=== PATIENT | male | born 1950 | race Caucasian/White ===

== ENCOUNTER 2019-02-15 16:20 | Inpatient (IN) | payer MEDICARE, MEDICAID, SELFPAY ==
[2019-02-15 16:20] VITALS: BP 90/55; PULSE 123; RESP 28; TEMP 38.6; O2SAT 96; BMI 19.1
--- NOTE | 2019-02-15 16:20 | ED_ITS ---
Entered by Peggy Lozano, acting as scribe for HPI - SOB/Dyspnea General: Chief Complaint: Shortness of Breath/Dyspnea Stated Complaint: breathing difficulties Time Seen by Provider: 02/15/19 16:24 Source: patient and EMS Mode of arrival: EMS Limitations: no limitations History of Present Illness: HPI Narrative: 68-year-old male presents emergency room with increasing shortness of breath and productive cough over the last week. He denies any significant hemoptysis. He denies significant chest pain. He has been nauseous with decreased appetite. Patient is a former heavy smoker. MD elicited complaint: shortness of breath Onset (ago): day(s) Associated symptoms: Reports fever(s), nausea and orthopnea; Deny abdominal pain, chest pain or vomiting Review of Systems Const: Reports: fever, chills, body aches, fatigue and malaise; Denies: change in appetite ENMT: Denies: throat pain, ear pain, nasal discharge or nasal congestion Card: Reports: shortness of breath on exertion and shortness of breath when lying down; Denies: chest pain or edema Resp: Reports: shortness of breath and productive cough GI: Reports: nausea; Denies: abdominal pain, vomiting, vomiting blood, coffee grounds in vomit, diarrhea, constipation, bloating, blood in stool or black tarry stool : Denies: flank pain, painful urination, urinary frequency or urinary urgency Skin/Breast: Denies: rash or itching PFSH ED PFSH: Statuses (acute, chronic, etc) shown below reflect problem list status as previously entered and may not be historically accurate Medical History (Updated 02/16/19 @ 06:42 by Lito Whitman DO) COPD (chronic obstructive pulmonary disease) (Acute) Coronary artery disease (Acute Unknown) History of arthritis (Acute) History of COPD (Acute) History of depression (Acute) History of hyperlipidemia (Acute) History of hypertension (Acute) History of pulmonary fibrosis (Acute) Hypertension (Acute) Surgical History (Updated 02/15/19 @ 19:55 by Miguelina Bennett) History of cervical spinal surgery (Acute) History of prostatectomy (Acute) History of right knee surgery (Acute) Hx of inguinal hernia surgery (Acute) Social History Smoking and tobacco status: current every day smoker cigarettes Packs smoked per day: 2 Number of cigarettes per day: >20 Alcohol intake: never Substance/Drug Use: never Caregiver/support person: No Lives independently: Yes Household members: none Housing: House Physical Exam Const: COMMON NORMALS: oriented x3 and alert GENERAL APPEARANCE: cooperative, in distress, anxious, disheveled and frail appearing NUTRITIONAL APPEARANCE: underweight ORIENTATION/CONSCIOUSNESS: Yes awake, Yes oriented to person, Yes oriented to place and Yes oriented to time HENMT: COMMON NORMALS: normocephalic, head/scalp atraumatic, hearing grossly normal bilaterally, external ears normal, EAC's normal, TM's normal bilaterally, nasal mucous membranes and turbinates normal, moist oral mucous membranes and oropharynx normal HEAD & SCALP: normocephalic and atraumatic NOSE: nasal mucous membranes and turbinates normal EXTERNAL EAR: Yes external ears normal EXTERNAL AUDITORY CANAL: EAC's normal TYMPANIC MEMBRANE: TM's normal bilaterally Eye: COMMON NORMALS: PERRL, EOMs intact bilaterally, conjunctivae normal and no scleral icterus CONJUNCTIVA: Yes conjunctivae normal PUPIL: Yes PERRL Neck/C-Spine: COMMON NORMALS: full ROM, no lymphadenopathy, supple and no JVD Lymph: LYMPHATIC: no lymphadenopathy noted and no lymphedema noted Resp: EFFORT & INSPECTION: Yes uses accessory muscles and Yes audible wheezes AUSCULTATION: rales on the right in the upper lung boogie, rhonchi throughout, wheezes throughout and diminished lung sounds Cardio: COMMON NORMALS: no JVD, regular rhythm and no murmurs RATE: tachycardic RHYTHM: regular rhythm Extremity: COMMON NORMALS: normal capillary refill, no calf tenderness and no pedal edema GENERAL: Yes clubbing (Fingertips) and Yes cyanosis Neuro: COMMON NORMALS: oriented x3 SENSORIUM/ORIENTATION: Yes alert, Yes oriented to person, Yes oriented to place and Yes oriented to time Skin: COMMON NORMALS: no rashes or lesions noted GENERAL SKIN EXAM: no rashes or lesions noted Course ED course: Patient febrile and acutely short of breath on arrival. Did improve with oxygen supplementation and nebulizers. Chest x-ray shows extensive right upper lobe and right middle lobe pneumonia as well as a left upper lobe pneumonia. White count 38 5 patient will need admission for IV antibiotics likely will also need CT of the chest at some point. Vital Signs: Vital signs: Vital Signs Temperature 98.4 F 02/16/19 05:00 Pulse Rate 68 02/16/19 05:00 Respiratory Rate 24 H 02/16/19 05:00 Blood Pressure 118/64 02/16/19 05:00 Pulse Oximetry 97 02/16/19 05:15 MDM - SOB/Dyspnea Lab Data: Labs: Lab Results 02/15/19 02/15/19 02/15/19 Range/Units 16:40 16:40 16:40 WBC 31.6 H* (4.0-10.0) 10^3/ uL RBC 4.09 L (4.1-5.3) 10^6/u L Hgb 12.7 (11.7-16.6) g/dL Hct 37.5 L (42.0-52.0) % MCV 91.7 (80-94) fL MCH 31.1 (28.0-34.0) pg MCHC 33.9 (30.0-36.0) g/dL RDW 13.6 (12.1-15.1) % Plt Count 394 (130-400) 10^3/c mm MPV 10.4 (7.4-10.4) fL Neut % (Auto) 72.5 % Lymph % (Auto) 16.2 % Teller % (Auto) 6.9 % Eos % (Auto) 0.1 % Baso % (Auto) 0.3 % Neut # (Auto) 23.0 H (1.8-7.7) 10^3/u L Lymph # (Auto) 5.1 H (0.8-4.8) 10^3/u L Teller # (Auto) 2.2 H (0.2-0.9) 10^3/u L Eos # (Auto) 0.0 (0.0-0.8) 10^3/u L Baso # (Auto) 0.1 (0.0-0.1) 10^3/u L Nucleated RBC % (a uto) 0 % Nucleated RBCs # 0.0 /100WBC D-Dimer 5.56 H (0-0.59) ug/mIFE U Specimen Type Sample Site ABG pH (7.35-7.45) ABG pCO2 (35-45) mmHg ABG pO2 (80.0-100.0) mmH g ABG HCO3 (22-26) mmol/L ABG Base Excess (-2.0-2.0) mmol/ L Yan Test Hematocrit (42-52) % Hgb O2 Saturation (95-100) % Carboxyhemoglobin (0.4-20.1) %THgb Methemoglobin (0.4-1.5) % Total Hemoglobin (14-18) g/dL O2 Delivery Device O2 Liters/Min % FiO2 % Specimen Drawn By Wastewater Manager ID Sodium 131 L (136-145) mmol/L Potassium 4.2 (3.5-5.1) mmol/L Chloride 91 L (98-107) mmol/L Carbon Dioxide 25 (22-29) mmol/L Anion Gap 19.2 H (5-19) BUN 21 (8-23) mg/dL Creatinine 0.6 L (0.7-1.2) mg/dL GFR Calculation 134.4 H (90-130) mL/min Glucose 92 (74-106) mg/dL Lactic Acid (0.5-2.2) mmol/L Calcium 9.0 (8.8-10.2) mg/Dl Total Bilirubin 1.1 (0.15-1.2) mg/dL AST 50 H (0-40) U/L ALT 14 (0-41) U/L Alkaline Phosphata se 192 H (40-130) IU/L Total Protein 6.9 (6.6-8.7) g/dL Albumin 2.7 L (3.5-5.2) g/dL Globulin 4.2 (1.3-4.6) g/dL Procalcitonin (0-0.8) ng/mL Influenza Type A A g (Negative) POC Influenza B Ag (Negative) 02/15/19 02/15/19 02/15/19 Range/Units 16:40 16:40 17:05 WBC (4.0-10.0) 10^3/ uL RBC (4.1-5.3) 10^6/u L Hgb (11.7-16.6) g/dL Hct (42.0-52.0) % MCV (80-94) fL MCH (28.0-34.0) pg MCHC (30.0-36.0) g/dL RDW (12.1-15.1) % Plt Count (130-400) 10^3/c mm MPV (7.4-10.4) fL Neut % (Auto) % Lymph % (Auto) % Teller % (Auto) % Eos % (Auto) % Baso % (Auto) % Neut # (Auto) (1.8-7.7) 10^3/u L Lymph # (Auto) (0.8-4.8) 10^3/u L Teller # (Auto) (0.2-0.9) 10^3/u L Eos # (Auto) (0.0-0.8) 10^3/u L Baso # (Auto) (0.0-0.1) 10^3/u L Nucleated RBC % (a uto) % Nucleated RBCs # /100WBC D-Dimer (0-0.59) ug/mIFE U Specimen Type Sample Site ABG pH (7.35-7.45) ABG pCO2 (35-45) mmHg ABG pO2 (80.0-100.0) mmH g ABG HCO3 (22-26) mmol/L ABG Base Excess (-2.0-2.0) mmol/ L Yan Test Hematocrit (42-52) % Hgb O2 Saturation (95-100) % Carboxyhemoglobin (0.4-20.1) %THgb Methemoglobin (0.4-1.5) % Total Hemoglobin (14-18) g/dL O2 Delivery Device O2 Liters/Min % FiO2 % Specimen Drawn By Wastewater Manager ID Sodium (136-145) mmol/L Potassium (3.5-5.1) mmol/L Chloride (98-107) mmol/L Carbon Dioxide (22-29) mmol/L Anion Gap (5-19) BUN (8-23) mg/dL Creatinine (0.7-1.2) mg/dL GFR Calculation (90-130) mL/min Glucose (74-106) mg/dL Lactic Acid 1.9 (0.5-2.2) mmol/L Calcium (8.8-10.2) mg/Dl Total Bilirubin (0.15-1.2) mg/dL AST (0-40) U/L ALT (0-41) U/L Alkaline Phosphata se (40-130) IU/L Total Protein (6.6-8.7) g/dL Albumin (3.5-5.2) g/dL Globulin (1.3-4.6) g/dL Procalcitonin 0.56 (0-0.8) ng/mL Influenza Type A A g Negative (Negative) POC Influenza B Ag Negative (Negative) 02/15/19 Range/Units 18:06 WBC (4.0-10.0) 10^3/ uL RBC (4.1-5.3) 10^6/u L Hgb (11.7-16.6) g/dL Hct (42.0-52.0) % MCV (80-94) fL MCH (28.0-34.0) pg MCHC (30.0-36.0) g/dL RDW (12.1-15.1) % Plt Count (130-400) 10^3/c mm MPV (7.4-10.4) fL Neut % (Auto) % Lymph % (Auto) % Teller % (Auto) % Eos % (Auto) % Baso % (Auto) % Neut # (Auto) (1.8-7.7) 10^3/u L Lymph # (Auto) (0.8-4.8) 10^3/u L Teller # (Auto) (0.2-0.9) 10^3/u L Eos # (Auto) (0.0-0.8) 10^3/u L Baso # (Auto) (0.0-0.1) 10^3/u L Nucleated RBC % (a uto) % Nucleated RBCs # /100WBC D-Dimer (0-0.59) ug/mIFE U Specimen Type Arterial Sample Site Brachial, left ABG pH 7.46 H (7.35-7.45) ABG pCO2 36.9 (35-45) mmHg ABG pO2 75.4 L (80.0-100.0) mmH g ABG HCO3 26.4 H (22-26) mmol/L ABG Base Excess 2.6 H (-2.0-2.0) mmol/ L Yan Test Pos Hematocrit 36.7 L (42-52) % Hgb O2 Saturation 93.6 L (95-100) % Carboxyhemoglobin 1.5 (0.4-20.1) %THgb Methemoglobin 0.9 (0.4-1.5) % Total Hemoglobin 12.0 L (14-18) g/dL O2 Delivery Device Nc O2 Liters/Min 4.0 % FiO2 36.0 % Specimen Drawn By Ck Wastewater Manager ID cak Sodium (136-145) mmol/L Potassium (3.5-5.1) mmol/L Chloride (98-107) mmol/L Carbon Dioxide (22-29) mmol/L Anion Gap (5-19) BUN (8-23) mg/dL Creatinine (0.7-1.2) mg/dL GFR Calculation (90-130) mL/min Glucose (74-106) mg/dL Lactic Acid (0.5-2.2) mmol/L Calcium (8.8-10.2) mg/Dl Total Bilirubin (0.15-1.2) mg/dL AST (0-40) U/L ALT (0-41) U/L Alkaline Phosphata se (40-130) IU/L Total Protein (6.6-8.7) g/dL Albumin (3.5-5.2) g/dL Globulin (1.3-4.6) g/dL Procalcitonin (0-0.8) ng/mL Influenza Type A A g (Negative) POC Influenza B Ag (Negative) Imaging Data^: CXR: My impression: Bilateral upper lobe pneumonia some involvement of the right middle lobe. Scattered granulomas these thickening pleura no cardiomegaly radiology overread pending Discharge Plan Discharge Patient Disposition: Admitted As Inpatient Admit Provider: Ricco Louis Clinical Impression: Pneumonia Qualifiers: Pneumonia type: due to unspecified organism Laterality: bilateral Lung location: upper lobe of lung Qualified Code(s): J18.9 - Pneumonia, unspecified organism COPD (chronic obstructive pulmonary disease) Qualifiers: COPD type: COPD with acute exacerbation Qualified Code(s): J44.1 - Chronic obstructive pulmonary disease with (acute) exacerbation Condition: Stable Referrals: Ricco Louis MD [Hospitalist] - Interventions: ED Discharge Assessment Last Done: 02/16/19 01:30 Discharge Date/Time: 02/16/19 01:15 Coding Level of Care Code ED [employer] for Chg Fwd Exam Problem Focused The documentation recorded by the Blake fuller Bridget Annette, accurately reflects the service I personally performed and the decisions made by me, Lito Whitman, DO
[2019-02-15 16:54] LABS: Basophils # 0.1 10^3/uL (0.0-0.1); Basophils % 0.3 %; Eosinophils % 0.1 %; Hematocrit 37.5 % (42.0-52.0); Hemoglobin 12.7 g/dL (11.7-16.6); Lymphocytes # 5.1 10^3/uL (0.8-4.8); Lymphocytes % 16.2 %; Mean Corpuscular HGB Conc 33.9 g/dL (30.0-36.0); Mean Corpuscular Hemoglobin 31.1 pg (28.0-34.0); Mean Corpuscular Volume 91.7 fL (80-94); Mean Platelet Volume 10.4 fL (7.4-10.4); Monocytes # 2.2 10^3/uL (0.2-0.9); Monocytes % 6.9 %; Neutrophils % 72.5 %; Nucleated Red Blood Cells % 0 %; Platelet Count 394 10^3/cmm (130-400); Red Blood Count 4.09 10^6/uL (4.1-5.3); Red Cell Distribution Width 13.6 % (12.1-15.1)
[2019-02-15 17:05] LABS: White Blood Count 31.6 10^3/uL (4.0-10.0)
[2019-02-15 17:06] LABS: Alanine Aminotransferase 14 U/L (0-41); Albumin Level 2.7 g/dL (3.5-5.2); Alkaline Phosphatase 192 IU/L (40-130); Anion Gap 19.2 (5-19); Aspartate Amino Transferase 50 U/L (0-40); Blood Urea Nitrogen 21 mg/dL (8-23); Carbon Dioxide 25 mmol/L (22-29); Chloride 91 mmol/L (98-107); Globulin 4.2 g/dL (1.3-4.6); Glomerular Filtration Rate 134.4 mL/min (90-130); Glucose 92 mg/dL (74-106); Potassium 4.2 mmol/L (3.5-5.1); Sodium 131 mmol/L (136-145); Total Bilirubin 1.1 mg/dL (0.15-1.2); Total Protein 6.9 g/dL (6.6-8.7)
[2019-02-15] MEDS: sodium chloride 0.9% 1,000 ML 999 ML IV (17:08)
--- NOTE | 2019-02-15 17:13 | XR_ITS ---
WS: [id number] Portable AP upright chest, 02/15/2019 Clinical Data: dyspnea Comparison: Portable chest, 09/08/2018. Findings: Compared to prior chest x-ray there is been an increase in interstitial thickening in both the right and left upper lobes. There is an irregular density in the right upper lobe which could rep resent an acute pneumonia. There are bilateral apical cavitary lesions. There is a 4 cm groundglass o pacity in the left upper lobe which may represent acute pneumonia. The lower lobes show no pneumonia but there are numerous granulomas. The heart size is normal. The pulmonary vascularity is not remark able. XR/XR chest 1V portable [id number] Impression: 1. Increase in interstitial thickening in both upper lobes with bilateral apica l pleural cavitary lesions and this could represent tuberculosis. 2. Increased density in right upper lobe with irregular borders and this may r epresent acute pneumonia. 3. Groundglass opacity which may be in the lingula of the left upper lobe which could represent acute pneumonia.
[2019-02-15 17:15] VITALS: O2SAT 96
[2019-02-15 17:50] LABS: Influenza A by IFA Negative (Negative); Influenza B by IFA Negative (Negative)
[2019-02-15 18:17] LABS: ABG PCO2 36.9 mmHg (35-45); ABG PH Result 7.46 (7.35-7.45); Arterial Blood Gas Hematocrit 36.7 % (42-52); Base Excess ABG 2.6 mmol/L (-2.0-2.0); Blood Gas Allen Test Pos; Blood Gas Sample Site Brachial, left; Blood Gas Sample Type Arterial; Carboxyhemoglobin 1.5 %THgb (0.4-20.1); HCO3 ABG 26.4 mmol/L (22-26); HGB O2 Sat 93.6 % (95-100); Methemoglobin 0.9 % (0.4-1.5); PO2 ABG 75.4 mmHg (80.0-100.0)
[2019-02-15 18:18] VITALS: BP 103/66; PULSE 111; RESP 23; O2SAT 94
--- NOTE | 2019-02-15 18:28 | CTR_ITS ---
PROCEDURE INFORMATION: Exam: CT Chest Without Contrast Exam date and time: 02/15/2019 6:34 PM Age: 68 years old Clinical indication: Cough and shortness of breath; Additional info: Copd/pna TECHNIQUE: Imaging protocol: Computed tomography of the chest without contrast. Sagittal and coronal reformatted images were created and reviewed. Total DLP: 686.08 mGy-cm Radiation optimization: All CT scans at this facility use at least one of these dose optimization techniques: automated exposure control; mA and/or kV adjustment per patient size (includes targeted exams where dose is matched to clinical indication); or iterative reconstruction. COMPARISON: CR XR chest 1V portable [id number] 02/15/2019 5:25 PM FINDINGS: Lungs: Debris layering in the trachea. This may represent bronchial secretions or aspirated contents. Extensive pulmonary parenchymal scarring in the right and left upper lobes with superior retraction of the jeff. Bronchiectatic changes in the right and left upper lobes, findings are extensive on the right. Numerous calcified granulomas scattered throughout both lungs. Moderate to severe centrilobular and paraseptal emphysematous changes in the lungs, predominantly in the upper lobes. Bulla formation in the lung apices. There is dense opacification in the right lower lobe and more diffuse patchy opacification in both right and left lower lobes. Irregular masslike density in the left upper lobe measuring 2.4 x 1.6 cm (series 3, image 21). Irregular lesions with thickened barrera and air-fluid levels in both the superior segment of the right lower lobe and in the left upper lobe, findings are concerning for cavitary lesions. These measures 6.4 x 4.4 cm on the right and 4.6 x 5.9 cm on the left (series 3, images 10 and 23). Pleural space: There are left pleural calcifications. Findings suggest asbestos related pleural disease. Heart: The heart is normal in size. Extensive atherosclerotic calcification in the coronary arteries. Mediastinum: The esophagus is unremarkable as visualized. No mediastinal hematoma. No pneumomediastinum. Aorta: No evidence for aortic aneurysm. Other arteries: Atherosclerotic changes in the visualized arteries. Other veins: The pulmonary veins are unremarkable. Lymph nodes: Right hilar calcified lymph nodes. No lymphadenopathy. Bones/joints: Mild scoliosis in the visualized spine. Multilevel degenerative changes of varying severity in the visualized spine. Patient has had a previous cervical spine fusion. Soft tissues: The extrathoracic soft tissues are unremarkable. Other findings: No acute abnormality in the visualized upper abdomen. CT/CT chest wo con [id number] IMPRESSION: 1. There is dense opacification in the right lower lobe and more diffuse patchy opacification in both right and left lower lobes. Findings may be due to bacterial pneumonia, however there are findings suspicious for cavitary lesions in the superior right lower lobe and in the left upper lobe as well, possible tuberculosis cannot be ruled out. Recommend clinical correlation. 2. Irregular masslike density in the left upper lobe measuring 2.4 x 1.6 cm (series 3, image 21). This could represent an area of nodular pleural parenchymal scarring, a pulmonary mass cannot be ruled out however. Recommend clinical correlation. 3. Debris layering in the trachea. This may represent bronchial secretions or aspirated contents. 4. Extensive pulmonary parenchymal scarring in the right and left upper lobes with superior retraction of the jeff. Bronchiectatic changes in the right and left upper lobes, findings are extensive on the right. 5. Moderate to severe centrilobular and paraseptal emphysematous changes in the lungs, predominantly in the upper lobes. Bulla formation in the lung apices. 6. Findings suggesting asbestos related pleural disease. 7. Incidental/nonacute findings are listed in the report. Radiation Dose CTDIVOL = (mGy): DLP = 686.08 (mGy-cm)
--- NOTE | 2019-02-15 18:30 | PM.HP ---
Providers/Chief Complaint Chief Complaint: breathing difficulties History of Present Illness GIOVANNA MCKEON is a 68 year old male possible history of hypertension, dyslipidemia, anxiety/depression, CAD, [place] spotted fever, possible atrial fibrillation, pulmonary fibrosis, COPD on 4 L nasal cannula oxygen supplementation and recently started on Trelegy presented to the ER with complaining of cough along with expectoration and shortness of breath getting worse for last 3 weeks getting worse for last 4 days and this morning he was not able to walk or talk without getting out of breath so he presented to the ER. He states he does not check his saturations at home but has been feeling worse recently so had gone up on his oxygen supplementation. He complains of subjective feel a fever but has not checked his fevers. He complains of dizziness, nausea but no vomiting or loss of function but does complain of fall when his legs gave away 2 days ago. He denies of having any head injury. Shortness of breath gets worse on walking but is not associated with orthopnea or PND. Shortness of breath is associated with cough with yellowish not foul-smelling not blood-tinged expectoration for last 5 days. He denies of having any recent travels, sick contacts, runny nose, postnasal drip. He denies of having any abdominal pain, change in bowel movements, vomiting, bleeding from anywhere. His symptoms are associated with chest pain on taking deep inspiration along with wheeze which is been getting worse recently. He denies of having any cyanosis. He states around 5 months ago he was put on bilateral braces by Dr. Mann as he was told that his ankles are very weak and fragile to prevent any fractures. Review of Systems Const: Reports: fever, chills, body aches and malaise; Denies: change in appetite, night sweats, diaphoresis, change in sleep pattern, daytime sleepiness or snoring Eyes: Denies: change in vision, blurry vision, photophobia, eye discomfort or eye discharge ENMT: Denies: throat pain, enlarged tonsils, hoarseness, mouth pain, oral sores/lesions, dry mouth, tinnitus, nasal congestion or post nasal drip Card: Reports: chest pain and shortness of breath on exertion; Denies: palpitations, irregular heart rhythm, edema, swelling of feet/ankles, lightheadedness, syncope, pre-syncope, shortness of breath when lying down, leg pain with exertion or bluish discoloration of hands/feet Resp: Reports: shortness of breath, productive cough, wheezing, pain on inspiration, change in phlegm color and chest congestion; Denies: non-productive cough, stridor or coughing up blood GI: Denies: abdominal pain, nausea, vomiting, vomiting blood, coffee grounds in vomit, difficulty swallowing, heartburn/indigestion, diarrhea, constipation, bloating, cramping, change in bowel habits, painful bowel movements, blood in stool or black tarry stool : Denies: flank pain, difficulty urinating, painful urination, urinary frequency, urinary urgency, urinary hesitancy, urinary dribbling, difficulty starting urination, change in urine stream, nighttime urination or blood in urine Musc: Denies: neck pain, back pain, extremity pain, joint pain, joint swelling, redness, joint stiffness or limited range of motion Neuro: Reports: frequent falls and dizziness; Denies: headache, numbness in extremities, weakness in extremities, changes in sensation, lack of coordination, difficulty walking, vertigo, confusion, slurred speech, difficulty communicating thoughts or seizure-like activity Psych: Denies: anxiety, depression, mood swings, panic attacks, hopelessness or irritability Endo: Denies: excessive urination, excessive thirst, tired all the time, cold intolerance, excessive sweating, flushing or heat intolerance Lenard/Lymph: Denies: easy bruising or easy bleeding All/Imm: Denies: tongue swelling, facial swelling or acute wheezing Medications/Allergies Allergies Allergy/AdvReac Type Severity Reaction Status Date / Time No Known Allergies Allergy Verified 02/15/19 16:32 PFSH Acute PFSH: Statuses (acute, chronic, etc) shown below reflect problem list status as previously entered and may not be historically accurate Medical History (Updated 02/15/19 @ 18:40 by Ricco Louis MD) COPD (chronic obstructive pulmonary disease) (Acute) Coronary artery disease (Acute Unknown) History of arthritis (Acute) History of COPD (Acute) History of depression (Acute) History of hyperlipidemia (Acute) History of hypertension (Acute) History of pulmonary fibrosis (Acute) Hypertension (Acute) Surgical History (Updated 02/15/19 @ 16:35 by Peggy Lozano) History of cervical spinal surgery (Acute) History of prostatectomy (Acute) History of right knee surgery (Acute) Hx of inguinal hernia surgery (Acute) Social History (Updated 02/15/19 @ 18:38 by Ricco Louis MD) Smoking and tobacco status: current every day smoker cigarettes Packs smoked per day: 2 Number of cigarettes per day: >20 Alcohol intake: never Substance/Drug Use: never Caregiver/support person: No Lives independently: Yes Household members: none Housing: House Vitals/I&O/Wt Last Vital Signs Temp 101.5 F H 02/15/19 16:20 Pulse 111 H 02/15/19 18:18 Resp 23 H 02/15/19 18:18 BP 103/66 02/15/19 18:18 Pulse Ox 94 02/15/19 18:18 Weight last 48 hrs Weight 77.111 kg Physical Exam Narrative: EXAM NARRATIVE: General: No acute distress, AO x3, dehydrated, white coated tongue, halitosis. HEENT: PERRLA, pupils bilaterally equal and reactive Chest: Bronchial breath sounds in right upper and middle lobes along with inspiratory and expiratory wheeze and coarse Crepitations. Rales present all over lung boogie more than right upper and middle lobe and left lower lobe. CVS: S1-S2 regular, no murmurs, no tachycardia, no gallops, no rubs Abdomen: Soft, nontender, no organomegaly, bowel sounds present Neuro: No focal deficits, no facial deformity, AO x3, power 3/5 in all limbs Extremities: No cyanosis no edema, bilateral pulses 2+ Data Micro: Micro: Microbiology 02/15/19 16:40 Blood Culture - Pr eliminary Blood [facility] 02/15/19 16:40 Blood Culture - Pr eliminary Blood [facility] A&P Assessment and plan (1) Sepsis with acute hypoxic respiratory failure: Status: Acute Code(s): A41.9 - Sepsis, unspecified organism; R65.20 - Severe sepsis without septic shock; J96.01 - Acute respiratory failure with hypoxia (2) Pneumonia: Status: Acute Code(s): J18.9 - Pneumonia, unspecified organism (3) COPD (chronic obstructive pulmonary disease): Status: Acute Code(s): J44.9 - Chronic obstructive pulmonary disease, unspecified (4) Pulmonary fibrosis: Status: Acute Code(s): J84.10 - Pulmonary fibrosis, unspecified (5) Hypertension: Status: Acute Code(s): I10 - Essential (primary) hypertension Additional A&P Information Additional A&P Information: Sepsis: Criteria met with tachycardia, low blood pressures hypoxia. IV fluid resuscitation with 30 mils per KG body weight. Keep mean arterial pressure over 65 mmHg. If blood pressures not maintained will start on Levophed for septic shock. Switch antibiotics to vancomycin and Zosyn at renally dosed. Flu swab, MRSA swab, sputum culture for Gram stain, blood cultures, urine analysis, urine cultures, urine drug screen, procalcitonin, lactate with reflex, urine for Legionella, bacterial antigen. Patient would most likely be having right upper lobe malignancy as he has had consolidation in the same area in the past. Chances of PE less. Will do CT chest without contrast. Check d-dimer. ABG appreciated. Acute hypoxic respiratory failure: Most likely related to pneumonia over COPD exacerbation along with history of pulmonary fibrosis.. Antibiotics as above. Oxygen supplementation keeping saturation over 90%. DuoNeb's [id number], budesonide twice daily, albuterol as needed. Solu-Medrol 40 mg every 6 hours as patient is having extensive wheeze on examination. Hypertension: We will hold off on antihypertensives for now in view of septic shock. Keep mean artery pressure was 55 Hg. History of CAD: Patient is not on any aspirin or statin. Check stat EKG. Patient denies of having any chest pain. N.p.o. because of acute hypoxic respiratory failure. CODE STATUS: Discussed with the patient regarding his wishes. He states he would like to be full code. Lovenox for DVT prophylaxis Attestations Medical Necessity Statement*: Would need admission for more than 48 hours for septic shock and hypoxic respiratory failure Coding Level of Care Code Acute [facility] Vet for [facility] Diagnoses Sepsis with acute hypoxic respiratory failure A41.9; R65.20; J96.01 Pneumonia J18.9 COPD (chronic obstructive pulmonary disease) J44.9 Pulmonary fibrosis J84.10 Hypertension I10
[2019-02-15] MEDS: acetaminophen 500 mg Tablet 1000 MG PO (18:38)
[2019-02-15 18:50] LABS: Lactic Sepsis W/Reflex 1.9 mmol/L (0.5-2.2)
[2019-02-15 18:55] LABS: D Dimer 5.56 ug/mIFEU (0-0.59)
[2019-02-15 19:03] LABS: Procalcitonin 0.56 ng/mL (0-0.8)
[2019-02-15] MEDS: dextrose 5%-sod chloride 0.9% 1,000 ML 100 ML IV (19:05)
--- NOTE | 2019-02-15 19:38 | PC.NURSE ---
Patient requested ice chips, ice chips were given and patient was gowned.
[2019-02-15 19:43] LABS: Blood Gas Drawn By CK; Oxygen Device NC
[2019-02-15 22:11] VITALS: BP 132/63; PULSE 76; RESP 26
[2019-02-15 22:56] VITALS: TEMP 36.4
--- NOTE | 2019-02-15 22:57 | PC.NURSE ---
Patient requested two sandwiches and a soda, okayed by doctor. Sandwiches and soda were given. NOtice that patient was very sweaty, took oral temp and changed patient's pillow case and cleaned pillow. Myra also requested for a urinal and a urinal was given.
[2019-02-15] MEDS: piperacillin-tazobactam 3.375 GM in sodium chloride 0.9% (plus) 50 ML 100 GM PHA2DOSE (23:03)
[2019-02-15 23:47] LABS: Amphetamines Screen Urine Negative (Negative); Barbiturates Screen Urine Negative (Negative); Benzodiazepines Screen Urine Negative (Negative); Cocaine Screen Urine Negative (Negative); Opiate Screen Urine Negative (Negative); PCP Screen Urine Negative (Negative); THC Screen Urine Negative (Negative)
[2019-02-16] VITALS (26 sets, daily range): BP systolic 83–123; BP diastolic 51–88; PULSE 61–131; RESP 18–32; TEMP 36.4–36.9; O2SAT 91–98
[2019-02-16 00:32] LABS: Add Urine Microscopic? NO
[2019-02-16 00:42] LABS: Bilirubin Urine Neg (NEGATIVE); Blood Urine Neg (Negative); Glucose Urine UA Norm (Normal); Ketones Urine 1+ (Negative); Leukocyte Esterase Urine Negative (Negative); Nitrate Urine Negative (Negative); Protein Urine Neg (Negative); Sulfosalicylic Acid Urine Negative; Urine Appearance Clear (CLEAR); Urine Color Yellow (Yellow); Urobilinogen Urine 8 mg/dL (Negative); pH Urine 6 (5-7)
--- NOTE | 2019-02-16 02:10 | PC.PHAR ---
Creatinine clearance is 130.1. Vancomycin is dosed at 1500mg IVPB every 12 hours to produce a predicted trough level of 10.63 (population based pharmacokinetic analysis). A trough level has been ordered from the lab to be obtained before the third dose to confirm and adjust if needed. The Zosyn is dosed at 3.375gm IVPB every eight hours, each dose to be infused over 4 hours per extended dosing protocol.
[2019-02-16] MEDS: ipratropium-albuterol 3 mL Neb INHALATION ×5 (02:21→20:26)
[2019-02-16] MEDS: dextrose 5%-ns + KCl 20 20 MEQ/1,000 ML BAG 125 MEQ IV (03:34)
[2019-02-16 04:59] LABS: Basophils # 0.1 10^3/uL (0.0-0.1); Basophils % 0.3 %; Hematocrit 36.4 % (42.0-52.0); Hemoglobin 12.2 g/dL (11.7-16.6); Lymphocytes # 6.2 10^3/uL (0.8-4.8); Lymphocytes % 16.1 %; Mean Corpuscular HGB Conc 33.5 g/dL (30.0-36.0); Mean Corpuscular Hemoglobin 31.3 pg (28.0-34.0); Mean Corpuscular Volume 93.3 fL (80-94); Mean Platelet Volume 10.4 fL (7.4-10.4); Monocytes % 2.7 %; Neutrophils # 29.8 10^3/uL (1.8-7.7); Neutrophils % 77.4 %; Nucleated Red Blood Cells % 0 %; Platelet Count 414 10^3/cmm (130-400); Red Cell Distribution Width 13.9 % (12.1-15.1)
[2019-02-16 05:26] LABS: Alanine Aminotransferase 15 U/L (0-41); Albumin Level 2.6 g/dL (3.5-5.2); Alkaline Phosphatase 167 IU/L (40-130); Anion Gap 16.3 (5-19); Aspartate Amino Transferase 35 U/L (0-40); Blood Urea Nitrogen 19 mg/dL (8-23); Calcium 8.6 mg/Dl (8.8-10.2); Carbon Dioxide 24 mmol/L (22-29); Chloride 98 mmol/L (98-107); Globulin 3.2 g/dL (1.3-4.6); Glomerular Filtration Rate 165.9 mL/min (90-130); Glucose 219 mg/dL (74-106); Potassium 4.3 mmol/L (3.5-5.1); Sodium 134 mmol/L (136-145); Total Protein 5.8 g/dL (6.6-8.7)
[2019-02-16] MEDS: piperacillin-tazobactam 3.375 GM in sodium chloride 0.9% (plus) 50 ML IV ×3 (05:49→23:04)
[2019-02-16 06:20] LABS: Slide Review Slide Review Perform; White Blood Count 38.5 10^3/uL (4.0-10.0)
[2019-02-16] MEDS: budesonide 0.5 mg/2 mL Neb INHALATION ×2 (08:50→20:25)
[2019-02-16 10:47] LABS: LAB Peripheral Smear Sent for Review
[2019-02-16] MEDS: dextrose 5%-sod chloride 0.9% 1,000 ML 100 ML IV ×2 (11:55→23:05)
[2019-02-16] MEDS: metoprolol tartrate 1 mg/1 mL SDV 5 mL 2.5 MG IV (14:57)
[2019-02-16] MEDS: phenylephrine inj 25 MG in sodium chloride 0.9% 250 ML 12 MG IV (17:04)
[2019-02-16] MEDS: digoxin 250 mcg/ml INJ 2 mL IVP ×2 (21:23→23:56)
--- NOTE | 2019-02-16 22:51 | PM.PN ---
Subjective Subjective: Interval history: Seen and examined earlier this morning. Overnight labs, H&P reviewed. Prior records reviewed. Discharged in 09/2018 with [facility]BC >30K, states he followed with primary where counts were normal. Old CXR and CT chest imaging reviewed. Last Ct several years ago did not show extensive destrcution as seen on CT now. Sputum cx in 09/2018 with Pseudomonas aeruginosa, yanez -S. Additional history: Reports being incarcerated in [place] for 14 months until April 2018 after being led astray by someone he met on the internet. Does not recall being PPD tested. Not currently sexually active. Multiple women partners only in the past. No h/o opportunistic infections. Medications: Reviewed: Yes Vitals/I&O/Wt Last Vital Signs Temp 98.5 F 02/16/19 20:06 Pulse 123 H 02/16/19 20:36 Resp 22 H 02/16/19 20:26 BP 115/72 02/16/19 20:06 Pulse Ox 93 02/16/19 20:26 02/16/19 02/16/19 02/16/19 06:59 14:59 22:59 Intake Total 1123.333 / 4011.912 6166.000 / 2200.000 1218.05 / 3418.050 Output Total 860 / 860 Balance 1123.333 / 6981.654 5978.000 / 2200.000 358.05 / 2558.050 Weight last 48 hrs Weight 81.329 kg Weight 77.111 kg Physical Exam Narrative: EXAM NARRATIVE: Gen: awake,alert, coughing several times during interview, dyspneic on speaking in complete sentences CVS: S1S2N RS: B/L coarse breath sounds + Aabd: Soft, NT/ND, BS+ Data Micro: Micro: Microbiology 02/16/19 15:08 Legionella Urinary Antigen - Final Urine,Voided 02/15/19 16:40 Blood Culture - Pr eliminary Blood NEGATIVE TO DIAMOND E 02/15/19 16:40 Blood Culture - Pr eliminary Blood NEGATIVE TO DIAMOND E A&P Assessment and plan (1) Pneumonia: Status: Acute Qualifiers: Laterality: bilateral Lung location: upper lobe of lung Pneumonia type: due to unspecified organism Qualified Code(s): J18.9 - Pneumonia, unspecified organism Code(s): J18.9 - Pneumonia, unspecified organism (2) COPD (chronic obstructive pulmonary disease): Status: Acute Qualifiers: COPD type: COPD with acute exacerbation Qualified Code(s): J44.1 - Chronic obstructive pulmonary disease with (acute) exacerbation Code(s): J44.9 - Chronic obstructive pulmonary disease, unspecified (3) Pulmonary fibrosis: Status: Acute Code(s): J84.10 - Pulmonary fibrosis, unspecified (4) Hypertension: Status: Acute Code(s): I10 - Essential (primary) hypertension Additional A&P Information Additional A&P Information: Sepsis: Criteria met with tachycardia, low blood pressures hypoxia. Started on levophed this morning, which was switched to phenylephrine this evening with development of A fib with RVR. Continue antibiotics vancomycin and Zosyn empirically Added on AFB cx, MTB PCR from induced sputum x 3 if able to obtain. Planned for bronchoscopy tomorrow morning Chief differentials include extensive necrotizing cavitary Pseudomonas pneumonia vs pulmonary TB Airborne precautions until TB ruled out HIV and hepatitis screen Acute hypoxic respiratory failure: Most likely related to extensive destructive pneumonia. Antibiotics as above. Oxygen supplementation keeping saturation over 90%. DuoNeb's [id number], budesonide twice daily, albuterol as needed. Solu-Medrol 40 mg every 6 hours as patient is having extensive wheeze on examination. Hypertension: We will hold off on antihypertensives for now in view of septic shock. Keep mean artery pressure was 55 Hg. History of CAD: Patient is not on any aspirin or statin. Check stat EKG. Patient denies of having any chest pain. N.p.o. because of acute hypoxic respiratory failure. CODE STATUS: Discussed with the patient regarding his wishes. He states he would like to be full code. Lovenox for DVT prophylaxis Attestations Medical Necessity Statement*: work up of extensive necrotizing cavitray pneumonia Coding Level of Care Code Acute [place] [facility]iller for [facility] Diagnoses Pneumonia J18.9 Laterality: bilateral Lung location: upper lobe of lung Pneumonia type: due to unspecified organism COPD (chronic obstructive pulmonary disease) J44.1 COPD type: COPD with acute exacerbation Pulmonary fibrosis J84.10 Hypertension I10
[2019-02-17] VITALS (28 sets, daily range): BP systolic 72–146; BP diastolic 26–87; PULSE 89–153; RESP 14–36; TEMP 36.6–36.9; O2SAT 86–98
[2019-02-17] MEDS: enoxaparin 40 mg/0.4 mL Syringe SUBCUT (01:58)
[2019-02-17] MEDS: ipratropium-albuterol 3 mL Neb INHALATION ×4 (02:01→20:46)
[2019-02-17] MEDS: piperacillin-tazobactam 3.375 GM in sodium chloride 0.9% (plus) 50 ML IV (05:50)
[2019-02-17 05:54] LABS: Alanine Aminotransferase 22 U/L (0-41); Albumin Level 2.2 g/dL (3.5-5.2); Alkaline Phosphatase 164 IU/L (40-130); Anion Gap 14.3 (5-19); Aspartate Amino Transferase 50 U/L (0-40); Blood Urea Nitrogen 13 mg/dL (8-23); Calcium 8.4 mg/Dl (8.8-10.2); Carbon Dioxide 25 mmol/L (22-29); Chloride 100 mmol/L (98-107); Globulin 3.5 g/dL (1.3-4.6); Glomerular Filtration Rate 165.9 mL/min (90-130); Glucose 152 mg/dL (74-106); Potassium 3.3 mmol/L (3.5-5.1); Sodium 136 mmol/L (136-145); Total Bilirubin 0.4 mg/dL (0.15-1.2); Total Protein 5.7 g/dL (6.6-8.7)
--- NOTE | 2019-02-17 06:23 | PC.NURSE ---
SHIFT SUMMARY PT HAS BEEN ALERT AND ORIENTATED. PT HAS HAD ADEQUATE URINE OUTPUT. PT HAS NOT COMPLAINED OF PAIN, PT COUGH IS STILL VERY STRONG AND BARKING NO SPUTUM. PT LUNGS REMAIN COARSE AT TIMES, DIMINISHED AND WHEEZES AT TIMES. PT IVS REMAIN PATENT. PT ABLE TO TURN SELF IN BED.
[2019-02-17 06:25] LABS: HIV 1 & 2 Antibody Non-Reactive (Non-Reactiv); HIV 1 & 2 Antigen Non-Reactive (Non-Reactiv)
--- NOTE | 2019-02-17 06:55 | PC.NURSE ---
Report received from JORDEN Peter. Pt suspected of TB. Ct shows some pulmonary fibrosis. He has 2 IVs, Left wrist and forearm. He has Zosyn, D5NS and Neosynephrine infusing. The Neosynephrine is running at 5mcg/min. He went into A-fib yesterday am around 0900. He lives alone, he has braces for his legs bilat.
--- NOTE | 2019-02-17 07:15 | PC.NURSE ---
Assessment: Pt alert and oriented. Able to turn self in bed. Coughing consenting , have not seen anything produced yet. Phenylephrine noted to be at at 20mcg/min.
[2019-02-17 07:28] LABS: Hematocrit 34.4 % (42.0-52.0); Hemoglobin 11.3 g/dL (11.7-16.6); Mean Corpuscular Volume 92.7 fL (80-94); Red Blood Count 3.71 10^6/uL (4.1-5.3)
[2019-02-17 07:29] LABS: Mean Corpuscular HGB Conc 32.8 g/dL (30.0-36.0); Mean Corpuscular Hemoglobin 30.5 pg (28.0-34.0); Mean Platelet Volume 10.2 fL (7.4-10.4); Platelet Count 529 10^3/cmm (130-400)
[2019-02-17 07:43] LABS: Absolute Segmented Neutrophil 44.4 10/cmm (1.6-7.1); Band Neutrophils Absolute 2.7 10^3/cmm (0.0-1.2); Lymphocytes 11 %; Monocytes Absolute 1.6 10^3/cmm (0.1-0.6); Segmented Neutrophils 81 %; Total Cells Counted 100 (0-100); White Blood Count 54.9 10^3/uL (4.0-10.0)
[2019-02-17 07:44] LABS: Platelet Estimate Increased (Normal)
[2019-02-17] MEDS: budesonide 0.5 mg/2 mL Neb INHALATION ×2 (08:26→20:46)
[2019-02-17] MEDS: potassium chloride premix 40 MEQ/100 ML PREMIX 25 MEQ IV (08:57)
[2019-02-17] MEDS: digoxin 250 mcg/ml INJ 2 mL IVP ×2 (08:57→13:59)
--- NOTE | 2019-02-17 09:38 | ANES.PREANES ---
Pre-Anesthetic Assessment Pre-Anesthetic Assessment: Height/Weight: Height 2.01 m Weight 80.104 kg Temp Pulse Resp BP Pulse Ox 98.3 F 125 H 20 H 113/72 94 02/17/19 06:00 02/17/19 08:35 02/17/19 08:35 02/17/19 06:00 02/17/19 08:35 Preop Diagnosis: necrotizing pneumonia Proposed Procedure: Operation Date: 02/17/19 08:30 Proposed Procedures p Bronchoscopy with BAL(Not Applicable) - Bippasha Chamberlain MD Familial anesthetic complications: None Was Beta Charissa taken within 24 hours: N/A Last intake: NPO > 8 hrs Social: Social History: Tobacco Exam: Pre-Anes Outpt Exam: alert and oriented x 3 Additional Exam Findings (including area of procedure): coarse breath sounds, A fib w/ rvr - starting on amiodarone bolus and drip Airway: Cervical ROM: WNL MP: 3 Additional comments: Poor dentition; full quintana Pulmonary: Pulmonary: COPD and SOB Comments: Severe bullous emphysema, necrotizing pneumonia - elevated white count CV/HEM: CV/HEM: Afib, HTN and [place] Comments: currently on phenylephrine drip : : None reported Hepatic: Hepatic: None reported GI: GI: GERD Metabolic: Metabolic: None reported Neuropsych: Neuropsych: None reported Anesthetic Plan: ASA status: IV Anesthesia: MAC Risk of > 500 ml blood loss (7ml/kg in children): No Other Pertinent Information: Septic Meds/Allergies Current Medications: Current Medications Generic Name Dose Route Start Last Admin Trade Name Freq PRN Reason Stop Dose Admin Albuterol/Ipratrop ium 3 ml 02/16/19 02:15 02/17/19 08:26 Duoneb INHALATION 3 ml Q6H.RESPIRATORY S CH Administration Budesonide 0.5 mg 02/16/19 09:00 02/17/19 08:26 Pulmicort INHALATION 0.5 mg BID.RESPIRATORY S CH Administration Enoxaparin Sodium 40 mg 02/16/19 01:33 02/17/19 01:58 Lovenox SUBCUT 40 mg Q24H NEYMAR Administration Vancomycin HCl 1,5 00 mg/ 250 mls @ 250 mls /hr 02/15/19 21:00 02/17/19 00:30 Sodium Chloride IV Infused Q12H NEYMAR Infusion Protocol Dextrose/Sodium Ch loride 1,000 mls @ 100 m ls/hr 02/16/19 11:45 02/16/19 23:05 Dextrose 5%-Sod Chloride 0.9% IV 100 mls/hr .Q10H NEYMAR Administration Phenylephrine HCl 25 mg/ 252.5 mls @ 0 mls /hr 02/16/19 16:30 02/16/19 17:04 Sodium Chloride IV 19.8 mcg/min .Q0M NEYMAR 12 mls/hr Administration Protocol Per Protocol Potassium Chloride 40 meq in 100 mls @ 25 mls/hr 02/17/19 08:30 02/17/19 08:57 K-Mikhail IV 02/17/19 12:29 25 mls/hr ONCE ONE Administration Methylprednisolone Sodium Succinate 40 mg 02/16/19 20:00 02/17/19 09:00 Solu-Medrol IVP 40 mg Q12H NEYMAR Administration PFSH Anesthesia PFSH: Medical History (Updated 02/16/19 @ 13:05 by Evonne Perez) COPD (chronic obstructive pulmonary disease) (Acute) COPD (chronic obstructive pulmonary disease) (Acute) Coronary artery disease (Acute Unknown) Coronary artery disease (Acute Unknown) History of arthritis (Acute) History of arthritis (Acute) History of COPD (Acute) History of COPD (Acute) History of depression (Acute) History of depression (Acute) History of hyperlipidemia (Acute) History of hyperlipidemia (Acute) History of hypertension (Acute) History of hypertension (Acute) History of pulmonary fibrosis (Acute) History of pulmonary fibrosis (Acute) Hypertension (Acute) Hypertension (Acute) Surgical History (Updated 02/16/19 @ 13:05 by Evonne Perez) History of cervical spinal surgery (Acute) History of cervical spinal surgery (Acute) History of prostatectomy (Acute) History of prostatectomy (Acute) History of right knee surgery (Acute) History of right knee surgery (Acute) Hx of inguinal hernia surgery (Acute) Hx of inguinal hernia surgery (Acute) Social History Smoking and tobacco status: current every day smoker cigarettes Packs smoked per day: 2 Number of cigarettes per day: >20 Alcohol intake: never Substance/Drug Use: never Caregiver/support person: No Lives independently: Yes Household members: none Housing: House Data Anesthesia Labs: Other Labs: Laboratory Results - last 48 hr 02/15/19 02/15/19 02/15/19 16:40 16:40 16:40 WBC 31.6 H* RBC 4.09 L Hgb 12.7 Hct 37.5 L MCV 91.7 MCH 31.1 MCHC 33.9 RDW 13.6 Plt Count 394 MPV 10.4 Neut % (Auto) 72.5 Lymph % (Auto) 16.2 Starke % (Auto) 6.9 Eos % (Auto) 0.1 Baso % (Auto) 0.3 Neut # (Auto) 23.0 H Lymph # (Auto) 5.1 H Starke # (Auto) 2.2 H Eos # (Auto) 0.0 Baso # (Auto) 0.1 Nucleated RBC % (a uto) 0 Total Counted Segmented Neutroph ils Band Neutrophils Lymphocytes (Manua l) Monocytes (Manual) Absolute Monocytes Nucleated RBCs # 0.0 Platelet Estimate D-Dimer 5.56 H Specimen Type Sample Site ABG pH ABG pCO2 ABG pO2 ABG HCO3 ABG Base Excess Yan Test Hematocrit Hgb O2 Saturation Carboxyhemoglobin Methemoglobin Total Hemoglobin O2 Delivery Device O2 Liters/Min FiO2 Specimen Drawn By Director Of Event Management ID Sodium 131 L Potassium 4.2 Chloride 91 L Carbon Dioxide 25 Anion Gap 19.2 H BUN 21 Creatinine 0.6 L GFR Calculation 134.4 H Glucose 92 Lactic Acid Calcium 9.0 Total Bilirubin 1.1 AST 50 H ALT 14 Alkaline Phosphata se 192 H Total Protein 6.9 Albumin 2.7 L Globulin 4.2 Procalcitonin Urine Color Urine Appearance Urine pH Ur Specific Gravit y Urine Protein Urine Glucose (UA) Urine Ketones Urine Occult Blood Urine Nitrate Urine Bilirubin Prot Sulfosalicyli c Acd Urine Urobilinogen Ur Leukocyte Katheryn ase Urine Opiates Scre en Ur Barbiturates Sc reen Ur Phencyclidine S crn Ur Amphetamines Sc reen U Benzodiazepines Scrn Urine Cocaine Scre en U Marijuana (THC) Screen HIV 1&2 Ab & HIV 1 Ag HIV 1&2 Antibody Influenza Type A A g POC Influenza B Ag 02/15/19 02/15/19 02/15/19 16:40 16:40 17:05 WBC RBC Hgb Hct MCV MCH MCHC RDW Plt Count MPV Neut % (Auto) Lymph % (Auto) Starke % (Auto) Eos % (Auto) Baso % (Auto) Neut # (Auto) Lymph # (Auto) Starke # (Auto) Eos # (Auto) Baso # (Auto) Nucleated RBC % (a uto) Total Counted Segmented Neutroph ils Band Neutrophils Lymphocytes (Manua l) Monocytes (Manual) Absolute Monocytes Nucleated RBCs # Platelet Estimate D-Dimer Specimen Type Sample Site ABG pH ABG pCO2 ABG pO2 ABG HCO3 ABG Base Excess Yan Test Hematocrit Hgb O2 Saturation Carboxyhemoglobin Methemoglobin Total Hemoglobin O2 Delivery Device O2 Liters/Min FiO2 Specimen Drawn By Director Of Event Management ID Sodium Potassium Chloride Carbon Dioxide Anion Gap BUN Creatinine GFR Calculation Glucose Lactic Acid 1.9 Calcium Total Bilirubin AST ALT Alkaline Phosphata se Total Protein Albumin Globulin Procalcitonin 0.56 Urine Color Urine Appearance Urine pH Ur Specific Gravit y Urine Protein Urine Glucose (UA) Urine Ketones Urine Occult Blood Urine Nitrate Urine Bilirubin Prot Sulfosalicyli c Acd Urine Urobilinogen Ur Leukocyte Katheryn ase Urine Opiates Scre en Ur Barbiturates Sc reen Ur Phencyclidine S crn Ur Amphetamines Sc reen U Benzodiazepines Scrn Urine Cocaine Scre en U Marijuana (THC) Screen HIV 1&2 Ab & HIV 1 Ag HIV 1&2 Antibody Influenza Type A A g Negative POC Influenza B Ag Negative 02/15/19 02/15/19 02/15/19 18:06 23:22 23:22 WBC RBC Hgb Hct MCV MCH MCHC RDW Plt Count MPV Neut % (Auto) Lymph % (Auto) Starke % (Auto) Eos % (Auto) Baso % (Auto) Neut # (Auto) Lymph # (Auto) Starke # (Auto) Eos # (Auto) Baso # (Auto) Nucleated RBC % (a uto) Total Counted Segmented Neutroph ils Band Neutrophils Lymphocytes (Manua l) Monocytes (Manual) Absolute Monocytes Nucleated RBCs # Platelet Estimate D-Dimer Specimen Type Arterial Sample Site Brachial, left ABG pH 7.46 H ABG pCO2 36.9 ABG pO2 75.4 L ABG HCO3 26.4 H ABG Base Excess 2.6 H Yan Test Pos Hematocrit 36.7 L Hgb O2 Saturation 93.6 L Carboxyhemoglobin 1.5 Methemoglobin 0.9 Total Hemoglobin 12.0 L O2 Delivery Device Nc O2 Liters/Min 4.0 FiO2 36.0 Specimen Drawn By Ck Director Of Event Management ID cak Sodium Potassium Chloride Carbon Dioxide Anion Gap BUN Creatinine GFR Calculation Glucose Lactic Acid Calcium Total Bilirubin AST ALT Alkaline Phosphata se Total Protein Albumin Globulin Procalcitonin Urine Color Yellow Urine Appearance Clear Urine pH 6 Ur Specific Gravit y 1.010 Urine Protein Neg Urine Glucose (UA) Norm Urine Ketones 1+ H Urine Occult Blood Neg Urine Nitrate Negative Urine Bilirubin Neg Prot Sulfosalicyli c Acd Negative Urine Urobilinogen 8 H Ur Leukocyte Katheryn ase Negative Urine Opiates Scre en Negative Ur Barbiturates Sc reen Negative Ur Phencyclidine S crn Negative Ur Amphetamines Sc reen Negative U Benzodiazepines Scrn Negative Urine Cocaine Scre en Negative U Marijuana (THC) Screen Negative HIV 1&2 Ab & HIV 1 Ag HIV 1&2 Antibody Influenza Type A A g POC Influenza B Ag 02/16/19 02/16/19 02/16/19 04:15 04:15 09:50 WBC 38.5 H* RBC 3.90 L Hgb 12.2 Hct 36.4 L MCV 93.3 MCH 31.3 MCHC 33.5 RDW 13.9 Plt Count 414 H MPV 10.4 Neut % (Auto) 77.4 Lymph % (Auto) 16.1 Starke % (Auto) 2.7 Eos % (Auto) 0.0 Baso % (Auto) 0.3 Neut # (Auto) 29.8 H Lymph # (Auto) 6.2 H Starke # (Auto) 1.0 H Eos # (Auto) 0.0 Baso # (Auto) 0.1 Nucleated RBC % (a uto) 0 Total Counted Segmented Neutroph ils Band Neutrophils Lymphocytes (Manua l) Monocytes (Manual) Absolute Monocytes Nucleated RBCs # 0.0 Platelet Estimate D-Dimer Specimen Type Sample Site ABG pH ABG pCO2 ABG pO2 ABG HCO3 ABG Base Excess Yan Test Hematocrit Hgb O2 Saturation Carboxyhemoglobin Methemoglobin Total Hemoglobin O2 Delivery Device O2 Liters/Min FiO2 Specimen Drawn By Director Of Event Management ID Sodium 134 L Potassium 4.3 Chloride 98 Carbon Dioxide 24 Anion Gap 16.3 BUN 19 Creatinine 0.5 L GFR Calculation 165.9 H Glucose 219 H Lactic Acid Calcium 8.6 L Total Bilirubin 1.0 AST 35 ALT 15 Alkaline Phosphata se 167 H Total Protein 5.8 L Albumin 2.6 L Globulin 3.2 Procalcitonin Urine Color Urine Appearance Urine pH Ur Specific Gravit y Urine Protein Urine Glucose (UA) Urine Ketones Urine Occult Blood Urine Nitrate Urine Bilirubin Prot Sulfosalicyli c Acd Urine Urobilinogen Ur Leukocyte Katheryn ase Urine Opiates Scre en Ur Barbiturates Sc reen Ur Phencyclidine S crn Ur Amphetamines Sc reen U Benzodiazepines Scrn Urine Cocaine Scre en U Marijuana (THC) Screen HIV 1&2 Ab & HIV 1 Ag Non-reactive HIV 1&2 Antibody Non-reactive Influenza Type A A g POC Influenza B Ag 02/17/19 02/17/19 04:14 04:14 WBC 54.9 H* RBC 3.71 L Hgb 11.3 L Hct 34.4 L MCV 92.7 MCH 30.5 MCHC 32.8 RDW 14.0 Plt Count 529 H MPV 10.2 Neut % (Auto) Lymph % (Auto) Starke % (Auto) Eos % (Auto) Baso % (Auto) Neut # (Auto) Lymph # (Auto) Starke # (Auto) Eos # (Auto) Baso # (Auto) Nucleated RBC % (a uto) Total Counted 100 Segmented Neutroph ils 81 Band Neutrophils 5.0 Lymphocytes (Manua l) 11 Monocytes (Manual) 3.0 Absolute Monocytes 1.6 H Nucleated RBCs # Platelet Estimate Increased D-Dimer Specimen Type Sample Site ABG pH ABG pCO2 ABG pO2 ABG HCO3 ABG Base Excess Yan Test Hematocrit Hgb O2 Saturation Carboxyhemoglobin Methemoglobin Total Hemoglobin O2 Delivery Device O2 Liters/Min FiO2 Specimen Drawn By Director Of Event Management ID Sodium 136 Potassium 3.3 L Chloride 100 Carbon Dioxide 25 Anion Gap 14.3 BUN 13 Creatinine 0.5 L GFR Calculation 165.9 H Glucose 152 H Lactic Acid Calcium 8.4 L Total Bilirubin 0.4 AST 50 H ALT 22 Alkaline Phosphata se 164 H Total Protein 5.7 L Albumin 2.2 L Globulin 3.5 Procalcitonin Urine Color Urine Appearance Urine pH Ur Specific Gravit y Urine Protein Urine Glucose (UA) Urine Ketones Urine Occult Blood Urine Nitrate Urine Bilirubin Prot Sulfosalicyli c Acd Urine Urobilinogen Ur Leukocyte Katheryn ase Urine Opiates Scre en Ur Barbiturates Sc reen Ur Phencyclidine S crn Ur Amphetamines Sc reen U Benzodiazepines Scrn Urine Cocaine Scre en U Marijuana (THC) Screen HIV 1&2 Ab & HIV 1 Ag HIV 1&2 Antibody Influenza Type A A g POC Influenza B Ag Micro: Micro: Microbiology 02/16/19 15:08 Legionella Urinary Antigen - Final Urine,Voided 02/15/19 16:40 Blood Culture - Pr eliminary Blood NEGATIVE TO DIAMOND E 02/15/19 16:40 Blood Culture - Pr eliminary Blood NEGATIVE TO DIAMOND E Cardiac Studies: No Data to Display
[2019-02-17 10:25] LABS: Hepatitis C Virus Antibody Non-Reactive (Nonreactive)
[2019-02-17] MEDS: lidocaine 1% INJ 20 mL XX ×2 (10:25→12:06)
[2019-02-17] MEDS: dextrose 5%-sod chloride 0.9% 1,000 ML 30 ML IV (10:29)
[2019-02-17] MEDS: lidocaine 1% INJ 20 mL (10:57)
--- NOTE | 2019-02-17 11:09 | PM.CONSULT ---
Providers/Reason For Consult Consulting Physican/Specialty*: Pulmonology Reason for Consult*: Bilateral cavitary pneumonia Attending Physician: Ricco Louis MD History of Present Illness History of Present Illness Chris Brooks is a 68 year old male with an extensive history of smoking. Currently the patient is smoking about 3 cigarettes/day. I had seen the patient in the office before for COPD and oxygen dependent respiratory failure. The patient also has history of hypertension, hyperlipidemia, coronary artery disease. The patient presented to the hospital on February 15 with worsening shortness of breath over the past 3 weeks that had progressed significantly over the past few days. Unable to walk or talk without getting short of breath. He also complained of cough with production with foul-smelling sputum. Following the hospital visit the patient underwent radiologic studies which revealed bilateral cavitary lesions in the lungs. The patient has left upper lobe cavitary lesion as well as right upper lobe cavitary lesion. There is also infiltrate in the right lower lung. Review of his previous CT scans revealed that the patient had bilateral upper lobe predominant bullous emphysematous disease however his lower lobes appear to be relatively better. I had seen and examined the patient today. The patient is short of breath. He was in atrial fibrillation with RVR and was given 2 doses of digoxin and a bolus dose of amiodarone and started on amiodarone drip. The patient also required phenylephrine to maintain his blood pressure in an acceptable level. The patient is currently on imipenem and vancomycin for the cavitary pneumonia. Review of Systems Narrative: The patient has fever, chills, body ache and malaise. Severe shortness of breath on exertion and some shortness of breath at rest. Patient denied any chest pain however has palpitation. No nausea vomiting or diarrhea. No abdominal pain. The patient appears to be awake alert and oriented. He is worried about his landlord as he owes him money. Meds/Allergies Home Medications and Allergies Allergies Allergy/AdvReac Type Severity Reaction Status Date / Time No Known Allergies Allergy Unverified 02/15/19 16:32 Current Medications Current Medications Generic Name Dose Route Start Last Admin Trade Name Freq PRN Reason Stop Dose Admin Albuterol/Ipratropium 3 ml 02/16/19 02:15 02/17/19 08:26 Duoneb INHALATION 3 ml Q6H.RESPIRATORY NEYMAR Administration Budesonide 0.5 mg 02/16/19 09:00 02/17/19 08:26 Pulmicort INHALATION 0.5 mg BID.RESPIRATORY NEYMAR Administration Enoxaparin Sodium 40 mg 02/16/19 01:33 02/17/19 01:58 Lovenox SUBCUT 40 mg Q24H NEYMAR Administration Vancomycin HCl 1,500 mg/ 250 mls @ 250 mls/hr 02/15/19 21:00 02/17/19 10:26 Sodium Chloride IV 166 mls/hr Q12H NEYMAR Administration Protocol Dextrose/Sodium Chloride 1,000 mls @ 100 mls/hr 02/16/19 11:45 02/17/19 10:29 Dextrose 5%-Sod Chloride 0.9% IV 30 mls/hr .Q10H NEYMAR Administration Phenylephrine HCl 25 mg/ 252.5 mls @ 0 mls/hr 02/16/19 16:30 02/17/19 10:05 Sodium Chloride IV 0 mcg/min .Q0M NEYMAR 0 mls/hr Titration Protocol Per Protocol Potassium Chloride 40 meq in 100 mls @ 25 mls/hr 02/17/19 08:30 02/17/19 08:57 K-Mikhail IV 02/17/19 12:29 25 mls/hr ONCE ONE Administration Imipenem/Cilastatin Sodium 500 100 mls @ 200 mls/hr 02/17/19 08:45 02/17/19 11:00 mg/ Sodium Chloride IV Infused Q6H NEYMAR Infusion Protocol Acetaminophen 1,000 mg in 100 mls @ 400 mls/hr 02/17/19 09:00 02/17/19 10:04 Ofirmev IV 02/18/19 01:14 Infused Q8H NEYMAR Infusion Methylprednisolone Sodium Succinate 40 mg 02/16/19 20:00 02/17/19 09:00 Solu-Medrol IVP 40 mg Q12H NEYMAR Administration PFSH Acute PFSH: Statuses (acute, chronic, etc) shown below reflect problem list status as previously entered and may not be historically accurate Medical History COPD (chronic obstructive pulmonary disease) (Acute) COPD (chronic obstructive pulmonary disease) (Acute) Coronary artery disease (Acute Unknown) Coronary artery disease (Acute Unknown) History of arthritis (Acute) History of arthritis (Acute) History of COPD (Acute) History of COPD (Acute) History of depression (Acute) History of depression (Acute) History of hyperlipidemia (Acute) History of hyperlipidemia (Acute) History of hypertension (Acute) History of hypertension (Acute) History of pulmonary fibrosis (Acute) History of pulmonary fibrosis (Acute) Hypertension (Acute) Hypertension (Acute) Surgical History History of cervical spinal surgery (Acute) History of cervical spinal surgery (Acute) History of prostatectomy (Acute) History of prostatectomy (Acute) History of right knee surgery (Acute) History of right knee surgery (Acute) Hx of inguinal hernia surgery (Acute) Hx of inguinal hernia surgery (Acute) Social History Smoking and tobacco status: current every day smoker cigarettes Packs smoked per day: 2 Number of cigarettes per day: >20 Alcohol intake: never Substance/Drug Use: never Caregiver/support person: No Lives independently: Yes Household members: none Housing: House Vitals/I&O/Wt Last Vital Signs Temp 98.3 F 02/17/19 06:00 Pulse 125 H 02/17/19 08:35 Resp 20 H 02/17/19 08:35 BP 113/72 02/17/19 06:00 Pulse Ox 94 02/17/19 08:35 02/16/19 02/17/19 02/17/19 22:59 06:59 14:59 Intake Total 2218.05 / 4418.050 300 / 4718.050 1543.034 / 1543.034 Output Total 1060 / 1060 Balance 1158.05 / 3358.050 300 / 3658.050 1543.034 / 1543.034 Weight last 48 hrs Weight 176 lb 9.6 oz Weight 179 lb 4.8 oz Weight 170 lb Physical Exam Narrative: EXAM NARRATIVE: General: Patient is awake alert and oriented, in moderate distress from shortness of breath HEENT: Pupil bilateral symmetric, light and accommodation reflex present Neck: No JVD, no cervical or supraclavicular lymphadenopathy. Respiratory: Inspection: Barrel-shaped chest, no visible deformity, scarring or mass lesion Palpation: No tenderness, trachea shifted mildly to the right, reduced chest wall expansion symmetrically bilaterally Percussion: Dullness to percussion bilateral upper lobes Auscultation: Diminished air entry bilaterally, coarse crackles in the bilateral upper and midlung zones, diffuse wheezing and rhonchi Cardiovascular: Variable first heart sound, no murmur, no peripheral edema Abdomen: Soft, nontender, nondistended, positive bowel sound. No palpable organomegaly. Musculoskeletal: No obvious joint deformity Skin: No rash Neuro: Mental status is normal, no gross cranial nerve deficit, normal motor and coordination. Data Micro: Micro: Microbiology 02/16/19 15:08 Legionella Urinary Antigen - Final Urine,Voided 02/15/19 16:40 Blood Culture - Pr eliminary Blood NEGATIVE TO DIAMOND E 02/15/19 16:40 Blood Culture - Pr eliminary Blood NEGATIVE TO DIAMOND E Other Data: Other data: I have reviewed the patient's CT scan of the chest which revealed multiple fluid-filled cavities. There is a cavity in the left upper lobe there is a cavity in the right upper lobe and there is infiltrate in the right lower lobe. A&P Assessment and plan (1) Acute and chronic respiratory failure: The patient has chronic respiratory failure secondary to COPD. Acute on chronic respiratory failure secondary to necrotizing pneumonia complicated by lung abscess. Status: Acute Code(s): J96.20 - Acute and chronic respiratory failure, unspecified whether with hypoxia or hypercapnia (2) Necrotizing pneumonia: The etiology for his necrotizing pneumonia and lung abscess is diffuse. Given his predisposition of acquiring infection because of his emphysema and bullous disease I believe this infection is by a bacterial pathogen. This could easily be staph infection however gram-negative infection is not unusual. Moreover, aspiration pneumonia especially from Streptococcus angina gnosis group can invade fascial plane and present the same way. There is a concern for tubercular infection however it appears that the patient had gotten sick few weeks ago and I do not strongly believe that the patient has TB. The patient is going to go for a bronchoscopy with bronchoalveolar lavage for acquiring proper specimen. Status: Acute Code(s): J85.0 - Gangrene and necrosis of lung (3) Bullous emphysema: The fluid cavity in the left upper lobe is in a pre-existing bulla. However there is dense consolidation of the posterior segment of the right upper lobe and there is an adjacent area of cavity formation as well. Status: Acute Code(s): J43.9 - Emphysema, unspecified (4) COPD (chronic obstructive pulmonary disease): The patient has advanced COPD and is currently on DuoNeb and Pulmicort nebs. Status: Acute Code(s): J44.9 - Chronic obstructive pulmonary disease, unspecified (5) Septic shock: Patient has a diagnosis of septic shock secondary to pressor requirement. He is currently broadly covered with vancomycin and imipenem. We will optimize the medication once we have the bacteria. I will cut down the steroid dose to an equivalent of prednisone dose to 40 mg daily. Status: Acute Code(s): A41.9 - Sepsis, unspecified organism; R65.21 - Severe sepsis with septic shock Consult Attestations Critical Care Time: Critical care time: 30 - 74 mins Coding Level of Care Code Acute Specifications Writer for [facility] Diagnoses Acute and chronic respiratory failure J96.20 Necrotizing pneumonia J85.0 Bullous emphysema J43.9 COPD (chronic obstructive pulmonary disease) J44.9 Septic shock A41.9; R65.21
--- NOTE | 2019-02-17 13:20 | PC.NURSE ---
Pt set his password to : [id number]. Pt stated Yury Petty may have information about him.. Her # [phone]
[2019-02-17] MEDS: sodium chloride 0.9% 500 ML 999 ML IV (14:00)
[2019-02-17] MEDS: sodium chloride 0.9% 500 ML IV (14:53)
--- NOTE | 2019-02-17 15:51 | PM.PACU ---
PACU note Post-Anesthesia Exam: awake, vital signs stable and other (a fib w/ rvr) Disposition: other (bACK TO icu)
--- NOTE | 2019-02-17 16:03 | PC.CHAP ---
Pastoral Care Encounter/Spiritual Assessment Type of Contact [] Declined meteorological equipment repairer visit [] Patient/Family/Request visit [] Outpatient visit [] Follow-up visit [] Physician referral [] Code/Alert [] Routine visit [] Staff referral [] Actively dying [] Patient sleeping [] Family support [] [] Out of room [] Palliative care [] [] Receiving care in room [] Pre-surgical visit [] Trauma [] Long length of stay [x] ICU visit [x] Other: precautions Relational/Emotional Strength [] Patient feels connected with others/family/visitors/staff [] Distress [] Loneliness/isolation [] Abandonment Spirituality of Patient [] Person of Lakshmi [] Attends Shinto of their Lakshmi [] Believes in Prayer [] Reads Bible or Restorationist materials [] There are Spiritual issues to be addressed Compass Operator Interventions [] Prayer [] Active listening [] Non-anxious presence [] Spiritual/emotional support [] Crisis/trauma care [] Spiritual counseling [] Bereavement support [] Provided bereavement packet [] Provided Bible/devotional materials [] Provided toy/stuffed animal, coloring book to patient or family member [] Completed spiritual assessment [] Provided Communion [] Anointing/[place] [] Salvation [] Other: Impact on Illness or Injury [] Angry [] Fearful [] Anxious [] Often cries [] Exhaustion [] Unable to work [] Unable to attend episcopal [] Unable to walk/stand [] Unable to read [] Unable to drive [] Unable to eat/drink [] Unable to sleep [] Unable to be with family [] Other: Summary contact precautions Time spent with patient
--- NOTE | 2019-02-17 16:27 | PM.PN ---
Subjective Subjective: Interval history: Overnight patient has been in A. fib with RVR for which patient was given 500 mcg of digoxin in 2 divided doses. Patient continues to remain on phenylephrine for septic shock. This morning on evaluation patient continues to complain of chest pain on deep inspiration. Continues to have cough with mild expectoration. Denies of any hemoptysis, nausea, vomiting, headache, abdominal pain, diarrhea. Patient is due for bronchoscopy in next 1 hour. Medications: Reviewed: Yes Vitals/I&O/Wt Last Vital Signs Temp 97.8 F 02/17/19 12:40 Pulse 120 H 02/17/19 15:36 Resp 22 H 02/17/19 15:36 BP 146/26 02/17/19 13:07 Pulse Ox 95 02/17/19 15:36 02/17/19 02/17/19 02/17/19 06:59 14:59 22:59 Intake Total 300 / 4718.050 3139.251 / 3139.251 109.1 / 3248.351 Balance 300 / 3658.050 3139.251 / 3139.251 109.1 / 3248.351 Weight last 48 hrs Weight 80.104 kg Weight 81.329 kg Physical Exam Narrative: EXAM NARRATIVE: General: No acute distress, AO x3 HEENT: PERRLA, pupils bilaterally equal and reactive Chest:, Bronchial breath sounds more evident in right upper and middle lobe and left upper lobe. Scattered wheeze present all over the lung boogie, decreased air entry in left and right upper lobe CVS: S1-S2 tachycardia, irregular,, no murmurs, no tachycardia, no gallops, no rubs Abdomen: Soft, nontender, no organomegaly, bowel sounds present Neuro: No focal deficits, no facial deformity, AO x3, power 5/5 in all limbs Data Micro: Micro: Microbiology 02/16/19 16:00 MRSA Culture - Fin al Nose 02/16/19 15:08 Legionella Urinary Antigen - Final Urine,Voided 02/15/19 16:40 Blood Culture - Pr eliminary Blood NEGATIVE TO DIAMOND E 02/15/19 16:40 Blood Culture - Pr eliminary Blood NEGATIVE TO DIAMOND E A&P Assessment and plan (1) Sepsis with acute hypoxic respiratory failure: Status: Acute Code(s): A41.9 - Sepsis, unspecified organism; R65.20 - Severe sepsis without septic shock; J96.01 - Acute respiratory failure with hypoxia (2) Necrotizing pneumonia: Status: Acute Code(s): J85.0 - Gangrene and necrosis of lung (3) Atrial fibrillation: Status: Acute Code(s): I48.91 - Unspecified atrial fibrillation (4) Bullous emphysema: Status: Acute Code(s): J43.9 - Emphysema, unspecified (5) Coronary artery disease: Status: Acute Code(s): I25.10 - Atherosclerotic heart disease of [place] coronary artery without angina pectoris Additional A&P Information Additional A&P Information: Septic shock with acute hypoxic respiratory failure: Criteria met with tachycardia, low blood pressures, hypoxia. Most likely patient has necrotizing pneumonia versus less likely pulmonary tuberculosis. CT scan result and images appreciated for multiple fluid debris levels consistent with abscess. Continue with phenylephrine keeping mean arterial pressures over 65 mmh G. Give 1 L IV bolus. Continue with vancomycin. Patient's white count is trending up most likely from steroids but given the requirement of phenylephrine we will switch from Zosyn to imipenem. Both antibiotics renally dosed. Plan for bronchoscopy today. Follow-up culture results, antigen results from the bronchoscopy specimen. Follow-up blood cultures and sputum cultures already sent. Tuberculosis unlikely but will continue on airborne precautions till AFB negative. Will add bacterial antigen. Follow-up added hepatitis screen. HIV negative. Pulmonology and ID recommendations appreciated. For hypoxic respiratory failure: Continue with DuoNeb's svswch-evq-mygab, budesonide twice daily and albuterol as needed. Patient has been on steroids systemically. Will discontinue steroids today given the possibility of necrotizing pneumonia and possibility of TB. Atrial fibrillation: Patient has a history of atrial fibrillation. Overnight patient was given half dig load. Will complete dig load this morning with 250 mcg digoxin every 6 hourly 2 doses. Patient is due for bronchoscopy very soon and is having tachycardia so we will give patient a bolus of amiodarone 150 as well. After dig load if patient continues to have tachycardia will start patient on amiodarone drip as per the protocol for 24 hours. Would like to avoid amiodarone given the history of extensive pulmonary fibrosis. History of CAD: Denies any chest pain right now. We will start patient on aspirin post procedure tomorrow. N.p.o. for now. Cardiac diet post bronchoscopy. Full code Eliquis for DVT prophylaxis. Attestations Medical Necessity Statement*: Needs continued hospitalization for septic shock and narcotizing PNA Critical Care Time: Critical care time: 75 - 104 mins Coding Level of Care Code Acute Silk Screen Printer Helper for [facility] Fwd Diagnoses Sepsis with acute hypoxic respiratory failure A41.9; R65.20; J96.01 Necrotizing pneumonia J85.0 Atrial fibrillation I48.91 Bullous emphysema J43.9 Coronary artery disease I25.10
--- NOTE | 2019-02-17 16:41 | PM.OP ---
Operative Report Post-Operative Note Date of procedure: 02/17/19 Preop Diagnosis: Necrotizing pneumonia with bilateral lung cavities Post-op diagnosis: same Complications: None Findings: Name of the procedure: Bronchoscopy with bronchoalveolar lavage. Indication: Necrotizing pneumonia with bilateral lung cavities Anesthesia: Monitored anesthesia care. Description of the procedure: The patient was taken to the OR. A timeout was performed. The anesthesia team provided the monitor anesthesia care. The bronchoscope was introduced through the mouth. The vocal cords appeared normal. The vocal cord and epiglottis was anesthetized with 1% lidocaine, 3 mL. The bronchoscope was then introduced into the upper trachea. There was generalized erythema and edema of the anterior trachea. The garcía appeared sharp. There was erythema and generalized edema involving bilateral airways. The garcía and right and left mainstem bronchi were anesthetized with 1% lidocaine. 3 mL of lidocaine was used. In a systematic way, the bronchoscope was introduced into bilateral lungs. The left upper lobe, lingula, lower lobe airways are patent. Other than the erythema and generalized edema no endobronchial lesion, active bleeding was noted. The erythema and edema was also noted in right upper lobe, middle lobe and lower lobes. There is no endobronchial lesion or active bleeding. Mucus was noted throughout the airways. Bronchoalveolar lavage was obtained from the posterior segment of the right upper lobe. Thick mucoid fluid was aspirated. Samples: The bronchoalveolar lavage was sent for Gram stain and culture, AFB stain and culture, fungal stain and culture, galactomannan level. Complications: None. The patient was transferred to ICU in safe and stable condition from the OR.
[2019-02-17 18:05] LABS: Anion Gap 12.8 (5-19); Blood Urea Nitrogen 12 mg/dL (8-23); Calcium 7.9 mg/Dl (8.8-10.2); Carbon Dioxide 26 mmol/L (22-29); Chloride 100 mmol/L (98-107); Glomerular Filtration Rate 214.6 mL/min (90-130); Glucose 191 mg/dL (74-106); Potassium 3.8 mmol/L (3.5-5.1); Sodium 135 mmol/L (136-145)
[2019-02-18] VITALS (27 sets, daily range): BP systolic 92–132; BP diastolic 59–80; PULSE 79–113; RESP 18–35; TEMP 36.6–37.1; O2SAT 89–100
[2019-02-18] MEDS: enoxaparin 40 mg/0.4 mL Syringe SUBCUT (00:42)
[2019-02-18] MEDS: ipratropium-albuterol 3 mL Neb INHALATION ×6 (03:04→23:19)
[2019-02-18 04:25] LABS: Hematocrit 35.2 % (42.0-52.0); Mean Corpuscular HGB Conc 31.3 g/dL (30.0-36.0); Mean Corpuscular Hemoglobin 31.9 pg (28.0-34.0); Mean Platelet Volume 9.5 fL (7.4-10.4); Platelet Count 478 10^3/cmm (130-400); Red Blood Count 3.45 10^6/uL (4.1-5.3); Red Cell Distribution Width 14.5 % (12.1-15.1)
[2019-02-18 04:34] LABS: White Blood Count 38.6 10^3/uL (4.0-10.0)
[2019-02-18 04:45] LABS: Alanine Aminotransferase 44 U/L (0-41); Albumin Level 1.9 g/dL (3.5-5.2); Alkaline Phosphatase 159 IU/L (40-130); Anion Gap 10.9 (5-19); Aspartate Amino Transferase 90 U/L (0-40); Blood Urea Nitrogen 15 mg/dL (8-23); Carbon Dioxide 27 mmol/L (22-29); Chloride 101 mmol/L (98-107); Globulin 3.6 g/dL (1.3-4.6); Glomerular Filtration Rate 165.9 mL/min (90-130); Glucose 115 mg/dL (74-106); Potassium 3.9 mmol/L (3.5-5.1); Sodium 135 mmol/L (136-145); Total Bilirubin 0.3 mg/dL (0.15-1.2); Total Protein 5.5 g/dL (6.6-8.7)
--- NOTE | 2019-02-18 06:48 | PC.NURSE ---
SHIFT SUMMARY PT HAS BEEN ALERT AND ORIENTATED. PT LUNGS ARE WHEEZY AND COARSE AT TIMES. PT IS SELF TURN, HAS HAD ADEQUATE URINE OUTPUT. PT AMIO IS RUNNING AT 0.5 MCG/MIN SINCE 0000. PT HEART RATE AND BP HAVE BEEN WNL. PT STILL IN AFIB, HAVING SOME PVCS. NO RESPIRATORY EVENTS OCCURRED.
[2019-02-18] MEDS: budesonide 0.5 mg/2 mL Neb INHALATION ×2 (08:31→19:56)
--- NOTE | 2019-02-18 08:50 | PM.PN ---
Subjective Subjective: Interval history: No acute events overnight. Underwent bronchoscopy yesterday. Tolerated well. HR better controlled today. C/o chest pain on deep inspiration. States cough and expectoration is same. Medications: Reviewed: Yes Vitals/I&O/Wt Last Vital Signs Temp 98.1 F 02/18/19 06:00 Pulse 108 H 02/18/19 08:42 Resp 22 H 02/18/19 08:33 BP 108/76 02/18/19 07:26 Pulse Ox 93 02/18/19 08:33 02/17/19 02/18/19 02/18/19 22:59 06:59 14:59 Intake Total 1992.1 / 5142.826 636.48 / 5779.306 Output Total 275 / 275 800 / 1075 Balance 1717.1 / 4867.826 -163.52 / 4704.306 Weight last 48 hrs Weight 82.735 kg Weight 80.104 kg Weight 81.329 kg Physical Exam Narrative: EXAM NARRATIVE: General: No acute distress, AO x3, Chachexia HEENT: PERRLA, pupils bilaterally equal and reactive Chest:bronchial breath sounds b/l L> R, Upper lobe more than middle lobe, scattered ronchi and wheeze. CVS: S1-S2 regular, no murmurs, no tachycardia, no gallops, no rubs Abdomen: Soft, nontender, no organomegaly, bowel sounds present Neuro: No focal deficits, no facial deformity, AO x3, power 5/5 in all limbs. Data Micro: Micro: Microbiology 02/16/19 16:00 MRSA Culture - Fin al Nose A&P Assessment and plan (1) Sepsis with acute hypoxic respiratory failure: Status: Acute Code(s): A41.9 - Sepsis, unspecified organism; R65.20 - Severe sepsis without septic shock; J96.01 - Acute respiratory failure with hypoxia (2) Necrotizing pneumonia: Status: Acute Code(s): J85.0 - Gangrene and necrosis of lung (3) Atrial fibrillation: Status: Acute Code(s): I48.91 - Unspecified atrial fibrillation (4) Bullous emphysema: Status: Acute Code(s): J43.9 - Emphysema, unspecified (5) Coronary artery disease: Status: Acute Code(s): I25.10 - Atherosclerotic heart disease of [place] coronary artery without angina pectoris Additional A&P Information Additional A&P Information: Septic shock with acute hypoxic respiratory failure: Criteria met with tachycardia, low blood pressures, hypoxia. Most likely patient has necrotizing pneumonia versus less likely pulmonary tuberculosis. CT scan result and images appreciated for multiple fluid debris levels consistent with abscess. MAP >6h mmhg. C/w IVF @ NS @ 50 cc/hr for 12 hrs C/w Vanc and imipenem both renally dosed. WBC improving. Follow-up BAL culture results, antigen results from the bronchoscopy specimen. Follow-up blood cultures and sputum cultures already sent. Tuberculosis unlikely but will continue on airborne precautions till AFB negative. Bacterial antigen negative. Follow-up added hepatitis screen. HIV negative. Pulmonology and ID recommendations appreciated. Pt might end up needing lobectomy or decortication depending on hospital course goes. Will keep Dr. Sheppard in loop. For hypoxic respiratory failure: Continue with DuoNeb's hckxal-zsz-qgbzh Q4h, budesonide twice daily and albuterol as needed. Will add spiriva as well. As at home pt was on both. Patient has been on steroids systemically. Will discontinue steroids today given the possibility of necrotizing pneumonia and possibility of TB. Start pt on morphine 1 mg IV Q4h PRN. Will help with pain, anxiety and breathing as well. Atrial fibrillation: Patient has a history of atrial fibrillation. Rate better controlled after dig load and amio drip. Seems to converting intermittently to NSR. Will finish 24 hr amio protocol. Will start on PO Dig 250 daily for now. If converts to NSR then will hold off on dig nad if BP better can start on lepressor IV 2.5 mg IV Q6h as needed keeping BP over 110 mmhg. History of CAD: Denies any chest pain right now. Start on ASA 81 mg PO QD. N.p.o. for now. Cardiac diet post bronchoscopy. Full code Lovenox for DVT prophylaxis. Attestations Medical Necessity Statement*: Needs continued hospitalization for septic shock and necrotizing PNA Critical Care Time: Critical care time: 30 - 74 mins Coding Level of Care Code Acute Online Content Coordinator for [facility] Fw Diagnoses Sepsis with acute hypoxic respiratory failure A41.9; R65.20; J96.01 Necrotizing pneumonia J85.0 Atrial fibrillation I48.91 Bullous emphysema J43.9 Coronary artery disease I25.10
[2019-02-18] MEDS: digoxin 250 mcg Tablet PO (09:25)
[2019-02-18] MEDS: morphine 4 mg/mL SDV 1 mL 1 MG IVP ×3 (09:27→22:04)
[2019-02-18] MEDS: meloxicam 7.5 mg tablet 15 MG PO (09:29)
--- NOTE | 2019-02-18 10:05 | ANE.PACU ---
 Inpatient post-anesthesia follow up: Airway intact: Yes Vital signs: Temperature 98.1 F Pulse Rate [Bilate ral Dorsalis 94 Pedis] Pulse Rate [Apical ] 103 Pulse Rate [Left A pical] 61 Pulse Rate 108 Respiratory Rate 22 Blood Pressure [Le ft Arm] 108/76 Blood Pressure 102/62 Pulse Oximetry 93 Oxygen Delivery Me thod Nasal Cannula Oxygen Flow Rate 5 Fraction of Inspir ed Oxygen 5 Hydration adequate: Yes Nausea and vomiting: No Pain level: 1 Mental status: Baseline
[2019-02-18 10:23] LABS: Absolute Segmented Neutrophil 30.8 10/cmm (1.6-7.1); Band Neutrophils Absolute 1.5 10^3/cmm (0.0-1.2); Lymphocytes 15 %; Monocytes Absolute 0.4 10^3/cmm (0.1-0.6); Platelet Estimate Increased (Normal); Segmented Neutrophils 80 %; Total Cells Counted 100 (0-100)
[2019-02-18] MEDS: nicotine 7 mg Patch 1 PATCH TRANSDERMA (10:48)
--- NOTE | 2019-02-18 16:57 | PC.SOCIAL ---
Pg 2 IMM Explained to pt Pg 2 IMM. Pt verbally understands & signed. Provided a copy to pt. Signed, dated, & timed, then placed in chart.
[2019-02-18] MEDS: sodium chloride 0.9% 1,000 ML 50 ML IV (18:32)
[2019-02-18] MEDS: ondansetron 2 mg/ML SDV 2 mL 4 MG IVP (22:04)
[2019-02-18] MEDS: atorvastatin 40 mg Tablet 20 MG PO (22:05)
[2019-02-18] MEDS: famotidine 20 mg/2 mL INJ IVP ×2 (22:15→23:17)
--- NOTE | 2019-02-18 23:04 | P.PN_ITS ---
Subjective Subjective: Interval history: Underwent bronchoscopy yesterday. Tolerated well. Specimen sent to lab. No new complaints today. Medications: Reviewed: Yes Vitals/I&O/Wt Last Vital Signs Temp 98.8 F 02/18/19 20:00 Pulse 89 02/18/19 22:00 Resp 18 02/18/19 22:04 BP 119/63 02/18/19 22:00 Pulse Ox 90 02/18/19 22:04 02/18/19 02/18/19 02/19/19 14:59 22:59 06:59 Intake Total 471.1 / 471.1 810.42 / 1281.52 Output Total 450 / 450 300 / 750 Balance 21.1 / 21.1 510.42 / 531.52 Weight last 48 hrs Weight 82.735 kg Weight 80.104 kg Physical Exam Narrative: EXAM NARRATIVE: GEN: Awake, alert and oriented, no acute distress CVS: S1S2 N RS: bronchial breath sounds b/l L> R, Upper lobe more than middle lobe, scattered wheeze Abd: Soft, nt/nd , bs+ LOAD TEST MECHANIC: no focal neuro deficits Data Micro: Micro: Microbiology 02/17/19 12:13 Gram Stain - Final Lung Right Upper Lobe 02/18/19 12:00 Bacterial Antigens - Final Urine,Voided A&P Additional A&P Information Additional A&P Information: Septic shock with acute hypoxic respiratory failure: -likely patient has necrotizing/cavitating pneumonia (especially concerning since previous sputum cx with Pseudomonas). - r/o TB given epidemiological risk factors (incarceration) CT scan result and images appreciated for multiple fluid debris levels consistent with abscess. Continue renally dosed Primaxin and Vancomcyin until results of BAL cx available. Follow-up BAL culture result. Confirmed from lab that specimen being run for MTB PCR/AFB smear and cx (send out to [facility]), bacterial and fungal cultures, including special request for nocardia. Though requested Actinomyces specifically, specimen not saved for anaerobic cx therefore cannot be processed any more. Attempted to send specimen additionally to [facility] for MTB testing, however was informed that they cannot slate picker specimens over the weekend. Follow-up added hepatitis screen. HIV negative. Attestations Medical Necessity Statement*: w/up of new necrotizing lung infection Coding Level of Care Code Acute Network Account Manager for [facility]
[2019-02-19] VITALS (27 sets, daily range): BP systolic 99–118; BP diastolic 49–84; PULSE 81–110; RESP 16–35; TEMP 36.7–38.1; O2SAT 89–98
[2019-02-19] MEDS: enoxaparin 40 mg/0.4 mL Syringe SUBCUT (02:08)
--- NOTE | 2019-02-19 02:25 | PC.NURSE ---
right ac iv noted to be red and swollen ns infusing. iv dcd warm moist compress applied. are elevated above heart. pt reports relief c compress. pt denies other distress. positioned for comfort. lizz bangura.
[2019-02-19] MEDS: ipratropium-albuterol 3 mL Neb INHALATION ×6 (03:25→23:33)
[2019-02-19 05:25] LABS: Hematocrit 35.7 % (42.0-52.0); Hemoglobin 11.5 g/dL (11.7-16.6); Mean Corpuscular HGB Conc 32.2 g/dL (30.0-36.0); Mean Corpuscular Volume 96.2 fL (80-94); Mean Platelet Volume 9.4 fL (7.4-10.4); Platelet Count 499 10^3/cmm (130-400); Red Blood Count 3.71 10^6/uL (4.1-5.3); Red Cell Distribution Width 14.7 % (12.1-15.1)
[2019-02-19 06:20] LABS: Absolute Segmented Neutrophil 23.1 10/cmm (1.6-7.1); Band Neutrophils Absolute 0.7 10^3/cmm (0.0-1.2); Lymphocytes 26 %; Monocytes Absolute 1.4 10^3/cmm (0.1-0.6); Segmented Neutrophils 68 %; Total Cells Counted 100 (0-100)
[2019-02-19 06:21] LABS: Platelet Estimate Normal (Normal); Toxic Granulation 1+
[2019-02-19] MEDS: budesonide 0.5 mg/2 mL Neb INHALATION ×2 (07:44→19:54)
[2019-02-19] MEDS: meloxicam 7.5 mg tablet 15 MG PO (09:51)
[2019-02-19] MEDS: digoxin 250 mcg Tablet PO (09:51)
[2019-02-19] MEDS: aspirin 81 mg EC Tablet PO (09:51)
[2019-02-19] MEDS: nicotine 7 mg Patch 1 PATCH TRANSDERMA (09:53)
--- NOTE | 2019-02-19 12:14 | PC.CHAP ---
Pastoral Care Encounter/Spiritual Assessment Type of Contact [] Declined telecommunication operator visit [] Patient/Family/Request visit [] Outpatient visit [x] Follow-up visit [] Physician referral [] Code/Alert [] Routine visit [] Staff referral [] Actively dying [] Patient sleeping [] Family support [] [] Out of room [] Palliative care [] [] Receiving care in room [] Pre-surgical visit [] Trauma [] Long length of stay [x] ICU visit [x] Other: patient under droplet precaution. Relational/Emotional Strength [] Patient feels connected with others/family/visitors/staff [] Distress [] Loneliness/isolation [] Abandonment Spirituality of Patient [] Person of Lakshmi [] Attends Christian of their Lakshmi [] Believes in Prayer [] Reads Bible or Jain materials [] There are Spiritual issues to be addressed Farmworker Animal Interventions [] Prayer [] Active listening [] Non-anxious presence [] Spiritual/emotional support [] Crisis/trauma care [] Spiritual counseling [] Bereavement support [] Provided bereavement packet [] Provided Bible/devotional materials [] Provided toy/stuffed animal, coloring book to patient or family member [] Completed spiritual assessment [] Provided Communion [] Anointing/[place] [] Salvation [] Other: Impact on Illness or Injury [] Angry [] Fearful [] Anxious [] Often cries [] Exhaustion [] Unable to work [] Unable to attend voodoo [] Unable to walk/stand [] Unable to read [] Unable to drive [] Unable to eat/drink [] Unable to sleep [] Unable to be with family [] Other: Summary Farmworker Animal will attempt follow up visit. Time spent with patient 5 min.
[2019-02-19] MEDS: morphine 4 mg/mL SDV 1 mL 1 MG IVP ×2 (14:40→19:16)
[2019-02-19 17:15] LABS: Iron 28 ug/dL (59-158); Percent Saturation 19.7 % (20-50); Total Iron Binding Capacity 142 mg/dL; Unsaturated Iron Binding 114 ug/dL (112-347)
--- NOTE | 2019-02-19 18:32 | PM.PN ---
Subjective Subjective: Interval history: Underwent bronchoscopy yesterday. Tolerated well. Specimen sent to lab. No new complaints today. Medications: Reviewed: Yes Vitals/I&O/Wt Last Vital Signs Temp 99 F 02/19/19 14:00 Pulse 91 02/19/19 15:40 Resp 31 H 02/19/19 15:40 BP 118/62 02/19/19 15:40 Pulse Ox 96 02/19/19 15:29 02/19/19 02/19/19 02/19/19 06:59 14:59 22:59 Intake Total 250 / 1631.52 1310 / 1310 100 / 1410 Output Total 1800 / 1800 650 / 2450 Balance 250 / -418.48 -490 / -490 -550 / -1040 Weight last 48 hrs Weight 80.876 kg Weight 82.735 kg Physical Exam Narrative: EXAM NARRATIVE: General: No acute distress, AO x3, Chachexia HEENT: PERRLA, pupils bilaterally equal and reactive Chest:bronchial breath sounds b/l R>L, Upper lobe more than middle lobe, Clear otherwise, no more scattered ronchi and wheeze. CVS: S1-S2 regular, no murmurs, no gallops, no rubs Abdomen: Soft, nontender, no organomegaly, bowel sounds present Neuro: No focal deficits, no facial deformity, AO x3, power 5/5 in all limbs. Data Micro: Micro: Microbiology 02/17/19 12:13 Gram Stain - Final Lung Right Upper Lobe Bronchoalveolar [place] Culture - Pre liminary 02/18/19 12:00 Bacterial Antigens - Final Urine,Voided A&P Assessment and plan (1) Sepsis with acute hypoxic respiratory failure: Status: Acute Code(s): A41.9 - Sepsis, unspecified organism; R65.20 - Severe sepsis without septic shock; J96.01 - Acute respiratory failure with hypoxia (2) Necrotizing pneumonia: Status: Acute Code(s): J85.0 - Gangrene and necrosis of lung (3) Atrial fibrillation: Status: Acute Code(s): I48.91 - Unspecified atrial fibrillation (4) Bullous emphysema: Status: Acute Code(s): J43.9 - Emphysema, unspecified (5) Coronary artery disease: Status: Acute Code(s): I25.10 - Atherosclerotic heart disease of [place] coronary artery without angina pectoris Additional A&P Information Additional A&P Information: Septic shock with acute hypoxic respiratory failure: Criteria met with tachycardia, low blood pressures, hypoxia. Most likely patient has necrotizing pneumonia versus less likely pulmonary tuberculosis. CT scan result and images appreciated for multiple fluid debris levels consistent with abscess. Prelim from BAL s/o pseudomonas. Blood pressures better. MAP >65h mmhg. Pt euvoluemic. Stop IVF as taking orlly well. Monitor I/Os. C/w Vanc and imipenem both renally dosed. WBC improving. Follow-up BAL culture results, antigen results from the bronchoscopy specimen. Follow-up blood cultures and sputum cultures already sent. Tuberculosis unlikely but will continue on airborne precautions till AFB negative. Bacterial antigen negative. Follow-up added hepatitis screen. HIV negative. Pulmonology and ID recommendations appreciated. Pt might end up needing lobectomy or decortication depending on hospital course goes. Will keep Dr. Sheppard in loop. For hypoxic respiratory failure: Continue with DuoNeb's umrgdt-rod-rfkab Q4h, budesonide twice daily and albuterol as needed. Will add spiriva as well. As at home pt was on both. Patient has been on steroids systemically. Will discontinue steroids today given the possibility of necrotizing pneumonia and possibility of TB. Doing well with morphine 1 mg IV Q4h PRN. Will continue. Atrial fibrillation: Patient has a history of atrial fibrillation. Reverted to NSR Port IV amiodrone infusion protocol. C/w Digoxin at 250 mcg. f/u with dig level in AM. Start on lepressor IV 2.5 mg IV Q6h as needed keeping BP over 110 mmhg. History of CAD: Denies any chest pain right now. Start on ASA 81 mg PO QD. Cardiac diet. Full code Lovenox for DVT prophylaxis. Attestations Medical Necessity Statement*: Needs continued hospitalization for septic shock and necrotizing PNA Critical Care Time: Critical care time: 30 - 74 mins Coding Level of Care Code Acute Boiler Operators Supervisor for [facility] F[facility] Diagnoses Sepsis with acute hypoxic respiratory failure A41.9; R65.20; J96.01 Necrotizing pneumonia J85.0 Atrial fibrillation I48.91 Bullous emphysema J43.9 Coronary artery disease I25.10
--- NOTE | 2019-02-19 19:43 | NUR.SHIFT ---
patient awake alert and oriented watching tv sitting up in bed. lungs are very decreased on right with coure ronchi in lower lobes very decreased on left. patient resp even and non labored although sob upon any wxertion. o2 at 6l nc sats are wnl very thin and fraille to appearance, abdomen flat soft and bs x 4 quads. voiding per urinal gold color urine. no edema noted in lower extremities and pedal pulsed positive nd palpable. tele shows sr to st. denies any pain at this time reassessed pain level.
[2019-02-19] MEDS: atorvastatin 40 mg Tablet 20 MG PO (21:03)
[2019-02-19] MEDS: acetaminophen 325 mg Tablet 650 MG PO (21:41)
[2019-02-20] VITALS (22 sets, daily range): BP systolic 90–125; BP diastolic 46–71; PULSE 77–105; RESP 16–32; TEMP 36.7–37.7; O2SAT 89–98
--- NOTE | 2019-02-20 00:41 | PC.NURSE ---
at 2200 respiratory placed patient onoxy mask due to patient breathing thru mouth. sats have improved and patient is now afebrile again. resting comfortably watching tv and drinking soda. still in negative pressure room under droplet and airborne precaution
[2019-02-20 01:04] LABS: Hepatitis B Core IgM Non-Reactive (Nonreactive); Hepatitis B Surface AB. 68.1 (0-8.5); Hepatitis B Surface Antigen. Non-Reactive (Nonreactive)
[2019-02-20] MEDS: enoxaparin 40 mg/0.4 mL Syringe SUBCUT (02:51)
[2019-02-20] MEDS: ipratropium-albuterol 3 mL Neb INHALATION ×4 (04:01→20:30)
[2019-02-20 05:20] LABS: Basophils # 0.1 10^3/uL (0.0-0.1); Basophils % 0.3 %; Eosinophils # 0.1 10^3/uL (0.0-0.8); Eosinophils % 0.3 %; Hemoglobin 12.1 g/dL (11.7-16.6); Lymphocytes # 9.2 10^3/uL (0.8-4.8); Lymphocytes % 28.2 %; Mean Corpuscular HGB Conc 33.6 g/dL (30.0-36.0); Mean Corpuscular Hemoglobin 32.1 pg (28.0-34.0); Mean Corpuscular Volume 95.5 fL (80-94); Mean Platelet Volume 9.1 fL (7.4-10.4); Monocytes # 1.1 10^3/uL (0.2-0.9); Monocytes % 3.5 %; Neutrophils # 20.5 10^3/uL (1.8-7.7); Neutrophils % 63.1 %; Nucleated Red Blood Cells % 0 %; Platelet Count 527 10^3/cmm (130-400); Red Blood Count 3.77 10^6/uL (4.1-5.3); Red Cell Distribution Width 14.5 % (12.1-15.1)
[2019-02-20 05:42] LABS: Alanine Aminotransferase 33 U/L (0-41); Albumin Level 1.8 g/dL (3.5-5.2); Alkaline Phosphatase 178 IU/L (40-130); Anion Gap 12.9 (5-19); Aspartate Amino Transferase 48 U/L (0-40); Blood Urea Nitrogen 11 mg/dL (8-23); Calcium 8.1 mg/Dl (8.8-10.2); Carbon Dioxide 28 mmol/L (22-29); Chloride 95 mmol/L (98-107); Digoxin 0.6 ng/mL (0.6-1.2); Globulin 4.2 g/dL (1.3-4.6); Glomerular Filtration Rate 165.9 mL/min (90-130); Glucose 90 mg/dL (74-106); Potassium 3.9 mmol/L (3.5-5.1); Sodium 132 mmol/L (136-145); Total Bilirubin 0.4 mg/dL (0.15-1.2)
[2019-02-20 06:09] LABS: Slide Review Slide Review Perform; White Blood Count 32.5 10^3/uL (4.0-10.0)
[2019-02-20] MEDS: budesonide 0.5 mg/2 mL Neb INHALATION ×2 (07:40→20:30)
--- NOTE | 2019-02-20 07:51 | NUR.SHIFT ---
Pt stated he did not feel well today. He stated he felt worse. Explained to pt. that his infection is severe and it will take awhile to get better.
--- NOTE | 2019-02-20 08:39 | XR_ITS ---
WS: [id number] CHEST XRAY TECHNIQUE: Portable chest. CLINICAL INFORMATION: necrotizing pneumonia COMPARISON: 1 8020 FINDINGS: Heart: Normal cardiac silhouette. Lungs: Chronic emphysematous changes. Bilateral cavitary upper lobe infiltrates are unchanged in appe arance. Patchy infiltrate in the left upper lobe laterally has progressed slightly. Bilateral apical pleural and parenchymal scarring. Calcified granulomas. Bones: Normal visualized bony structures. XR/XR chest 1V portable [id number] IMPRESSION: 1. Bilateral mainly upper lobe pulmonary infiltrates with cavitation unchanged in appearance. 2. Slightly increased hazy infiltrate in the left upper lobe laterally. 3. Stable bilateral pleural and parenchymal fibrosis in the lung apices.
[2019-02-20] MEDS: digoxin 250 mcg Tablet PO (09:05)
[2019-02-20] MEDS: meloxicam 7.5 mg tablet 15 MG PO (09:05)
[2019-02-20] MEDS: aspirin 81 mg EC Tablet PO (09:06)
--- NOTE | 2019-02-20 11:25 | PC.RESP ---
pt. getting a pic line placed
--- NOTE | 2019-02-20 11:54 | XR_ITS ---
WS: [id number] CHEST XRAY TECHNIQUE: Portable chest. CLINICAL INFORMATION: picc COMPARISON: None. FINDINGS: Right PICC line in the proximal SVC in good position. No pneumothorax. No change in the cavitary infi ltrates. XR/XR chest 1V portable [id number] IMPRESSION: Right PICC line proximal SVC. No pneumothorax.
[2019-02-20] MEDS: nicotine 7 mg Patch 1 PATCH TRANSDERMA (12:18)
--- NOTE | 2019-02-20 12:18 | PC.NURSE ---
PICC insertion done. Vancomucin restarted at this site by PICC nurse. Albumin, incompatible with Vancomycin, can now be hung, due to improved access.
--- NOTE | 2019-02-20 12:55 | P.PN_ITS ---
Subjective Subjective: Interval history: Mr. Brooks was seen and examined this morning. The patient seems to be doing well. He has some shortness of breath but other than that has remained stable. His bronchoalveolar lavage culture came back positive for Pseudomonas. The AFB stain was negative. His A. fib has also resolved. The chest x-ray obtained this morning revealed opacity in bilateral upper lobes however in comparison to the initial chest x- ray that the patient had on admission there is some volume loss in the right upper lobe consistent with possibly regression of the cavity size. Medications: Reviewed: Yes Vitals/I&O/Wt Last Vital Signs Temp 98.6 F 02/20/19 07:35 Pulse 100 02/20/19 10:00 Resp 32 H 02/20/19 10:00 BP 90/52 02/20/19 10:00 Pulse Ox 93 02/20/19 10:00 02/19/19 02/20/19 02/20/19 22:59 06:59 14:59 Intake Total 1855 / 3165 1060 / 4225 788.133 / 788.133 Output Total 1150 / 2950 3100 / 6050 635 / 635 Balance 705 / 215 -2040 / -1825 153.133 / 153.133 Weight last 48 hrs Weight 176 lb 3.2 oz Weight 178 lb 4.8 oz Physical Exam Narrative: EXAM NARRATIVE: General: Patient is awake alert and oriented, in no significant distress. HEENT: Pupil bilateral symmetric, light and accommodation reflex present, extraocular muscle movement intact, no deformity of the nose Neck: No JVD, no cervical or supraclavicular lymphadenopathy. Respiratory: Inspection: Barrel-shaped chest, no visible deformity, scarring or mass lesion Palpation: No tenderness, trachea shifted mildly to the right, reduced chest wall expansion symmetrically bilaterally Percussion: Hyperresonance bilaterally both anteriorly and posteriorly Auscultation: Diminished breath sound bilaterally, occasional rhonchi in the right lower lobe, minimal crackles in the right upper lung zone anteriorly Cardiovascular: Regular rate and rhythm, tachycardia, S1-S2 present, no murmur, no right ventricular heave, no peripheral edema. Abdomen: Soft, nontender, nondistended, positive bowel sound. No palpable organomegaly. Musculoskeletal: No obvious joint deformity Skin: No rash, no evidence of erythema nodosum or multiforme. Neuro: Mental status is normal, no gross cranial nerve deficit, normal motor and coordination. Data Micro: Micro: Microbiology 02/20/19 10:30 Blood Culture - Pr eliminary Blood [facility] 02/20/19 10:00 Blood Culture - Pr eliminary Blood [facility] 02/17/19 12:13 Mycobacterial Cult ure - Preliminary Body Fluids - Bro nchial 02/17/19 12:13 Gram Stain - Final Lung Right Upper Lobe Bronchoalveolar La vage Culture - Pre liminary Gram Negative R ods Gram Negative R ods#2 A&P Assessment and plan (1) Necrotizing pneumonia: The patient has necrotizing pneumonia secondary to Pseudomonas infection. There is no evidence of mycobacterial infection currently. The patient has made improvement with the antibiotic therapy. The patient will need 6 weeks of intravenous antibiotic therapy for the necrotizing pseudomonal pneumonia with abscess formation. I will give him nebulized colistin or aztreonam for 2 weeks. The best course of action for him would be resolution of his lung abscess. The patient is coughing up putrid sputum. I am hoping he will be able to clean up the necrosed lung tissue by auto drainage. I will follow him up in 2 weeks time in the office. Status: Acute Code(s): J85.0 - Gangrene and necrosis of lung (2) COPD (chronic obstructive pulmonary disease): The patient has severe emphysema and COPD. He can be discharged on his home medication when stable. Status: Acute Code(s): J44.9 - Chronic obstructive pulmonary disease, unspecified Attestations Medical Necessity Statement*: Will defer to the primary team Coding Level of Care Code Acute Publishing Editor for [facility] Diagnoses Necrotizing pneumonia J85.0 COPD (chronic obstructive pulmonary disease) J44.9 Time Spent (min) 43
--- NOTE | 2019-02-20 16:06 | PM.PN ---
Subjective Subjective: Interval history: No acute events overnight. Continues to complain of chest pain on deep inspiration. States his cough has not improved much. Denies of having any headache, nausea, vomiting. States his appetite is improved. Medications: Reviewed: Yes Vitals/I&O/Wt Last Vital Signs Temp 99.2 F 02/20/19 14:00 Pulse 98 02/20/19 15:34 Resp 16 02/20/19 15:29 BP 101/68 02/20/19 14:00 Pulse Ox 94 02/20/19 15:29 02/20/19 02/20/19 02/20/19 06:59 14:59 22:59 Intake Total 1060 / 4225 1250.000 / 1250.000 Output Total 3100 / 6050 885 / 885 Balance -2040 / -1825 365.000 / 365.000 Weight last 48 hrs Weight 79.923 kg Weight 80.876 kg Physical Exam Narrative: EXAM NARRATIVE: General: No acute distress, AO x3, Ch[place]xia HEENT: PERRLA, pupils bilaterally equal and reactive Chest:bronchial breath sounds b/l R>L, Upper lobe more than middle lobe, Clear otherwise, no more scattered ronchi and wheeze. CVS: S1-S2 regular, no murmurs, no gallops, no rubs Abdomen: Soft, nontender, no organomegaly, bowel sounds present Neuro: No focal deficits, no facial deformity, AO x3, power 5/5 in all limbs. Data Micro: Micro: Microbiology 02/20/19 10:30 Blood Culture - Pr eliminary Blood [facility] 02/20/19 10:00 Blood Culture - Pr eliminary Blood [facility] 02/17/19 12:13 Mycobacterial Cult ure - Preliminary Body Fluids - Bro nchial 02/17/19 12:13 Gram Stain - Final Lung Right Upper Lobe Bronchoalveolar [place] vage Culture - Pre liminary Gram Negative R ods Gram Negative R ods#2 A&P Assessment and plan (1) Sepsis with acute hypoxic respiratory failure: Status: Acute Code(s): A41.9 - Sepsis, unspecified organism; R65.20 - Severe sepsis without septic shock; J96.01 - Acute respiratory failure with hypoxia (2) Necrotizing pneumonia: Status: Acute Code(s): J85.0 - Gangrene and necrosis of lung (3) Atrial fibrillation: Status: Acute Code(s): I48.91 - Unspecified atrial fibrillation (4) Bullous emphysema: Status: Acute Code(s): J43.9 - Emphysema, unspecified (5) Coronary artery disease: Status: Acute Code(s): I25.10 - Atherosclerotic heart disease of [place] coronary artery without angina pectoris Additional A&P Information Additional A&P Information: Septic shock with acute hypoxic respiratory failure: Mild improvement. Most likely patient has necrotizing pneumonia versus less likely pulmonary tuberculosis. CT scan result and images appreciated for multiple fluid debris levels consistent with abscess. Prelim from BAL s/o pseudomonas. Mean arterial pressures have maintained over 65 mmHg. Pt euvoluemic. We will give patient albumin 25% 25 g every 8 hours for 1 day. Monitor I/Os. C/w Vanc and imipenem both renally dosed. WBC improving. Follow-up BAL culture results, antigen results from the bronchoscopy specimen. Follow-up blood cultures and sputum cultures already sent. Tuberculosis unlikely but will continue on airborne precautions till TB PCR negative. Bacterial antigen negative. Pulmonology and ID recommendations appreciated. Pt might end up needing lobectomy or decortication depending on hospital course goes. Will keep Dr. Sheppard in loop. PICC line placement today for long-term antibiotic therapy. For hypoxic respiratory failure: Continue with DuoNeb's [id number] Q4h, budesonide twice daily and albuterol as needed. Will add spiriva as well. As at home pt was on both. Patient has been on steroids systemically. Will discontinue steroids today given the possibility of necrotizing pneumonia and possibility of TB. Doing well with morphine 1 mg IV Q4h PRN. Will continue. Out of bed to chair today. Atrial fibrillation: Patient has a history of atrial fibrillation. Reverted to NSR Port IV amiodrone infusion protocol. C/w Digoxin at 250 mcg. Dig level sufficient. Start on lepressor IV 2.5 mg IV Q6h as needed keeping BP over 110 mmhg. History of CAD: Denies any chest pain right now. Start on ASA 81 mg PO QD. Cardiac diet. Full code Lovenox for DVT prophylaxis. Attestations Medical Necessity Statement*: Discontinued hospitalization for management of necrotizing pneumonia while tuberculosis is ruled out. 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
--- NOTE | 2019-02-20 19:04 | NUR.SHIFT ---
Pt has remained in Sinus rhythm. He has stayed on O2 at 6lpm. he has sats 89-97% today. he has had a complete bath and shampoo ( except for the quintana, which he wanted left alone). He has recieved Albumin today. He has a new PICC, right upper arm. He remains on aireborne precautions until the final results come. in. His appetite has been decent until this dinner. Dr Dewey'd him getting double portions at meals if he wants them.
[2019-02-20] MEDS: atorvastatin 40 mg Tablet 20 MG PO (20:56)
[2019-02-20] MEDS: morphine 4 mg/mL SDV 1 mL 1 MG IVP (22:34)
[2019-02-21] VITALS (27 sets, daily range): BP systolic 64–117; BP diastolic 45–69; PULSE 87–136; RESP 15–28; TEMP 36.7–38.1; O2SAT 87–99; BMI 19.8
[2019-02-21] MEDS: ipratropium-albuterol 3 mL Neb INHALATION ×7 (00:20→23:07)
[2019-02-21] MEDS: enoxaparin 40 mg/0.4 mL Syringe SUBCUT (01:01)
--- NOTE | 2019-02-21 01:28 | PC.NURSE ---
patient resting comfortably no issues this shift. patient does have slight temp at 99.8 blankets removed and patient is eating sandwich and watching tv. patient is still coughing with copius amounts of secretions. in negative pressure room on isolation for possible tb.
[2019-02-21 04:16] LABS: Basophils % 0.2 %; Eosinophils # 0.1 10^3/uL (0.0-0.8); Eosinophils % 0.3 %; Hematocrit 32.4 % (42.0-52.0); Hemoglobin 10.7 g/dL (11.7-16.6); Lymphocytes # 7.4 10^3/uL (0.8-4.8); Mean Corpuscular Hemoglobin 30.9 pg (28.0-34.0); Mean Corpuscular Volume 93.6 fL (80-94); Mean Platelet Volume 9.4 fL (7.4-10.4); Monocytes # 1.2 10^3/uL (0.2-0.9); Monocytes % 4.5 %; Neutrophils # 16.8 10^3/uL (1.8-7.7); Neutrophils % 63.9 %; Nucleated Red Blood Cells % 0 %; Platelet Count 434 10^3/cmm (130-400); Red Blood Count 3.46 10^6/uL (4.1-5.3); Red Cell Distribution Width 14.3 % (12.1-15.1); White Blood Count 26.3 10^3/uL (4.0-10.0)
[2019-02-21 06:40] LABS: Slide Review Slide Review Perform
[2019-02-21 08:05] LABS: Vancomycin Trough 9.1 ug/mL (10-15)
[2019-02-21] MEDS: budesonide 0.5 mg/2 mL Neb INHALATION ×2 (08:32→20:52)
--- NOTE | 2019-02-21 08:41 | P.PN_ITS ---
Subjective Subjective: Interval history: No acute overnight events. T-max 99.9. Respiratory rate of 24. O2 sats 96% between 5 to 8 L/min on nasal cannula. Blood pressure 96/61. No acute events on telemetry noted. MTB PCR pending. White blood cell count trending down. Pseudomonas identification definitive and susceptibility remains pending from the BAL culture. Medications: Reviewed: Yes Vitals/I&O/Wt Last Vital Signs Temp 99.9 F H 02/21/19 06:00 Pulse 99 02/21/19 08:36 Resp 24 H 02/21/19 08:30 BP 96/61 02/21/19 06:00 Pulse Ox 96 02/21/19 08:30 02/20/19 02/21/19 02/21/19 22:59 06:59 14:59 Intake Total 1330 / 2680.000 100 / 2780.000 Output Total 1975 / 2860 Balance -645 / -180.000 100 / -80.000 Weight last 48 hrs Weight 79.968 kg Weight 79.923 kg Physical Exam Narrative: EXAM NARRATIVE: GEN: Awake, alert and oriented, no acute distress CVS: S1S2 N RS: bronchial breath sounds b/l L> R, Upper lobe more than middle lobe, scatter ed wheeze Abd: Soft, nt/nd , bs+ CONTROL DIRECTOR: no focal neuro deficits Data Micro: Micro: Microbiology 02/17/19 12:13 Fungal Smear - Pre liminary Tissue 02/15/19 16:40 Blood Culture - Fi nal Blood NO GROWTH AFTER 5 DAYS 02/15/19 16:40 Blood Culture - Fi nal Blood NO GROWTH AFTER 5 DAYS 02/20/19 10:30 Blood Culture - Pr eliminary Blood [facility] 02/20/19 10:00 Blood Culture - Pr eliminary Blood [facility] 02/17/19 12:13 Mycobacterial Cult ure - Preliminary Body Fluids - Bro nchial 02/17/19 12:13 Gram Stain - Final Lung Right Upper Lobe Bronchoalveolar La vage Culture - Pre liminary Gram Negative R ods Gram Negative R ods#2 A&P Assessment and plan (1) Atrial fibrillation: Status: Acute Code(s): I48.91 - Unspecified atrial fibrillation (2) Septic shock: Status: Acute Code(s): A41.9 - Sepsis, unspecified organism; R65.21 - Severe sepsis with septic shock (3) Bullous emphysema: Status: Acute Code(s): J43.9 - Emphysema, unspecified (4) Necrotizing pneumonia: Status: Acute Code(s): J85.0 - Gangrene and necrosis of lung (5) Acute and chronic respiratory failure: Status: Acute Code(s): J96.20 - Acute and chronic respiratory failure, unspecified whether with hypoxia or hypercapnia (6) Hypertension: Status: Acute Code(s): I10 - Essential (primary) hypertension Additional A&P Information Septic shock with acute hypoxic respiratory failure: Mild improvement. Most likely patient has Pseudomonal necrotizing pneumonia with abscess. Prelim from BAL s/o pseudomonas, awaiting definitive identification and susceptibility testing. Currently appears to have stabilized after being acutely ill at admission. Awaiting MTB PCR to return to take off isolation. Ideally patient needs 3 AFB smear negative or 2 MTB PCR negative, however we are unable to get any induced sputum or expectorated sputum for testing. Given that clinical features are explainable by Pseudomonas, less likely to be MTB, therefore will base isolation decision on one pending MTB PCR. D/c Vanc as no evidence of MRSA. Continue imipenem whiel pending susceptibility results. WBC improving. Repeat CT in 2 weeks from last. Anticipate at least 6 weeks of iv treatment for aggressive pneumonia, however this period may need to be extended based on serial imaging & improvement. Follow-up BAL culture results, antigen results from the bronchoscopy specimen. Pulmonology recommendations appreciated. Pt might end up needing lobectomy if fails to improve. For hypoxic respiratory failure: Continue with DuoNeb's [id number]-[id number] Q4h, budesonide twice daily and albuterol as needed. Doing well with morphine 1 mg IV Q4h PRN for pain control. Will continue. Atrial fibrillation: Patient has a history of atrial fibrillation. Reverted to NSR C/w Digoxin at 250 mcg. Dig level sufficient. Start on lepressor IV 2.5 mg IV Q6h as needed keeping BP over 110 mmhg. History of CAD: Denies any chest pain right now. Start on ASA 81 mg PO QD. Cardiac diet. Full code Lovenox for DVT prophylaxis. Attestations Medical Necessity Statement*: management of multifocal pneumonia Coding Level of Care Code Acute Director Pediatric for [facility] Diagnoses Atrial fibrillation I48.91 Septic shock A41.9; R65.21 Bullous emphysema J43.9 Necrotizing pneumonia J85.0 Acute and chronic respiratory failure J96.20 Hypertension I10
[2019-02-21] MEDS: digoxin 250 mcg Tablet PO (09:43)
[2019-02-21] MEDS: nicotine 7 mg Patch 1 PATCH TRANSDERMA (09:47)
[2019-02-21] MEDS: aspirin 81 mg EC Tablet PO (09:47)
[2019-02-21] MEDS: meloxicam 7.5 mg tablet 15 MG PO (09:47)
[2019-02-21 12:37] LABS: Hepatitis A Antibody Total NON-REACTIVE (NON-REACTIVE)
[2019-02-21] MEDS: acetaminophen 325 mg Tablet 650 MG PO (13:24)
[2019-02-21] MEDS: atorvastatin 40 mg Tablet 20 MG PO (22:02)
[2019-02-22] VITALS (19 sets, daily range): BP systolic 89–124; BP diastolic 56–79; PULSE 75–107; RESP 16–28; TEMP 36.9–37.4; O2SAT 89–98
[2019-02-22] MEDS: enoxaparin 40 mg/0.4 mL Syringe SUBCUT (01:55)
[2019-02-22] MEDS: ipratropium-albuterol 3 mL Neb INHALATION ×5 (03:40→20:50)
[2019-02-22 04:51] LABS: Basophils # 0.1 10^3/uL (0.0-0.1); Basophils % 0.1 %; Eosinophils # 0.1 10^3/uL (0.0-0.8); Eosinophils % 0.2 %; Hematocrit 29.4 % (42.0-52.0); Hemoglobin 9.9 g/dL (11.7-16.6); Lymphocytes # 7.6 10^3/uL (0.8-4.8); Lymphocytes % 22.9 %; Mean Corpuscular HGB Conc 33.7 g/dL (30.0-36.0); Mean Corpuscular Hemoglobin 30.7 pg (28.0-34.0); Mean Platelet Volume 9.7 fL (7.4-10.4); Monocytes # 1.5 10^3/uL (0.2-0.9); Monocytes % 4.4 %; Neutrophils # 23.4 10^3/uL (1.8-7.7); Nucleated Red Blood Cells % 0 %; Platelet Count 670 10^3/cmm (130-400); Red Blood Count 3.23 10^6/uL (4.1-5.3); Red Cell Distribution Width 13.9 % (12.1-15.1)
[2019-02-22 05:09] LABS: Alanine Aminotransferase 33 U/L (0-41); Albumin Level 3.1 g/dL (3.5-5.2); Alkaline Phosphatase 170 IU/L (40-130); Anion Gap 12.9 (5-19); Blood Urea Nitrogen 12 mg/dL (8-23); Calcium 8.9 mg/Dl (8.8-10.2); Carbon Dioxide 30 mmol/L (22-29); Chloride 94 mmol/L (98-107); Globulin 3.8 g/dL (1.3-4.6); Glomerular Filtration Rate 214.6 mL/min (90-130); Glucose 98 mg/dL (74-106); Potassium 4.9 mmol/L (3.5-5.1); Sodium 132 mmol/L (136-145); Total Bilirubin 0.9 mg/dL (0.15-1.2); Total Protein 6.9 g/dL (6.6-8.7)
[2019-02-22 06:12] LABS: White Blood Count 33.4 10^3/uL (4.0-10.0)
[2019-02-22 06:13] LABS: Slide Review Slide Review Perform
[2019-02-22 06:31] LABS: Aspartate Amino Transferase 60 U/L (0-40)
[2019-02-22] MEDS: budesonide 0.5 mg/2 mL Neb INHALATION ×2 (07:25→20:50)
[2019-02-22] MEDS: meloxicam 7.5 mg tablet 15 MG PO (08:47)
[2019-02-22] MEDS: digoxin 250 mcg Tablet PO (08:47)
[2019-02-22] MEDS: aspirin 81 mg EC Tablet PO (08:47)
[2019-02-22] MEDS: nicotine 7 mg Patch 1 PATCH TRANSDERMA (10:56)
--- NOTE | 2019-02-22 14:06 | PC.CHAP ---
Pastoral Care Encounter/Spiritual Assessment Type of Contact [] Declined quilt sewer visit [] Patient/Family/Request visit [] Outpatient visit [] Follow-up visit [] Physician referral [] Code/Alert [] Routine visit [] Staff referral [] Actively dying [] Patient sleeping [] Family support [] [] Out of room [] Palliative care [] [] Receiving care in room [] Pre-surgical visit [] Trauma [] Long length of stay [] ICU visit [x] Other: Isolation Relational/Emotional Strength [] Patient feels connected with others/family/visitors/staff [] Distress [] Loneliness/isolation [] Abandonment Spirituality of Patient [] Person of Lakshmi [] Attends Rastafarian of their Lakshmi [] Believes in Prayer [] Reads Bible or Gnosticism materials [] There are Spiritual issues to be addressed [place] Interventions [] Prayer [] Active listening [] Non-anxious presence [] Spiritual/emotional support [] Crisis/trauma care [] Spiritual counseling [] Bereavement support [] Provided bereavement packet [] Provided Bible/devotional materials [] Provided toy/stuffed animal, coloring book to patient or family member [] Completed spiritual assessment [] Provided Communion [] Anointing/[place] [] Salvation [] Other: Impact on Illness or Injury [] Angry [] Fearful [] Anxious [] Often cries [] Exhaustion [] Unable to work [] Unable to attend tenriism [] Unable to walk/stand [] Unable to read [] Unable to drive [] Unable to eat/drink [] Unable to sleep [] Unable to be with family [] Other: Summary The patient was in Isolation. The [place] prayed for the patient outside the door. Time spent with patient 7 mins
--- NOTE | 2019-02-22 14:19 | PC.SOCIAL ---
IMM Updated Page 2 of IMM updated and given to patient. Initialed, dated, and timed and placed back in chart.
--- NOTE | 2019-02-22 15:02 | PC.NURSE ---
Preparing to transfer patient via bed to [facility]. Gave report to Margaret. All belongings with patient.
--- NOTE | 2019-02-22 16:18 | P.PN_ITS ---
Subjective Subjective: Interval history: No acute overnight events. T-max 100.5F. Respiratory rate of 24. O2 sats 96% between 5 to 8 L/min on nasal cannula. Intermittent drop to 89% with minimal movement even in bed. Blood pressure more stable today. No acute events on telemetry noted. MTB PCR negative. BAL culture with Pseudomonas and Proteus. Medications: Reviewed: Yes Vitals/I&O/Wt Last Vital Signs Temp 99.4 F 02/22/19 15:59 Pulse 77 02/22/19 16:13 Resp 16 02/22/19 16:04 BP 124/79 02/22/19 15:59 Pulse Ox 94 02/22/19 16:04 02/22/19 02/22/19 02/22/19 06:59 14:59 22:59 Intake Total 100 / 1800 960 / 960 Output Total 1050 / 1050 Balance 100 / -1500 -90 / -90 Weight last 48 hrs Weight 82.645 kg Weight 79.968 kg Physical Exam Narrative: EXAM NARRATIVE: GEN: Awake, alert and oriented, lying in bed, tachypneic CVS: S1S2 N RS: bronchial breath sounds b/l L> R Abd: Soft, nt/nd , bs+ JEWEL SAWYER: no focal neuro deficits Data Micro: Micro: Microbiology 02/17/19 12:13 Gram Stain - Final Lung Right Upper Lobe Bronchoalveolar La vage Culture - Pre liminary Pseudomonas aer uginosa Proteus mirabil is 02/21/19 10:12 Blood Culture - Pr eliminary Blood NEGATIVE TO DIAMOND E 02/21/19 10:12 Blood Culture - Pr eliminary Blood NEGATIVE TO DIAMOND E 02/17/19 12:13 Fungal Smear - Pre liminary Tissue 02/20/19 10:30 Blood Culture - Pr eliminary Blood NEGATIVE TO DIAMOND E 02/20/19 10:00 Blood Culture - Pr eliminary Blood NEGATIVE TO DIAMOND E A&P Assessment and plan (1) Atrial fibrillation: Status: Acute Code(s): I48.91 - Unspecified atrial fibrillation (2) Septic shock: Status: Acute Code(s): A41.9 - Sepsis, unspecified organism; R65.21 - Severe sepsis with septic shock (3) Bullous emphysema: Status: Acute Code(s): J43.9 - Emphysema, unspecified (4) Necrotizing pneumonia: Status: Acute Code(s): J85.0 - Gangrene and necrosis of lung (5) Acute and chronic respiratory failure: Status: Acute Code(s): J96.20 - Acute and chronic respiratory failure, unspecified whether with hypoxia or hypercapnia (6) Hypertension: Status: Acute Code(s): I10 - Essential (primary) hypertension Additional A&P Information Septic shock with acute hypoxic respiratory failure: . Most likely patient has Pseudomonal necrotizing pneumonia with abscess. Prelim from BAL s/o pseudomonas and Proteus. Will switch Primaxin to Cefepime for above gram negative coverage WBC count trending up, fever now 100.5F, possibilities including persisting infection (as is highly likely) due to poor penetration of abx into cavity vs incraesing necrotic burden in the lung. No evidence of MRSA on nasal swab or BAL cx, therefore doubt that taking off vancomycin contributing here. While staph is still possible, non MRSA starins will be covered by Primaxin/Cefepime. repeat CT tomorrow/sooner if acute clinical change MTB PCR negative. Taken off isolation based on these results. Ideally patient needs 3 AFB smear negative or 2 MTB PCR negative, however we are unable to get any induced sputum or expectorated sputum for testing. Given that clinical features are explainable by Pseudomonas, less likely to be MTB, therefore will base isolation decision on one MTB PCR. Anticipate at least 6 weeks of iv treatment for aggressive pneumonia, however this period may need to be extended based on serial imaging & improvement. Pulmonology recommendations appreciated. Pt might end up needing lobectomy if fails to improve. For hypoxic respiratory failure: Continue with DuoNeb's [id number]-ngq-kvbyk Q4h, budesonide twice daily and albuterol as needed. Doing well with morphine 1 mg IV Q4h PRN for pain control. Will continue. C/o pain in all extremities, previously diagnosed with neuropathy. Will start gabapentin. Atrial fibrillation: Patient has a history of atrial fibrillation. Reverted to NSR C/w Digoxin at 250 mcg. Dig level sufficient. Start on lepressor IV 2.5 mg IV Q6h as needed keeping BP over 110 mmhg. History of CAD: Denies any chest pain right now. Start on ASA 81 mg PO QD. Cardiac diet. Full code Lovenox for DVT prophylaxis. 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
[2019-02-22] MEDS: cefepime 2,000 MG in sodium chloride 0.9% (plus) 50 ML 100 MG IV (17:09)
[2019-02-22] MEDS: gabapentin 100 mg Capsule PO (17:42)
[2019-02-22 17:51] LABS: Aspergillus AG,EIA,Serum NOT DETECTED; Aspergillus Galactomannan Inde <0.50
[2019-02-22] MEDS: atorvastatin 40 mg Tablet 20 MG PO (22:45)
[2019-02-22] MEDS: morphine 4 mg/mL SDV 1 mL 1 MG IVP (22:58)
[2019-02-23] VITALS (23 sets, daily range): BP systolic 95–108; BP diastolic 55–67; PULSE 72–108; RESP 16–24; TEMP -12.3–38.3; O2SAT 92–98
[2019-02-23] MEDS: ipratropium-albuterol 3 mL Neb INHALATION ×7 (00:44→23:47)
--- NOTE | 2019-02-23 01:13 | PHA.FALL ---
A Pharmacy Consult Was Conducted For Chris Brooks Due To: Romero Fall Scale Risk Level: High Fall Risk On 02/23/19 00:47 And A Medication Fall Risk Score Greater Than 12. The Recommendations Are As Follows: Amiodarone and Digoxin can cause orthostatic hypotension, dizziness, syncope, bradycardia, impaired cerebral perfusion. Morphine and Meloxicam can cause sedation or confusion Gabapentin can cause sedation, psychomotor impairment, confusion
[2019-02-23] MEDS: enoxaparin 40 mg/0.4 mL Syringe SUBCUT (03:25)
[2019-02-23] MEDS: cefepime 2,000 MG in sodium chloride 0.9% (plus) 50 ML 100 MG IV ×3 (03:25→17:45)
[2019-02-23 06:23] LABS: Basophils % 0.1 %; Eosinophils # 0.1 10^3/uL (0.0-0.8); Eosinophils % 0.4 %; Hematocrit 29.2 % (42.0-52.0); Hemoglobin 9.8 g/dL (11.7-16.6); Lymphocytes # 7.4 10^3/uL (0.8-4.8); Lymphocytes % 26.7 %; Mean Corpuscular HGB Conc 33.6 g/dL (30.0-36.0); Mean Corpuscular Hemoglobin 31.7 pg (28.0-34.0); Mean Corpuscular Volume 94.5 fL (80-94); Mean Platelet Volume 9.8 fL (7.4-10.4); Monocytes # 1.5 10^3/uL (0.2-0.9); Monocytes % 5.5 %; Neutrophils # 18.4 10^3/uL (1.8-7.7); Neutrophils % 66.2 %; Nucleated Red Blood Cells % 0 %; Platelet Count 357 10^3/cmm (130-400); Red Blood Count 3.09 10^6/uL (4.1-5.3); Red Cell Distribution Width 14.1 % (12.1-15.1); White Blood Count 27.8 10^3/uL (4.0-10.0)
[2019-02-23 06:40] LABS: Alanine Aminotransferase 36 U/L (0-41); Albumin Level 3.4 g/dL (3.5-5.2); Alkaline Phosphatase 154 IU/L (40-130); Anion Gap 13.3 (5-19); Blood Urea Nitrogen 13 mg/dL (8-23); Carbon Dioxide 28 mmol/L (22-29); Chloride 92 mmol/L (98-107); Globulin 3.6 g/dL (1.3-4.6); Glomerular Filtration Rate 165.9 mL/min (90-130); Glucose 98 mg/dL (74-106); Potassium 4.3 mmol/L (3.5-5.1); Sodium 129 mmol/L (136-145); Total Bilirubin 1.1 mg/dL (0.15-1.2)
[2019-02-23 07:20] LABS: Aspartate Amino Transferase 69 U/L (0-40)
[2019-02-23 07:27] LABS: Slide Review Slide Review Perform
[2019-02-23] MEDS: budesonide 0.5 mg/2 mL Neb INHALATION ×2 (07:32→19:42)
--- NOTE | 2019-02-23 08:29 | CT_ITS ---
WS: [id number] CT CHEST WITHOUT INTRAVENOUS CONTRAST HISTORY: f/up pneumonia TECHNIQUE: Contiguous 5 mm axial imaging performed on the thorax. Coronal and sagittal reformats are submitted. All CT scans at [facility] use at least one of these dose optimization techniq ues: automated exposure control; mA and/or kV adjustment per patient size (includes targeted exams wh ere dose is matched to clinical indication); or iterative reconstruction. CONTRAST: None DLP: 653.42 mGy.cm COMPARISON: 02/15/2019 and 01/31/2016 Lungs and central airway: Continued bilateral, multi lobar airspace disease. Parenchymal scarring wit h bullous disease in the upper lung boogie. Spiculated nodule in the LEFT upper lobe is actually less consolidated as compared to the most recent CT. There are air-fluid levels in upper lobe bulla surro unded by soft tissue. Dense areas of consolidation in the RIGHT upper and bilateral lower lung boogie . Multi lobar bronchiectatic changes. Mild improvement in aeration in the LEFT upper lobe. Since 2017 dense area of spiculated consolidation measuring 4.4 x 3.2 cm has developed in the superior segm ent of the LEFT lower lobe. Focal cavitation within this new consolidation. Slight increased intersti tial thickening in the RIGHT lower lung field. Pleura: No significant pleural effusion. Heart and pericardium: Normal size heart. No pericardial effusion. Mediastinum and jeff: Mediastinal and hilar lymph nodes. No significant change. Vessels: Atherosclerosis aorta. Normal size pulmonary artery. Chest wall and lower neck: No soft tissue masses. Upper abdomen: Mild emphysema. No adrenal mass. Osseous structures: Remote fractures in the posterior RIGHT thorax. CT/CT chest wo con [id number] IMPRESSION: 1. Severe bullous emphysema and bronchiectasis. 2. Air-fluid levels within the upper lobes may be infected bulla. 3. New consolidation with central cavitation in the superior segment LEFT lowe r lobe since 02/15/2019. 4. Interstitial nodularity and thickening in the RIGHT lower lobe with slight increase. 5. Mild improvement in aeration LEFT upper lobe. 6. Consider atypical organisms or aspiration pneumonia due to the cavitary les ion in the LEFT lower lobe which is new since 02/15/2019. 7. No pleural effusions.
[2019-02-23] MEDS: aspirin 81 mg EC Tablet PO (09:10)
[2019-02-23] MEDS: meloxicam 7.5 mg tablet 15 MG PO (09:10)
[2019-02-23] MEDS: gabapentin 100 mg Capsule PO ×2 (09:10→17:49)
[2019-02-23] MEDS: morphine 4 mg/mL SDV 1 mL 1 MG IVP ×3 (09:10→21:49)
[2019-02-23] MEDS: digoxin 250 mcg Tablet PO (09:10)
[2019-02-23] MEDS: nicotine 7 mg Patch 1 PATCH TRANSDERMA (09:16)
--- NOTE | 2019-02-23 17:24 | PC.NURSE ---
PICC dressing changed per aseptic technique. Pt tolerated well.
--- NOTE | 2019-02-23 18:11 | PM.PN ---
Subjective Subjective: Interval history: Fever curve improving. Tmax 99.6F. leukocytosis downtredning. Transferred out of ICU to floors yesterday. Saturating 95% on 4.5lpm, no acute overnigth events. No events on telemetry monitoring. Medications: Reviewed: Yes Vitals/I&O/Wt Last Vital Signs Temp 99.6 F 02/23/19 15:00 Pulse 95 02/23/19 15:13 Resp 16 02/23/19 15:13 BP 108/67 02/23/19 15:00 Pulse Ox 95 02/23/19 15:13 02/23/19 02/23/19 02/23/19 06:59 14:59 22:59 Intake Total 150 / 2340 870 / 870 240 / 1110 Output Total 450 / 2940 1025 / 1025 650 / 1675 Balance -300 / -600 -155 / -155 -410 / -565 Weight last 48 hrs Weight 89.471 kg Weight 82.645 kg Physical Exam Narrative: EXAM NARRATIVE: GEN: Awake, alert and oriented, lying in bed, tachypneic, mouth breathing+, unchanged over yesterday. CVS: S1S2 N RS: bronchial breath sounds b/l L> R. Added rales B/L infraaxillary areas Abd: Soft, nt/nd , bs+ REGISTERED RADIATION THERAPIST: no focal neuro deficits Data : 02/24/19 05:28 02/24/19 05:28 Micro: Microbiology 02/22/19 17:36 Blood Culture - Preliminary Blood NEGATIVE TO DATE 02/22/19 17:27 Blood Culture - Preliminary Blood NEGATIVE TO DATE 02/17/19 12:13 Gram Stain - Final Lung Right Upper Lobe Bronchoalveolar Lavage Culture - Preliminary Pseudomonas aeruginosa Proteus mirabilis Enterobacter aerogenes 02/23/19 06:08 Blood Culture - Preliminary Blood SPECIMEN COLLECTED 02/23/19 06:06 Blood Culture - Preliminary Blood SPECIMEN COLLECTED 02/17/19 12:13 Viral Culture - Preliminary Bronchial Washings 02/17/19 12:13 Fungal Smear - Preliminary Tissue Attestation for Other Data: I personally reviewed and interpreted the following: Other data: [address] [address] [address] Scan Report Signed Patient: Chris Brooks [facility] #: [id number] : [id number]#:[id number] Age/Sex: 68 / MADM Date: 02/15/19 Loc: [facility]/Bed: 257-[address]: Corine aCgle MD Ordering Provider/Ordering MD: Corine Cagle MD Date of Service: 02/23/19 Procedure(s): CT chest wo con [id number] Accession Number(s): [id number] Report Number: [id number] WS: [id number] CT CHEST WITHOUT INTRAVENOUS CONTRAST HISTORY: f/up pneumonia TECHNIQUE: Contiguous 5 mm axial imaging performed on the thorax. Coronal and sagittal reformats are submitted. All CT scans at [facility] use at least one of these dose optimization techniques: automated exposure control; mA and/or kV adjustment per patient size (includes targeted exams where dose is matched to clinical indication); or iterative reconstruction. CONTRAST: None DLP: 653.42 mGy.cm COMPARISON: 02/15/2019 and 01/31/2016 Lungs and central airway: Continued bilateral, multi lobar airspace disease. Parenchymal scarring with bullous disease in the upper lung boogie. Spiculated nodule in the LEFT upper lobe is actually less consolidated as compared to the most recent CT. There are air-fluid levels in upper lobe bulla surrounded by soft tissue. Dense areas of consolidation in the RIGHT upper and bilateral lower lung boogie. Multi lobar bronchiectatic changes. Mild improvement in aeration in the LEFT upper lobe. Since 02/15/2017 dense area of spiculated consolidation measuring 4.4 x 3.2 cm has developed in the superior segment of the LEFT lower lobe. Focal cavitation within this new consolidation. Slight increased interstitial thickening in the RIGHT lower lung field. Pleura: No significant pleural effusion. Heart and pericardium: Normal size heart. No pericardial effusion. Mediastinum and jeff: Mediastinal and hilar lymph nodes. No significant change. Vessels: Atherosclerosis aorta. Normal size pulmonary artery. Chest wall and lower neck: No soft tissue masses. Upper abdomen: Mild emphysema. No adrenal mass. Osseous structures: Remote fractures in the posterior RIGHT thorax. CT/CT chest wo con [id number] IMPRESSION: 1. Severe bullous emphysema and bronchiectasis. 2. Air-fluid levels within the upper lobes may be infected bulla. 3. New consolidation with central cavitation in the superior segment LEFT lower lobe since 02/15/2019. 4. Interstitial nodularity and thickening in the RIGHT lower lobe with slight increase. 5. Mild improvement in aeration LEFT upper lobe. 6. Consider atypical organisms or aspiration pneumonia due to the cavitary lesion in the LEFT lower lobe which is new since 02/15/2019. 7. No pleural effusions. A&P Assessment and plan (1) Atrial fibrillation: Status: Acute Code(s): I48.91 - Unspecified atrial fibrillation (2) Septic shock: Status: Acute Code(s): A41.9 - Sepsis, unspecified organism; R65.21 - Severe sepsis with septic shock (3) Bullous emphysema: Status: Acute Code(s): J43.9 - Emphysema, unspecified (4) Necrotizing pneumonia: Status: Acute Code(s): J85.0 - Gangrene and necrosis of lung (5) Acute and chronic respiratory failure: Status: Acute Code(s): J96.20 - Acute and chronic respiratory failure, unspecified whether with hypoxia or hypercapnia (6) Hypertension: Status: Acute Code(s): I10 - Essential (primary) hypertension Additional A&P Information Septic shock with acute hypoxic respiratory failure: . Culture from BAL wash now with multiple yen including Psuedomonas, Proteus and Enterobacter. Of the isolated organisms, believe that Pseudomonal necrotizing pneumonia with abscess is the most aggressive process here. Change Cefepime to Zosyn for additional anaerobic coverage. Will elect for Psuedomonal dosing at 4.5g iv q6h. WBC count stable, fever curve mildly improved, possibilities including persisting infection (as is highly likely) due to poor penetration of abx into cavity vs increasing necrotic burden in the lung. No evidence of MRSA on nasal swab or BAL cx, therefore doubt that taking off vancomycin contributing here. While staph is still possible, non MRSA strains will be covered by Zosyn repeat CT per radiology read with new abscess left lung, looks overall grossly unchanged per my read MTB PCR negative, AFB smear negative. Taken off isolation based on these results. Ideally patient needs 3 AFB smear negative or 2 MTB PCR negative, however we are unable to get any induced sputum or expectorated sputum for testing. Given that clinical features are explainable by Pseudomonas, less likely to be MTB, therefore will base isolation decision on one MTB PCR. Aspergillus galactommanan antigen negative. Fungal culture thus far only with penelope albicans (likely colonizer), no mold noted. Lab requested to specifically rule out Nocardia and Actinomyces- thus far cx negative for these organisms. Zosyn will cover empirically for Actinomyces Anticipate at least 4-6 weeks of iv treatment for aggressive pneumonia, however this period may need to be extended based on serial imaging & improvement. Pulmonology recommendations appreciated. Per discussion with Dr. Chamberlain, drainage of abscess not feasible as high risk of bronchopleural fistula as a complication. Inhaled abx by way of inhaled amikacin, tobramycin, colistin etc. usually only indicated for MDR gram negatives, however his isolate is fairly susceptible, therefore unlikely to be of additional benefit. Inhaled abx also not currently available at our pharmacy. Since patient has shown some degree of clinical stability since admission by way of resolution of septic shock, holding off on lobectomy for now. Patient has extensive B/L disease at this time, with high risk of pulmonary decompensation with B/L procedures. Since he has stabilized, will continue IV antibiotics for now and keep reassessing with repeat imaging every 10-14 days. High chance that pt might end up needing lobectomy if fails to improve. For hypoxic respiratory failure: Continue with DuoNeb's [id number] Q4h, budesonide twice daily and albuterol as needed. Will add Tramadol for pain control. C/o pain in all extremities, previously diagnosed with neuropathy. Will start gabapentin. Atrial fibrillation: Patient has a history of atrial fibrillation. Reverted to NSR C/w Digoxin at 250 mcg. No new events noted on telemetry. Leukocytosis: WBC 28 from peak of 54 during admission. Peripheral smear with predominant neutrophilia. No abnormal blasts or abnormal cells seen. On trending previous WBC, last in our records dates back to 09/2018 at which time also WBC was in the 40s. Patients states he had a normal number in January but I am unable to find any record of it. History of CAD: Denies any chest pain right now. Start on ASA 81 mg PO QD. Cardiac diet. Full code Lovenox for DVT prophylaxis. Attestations Medical Necessity Statement*: Remains admitted for management of necrotizing pneumonia, will be served better with LTAC admission Coding Level of Care Code Acute Individual Small Group Instructor for [facility] Diagnoses Atrial fibrillation I48.91 Septic shock A41.9; R65.21 Bullous emphysema J43.9 Necrotizing pneumonia J85.0 Acute and chronic respiratory failure J96.20 Hypertension I10
[2019-02-23] MEDS: atorvastatin 40 mg Tablet 20 MG PO (21:50)
[2019-02-24] VITALS (16 sets, daily range): BP systolic 90–109; BP diastolic 56–70; PULSE 76–105; RESP 18–28; TEMP 36.3–37.7; O2SAT 92–97; BMI 21.4
[2019-02-24] MEDS: cefepime 2,000 MG in sodium chloride 0.9% (plus) 50 ML 100 MG IV ×2 (01:14→09:46)
[2019-02-24] MEDS: enoxaparin 40 mg/0.4 mL Syringe SUBCUT (01:14)
[2019-02-24] MEDS: ipratropium-albuterol 3 mL Neb INHALATION ×5 (03:57→20:50)
[2019-02-24 06:24] LABS: Basophils % 0.1 %; Eosinophils # 0.1 10^3/uL (0.0-0.8); Eosinophils % 0.2 %; Hematocrit 29.1 % (42.0-52.0); Hemoglobin 9.8 g/dL (11.7-16.6); Lymphocytes # 7.3 10^3/uL (0.8-4.8); Lymphocytes % 25.9 %; Mean Corpuscular HGB Conc 33.7 g/dL (30.0-36.0); Mean Corpuscular Hemoglobin 31.4 pg (28.0-34.0); Mean Corpuscular Volume 93.3 fL (80-94); Mean Platelet Volume 9.8 fL (7.4-10.4); Monocytes # 1.9 10^3/uL (0.2-0.9); Monocytes % 6.6 %; Neutrophils # 18.5 10^3/uL (1.8-7.7); Neutrophils % 66.1 %; Nucleated Red Blood Cells % 0 %; Platelet Count 360 10^3/cmm (130-400); Red Blood Count 3.12 10^6/uL (4.1-5.3); Red Cell Distribution Width 14.1 % (12.1-15.1)
[2019-02-24 06:52] LABS: Slide Review Slide Review Perform
[2019-02-24 07:03] LABS: Alanine Aminotransferase 39 U/L (0-41); Alkaline Phosphatase 172 IU/L (40-130); Aspartate Amino Transferase 83 U/L (0-40); Blood Urea Nitrogen 12 mg/dL (8-23); Calcium 9.3 mg/Dl (8.8-10.2); Carbon Dioxide 27 mmol/L (22-29); Chloride 91 mmol/L (98-107); Globulin 3.8 g/dL (1.3-4.6); Glomerular Filtration Rate 214.6 mL/min (90-130); Glucose 78 mg/dL (74-106); Sodium 131 mmol/L (136-145); Total Protein 7.8 g/dL (6.6-8.7)
[2019-02-24] MEDS: budesonide 0.5 mg/2 mL Neb INHALATION ×2 (08:42→20:50)
[2019-02-24] MEDS: aspirin 81 mg EC Tablet PO (09:44)
[2019-02-24] MEDS: nicotine 7 mg Patch 1 PATCH TRANSDERMA (09:44)
[2019-02-24] MEDS: digoxin 250 mcg Tablet PO (09:45)
[2019-02-24] MEDS: gabapentin 100 mg Capsule PO ×2 (09:45→18:02)
[2019-02-24] MEDS: meloxicam 7.5 mg tablet 15 MG PO (09:49)
--- NOTE | 2019-02-24 13:20 | PM.CONSULT ---
Providers/Reason For Consult Consulting Physican/Specialty*: Dr. Buckner, cardiothoracic surgery. Reason for Consult*: Necrotizing pneumonia with areas of cavitation Requesting Physcian: Dr. Cagle Attending Physician: Corine Cagle MD History of Present Illness History of Present Illness Chris Brooks is a 68 year old male who was admitted on February 15 after presenting to the emergency department with complaints of cough, shortness of breath, and sputum production. This has been worsening over a 3-week. And for approximately 4 days prior to presentation had become quite intense. Even minimal activity resulted in profound dyspnea. He is on chronic home oxygen supplementation of 4 L nasal cannula and has known advanced COPD. He complains of subjective fevers but denies hemoptysis. Sputum production was yellow. He was initially treated per septic protocol due to tachycardia, hypoxemia, and hypotension. He responded well to IV fluid challenge. Vancomycin and Zosyn was initiated. Since hospitalization has been carefully evaluated including bronchoscopy by Dr. Chamberlain. Subsequent cultures returned Pseudomonas and Proteus. CT scan of the chest of February 23 revealed: Severe bullous emphysematous lung disease with bronchiectasis. There are air-fluid levels in the upper lobes. There is a new consolidation of a central cavitary area in the superior segment left lower lobe which was new since the prior study of February 15. Slightly increased interstitial nodularity and thickening of the right lower lobe. Subjectively, he states he feels modestly improved, though still complains of substantial dyspnea. I have personally reviewed the various radiographic studies and have conferred with Dr. Cagle. Review of Systems Const: Reports: fever, body aches and fatigue Eyes: Denies: change in vision ENMT: Denies: throat pain Card: Reports: shortness of breath on exertion; Denies: chest pain Resp: Reports: shortness of breath, productive cough and wheezing; Denies: coughing up blood GI: Denies: abdominal pain or vomiting blood Neuro: Denies: headache, weakness in extremities or confusion Psych: Denies: anxiety or depression Meds/Allergies Home Medications and Allergies Home Medications Medication Instructions Recorded Confirmed Type albuterol sulfate 1 INHALATION QID PRN 02/17/19 History albuterol sulfate [Ventolin HFA] See Rx Instructions .ROUTE 02/17/19 02/17/19 History .COMPLEX PRN atorvastatin 20 mg PO BEDTIME 02/17/19 02/17/19 History otydyfeposy-fylhiclik-nvwvayjf 1 inh INHALATION DAILY 02/17/19 02/17/19 History [Trelegy Ellipta] ipratropium-albuterol [Combivent 1 puff INHALATION QID 02/17/19 02/17/19 History Respimat] nicotine 1 patch TRANSDERMAL Q24H 02/17/19 02/17/19 History omega-3 acid ethyl esters 2 cap PO BID 02/17/19 02/17/19 History tiotropium bromide [Spiriva with 1 cap INHALATION DAILY 02/17/19 02/17/19 History HandiHaler] Allergies Allergy/AdvReac Type Severity Reaction Status Date / Time No Known Allergies Allergy Unverified 02/15/19 16:32 Current Medications Current Medications Generic Name Dose Route Start Last Admin Trade Name Freq PRN Reason Stop Dose Admin Acetaminophen 650 mg 02/19/19 21:25 02/21/19 13:24 Tylenol PO 650 mg Q4H PRN Administration MILD PAIN OR INCREASE TEMP Albuterol/Ipratropium 3 ml 02/18/19 12:00 02/24/19 12:18 Duoneb INHALATION 3 ml Q4H.RESPIRATORY NEYMAR Administration Aspirin 81 mg 02/19/19 09:00 02/24/19 09:44 Aspirin Ec PO 81 mg DAILY NEYMAR Administration Atorvastatin Calcium 20 mg 02/18/19 21:00 02/23/19 21:50 Lipitor PO 20 mg BEDTIME NEYMAR Administration Budesonide 0.5 mg 02/16/19 09:00 02/24/19 08:42 Pulmicort INHALATION 0.5 mg BID.RESPIRATORY NEYMAR Administration Digoxin 250 mcg 02/18/19 09:00 02/24/19 09:45 Lanoxin PO 250 mcg DAILY NEYMAR Administration Enoxaparin Sodium 40 mg 02/16/19 01:33 02/24/19 01:14 Lovenox SUBCUT 40 mg Q24H NEYMAR Administration Gabapentin 100 mg 02/22/19 18:00 02/24/19 09:45 Neurontin PO 100 mg BID NEYMAR Administration Meloxicam 15 mg 02/18/19 09:00 02/24/19 09:49 Mobic PO 15 mg DAILY NEYMAR Administration Nicotine 1 patch 02/18/19 10:00 02/24/19 09:44 Nicoderm 7 Mg Patch TRANSDERMA 1 patch Q24H NEYMAR Administration Ondansetron HCl 4 mg 02/16/19 01:33 02/18/19 22:04 Zofran IVP 4 mg Q8H PRN Administration vomiting, or N/V if npo Tiotropium [place] 18 mcg 02/18/19 08:50 02/24/19 08:49 Spiriva INHALATION 18 mcg DAILY.RESPIRATORY NEYMAR Administration PFSH Acute PFSH: Statuses (acute, chronic, etc) shown below reflect problem list status as previously entered and may not be historically accurate Social History Smoking and tobacco status: current every day smoker cigarettes Packs smoked per day: 2 Alcohol intake: never Caregiver/support person: No Lives independently: Yes Household members: none Housing: House Vitals/I&O/Wt Last Vital Signs Temp 99.1 F 02/24/19 11:19 Pulse 89 02/24/19 12:26 Resp 22 H 02/24/19 12:21 BP 94/56 02/24/19 11:19 Pulse Ox 96 02/24/19 12:21 02/23/19 02/24/19 02/24/19 22:59 06:59 14:59 Intake Total 390 / 1260 150 / 1410 480 / 480 Output Total 800 / 1825 975 / 2800 625 / 625 Balance -410 / -565 -825 / -1390 -145 / -145 Weight last 48 hrs Weight 190 lb 4 oz Weight 197 lb 4 oz Physical Exam Const: COMMON NORMALS: oriented x3 and alert ORIENTATION/CONSCIOUSNESS: Yes oriented to place and Yes oriented to time Neck/C-Spine: COMMON NORMALS: no meningeal signs; negative for full ROM and negative for no lymphadenopathy CAROTIDS: Yes normal carotid upstroke and No bruit Chest: CHEST: Yes abnormal inspection of the chest barrel chest and increased A-P diameter and Yes symmetrical chest wall rise Resp: COMMON NORMALS: negative for no use of accessory muscles EFFORT & INSPECTION: Yes tachypneic AUSCULTATION: abnormal I/E ratio and wheezes PERCUSSION: dullness Lower: right and left and hyperresonance on the left (Upper lobe) Neuro: COMMON NORMALS: oriented x3, no focal motor deficits and no sensory deficits noted SENSORIUM/ORIENTATION: Yes alert, Yes oriented to place and Yes oriented to time MENINGEAL SIGNS: Yes no meningeal signs Psych: COMMON NORMALS: mental status grossly normal, cooperative, affect normal and speech normal ATTITUDE: Yes calm SPEECH: Yes normal speech Data Micro: Micro: Microbiology 02/23/19 06:08 Blood Culture - Pr eliminary Blood NEGATIVE TO DIAMOND E 02/23/19 06:06 Blood Culture - Pr eliminary Blood NEGATIVE TO DIAMOND E 02/22/19 17:36 Blood Culture - Pr eliminary Blood NEGATIVE TO DIAMOND E 02/22/19 17:27 Blood Culture - Pr eliminary Blood NEGATIVE TO DIAMOND E 02/17/19 12:13 Gram Stain - Final Lung Right Upper Lobe Bronchoalveolar [place] Culture - Pre liminary Pseudomonas aer uginosa Proteus mirabil is Enterobacter ae rogenes A&P Assessment and plan (1) Bullous emphysema: Status: Acute Code(s): J43.9 - Emphysema, unspecified (2) Necrotizing pneumonia: 68-year-old gentleman with advanced emphysematous lung disease, cavitary lesions, and what appears to be representing necrotizing pneumonia. This is a rather diffuse process without anatomic isolation, therefore, I do not think surgical resection is a viable option at this time. As well, his very limited pulmonary reserve would result in a substantial surgical risk. I concur with current opinion that medical management is a rational approach I do feel that an extensive course of parenteral antibiotic would be prudent. Status: Acute Code(s): J85.0 - Gangrene and necrosis of lung Consult Attestations Medical Necessity Statement: Severe COPD with pneumonia Time Spent in Patient Care: 16 - 35 minutes Coding Level of Care Code Acute Supervisor Dry Cell Assembly for [facility] Diagnoses Bullous emphysema J43.9 Necrotizing pneumonia J85.0
[2019-02-24] MEDS: piperacillin-tazobactam 4.5 GM in sodium chloride 0.9% (plus) 50 ML IV ×2 (13:46→22:56)
--- NOTE | 2019-02-24 14:57 | DCPLANNER ---
*IMM* Updated, production underwriter signed and placed in chart.
--- NOTE | 2019-02-24 22:35 | PM.PN ---
Subjective Subjective: Interval history: Tmax 101F. no acute complaints. Intermittently tachypneic Medications: Reviewed: Yes Vitals/I&O/Wt Last Vital Signs Temp 97.3 F L 02/24/19 19:42 Pulse 89 02/24/19 19:42 Resp 18 02/24/19 19:42 BP 109/70 02/24/19 19:42 Pulse Ox 93 02/24/19 19:42 02/24/19 02/24/19 02/24/19 06:59 14:59 22:59 Intake Total 150 / 1410 480 / 480 120 / 600 Output Total 975 / 2800 625 / 625 850 / 1475 Balance -825 / -1390 -145 / -145 -730 / -875 Weight last 48 hrs Weight 86.296 kg Weight 89.471 kg Physical Exam Narrative: EXAM NARRATIVE: GEN: Awake, alert and oriented, lying in bed, tachypneic, mouth breathing+, unchanged over yesterday. CVS: S1S2 N RS: bronchial breath sounds b/l L> R. Added rales B/L infraaxillary areas Abd: Soft, nt/nd , bs+ TRAIN BRAKEMAN: no focal neuro deficits Data : 02/24/19 05:28 02/24/19 05:28 Micro: Microbiology 02/23/19 06:08 Blood Culture - Preliminary Blood NEGATIVE TO DATE 02/23/19 06:06 Blood Culture - Preliminary Blood NEGATIVE TO DATE 02/22/19 17:36 Blood Culture - Preliminary Blood NEGATIVE TO DATE 02/22/19 17:27 Blood Culture - Preliminary Blood NEGATIVE TO DATE 02/17/19 12:13 Gram Stain - Final Lung Right Upper Lobe Bronchoalveolar Lavage Culture - Preliminary Pseudomonas aeruginosa Proteus mirabilis Enterobacter aerogenes A&P Assessment and plan (1) Atrial fibrillation: Status: Acute Code(s): I48.91 - Unspecified atrial fibrillation (2) Septic shock: Status: Acute Code(s): A41.9 - Sepsis, unspecified organism; R65.21 - Severe sepsis with septic shock (3) Bullous emphysema: Status: Acute Code(s): J43.9 - Emphysema, unspecified (4) Necrotizing pneumonia: Status: Acute Code(s): J85.0 - Gangrene and necrosis of lung (5) Acute and chronic respiratory failure: Status: Acute Code(s): J96.20 - Acute and chronic respiratory failure, unspecified whether with hypoxia or hypercapnia (6) Hypertension: Status: Acute Code(s): I10 - Essential (primary) hypertension Additional A&P Information Septic shock with acute hypoxic respiratory failure: . Culture from BAL wash now with multiple yen including Psuedomonas, Proteus and Enterobacter. Of the isolated organisms, believe that Pseudomonal necrotizing pneumonia with abscess is the most aggressive process here. Conitnue Zosyn at Psuedomonal dosing at 4.5g iv q6h. WBC count stable, fever persisting, possibilities including persisting infection (as is highly likely) due to poor penetration of abx into cavity vs increasing necrotic burden in the lung. No evidence of MRSA on nasal swab or BAL cx, therefore doubt that taking off vancomycin contributing here. While staph is still possible, non MRSA strains will be covered by Zosyn repeat CT per radiology read with new abscess left lung, looks overall grossly unchanged per my read MTB PCR negative, AFB smear negative. Taken off isolation based on these results. Ideally patient needs 3 AFB smear negative or 2 MTB PCR negative, however we are unable to get any induced sputum or expectorated sputum for testing. Given that clinical features are explainable by Pseudomonas, less likely to be MTB, therefore will base isolation decision on one MTB PCR. Serum Aspergillus galactommanan antigen negative. BAL GM could not be run due to sepcimen viscosity. Fungal culture thus far only with penelope albicans (likely colonizer), no mold noted. Lab requested to specifically rule out Nocardia, Stenotrophomonas maltophila and Actinomyces- thus far cx negative for these organisms. Anticipate at least 4-6 weeks of iv treatment for aggressive pneumonia, however this period may need to be extended based on serial imaging & improvement. Pulmonology recommendations appreciated. Per discussion with Dr. Chamberlain, drainage of abscess not feasible as high risk of bronchopleural fistula as a complication. Inhaled abx by way of inhaled amikacin, tobramycin, colistin etc. usually only indicated for MDR gram negatives, however his isolate is fairly susceptible, therefore unlikely to be of additional benefit. Inhaled abx also not currently available at our pharmacy. Since patient has shown some degree of clinical stability since admission by way of resolution of septic shock, holding off on lobectomy for now. Patient has extensive B/L disease at this time, with high risk of pulmonary decompensation with B/L procedures even if feasible. Will obtain CT surgery consult re: the same. Since he has stabilized, will continue IV antibiotics for now and keep reassessing with repeat imaging every 10-14 days. This may additionally help in locazing a diffuse ongoing process. High chance that pt might end up needing lobectomy if fails to improve. For hypoxic respiratory failure: Continue with DuoNeb's [id number]-[id number] Q4h, budesonide twice daily and albuterol as needed. Will add Tramadol for pain control. C/o pain in all extremities, previously diagnosed with neuropathy. Will start gabapentin. Atrial fibrillation: Patient has a history of atrial fibrillation. Reverted to NSR C/w Digoxin at 250 mcg. No new events noted on telemetry. Leukocytosis: WBC 28 from peak of 54 during admission. Peripheral smear with predominant neutrophilia. No abnormal blasts or abnormal cells seen. On trending previous WBC, last in our records dates back to 09/2018 at which time also WBC was in the 40s. Patients states he had a normal number in January but I am unable to find any record of it. May have underlying CLL. Will obtain peripheral blood flow cytometry. No acute intervention indicated given absence of blats. History of CAD: Denies any chest pain right now. Start on ASA 81 mg PO QD. Cardiac diet. Full code Lovenox for DVT prophylaxis. Attestations Medical Necessity Statement*: management of ongoing fevers, necrotizing pneumonia Coding Level of Care Code Acute Asp Net Programmer for [facility]luis miguel Diagnoses Atrial fibrillation I48.91 Septic shock A41.9; R65.21 Bullous emphysema J43.9 Necrotizing pneumonia J85.0 Acute and chronic respiratory failure J96.20 Hypertension I10
[2019-02-24] MEDS: atorvastatin 40 mg Tablet 20 MG PO (22:56)
[2019-02-24] MEDS: TRAMadol 50 mg Tablet PO (22:58)
[2019-02-25] VITALS (17 sets, daily range): BP systolic 85–109; BP diastolic 59–69; PULSE 78–101; RESP 16–22; TEMP 36.9–37.4; O2SAT 91–98; BMI 21.3
[2019-02-25] MEDS: ipratropium-albuterol 3 mL Neb INHALATION ×6 (00:32→19:31)
[2019-02-25] MEDS: enoxaparin 40 mg/0.4 mL Syringe SUBCUT (02:48)
[2019-02-25] MEDS: acetaminophen 325 mg Tablet 650 MG PO (02:50)
[2019-02-25] MEDS: piperacillin-tazobactam 4.5 GM in sodium chloride 0.9% (plus) 50 ML IV ×3 (05:56→22:45)
[2019-02-25] MEDS: TRAMadol 50 mg Tablet PO ×2 (05:56→18:10)
[2019-02-25 06:33] LABS: Alanine Aminotransferase 47 U/L (0-41); Albumin Level 3.6 g/dL (3.5-5.2); Alkaline Phosphatase 169 IU/L (40-130); Anion Gap 15.1 (5-19); Aspartate Amino Transferase 94 U/L (0-40); Blood Urea Nitrogen 19 mg/dL (8-23); Calcium 9.1 mg/Dl (8.8-10.2); Carbon Dioxide 28 mmol/L (22-29); Chloride 91 mmol/L (98-107); Glomerular Filtration Rate 112.5 mL/min (90-130); Glucose 144 mg/dL (74-106); Potassium 4.1 mmol/L (3.5-5.1); Sodium 130 mmol/L (136-145); Total Bilirubin 1.1 mg/dL (0.15-1.2); Total Protein 7.6 g/dL (6.6-8.7)
[2019-02-25] MEDS: budesonide 0.5 mg/2 mL Neb INHALATION ×2 (08:13→19:31)
[2019-02-25 08:18] LABS: Basophils # 0.1 10^3/uL (0.0-0.1); Basophils % 0.2 %; Eosinophils # 0.1 10^3/uL (0.0-0.8); Eosinophils % 0.3 %; Hematocrit 29.6 % (42.0-52.0); Hemoglobin 9.9 g/dL (11.7-16.6); Lymphocytes # 6.9 10^3/uL (0.8-4.8); Lymphocytes % 26.8 %; Mean Corpuscular HGB Conc 33.4 g/dL (30.0-36.0); Mean Corpuscular Hemoglobin 30.8 pg (28.0-34.0); Mean Corpuscular Volume 92.2 fL (80-94); Mean Platelet Volume 9.4 fL (7.4-10.4); Monocytes # 1.9 10^3/uL (0.2-0.9); Monocytes % 7.5 %; Neutrophils # 16.6 10^3/uL (1.8-7.7); Neutrophils % 64.3 %; Nucleated Red Blood Cells % 0 %; Platelet Count 460 10^3/cmm (130-400); Red Blood Count 3.21 10^6/uL (4.1-5.3); Red Cell Distribution Width 14.1 % (12.1-15.1); White Blood Count 25.8 10^3/uL (4.0-10.0)
[2019-02-25] MEDS: meloxicam 7.5 mg tablet 15 MG PO (09:02)
[2019-02-25] MEDS: gabapentin 100 mg Capsule PO ×2 (09:02→17:12)
[2019-02-25] MEDS: midodrine 5 mg TABLET PO ×3 (09:02→21:39)
[2019-02-25] MEDS: aspirin 81 mg EC Tablet PO (09:02)
[2019-02-25] MEDS: digoxin 250 mcg Tablet PO (09:02)
[2019-02-25] MEDS: nicotine 7 mg Patch 1 PATCH TRANSDERMA (09:03)
[2019-02-25 09:06] LABS: Slide Review Slide Review Perform
--- NOTE | 2019-02-25 17:33 | P.PN_ITS ---
Subjective Subjective: Interval history: T-max 99.4. On 5 L/min maintaining O2 sats. Continues to be visibly tachypneic. Albumin infusion [id number] was stopped yesterday. This morning patient was noted to be hypotensive 85/59 mmHg. Midodrine has been added since this morning. Leukocytosis stable at 25. Peripheral flow unable to be sent. Declined LTAC placement after [id number]-sf-[id number] evaluation yesterday. Medications: Reviewed: Yes Vitals/I&O/Wt Last Vital Signs Temp 99.1 F 02/25/19 16:00 Pulse 93 02/25/19 16:25 Resp 18 02/25/19 16:25 BP 109/69 02/25/19 16:00 Pulse Ox 96 02/25/19 16:25 02/25/19 02/25/19 02/25/19 06:59 14:59 22:59 Intake Total 450 / 1550 750 / 750 Output Total 300 / 2075 850 / 850 Balance 150 / -525 -100 / -100 Weight last 48 hrs Weight 85.786 kg Weight 86.296 kg Physical Exam Narrative: EXAM NARRATIVE: GEN: Awake, alert and oriented, lying in bed, tachypneic, mouth breathing+ . CVS: S1S2 N RS: bronchial breath sounds b/l L> R. Added rales B/L infraaxillary areas. Abd: Soft, nt/nd , bs+ AVIONICS TECHNICIAN: no focal neuro deficits Data : 02/25/19 07:54 02/25/19 05:48 Micro: Microbiology 02/17/19 12:13 Gram Stain - Final Lung Right Upper Lobe Bronchoalveolar Lavage Culture - Final Pseudomonas aeruginosa Proteus mirabilis Enterobacter aerogenes Enterobacter cloacae 02/17/19 12:13 Viral Culture - Preliminary Bronchial Washings 02/20/19 10:30 Blood Culture - Final Blood NO GROWTH AFTER 5 DAYS 02/17/19 12:13 Mycobacterial Culture - Preliminary Body Fluids - Bronchial 02/23/19 22:00 Sputum Culture - Preliminary Sputum - Expectorated Sputum Gram Negative Rods 02/20/19 10:00 Blood Culture - Final Blood NO GROWTH AFTER 5 DAYS A&P Assessment and plan (1) Atrial fibrillation: Status: Acute Code(s): I48.91 - Unspecified atrial fibrillation (2) Septic shock: Status: Acute Code(s): A41.9 - Sepsis, unspecified organism; R65.21 - Severe sepsis with septic shock (3) Bullous emphysema: Status: Acute Code(s): J43.9 - Emphysema, unspecified (4) Necrotizing pneumonia: Status: Acute Code(s): J85.0 - Gangrene and necrosis of lung (5) Acute and chronic respiratory failure: Status: Acute Code(s): J96.20 - Acute and chronic respiratory failure, unspecified whether with hypoxia or hypercapnia (6) Hypertension: Status: Acute Code(s): I10 - Essential (primary) hypertension Additional A&P Information Septic shock with acute hypoxic respiratory failure: . Culture from BAL wash now with multiple yen including Psuedomonas, Proteus and Enterobacter. Of the isolated organisms, believe that Pseudomonal necrotizing pneumonia with abscess is the most aggressive process here. Conitnue Zosyn at Psuedomonal dosing at 4.5g iv q6h. WBC count stable, fever curve improved today, possibilities including persisting infection (as is highly likely) due to poor penetration of abx into cavity vs increasing necrotic burden in the lung. No evidence of MRSA on nasal swab or BAL cx, therefore doubt that taking off vancomycin contributing here. While staph is still possible, non MRSA strains will be covered by Zosyn repeat CT per radiology read with new abscess left lung, looks overall grossly unchanged per my read MTB PCR negative, AFB smear negative. Taken off isolation based on these results. Ideally patient needs 3 AFB smear negative or 2 MTB PCR negative, zuluaga rosalia we are unable to get any induced sputum or expectorated sputum for testing. Given that clinical features are explainable by Pseudomonas, less likely to be MTB, therefore will base isolation decision on one MTB PCR. Serum Aspergillus galactommanan antigen negative. BAL GM could not be run due to sepcimen viscosity. Fungal culture thus far only with penelope albicans (likely colonizer), no mold noted. Lab requested to specifically rule out Nocardia, Stenotrophomonas maltophila and Actinomyces- thus far cx negative for these organisms. HIV negative. Anticipate at least 4-6 weeks of iv treatment for aggressive pneumonia, however this period may need to be extended based on serial imaging & improvement. Pulmonology recommendations appreciated. Per discussion with Dr. Chamberlain, drainage of abscess not feasible as high risk of bronchopleural fistula as a complication. CT surgery recommendations appreciated- rather diffuse process without anatomic isolation, therefore, surgical resection is not a viable option at this time. As well, his very limited pulmonary reserve would result in a substantial surgical risk. Inhaled abx by way of inhaled amikacin, tobramycin, colistin etc. usually only indicated for MDR gram negatives, however his isolate is fairly susceptible, therefore unlikely to be of additional benefit. Inhaled abx also not currently available at our pharmacy. Will continue IV antibiotics for now and keep reassessing with repeat imaging every 10-14 days. This may additionally help in localizing a diffuse ongoing process. High chance that pt might end up needing lobectomy if fails to improve. For hypoxic respiratory failure: Continue with DuoNeb's gcevdj-qjz-ylwxw Q4h, budesonide twice daily and albuterol as needed. Will add Tramadol for pain control. C/o pain in all extremities, previously diagnosed with neuropathy. Will start gabapentin. HYpotension: Patient is was noted to be dropping blood pressure after taking hlybyx-mpe-ktdlj albumin. He received 1 albumin infusion this morning and has also been started on midodrine 5 mg 3 times a day to maintain blood pressure. Currently blood pressure is responsive to this measure. We will check a.m. cortisol to rule out adrenal insufficiency. Atrial fibrillation: Patient has a history of atrial fibrillation. Reverted to NSR C/w Digoxin at 250 mcg. No new events noted on telemetry. Leukocytosis: WBC 28 from peak of 54 during admission. Peripheral smear with predominant neutrophilia. No abnormal blasts or abnormal cells seen. On trending previous WBC, last in our records dates back to 09/2018 at which time also WBC was in the 40s. Patients states he had a normal number in January but I am unable to find any record of it. May have underlying CLL. Will obtain peripheral blood flow cytometry, unable to be sent today. No acute intervention indicated given absence of blasts. History of CAD: Denies any chest pain right now. Start on ASA 81 mg PO QD. Cardiac diet. Full code Lovenox for DVT prophylaxis. Attestations Medical Necessity Statement*: Remains admitted for extensive bilateral ne crotizing pneumonia tach, tenuous respiratory status, hypotension, intermittent fevers, awaiting optimization of respiratory status. Coding Level of Care Code Acute Release Of Information Specialist for [facility] Diagnoses Atrial fibrillation I48.91 Septic shock A41.9; R65.21 Bullous emphysema J43.9 Necrotizing pneumonia J85.0 Acute and chronic respiratory failure J96.20 Hypertension I10
[2019-02-25] MEDS: atorvastatin 40 mg Tablet 20 MG PO (21:39)
[2019-02-26] VITALS (22 sets, daily range): BP systolic 88–110; BP diastolic 49–65; PULSE 80–103; RESP 16–20; TEMP 36.6–37.7; O2SAT 91–99; BMI 21.2
[2019-02-26] MEDS: ipratropium-albuterol 3 mL Neb INHALATION ×7 (00:33→23:44)
[2019-02-26] MEDS: enoxaparin 40 mg/0.4 mL Syringe SUBCUT (01:43)
[2019-02-26 06:26] LABS: Basophils % 0.2 %; Eosinophils # 0.2 10^3/uL (0.0-0.8); Hematocrit 26.1 % (42.0-52.0); Hemoglobin 8.9 g/dL (11.7-16.6); Lymphocytes % 31.5 %; Mean Corpuscular HGB Conc 34.1 g/dL (30.0-36.0); Mean Corpuscular Hemoglobin 31.2 pg (28.0-34.0); Mean Corpuscular Volume 91.6 fL (80-94); Mean Platelet Volume 10.2 fL (7.4-10.4); Monocytes # 1.7 10^3/uL (0.2-0.9); Monocytes % 7.4 %; Neutrophils # 13.1 10^3/uL (1.8-7.7); Nucleated Red Blood Cells % 0 %; Platelet Count 502 10^3/cmm (130-400); Red Blood Count 2.85 10^6/uL (4.1-5.3); Red Cell Distribution Width 13.9 % (12.1-15.1); White Blood Count 22.2 10^3/uL (4.0-10.0)
[2019-02-26] MEDS: piperacillin-tazobactam 4.5 GM in sodium chloride 0.9% (plus) 50 ML IV ×3 (06:39→20:32)
[2019-02-26 06:49] LABS: Slide Review Slide Review Perform
[2019-02-26 06:50] LABS: Alanine Aminotransferase 46 U/L (0-41); Albumin Level 3.7 g/dL (3.5-5.2); Alkaline Phosphatase 161 IU/L (40-130); Anion Gap 14.4 (5-19); Aspartate Amino Transferase 82 U/L (0-40); Blood Urea Nitrogen 16 mg/dL (8-23); Calcium 9.4 mg/Dl (8.8-10.2); Carbon Dioxide 29 mmol/L (22-29); Chloride 91 mmol/L (98-107); Globulin 4.4 g/dL (1.3-4.6); Glomerular Filtration Rate 165.9 mL/min (90-130); Glucose 88 mg/dL (74-106); Potassium 4.4 mmol/L (3.5-5.1); Sodium 130 mmol/L (136-145); Total Bilirubin 1.6 mg/dL (0.15-1.2); Total Protein 8.1 g/dL (6.6-8.7)
[2019-02-26 07:03] LABS: Cortisol Random 4.75 mcg/dL (2.47-19.5)
[2019-02-26] MEDS: budesonide 0.5 mg/2 mL Neb INHALATION ×2 (08:22→19:39)
--- NOTE | 2019-02-26 09:52 | PC.SOCIAL ---
Pg 2 of [facility] was updated with patient and a copy was provided. He verbalized understanding and had no questions.
[2019-02-26] MEDS: aspirin 81 mg EC Tablet PO (09:58)
[2019-02-26] MEDS: meloxicam 7.5 mg tablet 15 MG PO (09:58)
[2019-02-26] MEDS: midodrine 5 mg TABLET PO ×2 (09:58→14:14)
[2019-02-26] MEDS: gabapentin 100 mg Capsule PO ×2 (09:59→20:34)
[2019-02-26] MEDS: digoxin 250 mcg Tablet PO (10:00)
[2019-02-26] MEDS: nicotine 7 mg Patch 1 PATCH TRANSDERMA (10:05)
--- NOTE | 2019-02-26 15:59 | ECG_ITS ---
Measurements Intervals [place] Rate: 93 P: 54 NV: 149 QRS: -17 QRSD: 102 T: 80 QT: 386 QTc: 482 SINUS RHYTHM INCOMPLETE RIGHT BUNDLE BRANCH BLOCK [90+ ms QRS DURATION, TERMINAL R IN V1/V2, 40+ ms S IN I/aVL/V4/V5/V6] NONSPECIFIC T-WAVE ABNORMALITY Compared to ECG 08/30/2018 07:08:26 Incomplete right bundle-branch block now present T-wave abnormality now present Left-axis deviation no longer present Electronically Signed On 02-27-2019 17:19:37 PAINT ROLLER COVERMAKER by Justin Ngo M.D. [email or web address]
--- NOTE | 2019-02-26 16:54 | PM.PN ---
Subjective Subjective: Interval history: Complains of chest pain this evening. Systolic blood pressure ranges between 88-1 09 today. Heart rate between 88-90. No A. fib on telemetry. Fever curve improving. Afebrile since . Leukocytosis trending down to 22. c/o LUE pain for which he keeps on heat pad. Medications: Reviewed: Yes Vitals/I&O/Wt Last Vital Signs Temp 98.9 F 02/26/19 15:00 Pulse 90 02/26/19 16:40 Resp 16 02/26/19 16:30 BP 109/62 02/26/19 15:00 Pulse Ox 96 02/26/19 16:30 02/26/19 02/26/19 02/26/19 06:59 14:59 22:59 Intake Total 250 / 1630 1470 / 1470 Output Total 1000 / 1850 Balance -750 / -220 1470 / 1470 -9 Weight last 48 hrs Weight 85.729 kg Weight 85.786 kg Physical Exam Narrative: EXAM NARRATIVE: GEN: Awake, alert and oriented, lying in bed, tachypneic, mouth breathing+. CVS: S1S2 N RS: bronchial breath sounds b/l L> R. Added rales B/L all areas. Abd: Soft, nt/nd , bs+ MEDICAL SUPERINTENDENT: no focal neuro deficits Data : 02/26/19 05:50 02/26/19 05:50 Micro: Microbiology 02/23/19 22:00 Sputum Culture - Preliminary Sputum - Expectorated Sputum Pseudomonas aeruginosa 02/21/19 10:12 Blood Culture - Final Blood NO GROWTH AFTER 5 DAYS 02/21/19 10:12 Blood Culture - Final Blood NO GROWTH AFTER 5 DAYS 02/26/19 01:55 Gram Stain - Final Sputum - Expectorated Sputum 02/17/19 12:13 Gram Stain - Final Lung Right Upper Lobe Bronchoalveolar Lavage Culture - Final Pseudomonas aeruginosa Proteus mirabilis Enterobacter aerogenes Enterobacter cloacae 02/17/19 12:13 Viral Culture - Preliminary Bronchial Washings A&P Assessment and plan (1) Atrial fibrillation: Status: Acute Code(s): I48.91 - Unspecified atrial fibrillation (2) Septic shock: Status: Acute Code(s): A41.9 - Sepsis, unspecified organism; R65.21 - Severe sepsis with septic shock (3) Bullous emphysema: Status: Acute Code(s): J43.9 - Emphysema, unspecified (4) Necrotizing pneumonia: Status: Acute Code(s): J85.0 - Gangrene and necrosis of lung (5) Acute and chronic respiratory failure: Status: Acute Code(s): J96.20 - Acute and chronic respiratory failure, unspecified whether with hypoxia or hypercapnia (6) Hypertension: Status: Acute Code(s): I10 - Essential (primary) hypertension Additional A&P Information Septic shock with acute hypoxic respiratory failure: . Culture from BAL wash now with multiple yen including Psuedomonas, Proteus and Enterobacter. Of the isolated organisms, believe that Pseudomonal necrotizing pneumonia with abscess is the most aggressive process here. Conitnue Zosyn at Psuedomonal dosing at 4.5g iv q6h. WBC count stable, fever curve improved today, possibilities including persisting infection (as is highly likely) due to poor penetration of abx into cavity vs increasing necrotic burden in the lung. No evidence of MRSA on nasal swab or BAL cx, therefore doubt that taking off vancomycin contributing here. While staph is still possible, non MRSA strains will be covered by Zosyn repeat CT per radiology read with new abscess left lung, looks overall grossly unchanged per my read MTB PCR negative, AFB smear negative. Taken off isolation based on these results. Ideally patient needs 3 AFB smear negative or 2 MTB PCR negative, however we are unable to get any induced sputum or expectorated sputum for testing. Given that clinical features are explainable by Pseudomonas, less likely to be MTB, therefore will base isolation decision on one MTB PCR. Serum Aspergillus galactommanan antigen negative. BAL GM could not be run due to sepcimen viscosity. Fungal culture thus far only with penelope albicans (likely colonizer), no mold noted. Lab requested to specifically rule out Nocardia, Stenotrophomonas maltophila and Actinomyces- thus far cx negative for these organisms. HIV negative. Anticipate at least 4-6 weeks of iv treatment for aggressive pneumonia, however this period may need to be extended based on serial imaging & improvement. Pulmonology recommendations appreciated. Per discussion with Dr. Chamberlain, drainage of abscess not feasible as high risk of bronchopleural fistula as a complication. CT surgery recommendations appreciated- rather diffuse process without anatomic isolation, therefore, surgical resection is not a viable option at this time. As well, his very limited pulmonary reserve would result in a substantial surgical risk. Inhaled abx by way of inhaled amikacin, tobramycin, colistin etc. usually only indicated for MDR gram negatives, however his isolate is fairly susceptible, therefore unlikely to be of additional benefit. Inhaled abx also not currently available at our pharmacy. Will continue IV antibiotics for now and keep reassessing with repeat imaging every 10-14 days. This may additionally help in localizing a diffuse ongoing process. High chance that pt might end up needing lobectomy if fails to improve. For hypoxic respiratory failure: Continue with DuoNeb's ifblra-rhb-funmj Q4h, budesonide twice daily and albuterol as needed. Will add Tramadol for pain control. C/o pain in all extremities, previously diagnosed with neuropathy. Will start gabapentin. HYpotension: Patient is was noted to be dropping blood pressure after taking off wtujbe-ibr-ldppc albumin. This was resumed yesetrday in addtion to 5mg TID midodrine. Will stop albumin today. Increase midodrine to 10mg TID Currently blood pressure is responsive to this measure. Random cortisol normal at 4.75. Atrial fibrillation: Patient has a history of atrial fibrillation. Reverted to NSR C/w Digoxin at 250 mcg. No new events noted on telemetry. Leukocytosis: WBC 28 from peak of 54 during admission. Peripheral smear with predominant neutrophilia. No abnormal blasts or abnormal cells seen. On trending previous WBC, last in our records dates back to 09/2018 at which time also WBC was in the 40s. Patients states he had a normal number in January but I am unable to find any record of it. May have underlying CLL. Will obtain peripheral blood flow cytometry, unable to be sent today. No acute intervention indicated given absence of blasts. History of CAD: Denies any chest pain right now. Continue on ASA 81 mg PO QD. c/o chest pain today- check EKG, troponin LUE pain: check LUE duplex venous- to r/o septic thrombophlebitis or developing SVC syndrome Cardiac diet. Full code Lovenox for DVT prophylaxis. Attestations Medical Necessity Statement*: management of necrotizing pneumonia and B/L lung abscesses Coding Level of Care Code Acute Funeral Professional for [facility] Diagnoses Atrial fibrillation I48.91 Septic shock A41.9; R65.21 Bullous emphysema J43.9 Necrotizing pneumonia J85.0 Acute and chronic respiratory failure J96.20 Hypertension I10
[2019-02-26 17:05] LABS: Troponin T (5th) Once 22 ng/mL (0-15)
[2019-02-26] MEDS: acetaminophen 325 mg Tablet 650 MG PO (20:34)
[2019-02-26] MEDS: midodrine 5 mg TABLET 10 MG PO (20:34)
[2019-02-27] VITALS (20 sets, daily range): BP systolic 70–130; BP diastolic 48–69; PULSE 71–98; RESP 18–22; TEMP 37.1–37.2; O2SAT 92–99
[2019-02-27] MEDS: piperacillin-tazobactam 4.5 GM in sodium chloride 0.9% (plus) 50 ML IV ×4 (02:02→20:46)
[2019-02-27] MEDS: enoxaparin 40 mg/0.4 mL Syringe SUBCUT (02:09)
[2019-02-27] MEDS: ipratropium-albuterol 3 mL Neb INHALATION ×6 (03:32→23:00)
[2019-02-27 06:01] LABS: Basophils # 0.1 10^3/uL (0.0-0.1); Basophils % 0.2 %; Eosinophils # 0.2 10^3/uL (0.0-0.8); Hematocrit 27.4 % (42.0-52.0); Hemoglobin 9.1 g/dL (11.7-16.6); Lymphocytes # 6.8 10^3/uL (0.8-4.8); Lymphocytes % 29.2 %; Mean Corpuscular HGB Conc 33.2 g/dL (30.0-36.0); Mean Corpuscular Hemoglobin 30.6 pg (28.0-34.0); Mean Corpuscular Volume 92.3 fL (80-94); Mean Platelet Volume 9.5 fL (7.4-10.4); Monocytes # 1.9 10^3/uL (0.2-0.9); Neutrophils # 14.1 10^3/uL (1.8-7.7); Neutrophils % 60.7 %; Nucleated Red Blood Cells % 0 %; Platelet Count 502 10^3/cmm (130-400); Red Blood Count 2.97 10^6/uL (4.1-5.3); Red Cell Distribution Width 14.2 % (12.1-15.1); White Blood Count 23.2 10^3/uL (4.0-10.0)
[2019-02-27 06:31] LABS: Alanine Aminotransferase 46 U/L (0-41); Alkaline Phosphatase 217 IU/L (40-130); Anion Gap 18.4 (5-19); Aspartate Amino Transferase 70 U/L (0-40); Blood Urea Nitrogen 20 mg/dL (8-23); Calcium 9.6 mg/Dl (8.8-10.2); Carbon Dioxide 28 mmol/L (22-29); Chloride 90 mmol/L (98-107); Globulin 4.3 g/dL (1.3-4.6); Glomerular Filtration Rate 134.4 mL/min (90-130); Glucose 81 mg/dL (74-106); Potassium 4.4 mmol/L (3.5-5.1); Sodium 132 mmol/L (136-145); Total Bilirubin 1.5 mg/dL (0.15-1.2); Total Protein 8.3 g/dL (6.6-8.7)
[2019-02-27 06:48] LABS: Slide Review Slide Review Perform
[2019-02-27] MEDS: budesonide 0.5 mg/2 mL Neb INHALATION ×2 (07:45→19:13)
[2019-02-27] MEDS: midodrine 5 mg TABLET 10 MG PO ×3 (09:00→20:46)
[2019-02-27] MEDS: aspirin 81 mg EC Tablet PO (09:00)
[2019-02-27] MEDS: digoxin 250 mcg Tablet PO (09:01)
[2019-02-27] MEDS: gabapentin 100 mg Capsule PO ×3 (09:01→20:46)
[2019-02-27] MEDS: morphine 4 mg/mL SDV 1 mL 2 MG IVP (16:37)
--- NOTE | 2019-02-27 16:54 | USCV_ITS ---
Chris Brooks Age: 68 Gender: M : 1950 Exam Date: 02/27/2019 11:47 Ordering Phys: Corine Cagle MD Technologist: Kaelyn Guy Exam Location: [facility] [place]_ Indication: DVT,SVC THROMBOSIS HISTORY: Upper extremity swelling. PROCEDURES: Venous duplex imaging was performed in only the left upper extremity. The following venous structures were evaluated: internal jugular vein, subclavian vein, axillary vein, and brachial veins. In addition, the basilic vein, cephalic vein, radial vein, and ulnar vein. Serial compression, augmentation maneuvers, and spectral Doppler flow evaluation were performed. FINDINGS: Normal 2-D, color Doppler and phasicity noted in the left upper extremity venous system extending from the left internal jugular vein through the main forearm. No thrombosis or occlusion noted. CONCLUSIONS No evidence of thrombus of the left upper extremity veins. Juan Martin MD (Electronically Signed) Final Date: 27 February 2019 12:55 S
--- NOTE | 2019-02-27 18:37 | PM.PN ---
Subjective Subjective: Interval history: NO acute events overnight. Denies any CP today, headache, N/V. States his SOB is mildly improved and cough is same. Medications: Reviewed: Yes Vitals/I&O/Wt Last Vital Signs Temp 98.8 F 02/27/19 15:11 Pulse 95 02/27/19 15:24 Resp 20 H 02/27/19 16:37 BP 113/67 02/27/19 15:11 Pulse Ox 96 02/27/19 15:21 02/27/19 02/27/19 02/27/19 06:59 14:59 22:59 Intake Total 50 / 1810 530 / 530 720 / 1250 Output Total 300 / 701 700 / 700 475 / 1175 Balance -250 / 1109 -170 / -170 245 / 75 Weight last 48 hrs Weight 86.818 kg Weight 85.729 kg Physical Exam Narrative: EXAM NARRATIVE: General: No acute distress, AO x3, Chachexia HEENT: PERRLA, pupils bilaterally equal and reactive Chest:bronchial breath sounds b/l R>L, Upper lobe more than middle lobe, Clear otherwise, no more scattered ronchi and wheeze. CVS: S1-S2 regular, no murmurs, no gallops, no rubs Abdomen: Soft, nontender, no organomegaly, bowel sounds present Neuro: No focal deficits, no facial deformity, AO x3, power 5/5 in all limbs. Data : 02/27/19 04:58 02/27/19 04:58 Micro: Microbiology 02/22/19 17:27 Blood Culture - Final Blood NO GROWTH AFTER 5 DAYS 02/22/19 17:36 Blood Culture - Final Blood NO GROWTH AFTER 5 DAYS 02/23/19 22:00 Sputum Culture - Preliminary Sputum - Expectorated Sputum Pseudomonas aeruginosa 02/26/19 01:55 Gram Stain - Final Sputum - Expectorated Sputum Sputum Culture - Preliminary Gram Negative Rods A&P Additional A&P Information Septic shock with acute hypoxic respiratory failure: . Culture from BAL wash now with multiple yen including Psuedomonas, Proteus and Enterobacter. Of the isolated organisms, believe that Pseudomonal necrotizing pneumonia with abscess is the most aggressive process here. Conitnue Zosyn at Psuedomonal dosing at 4.5g iv q6h. WBC count stable, fever curve improved since starting zosyn instead of cefepime, possibilities including persisting infection (as is highly likely) due to poor penetration of abx into cavity vs increasing necrotic burden in the lung. No evidence of MRSA on nasal swab or BAL cx, therefore doubt that taking off vancomycin contributing here. While staph is still possible, non MRSA strains will be covered by Zosyn. repeat CT per radiology read with new abscess left lung, but difficult to say if its a new abscess vs coalescing of old abscess. MTB PCR negative, AFB smear negative. Taken off isolation based on these results. Serum Aspergillus galactommanan antigen negative. BAL GM could not be run due to sepcimen viscosity. Fungal culture thus far only with penelope albicans (likely colonizer), no mold noted. Lab requested to specifically rule out Nocardia, Stenotrophomonas maltophila and Actinomyces- thus far cx negative for these organisms. HIV negative. Anticipate at least 4-6 weeks of iv treatment for aggressive pneumonia, however this period may need to be extended based on serial imaging & improvement. Pulmonology recommendations appreciated. Per discussion with Dr. Chamberlain, drainage of abscess not feasible as high risk of bronchopleural fistula as a complication. CT surgery recommendations appreciated- rather diffuse process without anatomic isolation, therefore, surgical resection is not a viable option at this time. As well, his very limited pulmonary reserve would result in a substantial surgical risk. Will continue IV antibiotics for now and keep reassessing with repeat imaging every 10-14 days. This may additionally help in localizing a diffuse ongoing process. High chance that pt might end up needing lobectomy if fails to improve. For hypoxic respiratory failure: Continue with DuoNeb's pwssmv-rbw-plwxx Q4h, budesonide twice daily and albuterol as needed. O2 supplementation keeping SPo2 >90%. Morphine 1 mg Q8h PRN will help with both pain and respiration. Will add Tramadol for pain control. C/o pain in all extremities, previously diagnosed with neuropathy. Will start gabapentin. Hypotension:Better controlled with midodrine 10 mg PO Q8h. C/w same. Most likley from prolonged infection and severe protien energy malnutrition. Albumin better now. Will continue to hold any further albumin. Random cortisol normal at 4.75. Atrial fibrillation: Patient has a history of atrial fibrillation. Reverted to NSR C/w Digoxin at 250 mcg. No new events noted on telemetry. History of CAD: Denies any chest pain right now. Continue on ASA 81 mg PO QD. c/o chest pain today- check EKG, troponin LUE pain: awaiting LUE duplex venous- to r/o septic thrombophlebitis or developing SVC syndrome Cardiac diet. Full code Lovenox for DVT prophylaxis. Attestations Medical Necessity Statement*: for necrotizing lung infection Time Spent in Patient Care: Greater than 35 minutes Coding Level of Care Code Acute Garment Alteration Examiner for Reggie Russell
--- NOTE | 2019-02-27 19:18 | PC.CHAP ---
Pastoral Care Encounter/Spiritual Assessment Type of Contact [] Declined commercial fishing vessel operator visit [] Patient/Family/Request visit [] Outpatient visit [] Follow-up visit [] Physician referral [] Code/Alert [] Routine visit [] Staff referral [] Actively dying [] Patient sleeping [] Family support [] [] Out of room [] Palliative care [] [] Receiving care in room [] Pre-surgical visit [] Trauma [] Long length of stay [] ICU visit [x] Other:Isolation Relational/Emotional Strength [] Patient feels connected with others/family/visitors/staff [] Distress [] Loneliness/isolation [] Abandonment Spirituality of Patient [] Person of Lakshmi [] Attends Episcopalian of their Lakshmi [] Believes in Prayer [] Reads Bible or Shinto materials [] There are Spiritual issues to be addressed Medical Assistant Float Interventions [] Prayer [] Active listening [] Non-anxious presence [] Spiritual/emotional support [] Crisis/trauma care [] Spiritual counseling [] Bereavement support [] Provided bereavement packet [] Provided Bible/devotional materials [] Provided toy/stuffed animal, coloring book to patient or family member [] Completed spiritual assessment [] Provided Communion [] Anointing/[place] [] Salvation [] Other: Impact on Illness or Injury [] Angry [] Fearful [] Anxious [] Often cries [] Exhaustion [] Unable to work [] Unable to attend restoration [] Unable to walk/stand [] Unable to read [] Unable to drive [] Unable to eat/drink [] Unable to sleep [] Unable to be with family [] Other: Summary Patient under precautions Visit attempted by Medical Assistant Floatarmand Qiu Time spent with patient 3 minutes
[2019-02-28] VITALS (17 sets, daily range): BP systolic 97–124; BP diastolic 60–72; PULSE 82–102; RESP 14–28; TEMP 36.8–38.4; O2SAT 91–97
[2019-02-28] MEDS: ipratropium-albuterol 3 mL Neb INHALATION ×5 (03:04→20:38)
[2019-02-28] MEDS: piperacillin-tazobactam 4.5 GM in sodium chloride 0.9% (plus) 50 ML IV ×4 (03:38→21:16)
[2019-02-28] MEDS: enoxaparin 40 mg/0.4 mL Syringe SUBCUT (03:39)
[2019-02-28] MEDS: budesonide 0.5 mg/2 mL Neb INHALATION ×2 (08:33→20:38)
[2019-02-28] MEDS: aspirin 81 mg EC Tablet PO (09:33)
[2019-02-28] MEDS: gabapentin 100 mg Capsule PO ×3 (09:34→21:16)
[2019-02-28] MEDS: digoxin 250 mcg Tablet PO (09:34)
[2019-02-28] MEDS: midodrine 5 mg TABLET 10 MG PO ×3 (09:35→21:18)
--- NOTE | 2019-02-28 10:28 | USCV_ITS ---
Chris Brooks Age: 68 Gender: M : 1950 Exam Date: 02/28/2019 13:15 Ordering Phys: Ricco Louis MD Technologist: Kayden Lin Exam Location: [facility] [place] Indication: BED STASIS HISTORY: Lower extremity swelling. PROCEDURES: The venous duplex Doppler examination of both lower extremities was performed in the standard fashion. The following venous structures were evaluated: common femoral vein, profunda vein, proximal portion of the greater saphenous vein, superficial femoral vein, and the popliteal vein. In addition, the posterior tibial and peroneal trunk were evaluated. Bilaterally, the common femoral, superficial femoral, profunda femoral, popliteal, posterior tibial, greater saphenous veins, and the peroneal trunk were identified and interrogated in the standard fashion. These veins were found to be easily compressible with spontaneous blood flow. No evidence of insufficiency or thrombus noted. FINDINGS: Normal 2-D Doppler and augmentation and compressibility throughout the lower extremity venous structures. Additional imaging through the proximal calf veins also reveals no thrombus. Limited evaluation of the greater saphenous vein is patent with no thrombus.. CONCLUSIONS No evidence of right lower extremity DVT. No evidence of left lower extremity DVT. Juan Martin MD (Electronically Signed) Final Date: 28 February 2019 16:16 S
--- NOTE | 2019-02-28 10:29 | XR_ITS ---
WS: [id number] PROCEDURE: XR chest 2V* [id number] CLINICAL INFORMATION: pna COMPARISON: FINDINGS: Right PICC line has been repositioned with tip in the distal SVC. No pneumothorax. No change in the c avitary infiltrates. No pneumothorax. Postoperative changes lower cervical spine. XR/XR chest 2V* [id number] IMPRESSION: Right PICC line has been repositioned with tip in the distal SVC in good positi on. No pneumothorax.
--- NOTE | 2019-02-28 10:39 | PC.PHAR ---
VANCOMYCIN 1250 MG Q 8 H PER PHARMACY PROTOCOL Pharmacokinetic dosing service Objective: Patient: Floor: Age: 68 yo Serum creatinine: 0.6 mg/dL Height: 78.7 Inches Weight (kg): 86 Assessment: IBW (kg): 93.01 Dosing wt(kg): 86 Estimated Creatinine clearance (ml/min): 130 Clearance limited to 130 ml/min to reduce risk of overdosing. CRCL method: Cockcroft and Gault using ibw(default). Drug selected: Vancomycin Loading dose (mg): Vd (liters): 60.2 (factor used: 0.7 L/kg) Bhavin (hr-1): 0.112 Half life (hrs): 6.19 CLvanco= 6.742 L/hr Recommended dose: 1250 mg Interval: 8 hrs Infusion time (hrs): 1 Predicted peak (mcg/mL): 33.2 Predicted trough (mcg/mL): 15.16 Total body weight is being used for vancomycin dosing. Recommendations: Give Vancomycin 1250 mg q 8 hrs with an expected Cpeak of 33.2 mcg/ml and an expected Ctrough of 15.16 mcg/ml Thank you for the consult, will continue to follow.
[2019-02-28 12:19] LABS: Procalcitonin 0.18 ng/mL (0-0.8)
--- NOTE | 2019-02-28 14:20 | PC.SOCIAL ---
IMM Updated Page 2 of IMM updated and given to patient. Initialed, dated, and timed and placed back in chart.
--- NOTE | 2019-02-28 17:43 | P.PN_ITS ---
Subjective Subjective: Interval history: NO acute events overnight. Sat in chair for more than 2 hours yesterday. On evaluation this morning is also sitting in chair. T-max overnight going up to 101. Afebrile at present. Remains hemodynamically stable. Saturating more than 90% on 5 L nasal cannula denies any CP today, headache, N/V. States his SOB is mildly improved and cough is same. Medications: Reviewed: Yes Vitals/I&O/Wt Last Vital Signs Temp 98.5 F 02/28/19 15:38 Pulse 86 02/28/19 15:38 Resp 14 02/28/19 15:38 BP 111/67 02/28/19 15:38 Pulse Ox 95 02/28/19 15:38 02/28/19 02/28/19 02/28/19 06:59 14:59 22:59 Intake Total 170 / 1520 890 / 890 Output Total 550 / 1875 800 / 800 Balance -380 / -355 90 / 90 Weight last 48 hrs Weight 86.409 kg Weight 86.818 kg Physical Exam Narrative: EXAM NARRATIVE: General: No acute distress, AO x3, Chachexia HEENT: PERRLA, pupils bilaterally equal and reactive Chest:bronchial breath sounds b/l R>L, Upper lobe more than middle lobe, Clear otherwise, no more scattered ronchi and wheeze. CVS: S1-S2 regular, no murmurs, no gallops, no rubs Abdomen: Soft, nontender, no organomegaly, bowel sounds present Neuro: No focal deficits, no facial deformity, AO x3, power 5/5 in all limbs. Data : 02/27/19 04:58 02/27/19 04:58 Micro: Microbiology 02/28/19 11:35 Blood Culture - Preliminary Blood SPECIMEN COLLECTED 02/28/19 11:41 Blood Culture - Preliminary Blood SPECIMEN COLLECTED 02/26/19 01:55 Gram Stain - Final Sputum - Expectorated Sputum Sputum Culture - Preliminary Gram Negative Rods 02/23/19 22:00 Sputum Culture - Preliminary Sputum - Expectorated Sputum Pseudomonas aeruginosa 02/23/19 06:08 Blood Culture - Final Blood NO GROWTH AFTER 5 DAYS 02/23/19 06:06 Blood Culture - Final Blood NO GROWTH AFTER 5 DAYS 02/22/19 17:27 Blood Culture - Final Blood NO GROWTH AFTER 5 DAYS 02/22/19 17:36 Blood Culture - Final Blood NO GROWTH AFTER 5 DAYS A&P Additional A&P Information Septic shock with acute hypoxic respiratory failure: Septic shock resolved. Culture from BAL wash now with multiple yen including Psuedomonas, Proteus and Enterobacter. Of the isolated organisms, believe that Pseudomonal necrotizing pneumonia with abscess is the most aggressive process here. Conitnue Zosyn at Psuedomonal dosing at 4.5g iv q6h. WBC count stable, fever curve improved since starting zosyn instead of cefepime, possibilities including persisting infection (as is highly likely) due to poor penetration of abx into cavity vs increasing necrotic burden in the lung. No evidence of MRSA on nasal swab or BAL cx, therefore doubt that taking off vancomycin contributing here. While staph is still possible, non MRSA strains will be covered by Zosyn. repeat CT per radiology read with new abscess left lung, but difficult to say if its a new abscess vs coalescing of old abscess. MTB PCR negative, AFB smear negative. Taken off isolation based on these results. Serum Aspergillus galactommanan antigen negative. BAL GM could not be run due to sepcimen viscosity. Fungal culture thus far only with penelope albicans (likely colonizer), no mold noted. Lab requested to specifically rule out Nocardia, Stenotrophomonas maltophila and Actinomyces- thus far cx negative for these organisms. HIV negative. Anticipate at least 4-6 weeks of iv treatment for aggressive pneumonia, however this period may need to be extended based on serial imaging & improvement. Pulmonology recommendations appreciated. Per discussion with Dr. Chamberlain, drainage of abscess not feasible as high risk of bronchopleural fistula as a complication. CT surgery recommendations appreciated- rather diffuse process without anatomic isolation, therefore, surgical resection is not a viable option at this time. As well, his very limited pulmonary reserve would result in a substantial surgical risk. Will continue IV antibiotics for now and keep reassessing with repeat imaging every 10-14 days. This may additionally help in localizing a diffuse ongoing process. High chance that pt might end up needing lobectomy if fails to improve. Patient continues to have once daily high-grade fever. Will rule out other causes of fevers. Will get lower limb Dopplers to rule out DVT. Most likely fevers are secondary to necrotizing pneumonia. Will get chest x-ray as last CT scan was done on February 23. Respiratory status has remained the same. Stat blood cultures. No more sputum cultures as patient has had multiple for now all growing same gram-negative's. For now we will add vancomycin and see if fever subside. If patient continues to have fever while being on vancomycin will discontinue vancomycin and at that point fevers with most likely be likely secondary to a possible DVT versus necrotizing pneumonia versus drug related. For hypoxic respiratory failure: Continue with DuoNeb's ocimkw-atg-xptvn Q4h, budesonide twice daily and albuterol as needed. O2 supplementation keeping SPo2 >90%. Morphine 1 mg Q8h PRN will help with both pain and respiration. Will add Tramadol for pain control. C/o pain in all extremities, previously diagnosed with neuropathy. Will start gabapentin. Hypotension:Better controlled with midodrine 10 mg PO Q8h. C/w same. Most likley from prolonged infection and severe protein energy malnutrition. Albumin better now. Will continue to hold any further albumin. Random cortisol normal at 4.75. Atrial fibrillation: Patient has a history of atrial fibrillation. Reverted to NSR C/w Digoxin at 250 mcg. No new events noted on telemetry. History of CAD: Denies any chest pain right now. Continue on ASA 81 mg PO QD. c/o chest pain today- check EKG, troponin LUE pain: awaiting LUE duplex venous- to r/o septic thrombophlebitis or developing SVC syndrome Cardiac diet. Full code Lovenox for DVT prophylaxis. Attestations Medical Necessity Statement*: Needs continued hospitalization for management of necrotizing pneumonia Time Spent in Patient Care: Greater than 35 minutes Coding Level of Care Code Acute Mold Capper Helper for Reg[facility]
[2019-03-01] VITALS (16 sets, daily range): BP systolic 89–130; BP diastolic 53–84; PULSE 72–100; RESP 18–26; TEMP 36.9–37.7; O2SAT 92–98
[2019-03-01] MEDS: ipratropium-albuterol 3 mL Neb INHALATION ×5 (00:03→16:42)
[2019-03-01] MEDS: piperacillin-tazobactam 4.5 GM in sodium chloride 0.9% (plus) 50 ML IV ×4 (02:05→23:14)
[2019-03-01] MEDS: enoxaparin 40 mg/0.4 mL Syringe SUBCUT (02:05)
[2019-03-01 06:35] LABS: Basophils % 0.2 %; Eosinophils # 0.3 10^3/uL (0.0-0.8); Eosinophils % 1.4 %; Hematocrit 26.5 % (42.0-52.0); Hemoglobin 8.8 g/dL (11.7-16.6); Lymphocytes # 5.3 10^3/uL (0.8-4.8); Lymphocytes % 27.9 %; Mean Corpuscular HGB Conc 33.2 g/dL (30.0-36.0); Mean Corpuscular Volume 93.3 fL (80-94); Mean Platelet Volume 9.6 fL (7.4-10.4); Monocytes # 1.7 10^3/uL (0.2-0.9); Monocytes % 8.7 %; Neutrophils # 11.7 10^3/uL (1.8-7.7); Neutrophils % 61.2 %; Nucleated Red Blood Cells % 0 %; Platelet Count 430 10^3/cmm (130-400); Red Blood Count 2.84 10^6/uL (4.1-5.3); Red Cell Distribution Width 14.6 % (12.1-15.1); White Blood Count 19.1 10^3/uL (4.0-10.0)
[2019-03-01 06:53] LABS: Slide Review Slide Review Perform
[2019-03-01 07:38] LABS: Alanine Aminotransferase 33 U/L (0-41); Albumin Level 3.5 g/dL (3.5-5.2); Alkaline Phosphatase 188 IU/L (40-130); Anion Gap 13.8 (5-19); Aspartate Amino Transferase 42 U/L (0-40); Blood Urea Nitrogen 18 mg/dL (8-23); Calcium 9.6 mg/Dl (8.8-10.2); Carbon Dioxide 29 mmol/L (22-29); Chloride 91 mmol/L (98-107); Glomerular Filtration Rate 134.4 mL/min (90-130); Glucose 92 mg/dL (74-106); Potassium 4.8 mmol/L (3.5-5.1); Sodium 129 mmol/L (136-145); Total Protein 8.5 g/dL (6.6-8.7)
[2019-03-01] MEDS: gabapentin 100 mg Capsule PO ×3 (08:38→23:13)
[2019-03-01] MEDS: digoxin 250 mcg Tablet PO (08:38)
[2019-03-01] MEDS: midodrine 5 mg TABLET 10 MG PO ×3 (08:38→23:13)
[2019-03-01] MEDS: aspirin 81 mg EC Tablet PO (08:38)
[2019-03-01] MEDS: budesonide 0.5 mg/2 mL Neb INHALATION (08:55)
--- NOTE | 2019-03-01 16:48 | P.TS_ITS ---
Transfer Summary Providers Date of Admission: 02/15/19 20:29 Date of Discharge: 03/01/19 Attending Provider at Admission: Ricco Louis MD Attending Provider at Transfer: Ricco Louis MD Consults: Pulmonology: Dr. Chamberlain Cardiothoracic surgery: Dr. Buckner Infectious disease: Dr. Cagle Anticipated Date of Transfer: Anticipated date of transfer: 03/01/19 Receiving Facility & Provider: Receiving Provider: [Super[facility]] Receiving facility: [facility] Diagnoses at Discharge Discharge Diagnosis (1) Atrial fibrillation: Status: Acute (2) Bullous emphysema: Status: Acute (3) Necrotizing pneumonia: Status: Acute (4) Acute and chronic respiratory failure: Status: Acute (5) Coronary artery disease: Status: Acute (6) Sepsis with acute hypoxic respiratory failure: Status: Acute (7) Pneumonia: Status: Acute (8) COPD (chronic obstructive pulmonary disease): Status: Acute (9) Pulmonary fibrosis: Status: Acute (10) Hypertension: Status: Acute (11) Sepsis with acute hypoxic respiratory failure: Status: Acute (12) COPD (chronic obstructive pulmonary disease): Status: Acute Qualifiers: COPD type: COPD with acute exacerbation Qualified Code(s): J44.1 - Chronic obstructive pulmonary disease with (acute) exacerbation Reason for Visit Reason for Visit: Reason For Visit: HYPOXIC RESP FAILURE, PNA Hospital Course Discharge Summary: GIOVANNA MCKEON is a 68 year old male possible history of hypertension, dyslipidemia, anxiety/depression, CAD, [place] spotted fever, possible atrial fibrillation, pulmonary fibrosis, COPD on 4 L nasal cannula oxygen supplementation and recently started on Trelegy presented to the ER on Feb 15 with complain of cough along with expectoration and shortness of breath getting worse for last 3 weeks getting worse for last 4 days and this morning he was not able to walk or talk without getting out of breath so he presented to the ER. CT scan done in the ER was suggestive of cavitary lesions with superimposed infection and abscess in right upper and left lower lobes. He was admitted to the ICU in view of septic shock with hypoxic respiratory failure and was started on pressors and broad-spectrum antibiotics. He in between also required BiPAP ventilation. Pulmonology and infectious disease were consulted. Patient underwent bronchoscopy on Feb 17. Culture from BAL wash revealed multiple yen including Psuedomonas, Proteus and Enterobacter. Of the isolated organisms,it is believed that Pseudomonal necrotizing pneumonia with abscess is the most aggressive process here. Antibiotics were de-escalated as per the culture results. Patient was changed to cefepime for Pseudomonas but continued to have fever so was changed to Zosyn for possible anaerobic involvement. At first with Zosyn patient's white count and fever curve is improved but WBC count remained high but stable, CLL was ruled out with peripheral smear showing only bands. Possibilities including persisting infection (as is highly likely) due to poor penetration of abx into cavity vs increasing necrotic burden in the lung. Even though there was no evidence of MRSA on nasal swab or BAL cx, given the possibility of superinfection patient was rescanned on February 23 which showed mild resolution with some increase in cavitation on the right side. As patient has at high risk of superinfection vancomycin was added and since then white count has trended down a little bit. Other sources of fever were ruled out with a negative Doppler for DVT in bilateral lower limbs and left upper limb with last Doppler done on February 28. MTB PCR negative, AFB smear negative. Taken off isolation based on these results. Ideally patient needs 3 AFB smear negative or 2 MTB PCR negative, however we are unable to get any induced sputum or expectorated sputum for testing. Given that clinical features are explainable by Pseudomonas, less likely to be MTB, therefore will base isolation decision on one MTB PCR. Serum Aspergillus galactommanan antigen negative. BAL GM could not be run due to sepcimen viscosity. Fungal culture thus far only with penelope albicans (likely colonizer), no mold noted. Lab requested to specifically rule out Nocardia, Stenotrophomonas maltophila and Actinomyces- thus far cx negative for these organisms. HIV negative. Anticipate at least 4-6 weeks of iv treatment for aggressive pneumonia, however this period may need to be extended based on serial imaging & improvement. Per discussion with Dr. Chamberlain, drainage of abscess not feasible as high risk of bronchopleural fistula as a complication. CT surgery recommendations appreciated- rather diffuse process without anatomic isolation, therefore, surgical resection is not a viable option at this time. As well, his very limited pulmonary reserve would result in a substantial surgical risk. Inhaled abx by way of inhaled amikacin, tobramycin, colistin etc. usually only indicated for MDR gram negatives, however his isolate is fairly susceptible, therefore unlikely to be of additional benefit. Inhaled abx also not currently available at our pharmacy. Plan for now is to repeat CT imaging of the lungs in 2 weeks from February 23 until unless patient deteriorates and then depending on the CT results to continue antibiotics accordingly. Vanco trough to remain between 15 and 20 and dosage to be adjusted as per the kidney functions. The course of antibiotic as of now depends on the CT scan results on subsequent imaging. Patient's hospital course was also complicated by development of A. fib with RVR which was managed by amiodarone bolus and infusion for 24 hours as per the pro tocol. Since then patient has remained in sinus rhythm and has been continued on digoxin. His renal functions have constantly improved and now have remained stable normal. Patient has been ambulating and sitting in chair with oxygen saturation being maintained over 90% with 5 L nasal cannula. Patient has been transferred in hemodynamically stable condition saturating over 90% with 5 L oxygen supplementation with nasal cannula on IV antibiotics, nebulizations. Physical Exam Narrative: EXAM NARRATIVE: General: No acute distress, AO x3, Chachexia HEENT: PERRLA, pupils bilaterally equal and reactive Chest:bronchial breath sounds b/l R>L, Upper lobe more than middle lobe, Clear otherwise, no more scattered ronchi and wheeze. CVS: S1-S2 regular, no murmurs, no gallops, no rubs Abdomen: Soft, nontender, no organomegaly, bowel sounds present Neuro: No focal deficits, no facial deformity, AO x3, power 5/5 in all limbs. TS Data Data Completed and Pending: Completed Studies During Hospitalization Category Date Time Status CT chest wo con 7 1250 Routine Cat Scan 02/23/19 08:[address] chest wo con 7 1250 Urgent Cat Scan 02/15/19 18:28 Completed CXRP [XR chest 1V portable [id number]] S tat Exams 02/20/19 11:54 Completed XR chest 1V tushar ble [id number] Stat Exams 02/15/19 17:13 Completed XR chest 1V tushar ble [id number] Urgent Exams 02/20/19 08:39 Completed XR chest 2V* 7104 6 Routine Exams 02/28/19 10:29 Completed Cytology [PTH] Ro utine Pth 02/17/19 12:19 [place] [id number] Urgent Ultrasound 02/28/19 10:28 [place] [address] Routin e Ultrasound 02/27/19 16:54 Completed Pending at discharge Category Date Time Status Blood Culture Sta t Lab 02/28/19 11:35 Results Fungal Culture no t HR/SK/BL Routine Lab 02/17/19 12:13 Results Hepatitis A Antib karolny Total Routine Lab 02/16/19 09:50 Received Miscellaneous Magalis t Routine Lab 02/17/19 12:13 Received Miscellaneous Magalis t Routine Lab 02/25/19 08:00 Received Mycobacteria, Cul ture w/Fluor Routi ne Lab 02/17/19 12:13 Results Viral Culture Res piratory Routine Lab 02/17/19 12:13 Results Labs from last 24 hours 03/01/19 03/01/19 03/01/19 10:42 07:16 05:28 WBC RBC Hgb Hct MCV MCH MCHC RDW Plt Count MPV Neut % (Auto) Lymph % (Auto) [place] % (Auto) Eos % (Auto) Baso % (Auto) Neut # (Auto) Lymph # (Auto) [place] # (Auto) Eos # (Auto) Baso # (Auto) Nucleated RBC % (a uto) Nucleated RBCs # Sodium 129 L Cancelled Potassium 4.8 Cancelled Chloride 91 L Cancelled Carbon Dioxide 29 Cancelled Anion Gap 13.8 Cancelled BUN 18 Cancelled Creatinine 0.6 L Cancelled GFR Calculation 134.4 H Cancelled Glucose 92 Cancelled Calcium 9.6 Cancelled Total Bilirubin 1.0 Cancelled AST 42 H Cancelled ALT 33 Cancelled Alkaline Phosphata se 188 H Cancelled Total Protein 8.5 Cancelled Albumin 3.5 Cancelled Globulin 5.0 H Cancelled Vancomycin Trough 14.0 03/01/19 05:28 WBC 19.1 H RBC 2.84 L Hgb 8.8 L Hct 26.5 L MCV 93.3 MCH 31.0 MCHC 33.2 RDW 14.6 Plt Count 430 H MPV 9.6 Neut % (Auto) 61.2 Lymph % (Auto) 27.9 [place] % (Auto) 8.7 Eos % (Auto) 1.4 Baso % (Auto) 0.2 Neut # (Auto) 11.7 H Lymph # (Auto) 5.3 H [place] # (Auto) 1.7 H Eos # (Auto) 0.3 Baso # (Auto) 0.0 Nucleated RBC % (a uto) 0 Nucleated RBCs # 0.0 Sodium Potassium Chloride Carbon Dioxide Anion Gap BUN Creatinine GFR Calculation Glucose Calcium Total Bilirubin AST ALT Alkaline Phosphata se Total Protein Albumin Globulin Vancomycin Trough Vitals: Last Vital Signs Temp 98.7 F 03/01/19 15:00 Pulse 98 03/01/19 16:44 Resp 20 H 03/01/19 16:44 BP 122/74 03/01/19 15:00 Pulse Ox 93 03/01/19 16:44 TS Medications Medications Home Medications budesonide-formoterol HFA 160 mcg-4.5 mcg/actuation aerosol inhaler 2 puff INHALATION BID 30 Days #10.2 gm 02/09/19 [Rx Confirmed 02/17/19] meloxicam 15 mg tablet 15 mg PO DAILY 30 Days #30 tab 02/13/19 [Rx Confirmed 02/17/19] albuterol sulfate 1 INHALATION QID PRN 02/17/19 [History] albuterol sulfate [Ventolin HFA] See Rx Instructions .ROUTE .COMPLEX PRN 02/17/19 [History Confirmed 02/17/19] atorvastatin 20 mg PO BEDTIME 02/17/19 [History Confirmed 02/17/19] ysqtywurpxn-ywymzlwwj-ykprpmcd [Trelegy Ellipta] 1 inh INHALATION DAILY 02/17/19 [History Confirmed 02/17/19] ipratropium-albuterol [Combivent Respimat] 1 puff INHALATION QID 02/17/19 [History Confirmed 02/17/19] nebulization 5 ml NEBULIZER ONCE #5 ml 02/17/19 [Rx] nicotine 1 patch TRANSDERMAL Q24H 02/17/19 [History Confirmed 02/17/19] omega-3 acid ethyl esters 2 cap PO BID 02/17/19 [History Confirmed 02/17/19] tiotropium bromide [Spiriva with HandiHaler] 1 cap INHALATION DAILY 02/17/19 [History Confirmed 02/17/19] Active Medications Acetaminophen (Tylenol) 650 mg PO Q4H PRN PRN Reason: MILD PAIN OR INCREASE TEMP Last Admin: 02/26/19 20:34 Dose: 650 mg Documented by: Albuterol/Ipratropium (Duoneb) 3 ml INHALATION Q4H.RESPIRATORY NEYMAR Last Admin: 03/01/19 16:42 Dose: 3 ml Documented by: Aspirin (Aspirin Ec) 81 mg PO DAILY NEYMAR Last Admin: 03/01/19 08:38 Dose: 81 mg Documented by: Budesonide (Pulmicort) 0.5 mg INHALATION BID.[facility]IRATORY [facility] Last Admin: 03/01/19 08:55 Dose: 0.5 mg Documented by: Digoxin (Lanoxin) 250 mcg PO DAILY [facility] Last Admin: 03/01/19 08:38 Dose: 250 mcg Documented by: Enoxaparin Sodium (Lovenox) 40 mg SUBCUT Q24H [facility] Last Admin: 03/01/19 02:05 Dose: 40 mg Documented by: Gabapentin (Neurontin) 100 mg PO TID [facility] Last Admin: 03/01/19 08:38 Dose: 100 mg Documented by: Piperacillin Sod/Tazobactam (Sod 4.5 gm/ Sodium Chloride) 50 mls @ 100 mls/hr IV Q6H [facility]; Protocol Last Admin: 03/01/19 08:40 Dose: 100 mls/hr Documented by: Vancomycin HCl 1,250 mg/ (Sodium Chloride) 250 mls @ 200 mls/hr IV Q8H [facility]; Protocol Last Admin: 03/01/19 13:00 Dose: 200 mls/hr Documented by: Metoprolol Tartrate (Metoprolol Tartrate) 2.5 mg IV Q6H PRN PRN Reason: HEART RATE-HIGH Midodrine (Proamatine) 10 mg PO TID [facility] Last Admin: 03/01/19 08:38 Dose: 10 mg Documented by: Morphine Sulfate (Morphine) 2 mg IVP Q8H PRN PRN Reason: SEVERE PAIN Last Admin: 02/27/19 16:37 Dose: 2 mg Documented by: Non-Formulary Medication (Ensure) 1 bottle PO 5XD [facility] Ondansetron HCl (Zofran) 4 mg IVP Q8H PRN PRN Reason: vomiting, or N/V if npo Last Admin: 02/18/19 22:04 Dose: 4 mg Documented by: Tiotropium [place] (Spiriva) 18 mcg INHALATION DAILY.RESPIRATORY [facility] Last Admin: 03/01/19 08:55 Dose: 18 mcg Documented by: Tramadol HCl (Ultram) 50 mg PO Q6H PRN PRN Reason: MODERATE PAIN Last Admin: 02/25/19 18:10 Dose: 50 mg Documented by: Discharge Plan Discharge Patient Disposition: Home, Self-Care Condition: Stable Prescriptions: No Action Symbicort 160-4.5 mcg/actuation HFA aerosol inhaler 2 puff INHALATION BID 30 Days Qty: 10.2 RF: 0 meloxicam 15 mg tablet 15 mg PO DAILY 30 Days Qty: 30 RF: 0 nebulization 5 ml nebulizer ONCE Qty: 5 RF: 0 atorvastatin 20 mg tablet 20 mg PO BEDTIME RF: 0 Combivent Respimat 20-100 mcg/actuation mist 1 puff INHALATION QID RF: 0 albuterol sulfate [Ventolin HFA] 90 mcg/actuation HFA aerosol inhaler See Rx Instructions .ROUTE .COMPLEX PRN (Reason: Shortness Of Breath) RF: 0 nicotine 7 mg/24 hr patch 24 hour 1 patch transdermal Q24H RF: 0 albuterol sulfate 2.5 mg /3 mL (0.083 %) solution for nebulization 1 inhalation QID PRN (Reason: Shortness Of Breath Or Wheezing) RF: 0 omega-3 acid ethyl esters 1 gram capsule 2 cap PO BID RF: 0 Spiriva with HandiHaler 18 mcg capsule, w/inhalation device 1 cap INHALATION DAILY RF: 0 Trelegy Ellipta 100-62.5-25 mcg blister with device 1 inh INHALATION DAILY RF: 0 Discharge Orders: Transfer Out of Facility (Order); Ordered 03/01/19 Ordered By: Ricco Louis Referrals: [facility], [facility] [Other] Levon Chamberlain MD [Physician] - 2 weeks Discharge Diet: GI Soft Discharge Activity: Increase activity as tolerated Transfer Attestations Time Spent in Transfer Care*: greater than 30 min Specific Discharge Activities: Specific discharge activities: discussing with case management rn/social workers/dc planners, documenting/other paperwork and evaluating patient/reviewing data Status at Transfer: Cognitive status at transfer: cognitively intact , Behavioral status at transfer: cooperative , Functional status at transfer: other assisted ambulation Overall status at transfer: patient has a new baseline Quality Metrics Clinical Quality Measures: During this hospital stay, did patient experience: None Coding Level of Care Code Acute Roast Master for [facility] Fwd Diagnoses Atrial fibrillation I48.91 Bullous emphysema J43.9 Necrotizing pneumonia J85.0 Acute and chronic respiratory failure J96.20 Coronary artery disease I25.10 Sepsis with acute hypoxic respiratory failure A41.9; R65.20; J96.01 Pneumonia J18.9 COPD (chronic obstructive pulmonary disease) J44.9 Pulmonary fibrosis J84.10 Hypertension I10 Sepsis with acute hypoxic respiratory failure A41.9; R65.20; J96.01 COPD (chronic obstructive pulmonary disease) J44.1 COPD type: COPD with acute exacerbation
[2019-03-02] MEDS: enoxaparin 40 mg/0.4 mL Syringe SUBCUT (03:23)
[2019-03-02] MEDS: piperacillin-tazobactam 4.5 GM in sodium chloride 0.9% (plus) 50 ML IV (05:10)
[2019-03-02 05:17] VITALS: BP 113/63; PULSE 88; RESP 16; TEMP 36.9; O2SAT 96
[2019-03-02 07:41] VITALS: BP 113/63; PULSE 88; RESP 16; O2SAT 96
== END 2019-03-02 07:42 | DRG 871 ==
LOC: ER 20:28 → ICU 20:30 → MEDSURG 02-22 15:33
PROVIDERS: Internal Medicine Critical Care Medicine; Student in an Organized Health Care Education/Training Program; Admitting Provider Student in an Organized Health Care Education/Training Program; Emergency Provider Family Medicine; Family Provider Family Medicine; Visit Provider Student in an Organized Health Care Education/Training Program
PROC: 0BJ08ZZ Inspection of Tracheobronchial Tree, Via Natural or Artificial Opening Endoscopic (ICD-10-PCS; CPT 31622; principal; 2019-02-17 08:30)
DX: A41.9 Sepsis, unspecified organism (principal); R65.21 Severe sepsis with septic shock; J85.0 Gangrene and necrosis of lung; J15.1 Pneumonia due to Pseudomonas; J96.21 Acute and chronic respiratory failure with hypoxia; I10 Essential (primary) hypertension; J43.9 Emphysema, unspecified; J84.10 Pulmonary fibrosis, unspecified; I25.10 Atherosclerotic heart disease of native coronary artery without angina pectoris; I48.91 Unspecified atrial fibrillation; E78.5 Hyperlipidemia, unspecified; F41.8 Other specified anxiety disorders; Z99.81 Dependence on supplemental oxygen; Z79.82 Long term (current) use of aspirin; F17.210 Nicotine dependence, cigarettes, uncomplicated
CPT/HCPCS: 12345; 36415; 36592; 36600; 71045; 71046; 71250; 80048; 80053; 80162; 80202; 80307; 80500; 81003; 82533; 82805; 83540; 83550; 83605; 84145; 84484; 85007; 85025; 85027; 85378; 86403; 86704; 86705; 86706; 86708; 86803; 87015; 87040; 87070; 87077; 87102; 87116; 87186; 87205; 87206; 87305; 87340; 87449; 87641; 87801; 87804; 88112; 88305; 93005; 93970; 93971; 94640; 94664; 96372; 96374; 96375; 97110; 97162; 97167; 97530; 97535; 99283; A4222; C1751; J0131; J0282; J0692; J0743; J1160; J1650; J2001; J2250; J2270; J2370; J2405; J2543; J2704; J2920; J2930; J3010; J3370; J3480; J3490; J7030; J7040; J7050; J7060; J7626; P9047

== ENCOUNTER → 2019-05-18 16:25 | Outpatient (BNVA) | payer OTHER, SELFPAY | PROVIDERS: Family Provider Family Medicine; Visit Provider Family Medicine | DX: G62.9 Polyneuropathy, unspecified (principal); R39.82 Chronic bladder pain; B37.2 Candidiasis of skin and nail; R30.0 Dysuria | CPT/HCPCS: 80053; 81000 ==

== ENCOUNTER → 2019-09-13 15:10 | Outpatient (BNVA) | payer MEDICARE, MEDICAID, SELFPAY | PROVIDERS: Family Provider Family Medicine; Visit Provider Family Medicine | DX: J44.9 Chronic obstructive pulmonary disease, unspecified (principal); G89.29 Other chronic pain; K21.9 Gastro-esophageal reflux disease without esophagitis; E78.5 Hyperlipidemia, unspecified | CPT/HCPCS: 80053; 80061; 85025 ==

== ENCOUNTER 2019-09-21 09:07 | Outpatient (CLI) | payer MEDICARE, MEDICAID, SELFPAY ==
--- NOTE | 2019-09-21 10:00 | CT_ITS ---
WS: [id number] CT scan of the chest without IV contrast, additional two-dimensional coronal and sagittal reconstruct ion was performed. 09/21/2019 Clinical Data: Necrotizing pneumonia Comparison: CT chest, 02/23/2019. DLP: 136.01 mGy-cm All CT scans at [facility] use at least one of these dose optimization techniques: automat ed exposure control; mA and/or kV adjustment per patient size (includes targeted exams where dose is matched to clinical indication); or iterative reconstruction. Findings: The right lower lobe alveolar infiltrate has totally cleared. The left lower lobe pleural thickening and possible mass has also cleared. The right upper lobe shows a decrease in the right pleural thicke sahrona but there is moderate residual especially in the apex. The left upper lobe shows further clearin g with residual fibrosis in the anterior and lateral aspect. No effusions are seen. The heart size re july same. There are calcifications in the coronary arteries. No pericardial effusion is noted. The thoracic aorta and pulmonary arterial systems show no abnormalities. No lung nodules or masses are se en. There are no effusions. The bones of the thorax show no significant abnormalities. The upper abdo men demonstrates no abnormalities. CT/CT chest wo con [id number] Impression: 1. Significant clearing of basilar and apical consolidations and pleural thicke sharona. 2. There is residual pleural thickening, fibrosis and cavitary formation in bot h the right and to a lesser degree the left upper lobe. 3. Negative for acute cardiopulmonary disease.
== END 2019-09-21 09:08 | disposition home or self-care (01) ==
LOC: RADWPI 09:12
PROVIDERS: Family Provider Family Medicine; PCP Family Medicine; Visit Provider Internal Medicine Critical Care Medicine
DX: J85.0 Gangrene and necrosis of lung (principal)
CPT/HCPCS: 71250

== ENCOUNTER → 2019-11-02 13:43 | Outpatient (BNVA) | payer MEDICARE, MEDICAID, SELFPAY | PROVIDERS: Family Provider Family Medicine; PCP Family Medicine; Visit Provider Licensed Practical Nurse | DX: G62.9 Polyneuropathy, unspecified (principal); F17.210 Nicotine dependence, cigarettes, uncomplicated | CPT/HCPCS: 99203 ==

== ENCOUNTER → 2019-12-27 10:02 | Outpatient (BNVA) | payer MEDICARE, MEDICAID, SELFPAY | PROVIDERS: Family Provider Family Medicine; PCP Family Medicine; Visit Provider Family Medicine | DX: I10 Essential (primary) hypertension (principal); J41.1 Mucopurulent chronic bronchitis; I25.118 Atherosclerotic heart disease of native coronary artery with other forms of angina pectoris; J96.21 Acute and chronic respiratory failure with hypoxia; J96.22 Acute and chronic respiratory failure with hypercapnia; G62.9 Polyneuropathy, unspecified; I15.8 Other secondary hypertension | CPT/HCPCS: 80053; 85025 ==

== ENCOUNTER 2020-06-12 15:32 | Inpatient (IN) | payer MEDICARE, MEDICAID, SELFPAY ==
[2020-06-12] VITALS (10 sets, daily range): BP systolic 96–116; BP diastolic 69–80; PULSE 68–112; RESP 18–24; TEMP 36.6; O2SAT 96–100; BMI 15.7
--- NOTE | 2020-06-12 16:10 | ECG_ITS ---
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 Measurements Intervals [place] Rate: 101 P: 93 MT: 145 QRS: -79 QRSD: 100 T: 84 QT: 340 QTc: 441 Interpretive Statements SINUS TACHYCARDIA INDETERMINATE AXIS PATTERN CONSISTENT WITH PULMONARY DISEASE INCOMPLETE RIGHT BUNDLE BRANCH BLOCK [90+ ms QRS DURATION, TERMINAL R IN V1/V2, 40+ ms S IN I/aVL/V4/V5/V6] LEFT ANTERIOR FASCICULAR BLOCK [QRS AXIS <= -45, QR IN I, RS IN II] SEPTAL MYOCARDIAL INFARCTION [40+ ms Q WAVE IN V1/V2], OF INDETERMINATE AGE Compared to ECG 02/26/2019 16:30:33 Indeterminate axis now present Left anterior fascicular block now present Myocardial infarct finding now present Sinus rhythm no longer present T-wave abnormality no longer present Electronically Signed On 06-13-2020 9:32:39 CDT by Bran Ferguson M.D. [id number]
--- NOTE | 2020-06-12 16:10 | XRR_ITS ---
PROCEDURE INFORMATION: Exam: XR Chest Exam date and time: 06/12/2020 4:13 PM Age: 69 years old Clinical indication: Cough and dyspnea and shortness of breath TECHNIQUE: Imaging protocol: XR of the chest. Views: 1 view. COMPARISON: 1. CT chest wo con [id number] 09/21/2019 9:16 AM 2. CR XR chest 2V* [id number] 02/28/2019 10:51:26 AM FINDINGS: Lungs: Calcified granulomas in both lungs. Fibrosis in the right upper lobe. Increased irregular densities in the left lung apex. Stable scarring in the left mid lung. Emphysema. Pleural spaces: Unremarkable. No pleural effusion. No pneumothorax. Heart/Mediastinum: Unremarkable. No cardiomegaly. Bones/joints: Unremarkable. XR/XR chest 1V portable [id number] IMPRESSION: 1. Increased nodular densities in the left lung apex may represent progressive fibrosis. Superimposed pneumonia or a neoplastic process is not excluded. Follow-up with a CT scan chest is recommended.
--- NOTE | 2020-06-12 16:37 | CTR_ITS ---
PROCEDURE INFORMATION: Exam: CTA Chest With Contrast Exam date and time: 06/12/2020 5:51 PM Age: 69 years old Clinical indication: Abdominal tenderness and constipation; Shortness of breath; Prior surgery; Surgery type: Hernia, prostate; Additional info: Dyspnea/tachycardia TECHNIQUE: Imaging protocol: Computed tomographic angiography of the chest with contrast. 3D rendering (Not supervised by radiologist): MIP and/or 3D reconstructed images were created by the technologist. Radiation optimization: All CT scans at this facility use at least one of these dose optimization techniques: automated exposure control; mA and/or kV adjustment per patient size (includes targeted exams where dose is matched to clinical indication); or iterative reconstruction. Contrast material: OMNI 350; Contrast volume: 95 ml; Contrast route: INTRAVENOUS (IV); COMPARISON: 1. CTA Chest-Pulmonary Emb [id number] 01/31/2016 12:[address] chest wo con [id number] 09/21/2019 9:16:36 AM RADIATION DOSE METRICS: Total DLP (mGy-cm): 1276.9 FINDINGS: Pulmonary arteries: Normal. No pulmonary emboli. Aorta: Unremarkable. No aortic aneurysm. No aortic dissection. Lungs: Consolidation has increased in the right upper lobe and superior segment of the right lower lobe. Patchy nodular consolidations throughout the left lower lobe. Consolidation has also developed in the left lung apex with a 5.8 cm cavitation in the anterior left lung apex with a thickened irregular wall. Severe emphysema with stable fibrosis in the superior segment of the left lower lobe. New 7 mm spiculated nodule in the left lower lobe, series 2, image 394. Numerous calcified granulomas in both lungs. Pleural spaces: Stable anterior left pleural calcifications. Heart: Unremarkable. No cardiomegaly. No pericardial effusion. Lymph nodes: Unremarkable. No enlarged lymph nodes. Bones/joints: Thoracic scoliosis. No acute compression fracture. Soft tissues: Unremarkable. IMPRESSION: 1. No evidence for pulmonary embolus. 2. Consolidation in the upper lobes and superior segment of the right lower lobe , and scattered opacities in the left lower lobe most likely represent multilobar pneumonia. 3. 5.8 cm cavitary lesion in the left lung apex is most likely a pulmonary abscess. A neoplastic process is considered less likely but not excluded. Close CT follow-up recommended. 4. New 7 mm spiculated left lower lobe nodule. For patients at low risk (minimal or absent history of smoking and of other known risk factors), recommend CT Chest at 6-12 months, then consider CT Chest at 18-24 months. For patients at high risk (history of smoking or of other known risk factors), recommend CT Chest at 6-12 months, then CT Chest at 18-24 months. (Reference: Oma) References: Oma Aguilar et al. Guidelines for Management of Incidental Pulmonary Nodules Detected on CT Images: From the Fleischner Society 2017. Radiology. 2017;284(1):228-243. PROCEDURE INFORMATION: Exam: CT Abdomen And Pelvis With Contrast Exam date and time: 06/12/2020 5:51 PM Age: 69 years old Clinical indication: Abdominal tenderness and constipation; Shortness of breath; Prior surgery; Surgery type: Hernia, prostate; Additional info: Dyspnea/tachycardia TECHNIQUE: Imaging protocol: Computed tomography of the abdomen and pelvis with contrast. Radiation optimization: All CT scans at this facility use at least one of these dose optimization techniques: automated exposure control; mA and/or kV adjustment per patient size (includes targeted exams where dose is matched to clinical indication); or iterative reconstruction. Contrast material: OMNI 350; Contrast volume: 95 ml; Contrast route: INTRAVENOUS (IV); COMPARISON: CTA Chest-Pulmonary Emb [id number] 01/31/2016 12:31 PM RADIATION DOSE METRICS: Total DLP (mGy-cm): 1276.9 FINDINGS: Mediastinal space: Small hiatal hernia. Liver: Normal. No mass. Gallbladder and bile ducts: Normal. No calcified stones. No ductal dilation. Pancreas: Normal. No ductal dilation. Spleen: Normal. No splenomegaly. Adrenal glands: Normal. No mass. Kidneys and ureters: Normal. No hydronephrosis. Stomach and bowel: Large amount of stool in the rectum. Moderate stool in the proximal and transverse colon. The small bowel is unremarkable. Appendix: No evidence of appendicitis. Intraperitoneal space: Unremarkable. No free air. No significant fluid collection. Vasculature: Atherosclerotic calcifications. No aneurysm. Lymph nodes: Unremarkable. No enlarged lymph nodes. Urinary bladder: Unremarkable as visualized. Reproductive: Unremarkable as visualized. Bones/joints: Lumbar scoliosis and degenerative changes. No compression fracture. Soft tissues: Unremarkable. CT/CT angio chest w abd pel w con IMPRESSION: 1. No acute abnormality identified in the abdomen or pelvis. 2. Large amount of stool in the rectum most likely indicates impaction. 3. Moderate stool in the proximal and transverse colon could indicate constipation. Radiation Dose CTDIVOL = (mGy): DLP = 1276.9~1276.9 (mGy-cm)
[2020-06-12 16:48] LABS: Basophils % 0.3 %; Eosinophils # 0.1 10^3/uL (0.0-0.8); Eosinophils % 0.8 %; Hematocrit 42.4 % (42.0-52.0); Hemoglobin 14.3 g/dL (11.7-16.6); Lymphocytes # 4.6 10^3/uL (0.8-4.8); Lymphocytes % 38.2 %; Mean Corpuscular HGB Conc 33.7 g/dL (30.0-36.0); Mean Corpuscular Hemoglobin 32.4 pg (28.0-34.0); Mean Corpuscular Volume 96.1 fL (80-94); Monocytes # 1.7 10^3/uL (0.2-0.9); Neutrophils # 5.54 10^3/uL (1.8-7.7); Neutrophils % 46.3 %; Nucleated Red Blood Cells % 0 %; Platelet Count 349 10^3/cmm (130-400); Red Blood Count 4.41 10^6/uL (4.1-5.3); Red Cell Distribution Width 12.9 % (12.1-15.1)
[2020-06-12] MEDS: ipratropium-albuterol 3 mL Neb INHALATION (16:52)
[2020-06-12 17:03] LABS: D Dimer 1.75 ug/mIFEU (0-0.59)
[2020-06-12 17:07] LABS: ABG PCO2 42.4 mmHg (35-45); ABG PH Result 7.44 (7.35-7.45); Alveolar-Arterial Oxygen Gradi 14.9 mmHg (5-10); Arterial Blood Gas Hematocrit 44.6 % (42-52); Blood Gas Allen Test Pos; Blood Gas Operator Identificat CAK; Blood Gas Sample Site Brachial, left; Blood Gas Sample Type Arterial; Carboxyhemoglobin 2.2 %THgb (0.4-20.1); HCO3 ABG 28.7 mmol/L (22-26); HGB O2 Sat 95.2 % (95-100); Ionized Calcium Level - ABG 1.2 mmol/L (1.1-1.4); Methemoglobin 0.7 % (0.4-1.5); Oxygen Device NC; PO2 ABG 89.8 mmHg (80.0-100.0); Potassium Level - ABG 4.4 mmol/L (3.5-5.0); Total Hemoglobin 14.6 g/dL (14-18)
[2020-06-12 17:08] LABS: Lactate (Lactic Acid level) 0.9 mmol/L (0.5-2.2)
[2020-06-12] MEDS: sodium chloride 0.9% 1,000 ML 999 ML IV (17:08)
[2020-06-12] MEDS: levofloxacin-dextrose 5 % 750 MG/150 ML PREMIX 100 MG IV (17:10)
[2020-06-12 17:31] LABS: Troponin(5th) Baseline 19 ng/L (0-15)
[2020-06-12 17:32] LABS: Alanine Aminotransferase 44 U/L (0-41); Albumin Level 3.5 g/dL (3.5-5.2); Alkaline Phosphatase 206 IU/L (40-130); Anion Gap 16.5 (5-19); Aspartate Amino Transferase 48 U/L (0-40); Blood Urea Nitrogen 15 mg/dL (8-23); Calcium 8.6 mg/dL (8.5-10.5); Carbon Dioxide 26 mmol/L (22-29); Chloride 96 mmol/L (98-107); Creatine Phosphokinase 24 U/L (39-308); Globulin 3.7 g/dL (1.3-4.6); Glomerular Filtration Rate 165.4 mL/min (90-130); Glucose 92 mg/dL (65-115); NT Pro B Type Natriuretic Pept 282 pg/mL (0-125); Osmolality Calculated 278 mOsm/kg (285-295); Potassium 4.5 mmol/L (3.5-5.1); Sodium 134 mmol/L (136-145); Total Bilirubin 0.3 mg/dL (0.15-1.2); Total Protein 7.2 g/dL (6.6-8.7)
--- NOTE | 2020-06-12 18:10 | ECG_ITS ---
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 Measurements Intervals [place] Rate: 86 P: 80 IA: 162 QRS: -55 QRSD: 105 T: 83 QT: 367 QTc: 441 Interpretive Statements SINUS RHYTHM LEFT AXIS DEVIATION [QRS AXIS < -30] INCOMPLETE RIGHT BUNDLE BRANCH BLOCK [90+ ms QRS DURATION, TERMINAL R IN V1/V2, 40+ ms S IN I/aVL/V4/V5/V6] SEPTAL MYOCARDIAL INFARCTION , OF INDETERMINATE AGE [40+ ms Q WAVE IN V1/V2] Compared to ECG 06/12/2020 16:23:35 Left-axis deviation now present Sinus tachycardia no longer present Indeterminate axis no longer present Left anterior fascicular block no longer present Myocardial infarct finding still present Electronically Signed On 06-13-2020 9:38:59 CDT by Bran Ferguson M.D. [id number]
[2020-06-12] MEDS: iohexol 350 mg/mL 100 mL Btl IV (18:17)
--- NOTE | 2020-06-12 20:28 | PM.HP ---
Providers/Chief Complaint Primary Care Provider: America Baez MD Chief Complaint: BILAT RIB PAIN, NO TRAUMA History of Present Illness Chris Brooks is a 69 year old male who has history of oxygen dependent COPD was using 4 L of oxygen [id number], active smoker, was on hospice that was discontinued a week ago, presenting today with chief complaint of generalized weakness, shortness of breath and abdominal pain. Patient stating that his symptoms started on Wednesday with abdominal pain, he attributed his symptoms to constipation his stools were extremely hard. Because of that he was worsening abdominal pain because he has previous history of inguinal hernia which gets worse on slightest bit of straining. He was also experiencing shortness of breath with cough, his cough is productive he is bringing up sputum which is greenish to black in color he did not notice any blood, he is endorsing chest pain with coughing as well, no nausea, vomiting or dysuria. Diagnostics in the ER revealed sepsis, concern for pulmonary abscess, pulmonary malignancy, left upper lobe abscess, Dr. Chamberlain is well aware of Mr. Brooks's condition who might plan for bronchoscopy in the morning. In the ER he received Levaquin methylprednisone 125 mg IV push and DuoNeb treatment along [address] chest abdomen pelvis IMPRESSION: 1. No evidence for pulmonary embolus. 2. Consolidation in the upper lobes and superior segment of the right lower lobe , and scattered opacities in the left lower lobe most likely represent multilobar pneumonia. 3. 5.8 cm cavitary lesion in the left lung apex is most likely a pulmonary abscess. A neoplastic process is considered less likely but not excluded. Close CT follow-up recommended. 4. New 7 mm spiculated left lower lobe nodule. For patients at low risk (minimal or absent history of smoking and of other known risk factors), recommend CT Chest at 6-12 months, then consider CT Chest at 18-24 months. For patients at high risk (history of smoking or of other known risk factors), recommend CT Chest at 6-12 months, then CT Chest at 18-24 months. (Reference: Oma) Review of Systems Const: Reports: chills, body aches and fatigue; Denies: fever(s) Eyes: Denies: change in vision ENMT: Denies: throat pain Card: Reports: chest pain and dyspnea on exertion Resp: Reports: dyspnea, productive cough and pain on inspiration GI: Reports: abdominal pain and constipation : Denies: flank pain Musc: Denies: neck pain Skin/Breast: Denies: rash Neuro: Denies: headache(s) Psych: Reports: anxiety Endo: Denies: polyuria Lenard/Lymph: Denies: easy bruising All/Imm: Denies: urticaria Medications/Allergies Home Medications Medication Instructions Recorded Confirmed Last Taken Type diaper,brief,adult,disposable #360 each 10/02/19 06/12/20 Unknown Rx nebulizers #1 each 10/02/19 06/12/20 Unknown Rx miscellaneous medical supply See Rx Instructions MISCELLANEOUS 10/17/19 06/12/20 Unknown Rx .COMPLEX #200 each miscellaneous medical supply See Rx Instructions MISCELLANEOUS 10/17/19 06/12/20 Unknown Rx .COMPLEX #200 each albuterol sulfate See Rx Instructions .ROUTE 06/03/20 06/12/20 06/12/20 Rx .COMPLEX #180 ml budesonide 0.5 mg/2 mL suspension 0.5 mg INHALATION BID #120 ml 06/03/20 06/12/20 06/12/20 Rx for nebulization formoterol fumarate 20 mcg/2 mL 2 ml INHALATION BID #120 ml 06/03/20 06/12/20 06/12/20 Rx solution for nebulization ipratropium 0.5 mg-albuterol 3 mg See Rx Instructions .ROUTE 06/03/20 06/12/20 06/12/20 Rx (2.5 mg base)/3 mL nebulization .COMPLEX #180 ml soln mirtazapine 45 mg tablet 45 mg PO DAILY 30 Days #30 tab 06/03/20 06/12/20 Unknown Rx miscellaneous medical supply See Rx Instructions MISCELLANEOUS 06/03/20 06/12/20 Unknown Rx .COMPLEX #1 ea tiotropium bromide 18 mcg capsule See Rx Instructions .ROUTE 06/03/20 06/12/20 06/12/20 Rx with inhalation device .COMPLEX #30 cap Ambien 5 mg PO BEDTIME@2200 06/12/20 06/12/20 06/11/20 History acetaminophen 1,000 mg PO Q6H 06/12/20 06/12/20 06/11/20 History albuterol sulfate 4 puff INHALATION Q4H PRN 06/12/20 06/12/2006/12/21 History aspirin [Aspir-81] 81 mg PO DAILY@1000 06/12/20 06/12/20 06/12/20 History diflorasone See Rx Instructions .ROUTE .COMPLEX 06/12/20 06/12/20 06/12/20 History digoxin 250 mcg PO DAILY@1000 06/12/20 06/12/20 06/12/20 History fluticasone propionate 1 spray INTRANASAL Q12H 06/12/20 06/12/20 06/12/20 History gabapentin 800 mg PO TID@1000,1400,2200 06/12/20 06/12/20 06/12/20 History ipratropium-albuterol [Combivent 1 puff INHALATION QID@10,12,16,22 06/12/20 06/12/20 06/12/20 History Respimat] meloxicam 15 mg PO DAILY@1000 06/12/20 06/12/20 06/12/20 History midodrine 10 mg PO TID@1000,1400,2200 06/12/20 06/12/20 06/12/20 History nystatin 1 applic TOPICAL BID@1000,1400 PRN 06/12/20 06/12/20 06/12/20 History nystatin 10 ml PO DAILY@1000 06/12/20 06/12/20 06/12/20 History oxybutynin chloride 5 mg PO BID@1000,2200 06/12/20 06/12/20 06/12/20 History pantoprazole 40 mg PO DAILY@1000 06/12/20 06/12/20 06/12/20 History tizanidine 4 mg PO TID@1000,1400,2200 06/12/20 06/12/20 06/11/20 History trazodone 50 mg PO BEDTIME@2200 06/12/20 06/12/20 06/11/20 History Allergies Allergy/AdvReac Type Severity Reaction Status Date / Time No Known Allergies Allergy Verified 06/12/20 15:55 PFSH Acute PFSH: Medical History Atrial fibrillation Chronic pain COPD (chronic obstructive pulmonary disease) Coronary artery disease (Unknown) TIMOTEO (generalized anxiety disorder) History of arthritis History of depression Hyperlipidemia Hypertension Insomnia Surgical History History of cervical spinal surgery History of cervical spinal surgery History of cervical spinal surgery History of prostatectomy History of prostatectomy History of prostatectomy History of right knee surgery History of right knee surgery History of right knee surgery Hx of inguinal hernia surgery Hx of inguinal hernia surgery Hx of inguinal hernia surgery Family History Other No pertinent family history Social History Smoking and tobacco status: current every day smoker cigarettes Years cigarettes smoked: 50 [ Other cigarette details: Hx of 2PPD ] Alcohol intake: never Household members: none Marital status: Current occupational status: retired and disabled History of recent travel: No Vitals/I&O/Wt Last Vital Signs Temp 97.8 F 06/12/20 15:41 Pulse 98 06/12/20 17:12 Resp 18 06/12/20 17:12 BP 103/80 06/12/20 19:58 Pulse Ox 100 06/12/20 19:58 Weight last 48 hrs Weight 63.503 kg Physical Exam Narrative: EXAM NARRATIVE: Cachectic malnourished male who appears more than stated age, unkept appearance S1, S2, sinus rhythm No active signs of fluid overload No signs of cor pulmonale Abdomen soft nontender Reducible inguinal hernia on right side Bilateral breath sounds with expiratory wheezing, rhonchorous breath sounds, poor airflow bilateral lung boogie Lower extremity no edema gangrene or ulcer Appropriate mood and affect No neurological deficits EOMI, PERRLA Awake alert oriented x3 GCS 15 No signs of cellulitis or joint swelling Data : 06/12/20 16:40 06/12/20 16:40 A&P Assessment and plan (1) Abscess of lung: Status: Acute (2) Pulmonary cachexia due to chronic obstructive pulmonary disease: Status: Acute (3) Low body mass index (BMI): Status: Acute (4) Direct inguinal hernia of right side: Status: Acute (5) Sepsis: Status: Acute Additional A&P Information Sepsis secondary to pulmonary abscess Left upper lobe cavitary lesion, spiculated left lower lung nodule Will need bronchoscopy, Dr. Chamberlain consulted Start him on broad-spectrum antibiotics Sepsis criteria met with tachypnea, leukocytosis Previous sputum culture grew Pseudomonas 1/20 bronchioloalveolar lavage revealed Pseudomonas, Proteus, Enterobacter, culture and sensitivity report reviewed I would use vancomycin and imipenem, imipenem would cover anaerobics for pulmonary abscess, will add clindamycin as well Contact isolation Requested MRSA PCR End-stage COPD pulmonary cachexia Uses 4 L of oxygen [id number] currently smoking 2 cigarettes a day Was recently discharged from hospice service Compensated pH, no hypoxia on 4 L nasal cannula Inguinal hernia of right side No active dental pain no signs of acidosis, bicarb is normal Not a surgical candidate because of severe COPD We will add antitussive Full code N.p.o. after midnight DVT prophylaxis SCDs avoid anticoagulation in anticipation of bronchoscopy in the morning Attestations Medical Necessity Statement*: Anticipating stay in the hospital cross more than 2 midnights for sepsis, pulmonary abscess, high risk of mortality and morbidity Time Spent in Patient Care: (>than 50% of time spent in counselling and/or direct pt care on unit). 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
[2020-06-12 20:33] LABS: Troponin 5 2HR 15.56 ng/L (0-15)
[2020-06-12 20:36] LABS: Troponin 5 2HR Delta -3.44 ABS# (0-10)
--- NOTE | 2020-06-12 20:48 | W.ED.SOB ---
HPI - SOB/Dyspnea General: Chief Complaint: Shortness of Breath/Dyspnea Stated Complaint: BILAT RIB PAIN, NO TRAUMA Time Seen by Provider: 06/12/20 16:02 History of Present Illness: HPI Narrative: The patient is a 69-year-old male with past medical history of COPD on 4 L oxygen chronically who comes to the ER complaining of increasing shortness of breath, cough. He has been on and off of hospice and most recently he is off of hospice. 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 MD elicited complaint: shortness of breath and cough Pertinent past history: COPD and pneumonia Timing: constant Severity: moderate Exacerbating factors: exertion and coughing Known history of: COPD Associated symptoms: Deny abdominal pain, chest pain, dizziness, extremity pain, orthopnea, palpitations or polyuria Treatment prior to arrival: oxygen Review of Systems General: Reports: 10 or more systems reviewed and unremarkable except in HPI and below Const: Denies: fatigue Eyes: Denies: change in vision, blurry vision or eye redness ENMT: Denies: throat pain, swelling of lips/tongue, ear or mastoid pain or nasal congestion Card: Denies: chest pain, palpitations, irregular heart rhythm, edema, dyspnea on exertion or orthopnea Resp: Reports: dyspnea, productive cough and wheezing; Denies: non-productive cough GI: Denies: abdominal pain, diarrhea or GI cramping : Denies: flank pain, urinary frequency or urinary urgency Musc: Denies: neck pain, back pain, extremity pain, joint pain, joint redness, limited range of motion or muscle weakness Skin/Breast: Denies: rash, pruritus, erythema, skin pain or skin tenderness Neuro: Denies: headache(s), numbness in extremities, weakness in extremities, sensory changes, difficulty walking, dizziness, confusion or Slurred speech present Psych: Denies: anxiety or depression Endo: Denies: polyuria All/Imm: Denies: urticaria, throat swelling or tongue swelling PFSH ED PFSH: Medical History Atrial fibrillation Chronic pain COPD (chronic obstructive pulmonary disease) Coronary artery disease (Unknown) TIMOTEO (generalized anxiety disorder) History of arthritis History of depression Hyperlipidemia Hypertension Insomnia Surgical History History of cervical spinal surgery History of cervical spinal surgery History of cervical spinal surgery History of prostatectomy History of prostatectomy History of prostatectomy History of right knee surgery History of right knee surgery History of right knee surgery Hx of inguinal hernia surgery Hx of inguinal hernia surgery Hx of inguinal hernia surgery Family History Other No pertinent family history Social History Smoking and tobacco status: current every day smoker cigarettes Years cigarettes smoked: 50 [ Other cigarette details: Hx of 2PPD ] Alcohol intake: never Household members: none Marital status: Current occupational status: retired and disabled History of recent travel: No Physical Exam Const: COMMON NORMALS: average body habitus, patient oriented x3, no limitations, alert and well nourished GENERAL APPEARANCE: cooperative, comfortable, well kempt and well developed ORIENTATION/CONSCIOUSNESS: Yes awake, Yes oriented to person, Yes oriented to place and Yes oriented to time OTHER: The patient is in mild respiratory distress HENMT: COMMON NORMALS: normocephalic, external ears normal and Normal external nose present HEAD & SCALP: normal to inspection and normocephalic NOSE: Normal external nose present EXTERNAL EAR: Yes external ears normal MOUTH: Normal oral and palatal mucosa present THROAT: posterior oropharynx normal Eye: COMMON NORMALS: Equal, round and reactive pupils present and EOMs intact bilaterally GENERAL EYE: appearance normal, both eyes and all related structures PUPIL: Yes Equal, round and reactive pupils present Neck/C-Spine: COMMON NORMALS: full ROM, no lymphadenopathy, no meningeal signs and no JVD GENERAL: Yes normal visual inspection Lymph: LYMPHATIC: no lymphadenopathy noted Chest: COMMONS NORMALS: normal inspection of the chest and normal palpation of entire chest wall Resp: COMMON NORMALS: normal respiratory effort, No retractions, No use of accessory muscles and percussion normal EFFORT & INSPECTION: Yes able to speak in complete sentences, Yes tachypneic and Yes respiratory distress (Mild) AUSCULTATION: wheezes expiratory wheezes, inspiratory wheezes and throughout and diminished lung sounds PERCUSSION: percussion normal Cardio: COMMON NORMALS: no JVD, regular rate, regular rhythm, S1 normal heart sound present, S2 normal heart sound present and Peripheral pulses 2+ throughout RATE: regular rate RHYTHM: regular rhythm HEART SOUNDS: S1 normal heart sound present and S2 normal heart sound present PERIPHERAL PULSES: Peripheral pulses 2+ throughout GI: COMMON NORMALS: Normal to inspection, nondistended, normoactive bowel sounds present, Soft to palpation, non-tender and no masses INSPECTION: Yes normal to inspection PALPATION: Yes Soft to palpation : COMMON NORMALS: Yes no CVA tenderness BLADDER/KIDNEY EXAM: Yes no CVA tenderness Back/Pelvis: COMMON NORMALS: no CVA tenderness, thoracic and lumbar spine normal to inspection, no thoracic nor lumbar tenderness and thoraco-lumbar ROM normal Extremity: COMMON NORMALS: normal to inspection, full ROM, capillary refill normal, no joint enlargement and no pedal edema GENERAL: Yes normal exam except as noted Neuro: COMMON NORMALS: patient oriented x3, CN's II-XII intact bilaterally, moves all extremities, no focal motor deficits, no sensory deficits noted and gait normal SENSORIUM/ORIENTATION: Yes alert, Yes oriented to person, Yes oriented to place and Yes oriented to time MENINGEAL SIGNS: Yes no meningeal signs Psych: COMMON NORMALS: mental status grossly normal, Normal thought process present, cooperative, normal affect and speech normal APPEARANCE: Yes well kempt ATTITUDE: Yes calm SPEECH: Yes normal speech THOUGHT PROCESS: Normal thought process present Skin: COMMON NORMALS: no rashes or lesions noted GENERAL SKIN EXAM: no rashes or lesions noted Course Vital Signs: Vital signs: Vital Signs Temperature 97.8 F 06/12/20 15:41 Pulse Rate 98 06/12/20 17:12 Respiratory Rate 18 06/12/20 17:12 Blood Pressure 103/80 06/12/20 19:58 Pulse Oximetry 100 06/12/20 19:58 MDM - SOB/Dyspnea MDM Narrative: Medical decision making narrative: The patient came in in mild respiratory distress wheezing and short of breath. He is using his 4 L that he wears chronically at home to saturate in the upper 90s. He was given a DuoNeb and had moderate improvement of his respiratory distress. He continues to say he is short of breath mildly though. CT of his chest does show bilateral pneumonia with a left upper lobe abscess. Discussed with Dr. Buckner and Dr. Chamberlain who will follow this case upstairs. Dr. Guardado accepts for admission. Lab Data: Labs: Lab Results 05/06/2806/12/20 06/12/20 Range/Units 16:40 16:40 16:40 WBC 12.0 H (4.0-10.0) 10^3/ uL RBC 4.41 (4.1-5.3) 10^6/u L Hgb 14.3 (11.7-16.6) g/dL Hct 42.4 (42.0-52.0) % MCV 96.1 H (80-94) fL MCH 32.4 (28.0-34.0) pg MCHC 33.7 (30.0-36.0) g/dL RDW 12.9 (12.1-15.1) % Plt Count 349 (130-400) 10^3/c mm MPV 9.0 (7.4-10.4) fL Neut % (Auto) 46.3 % Lymph % (Auto) 38.2 % [place] % (Auto) 14.0 % Eos % (Auto) 0.8 % Baso % (Auto) 0.3 % Neut # (Auto) 5.54 (1.8-7.7) 10^3/u L Lymph # (Auto) 4.6 (0.8-4.8) 10^3/u L [place] # (Auto) 1.7 H (0.2-0.9) 10^3/u L Eos # (Auto) 0.1 (0.0-0.8) 10^3/u L Baso # (Auto) 0.0 (0.0-0.1) 10^3/u L Nucleated RBC % (a uto) 0 % Nucleated RBCs # 0.0 /100WBC D-Dimer 1.75 H (0-0.59) ug/mIFE U Specimen Type Sample Site ABG pH (7.35-7.45) ABG pCO2 (35-45) mmHg ABG pO2 (80.0-100.0) mmH g ABG HCO3 (22-26) mmol/L ABG O2 Saturation ABG Base Excess (-2.0-2.0) mmol/ L Yan Test A-a O2 Gradient (5-10) mmHg Hematocrit (42-52) % Hgb O2 Saturation (95-100) % Carboxyhemoglobin (0.4-20.1) %THgb Methemoglobin (0.4-1.5) % Total Hemoglobin (14-18) g/dL Ionized Calcium (1.1-1.4) mmol/L O2 Delivery Device O2 Liters/Min % FiO2 % Zipper Trimmer Hand ID Sodium 134 L (136-145) mmol/L Potassium 4.5 (3.5-5.1) mmol/L Chloride 96 L (98-107) mmol/L Carbon Dioxide 26 (22-29) mmol/L Anion Gap 16.5 (5-19) BUN 15 (8-23) mg/dL Creatinine 0.5 L (0.7-1.2) mg/dL GFR Calculation 165.4 H (90-130) mL/min Glucose 92 (65-115) mg/dL Calculated Osmolal ity 278 L (285-295) mOsm/k g Lactate (0.5-2.2) mmol/L Calcium 8.6 (8.5-10.5) mg/dL Total Bilirubin 0.3 (0.15-1.2) mg/dL AST 48 H (0-40) U/L ALT 44 H (0-41) U/L Alkaline Phosphata se 206 H (40-130) IU/L Creatine Kinase 24 L (39-308) U/L Troponin T Baselin e (0-15) ng/L Troponin T 120 Min king [place] (0-15) ng/L Delta Troponin T (0-10) ABS# NT-Pro-B Natriuret Pep 282 H (0-125) pg/mL Total Protein 7.2 (6.6-8.7) g/dL Albumin 3.5 (3.5-5.2) g/dL Globulin 3.7 (1.3-4.6) g/dL 06/12/20 06/12/20 06/12/20 Range/Units 16:40 16:40 16:56 WBC (4.0-10.0) 10^3/ uL RBC (4.1-5.3) 10^6/u L Hgb (11.7-16.6) g/dL Hct (42.0-52.0) % MCV (80-94) fL MCH (28.0-34.0) pg MCHC (30.0-36.0) g/dL RDW (12.1-15.1) % Plt Count (130-400) 10^3/c mm MPV (7.4-10.4) fL Neut % (Auto) % Lymph % (Auto) % [place] % (Auto) % Eos % (Auto) % Baso % (Auto) % Neut # (Auto) (1.8-7.7) 10^3/u L Lymph # (Auto) (0.8-4.8) 10^3/u L [place] # (Auto) (0.2-0.9) 10^3/u L Eos # (Auto) (0.0-0.8) 10^3/u L Baso # (Auto) (0.0-0.1) 10^3/u L Nucleated RBC % (a uto) % Nucleated RBCs # /100WBC D-Dimer (0-0.59) ug/mIFE U Specimen Type Arterial Sample Site Brachial, left ABG pH 7.44 (7.35-7.45) ABG pCO2 42.4 (35-45) mmHg ABG pO2 89.8 (80.0-100.0) mmH g ABG HCO3 28.7 H (22-26) mmol/L ABG O2 Saturation 98.0 ABG Base Excess 4.0 H (-2.0-2.0) mmol/ L Yan Test Pos A-a O2 Gradient 14.9 H (5-10) mmHg Hematocrit 44.6 (42-52) % Hgb O2 Saturation 95.2 (95-100) % Carboxyhemoglobin 2.2 (0.4-20.1) %THgb Methemoglobin 0.7 (0.4-1.5) % Total Hemoglobin 14.6 (14-18) g/dL Ionized Calcium 1.2 (1.1-1.4) mmol/L O2 Delivery Device Nc O2 Liters/Min 4.0 % FiO2 36.0 % Zipper Trimmer Hand ID Cak Sodium 135.0 (136-145) mmol/L Potassium 4.4 (3.5-5.1) mmol/L Chloride (98-107) mmol/L Carbon Dioxide (22-29) mmol/L Anion Gap (5-19) BUN (8-23) mg/dL Creatinine (0.7-1.2) mg/dL GFR Calculation (90-130) mL/min Glucose 103.0 (65-115) mg/dL Calculated Osmolal ity (285-295) mOsm/k g Lactate 0.9 (0.5-2.2) mmol/L Calcium (8.5-10.5) mg/dL Total Bilirubin (0.15-1.2) mg/dL AST (0-40) U/L ALT (0-41) U/L Alkaline Phosphata se (40-130) IU/L Creatine Kinase (39-308) U/L Troponin T Baselin e 19 H (0-15) ng/L Troponin T 120 Min king salmon (0-15) ng/L Delta Troponin T (0-10) ABS# NT-Pro-B Natriuret Pep (0-125) pg/mL Total Protein (6.6-8.7) g/dL Albumin (3.5-5.2) g/dL Globulin (1.3-4.6) g/dL /06/28 Range/Units 19:40 WBC (4.0-10.0) 10^3/ uL RBC (4.1-5.3) 10^6/u L Hgb (11.7-16.6) g/dL Hct (42.0-52.0) % MCV (80-94) fL MCH (28.0-34.0) pg MCHC (30.0-36.0) g/dL RDW (12.1-15.1) % Plt Count (130-400) 10^3/c mm MPV (7.4-10.4) fL Neut % (Auto) % Lymph % (Auto) % [place] % (Auto) % Eos % (Auto) % Baso % (Auto) % Neut # (Auto) (1.8-7.7) 10^3/u L Lymph # (Auto) (0.8-4.8) 10^3/u L [place] # (Auto) (0.2-0.9) 10^3/u L Eos # (Auto) (0.0-0.8) 10^3/u L Baso # (Auto) (0.0-0.1) 10^3/u L Nucleated RBC % (a uto) % Nucleated RBCs # /100WBC D-Dimer (0-0.59) ug/mIFE U Specimen Type Sample Site ABG pH (7.35-7.45) ABG pCO2 (35-45) mmHg ABG pO2 (80.0-100.0) mmH g ABG HCO3 (22-26) mmol/L ABG O2 Saturation ABG Base Excess (-2.0-2.0) mmol/ L Yan Test A-a O2 Gradient (5-10) mmHg Hematocrit (42-52) % Hgb O2 Saturation (95-100) % Carboxyhemoglobin (0.4-20.1) %THgb Methemoglobin (0.4-1.5) % Total Hemoglobin (14-18) g/dL Ionized Calcium (1.1-1.4) mmol/L O2 Delivery Device O2 Liters/Min % FiO2 % Zipper Trimmer Hand ID Sodium (136-145) mmol/L Potassium (3.5-5.1) mmol/L Chloride (98-107) mmol/L Carbon Dioxide (22-29) mmol/L Anion Gap (5-19) BUN (8-23) mg/dL Creatinine (0.7-1.2) mg/dL GFR Calculation (90-130) mL/min Glucose (65-115) mg/dL Calculated Osmolal ity (285-295) mOsm/k g Lactate (0.5-2.2) mmol/L Calcium (8.5-10.5) mg/dL Total Bilirubin (0.15-1.2) mg/dL AST (0-40) U/L ALT (0-41) U/L Alkaline Phosphata se (40-130) IU/L Creatine Kinase (39-308) U/L Troponin T Baselin e (0-15) ng/L Troponin T 120 Min king salmon 15.56 H (0-15) ng/L Delta Troponin T -3.44 L (0-10) ABS# NT-Pro-B Natriuret Pep (0-125) pg/mL Total Protein (6.6-8.7) g/dL Albumin (3.5-5.2) g/dL Globulin (1.3-4.6) g/dL Discharge Plan Discharge Patient Disposition: Admitted As Inpatient Admit Provider: Radha Guardado Clinical Impression: Community acquired pneumonia, Abscess of lung Condition: Stable Coding Level of Care Code ED Sample Weaver for Chg Drew
--- NOTE | 2020-06-12 21:11 | PC.NURSE ---
Hospitalist in room
[2020-06-12 23:10] LABS: Troponin 5 6HR 11.43 ng/L (0-15)
[2020-06-12 23:32] LABS: Troponin 5 6HR Delta -7.57 ng/L (0-12)
--- NOTE | 2020-06-12 23:39 | PC.NURSE ---
Dr. Guardado notified of patient c/o 11/17 patient all over body. Patient arrived to the floor from the ED after report was received via phone. Patient is alert and oriented. Patient is on 4 L NC. Patient has been oriented to his room and has call light within reach.
[2020-06-13] VITALS (18 sets, daily range): BP systolic 82–119; BP diastolic 52–70; PULSE 61–98; RESP 16–24; TEMP 36.1–36.7; O2SAT 96–99
[2020-06-13] MEDS: HYDROmorphone 1 mg/mL INJ 1 mL 0.4 MG IVP (00:57)
[2020-06-13] MEDS: sodium chloride 0.9% 1,000 ML 75 ML IV ×2 (00:57→15:18)
[2020-06-13 01:03] LABS: Add Urine Microscopic? NO; Charge for UA Resulting for Rev
[2020-06-13 01:27] LABS: Bilirubin Urine Neg (Negative); Blood Urine Neg (Negative); Glucose Urine UA Norm (Normal); Ketones Urine Negative (Negative); Leukocyte Esterase Urine Negative (Negative); Nitrate Urine Negative (Negative); Protein Urine Neg (Negative); Urine Appearance Clear (CLEAR); Urine Color Yellow (Yellow); Urobilinogen Urine Norm (Negative); pH Urine 7 (5-7)
[2020-06-13] MEDS: clindamycin 300 MG/50 ML PREMIX 100 MG IV ×2 (01:29→10:29)
[2020-06-13] MEDS: vancomycin 1,000 MG in sodium chloride 0.9% 250 ML 250 MG IV ×3 (01:29→17:58)
[2020-06-13 05:27] LABS: Basophils % 0.1 %; Hematocrit 39.9 % (42.0-52.0); Hemoglobin 13.1 g/dL (11.7-16.6); Lymphocytes # 3.3 10^3/uL (0.8-4.8); Lymphocytes % 47.5 %; Mean Corpuscular HGB Conc 32.8 g/dL (30.0-36.0); Mean Corpuscular Hemoglobin 32.6 pg (28.0-34.0); Mean Corpuscular Volume 99.3 fL (80-94); Mean Platelet Volume 9.5 fL (7.4-10.4); Monocytes # 0.4 10^3/uL (0.2-0.9); Monocytes % 5.5 %; Neutrophils # 3.23 10^3/uL (1.8-7.7); Neutrophils % 46.6 %; Nucleated Red Blood Cells % 0 %; Platelet Count 318 10^3/cmm (130-400); Red Blood Count 4.02 10^6/uL (4.1-5.3); Red Cell Distribution Width 12.8 % (12.1-15.1); White Blood Count 6.9 10^3/uL (4.0-10.0)
[2020-06-13 05:49] LABS: Blood Urea Nitrogen 16 mg/dL (8-23); Calcium 8.2 mg/dL (8.5-10.5); Carbon Dioxide 27 mmol/L (22-29); Chloride 96 mmol/L (98-107); Glucose 177 mg/dL (65-115); Osmolality Calculated 282 mOsm/kg (285-295); Sodium 133 mmol/L (136-145)
[2020-06-13 05:51] LABS: Lactate (Lactic Acid level) 2.2 mmol/L (0.5-2.2)
[2020-06-13 05:54] LABS: Anion Gap 14.6 (5-19); Potassium 4.6 mmol/L (3.5-5.1)
--- NOTE | 2020-06-13 06:23 | P.CONIM_ITS ---
Providers/Reason For Consult Consulting Physican/Specialty*: Dr. Buckner/cardiothoracic surgery Reason for Consult*: Pulmonary abscess versus neoplastic process left upper lobe Requesting Physcian: Dr. Laureano/emergency medicine Attending Physician: Radha Guardado MD Primary Care Provider: America Baez MD History of Present Illness History of Present Illness Chris Brooks is a 69 year old male whom I was contacted by phone yesterday evening by Dr. Novak from our emergency medicine service concerning Mr. Brooks's presentation to the emergency department with complaints of generalized weakness, dyspnea, and abdominal pain. Extensive and thorough work-up the emergency department included CT scan of chest abdomen and pelvis. This study revealed severe emphysematous lung changes and bullous disease of the apex and what was concerning radiographically for 5.8 cm cavitary lesion in the left lung apex which was felt to most probably represent a pulmonary abscess though neoplastic process cannot be ruled out. Mr. Brooks has extensive debilitation related to his pulmonary dysfunction and is on 4 L of oxygen chronically. He still smokes a couple cigarettes per day. He was recently discharged from hospice care. He has substantial cachexia. He has had prior difficulties with pulmonary dysfunction and previous bronchoalveolar lavage from February 2019 which revealed numerous organisms including Pseudomonas, Proteus, Enterobacter. That resulted in a near 3-week hospital stay at [facility] and then subsequent transfer for tertiary care in [place]. He did not require mechanical ventilation and states he has never required that for pulmonary failure. Current antibiotic regimen is being based off clinical suspicion for pulmonary abscess as well in his prior culture results. I have personally reviewed the most recent CT scan performed yesterday as well as a prior chest CT of September 2019. Review of Systems Const: Reports: body aches, fatigue and malaise ENMT: Reports: throat pain Card: Reports: chest pain, dyspnea on exertion and orthopnea; Denies: palpitations Resp: Reports: dyspnea, productive cough and pain on inspiration GI: Reports: abdominal pain; Denies: hematemesis, coffee ground emesis or dysphagia Neuro: Denies: numbness in extremities Psych: Reports: anxiety Meds/Allergies Home Medications and Allergies Home Medications Medication Instructions Recorded Confirmed Last Taken Type diaper,brief,adult,disposable #360 each 10/02/19 06/12/20 Unknown Rx nebulizers #1 each 10/02/19 06/12/20 Unknown Rx miscellaneous medical supply See Rx Instructions MISCELLANEOUS 10/17/19 06/12/20 Unknown Rx .COMPLEX #200 each miscellaneous medical supply See Rx Instructions MISCELLANEOUS 10/17/19 06/12/20 Unknown Rx .COMPLEX #200 each albuterol sulfate See Rx Instructions .ROUTE 06/03/20 06/12/20 06/12/20 Rx .COMPLEX #180 ml budesonide 0.5 mg/2 mL suspension 0.5 mg INHALATION BID #120 ml 06/03/20 06/12/20 06/12/20 Rx for nebulization formoterol fumarate 20 mcg/2 mL 2 ml INHALATION BID #120 ml 06/03/20 06/12/20 06/12/20 Rx solution for nebulization ipratropium 0.5 mg-albuterol 3 mg See Rx Instructions .ROUTE 06/03/20 06/12/20 06/12/20 Rx (2.5 mg base)/3 mL nebulization .COMPLEX #180 ml soln mirtazapine 45 mg tablet 45 mg PO DAILY 30 Days #30 tab 06/03/20 06/12/20 Unknown Rx miscellaneous medical supply See Rx Instructions MISCELLANEOUS 06/03/20 06/12/20 Unknown Rx .COMPLEX #1 ea tiotropium bromide 18 mcg capsule See Rx Instructions .ROUTE 06/03/20 06/12/20 06/12/20 Rx with inhalation device .COMPLEX #30 cap Ambien 5 mg PO BEDTIME@2200 06/12/20 06/12/20 06/11/20 History acetaminophen 1,000 mg PO Q6H 06/12/20 06/12/20 06/11/20 History albuterol sulfate 4 puff INHALATION Q4H PRN 06/12/20 06/12/20 06/12/20 History aspirin [Aspir-81] 81 mg PO DAILY@1000 06/12/20 06/12/20 06/12/20 History diflorasone See Rx Instructions .ROUTE .COMPLEX 06/12/20 06/12/20 06/12/20 History digoxin 250 mcg PO DAILY@1000 06/12/20 06/12/20 06/12/20 History fluticasone propionate 1 spray INTRANASAL Q12H 06/12/20 06/12/20 06/12/20 History gabapentin 800 mg PO TID@1000,1400,2200 06/12/20 06/12/20 06/12/20 History ipratropium-albuterol [Combivent 1 puff INHALATION QID@10,12,16,22 06/12/20 06/12/20 06/12/20 History Respimat] meloxicam 15 mg PO DAILY@1000 06/12/20 06/12/20 06/12/20 History midodrine 10 mg PO TID@1000,1400,2200 06/12/20 06/12/20 06/12/20 History nystatin 1 applic TOPICAL BID@1000,1400 PRN 06/12/20 06/12/20 06/12/20 History nystatin 10 ml PO DAILY@1000 06/12/20 06/12/20 06/12/20 History oxybutynin chloride 5 mg PO BID@1000,2200 06/12/20 06/12/20 06/12/20 History pantoprazole 40 mg PO DAILY@1000 06/12/20 06/12/20 06/12/20 History tizanidine 4 mg PO TID@1000,1400,2200 06/12/20 06/12/20 06/11/20 History trazodone 50 mg PO BEDTIME@2200 06/12/20 06/12/20 06/11/20 History Allergies Allergy/AdvReac Type Severity Reaction Status Date / Time No Known Allergies Allergy Verified 06/12/20 15:55 Current Medications Current Medications Generic Name Dose Route Start Last Admin Trade Name Freq PRN Reason Stop Dose Admin Clindamycin HCl/Dextrose 300 mg in 50 mls @ 100 mls/hr 06/13/20 02:00 06/13/20 01:59 Cleocin IV Infused Q8H NEYMAR Infusion Protocol Imipenem/Cilastatin Sodium 500 100 mls @ 200 mls/hr 06/13/20 00:00 06/13/20 01:29 mg/ Sodium Chloride IV Infused Q6H NEYMAR Infusion Protocol Sodium Chloride 1,000 mls @ 75 mls/hr 06/12/20 23:45 06/13/20 00:57 Sodium Chloride 0.9% IV 75 mls/hr .[id number] NEYMAR Administration Vancomycin HCl 1,000 mg/ 250 mls @ 250 mls/hr 06/13/20 01:00 06/13/20 02:30 Sodium Chloride IV Infused Q8H NEYMAR Infusion PFSH Acute PFSH: Medical History Atrial fibrillation Chronic pain COPD (chronic obstructive pulmonary disease) Coronary artery disease (Unknown) TIMOTEO (generalized anxiety disorder) History of arthritis History of depression Hyperlipidemia Hypertension Insomnia Surgical History History of cervical spinal surgery History of cervical spinal surgery History of cervical spinal surgery History of prostatectomy History of prostatectomy History of prostatectomy History of right knee surgery History of right knee surgery History of right knee surgery Hx of inguinal hernia surgery Hx of inguinal hernia surgery Hx of inguinal hernia surgery Family History Other No pertinent family history Social History Smoking and tobacco status: current every day smoker cigarettes Years cigarettes smoked: 50 [ Other cigarette details: Hx of 2PPD ] Alcohol intake: never Household members: none Marital status: Current occupational status: retired and disabled History of recent travel: No Vitals/I&O/Wt Last Vital Signs Temp 98 F 06/13/20 03:47 Pulse 75 06/13/20 04:12 Resp 24 H 06/13/20 03:47 BP 85/55 06/13/20 03:47 Pulse Ox 99 06/13/20 03:47 06/12/20 06/12/20 06/13/20 14:59 22:59 06:59 Intake Total 1150 / 1150 1400 / 2550 Output Total 1575 / 1575 Balance 1150 / 1150 -175 / 975 Weight last 48 hrs Weight 140 lb Physical Exam HENMT: COMMON NORMALS: atraumatic HEAD & SCALP: atraumatic OTHER: Temporal wasting noted Neck/C-Spine: COMMON NORMALS: no lymphadenopathy; negative for full ROM (Prior cervical fusion) GENERAL: No anterior neck swelling Chest: COMMONS NORMALS: negative for normal inspection of the chest (Barrel chest with increased AP diameter) CHEST: Yes Symmetrical chest wall rise and No crepitus Resp: COMMON NORMALS: negative for No use of accessory muscles EFFORT & INSPECTION: Yes able to speak in complete sentences (Short answers only), Yes symmetric chest movement, Yes abnormal respiratory pattern, Yes tachypneic, Yes labored, Yes Actively coughing, Yes uses accessory muscles, Yes tracheal deviation to the right (Mildly by CT scan) and Yes prolonged expiratory phase AUSCULTATION: abnormal I/E ratio and bronchovesicular breath sounds PERCUSSION: hyperresonance Cardio: COMMON NORMALS: regular rate, regular rhythm, S1 normal heart sound present and No murmurs present (Cardio) RATE: regular rate RHYTHM: regular rhythm HEART SOUNDS: S1 normal heart sound present Extremity: COMMON NORMALS: no pedal edema GENERAL: Yes clubbing and No edema Neuro: COMMON NORMALS: no focal motor deficits and no sensory deficits noted Psych: COMMON NORMALS: mental status grossly normal, Normal thought process present and normal affect THOUGHT PROCESS: Normal thought process present Data Micro: Micro: Microbiology 06/12/20 00:42 Blood Culture - Pr eliminary Blood SPECIMEN [facility] 06/12/20 00:38 Blood Culture - Pr eliminary Blood SPECIMEN [facility] A&P Assessment and plan (1) Abscess of lun-year-old tall and somewhat cachectic gentleman with advanced pulmonary dysfunction and severe emphysematous lung disease. I have reviewed his most recent CT scan as well as the previous scan of September 2019. The area in question in the left upper lobe is noted on a prior study to have substantial emphysematous changes and certainly may represent progression to pulmonary abscess, though clearly malignant process cannot be completely ruled out given his substantial tobacco exposure. His acute presentation as well as overall condition is not favorable or warrants surgical intervention at this time and I would recommend continued treatment with the differential of an infectious process. I have no immediate plan is to recommend intervention from my perspective. Status: Acute Coding Level of Care Code Acute Behavioral Scientist for Reggie Russell Diagnoses Abscess of lung J85.2
--- NOTE | 2020-06-13 06:33 | PC.NURSE ---
IV to right wrist is positional. New IV started in right forearm.
--- NOTE | 2020-06-13 06:36 | PC.NURSE ---
Dr Buckner in to see patient. Patient requesting food this morning. Received verbal order for Cardiac diet from Dr Buckner
[2020-06-13] MEDS: acetaminophen 325 mg Tablet PO (07:42)
[2020-06-13] MEDS: ipratropium-albuterol 3 mL Neb INHALATION ×2 (09:04→16:40)
[2020-06-13] MEDS: aspirin 81 mg EC Tablet PO (10:30)
[2020-06-13] MEDS: gabapentin 400 mg Capsule 800 MG PO (10:30)
[2020-06-13] MEDS: pantoprazole DR 40 mg Tablet PO (10:30)
[2020-06-13] MEDS: midodrine 5 mg TABLET 10 MG PO ×3 (10:30→20:28)
[2020-06-13 11:15] LABS: Procalcitonin 0.05 ng/mL (0-0.5)
[2020-06-13 11:26] LABS: Iron 47 ug/dL (59-158); Percent Saturation 18.4 % (20-50); Total Iron Binding Capacity 255 mcg/dl; Unsaturated Iron Binding 208 ug/dL (112-347)
--- NOTE | 2020-06-13 11:53 | PC.CHAP ---
Pastoral Care Encounter/Spiritual Assessment Type of Contact [] Declined gear repairer visit [] Patient/Family/Request visit [] Outpatient visit [] Follow-up visit [] Physician referral [] Code/Alert [xx] Routine visit [] Staff referral [] Actively dying [] Patient sleeping [] Family support [] [] Out of room [] Palliative care [] [] Receiving care in room [] Pre-surgical visit [] Trauma [] Long length of stay [] ICU visit [] Other: Relational/Emotional Strength [xx] Patient feels connected with others/family/visitors/staff [] Distress [] Loneliness/isolation [] Abandonment Spirituality of Patient [xx] Person of Lakshmi [xx] Attends Scientology of their Lakshmi [xx] Believes in Prayer [xx] Reads Bible or Baptist materials [] There are Spiritual issues to be addressed Space Planner Interventions [] Prayer [] Active listening [] Non-anxious presence [] Spiritual/emotional support [] Crisis/trauma care [] Spiritual counseling [] Bereavement support [] Provided bereavement packet [xx] Provided Bible/devotional materials [] Provided toy/stuffed animal, coloring book to patient or family member [] Provided Communion [] Anointing/[place] [] Salvation [xx] Completed spiritual assessment [] Other: Impact on Illness or Injury [] Angry [] Fearful [] Anxious [] Often cries [] Exhaustion [] Unable to work [] Unable to attend uatsdin [] Unable to walk/stand [] Unable to read [] Unable to drive [] Unable to eat/drink [] Unable to sleep [] Unable to be with family [] Patient intubated [] Other: Summary Patient requested Bible as there was none in the room. Patient is trusting God to provide for all his healing and needs. Time spent with patient 6 minutes
[2020-06-13] MEDS: polyethylene glycol 3350 Pkt 17 gm PO ×2 (11:58→17:01)
[2020-06-13] MEDS: guaiFENesin-dextromethorphan UDC 10 mL PO ×2 (12:35→20:28)
[2020-06-13] MEDS: tizanidine 4 mg Tablet PO ×2 (13:06→20:28)
[2020-06-13] MEDS: gabapentin 400 mg Capsule PO ×2 (13:06→20:28)
--- NOTE | 2020-06-13 16:19 | P.PN_ITS ---
Subjective Subjective: Interval history: Admitted overnight. H&P and labs noted. On examination patient is sitting up comfortably in bed eating double portions of his lunch. He states he came to the hospital because he was having abdominal pain. He is been having constipation for last 2 days. He states whenever he is trying to have a bowel movement he becomes out of breath. He is still on 3 to 4 L of oxygen supplementation which is his baseline. States his cough is the same but the color of his expectoration exchange recently become more dark. Denies any fever. Examination sitting comfortably saturating 96% on 3 L nasal cannula. On further review it seems patient was on hospice last year and has been denied by hospice twice. Hospice company is [employer]. On further goals of care discussion. He states he would like to be full code. Had a long discussion and counseling the patient regarding hospice service. We discussed that hospice means that usually life expectancy is less than 6 months. Discussed with him that hospice main goal is to make patient and patient's family comfortable. Discussed that during hospice care if he would get any kind of infection or difficulty in breathing the goal would be to make him comfortable and let nature takes its own course rather than bringing him to the hospital for treatment. Vitals/I&O/Wt Last Vital Signs Temp 97.6 F 06/13/20 12:00 Pulse 67 06/13/20 14:00 Resp 22 H 06/13/20 12:00 BP 110/70 06/13/20 12:00 Pulse Ox 96 06/13/20 12:00 06/13/20 06/13/20 06/13/20 06:59 14:59 22:59 Intake Total 1500 / 2650 1680 / 1680 700 / 2380 Output Total 1575 / 1575 1375 / 1375 700 / 2075 Balance -75 / 1075 305 / 305 0 / 305 Weight last 48 hrs Weight 63.503 kg Physical Exam Narrative: EXAM NARRATIVE: General: Severely cachectic, AOx3, no acute distress HEENT: PERRLA, pupils bilaterally equal and reactive Chest: Bilateral bronchial breath sounds, decreased air entry bilaterally, crackles present in the left upper zone, right lower zone CVS: S1-S2 regular, no murmurs, no tachycardia, no gallops, no rubs Abdomen: Soft, nontender, no organomegaly, bowel sounds present Neuro: No focal deficits, no facial deformity, AO x3, power 5/5 in all limbs Data : 06/13/20 04:41 06/13/20 04:41 Micro: Microbiology 06/12/20 00:00 MRSA Culture - Final Nose 06/13/20 09:10 Gram Stain - Final Sputum - Expectorated Sputum 06/12/20 00:42 Blood Culture - Preliminary Blood SPECIMEN COLLECTED 06/12/20 00:38 Blood Culture - Preliminary Blood SPECIMEN COLLECTED A&P Assessment and plan (1) Abscess of lung: Status: Acute (2) Pulmonary cachexia due to chronic obstructive pulmonary disease: Status: Acute (3) Low body mass index (BMI): Status: Acute (4) Direct inguinal hernia of right side: Status: Acute (5) Sepsis: Status: Acute (6) Constipation: Status: Acute Additional A&P Information 69-year-old gentleman past medical history of advanced stage COPD, severe emphysema, history of lung abscess with Pseudomonas, Enterobacter who was previously on hospice presents to the ER because of abdominal pain found to have constipation and was diagnosed with having possible left upper lobe lung abscess. Sepsis: Diagnosed on admission. Appreciate 's recommendation. Patient's case and CT scan discussed in detail with his outpatient line supervisor Dr. Chamberlain. Patient does not have any leukocytosis, is on chronic home oxygen supplementation at 3 L saturating 96%, has no fever or hemodynamic instability. Oxygen supplementation keep saturation around 90%. Continue vancomycin for now. Switch from imipenem and clindamycin to Zosyn. On last admission patient had more improvement after starting Zosyn. Follow-up culture results, sputum culture, blood culture. Follow-up MRSA swab results. End-stage COPD pulmonary cachexia Uses 4 L of oxygen [id number] currently smoking 2 cigarettes a day Was recently discharged from hospice service Compensated pH, no hypoxia on 4 L nasal cannula Inguinal hernia of right side: No impaction on CT scan. Poor surgical candidate because of severe end-stage COPD. Aggressive bowel regimen with MiraLAX and Dulcolax. If it does not help will do enema tomorrow. Dietitian consult for calorie count. Full code Regular diet. Heparin 5000 every 12. Discharge planning: If patient continues to do well and at baseline oxygen supplementation we will plan to discharge next 24 hours on oral antibiotics advised to follow-up with Dr. Chamberlain as an outpatient with aggressive bowel regimen. Will discuss with patient regarding hospice again prior to discharge. Attestations Medical Necessity Statement*: Requires further hospitalization for management of sepsis secondary to pneumonia, severe obstipation, end-stage COPD, acute on chronic hypoxic respiratory failure Time Spent in Patient Care: Greater than 35 minutes (>than 50% of time spent in counselling and/or direct pt care on unit) . Coding Level of Care Code Acute Excellence Consultant for Reggie Fwd Diagnoses Abscess of lung J85.2 Pulmonary cachexia due to chronic obstructive pulmonary disease J44.9; R64 Low body mass index (BMI) Direct inguinal hernia of right side K40.90 Sepsis A41.9 Constipation K59.00
[2020-06-13 17:39] LABS: Vancomycin Trough 11.7 ug/mL (10-15)
[2020-06-13] MEDS: budesonide 0.5 mg/2 mL Neb INHALATION (19:24)
[2020-06-13] MEDS: trazodone 50 mg Tablet PO (20:28)
[2020-06-13] MEDS: oxybutynin 5 mg Tablet PO (20:28)
--- NOTE | 2020-06-13 20:47 | PC.NURSE ---
Patient currently has TB test pending. Patient placed on airborne and contact precautions per order. Patient became very angry when being put on precautions. Patient states, that's so fucking stupid, I'm supposed to go home tomorrow. Patient states, I'm so mad right now I can barely stand it.
[2020-06-14] VITALS (13 sets, daily range): BP systolic 85–96; BP diastolic 44–67; PULSE 63–99; RESP 14–20; TEMP 36.4–36.8; O2SAT 93–98
[2020-06-14] MEDS: vancomycin 1,000 MG in sodium chloride 0.9% 250 ML 250 MG IV ×2 (01:06→08:33)
[2020-06-14] MEDS: sodium chloride 0.9% 1,000 ML 75 ML IV (01:18)
[2020-06-14] MEDS: ipratropium-albuterol 3 mL Neb INHALATION ×3 (02:49→14:53)
--- NOTE | 2020-06-14 02:51 | PC.NURSE ---
Patient has been resting with eyes closed. Will monitor.
[2020-06-14 05:44] LABS: Basophils % 0.3 %; Eosinophils # 0.1 10^3/uL (0.0-0.8); Hematocrit 36.1 % (42.0-52.0); Hemoglobin 11.7 g/dL (11.7-16.6); Lymphocytes # 7.3 10^3/uL (0.8-4.8); Lymphocytes % 54.2 %; Mean Corpuscular HGB Conc 32.4 g/dL (30.0-36.0); Mean Corpuscular Hemoglobin 32.5 pg (28.0-34.0); Mean Corpuscular Volume 100.3 fL (80-94); Mean Platelet Volume 9.3 fL (7.4-10.4); Monocytes # 1.2 10^3/uL (0.2-0.9); Monocytes % 8.6 %; Neutrophils # 4.82 10^3/uL (1.8-7.7); Neutrophils % 35.6 %; Nucleated Red Blood Cells % 0 %; Platelet Count 322 10^3/cmm (130-400); White Blood Count 13.5 10^3/uL (4.0-10.0)
[2020-06-14 06:04] LABS: Alanine Aminotransferase 58 U/L (0-41); Albumin Level 2.8 g/dL (3.5-5.2); Alkaline Phosphatase 152 IU/L (40-130); Anion Gap 10.2 (5-19); Aspartate Amino Transferase 56 U/L (0-40); Blood Urea Nitrogen 15 mg/dL (8-23); Carbon Dioxide 29 mmol/L (22-29); Chloride 104 mmol/L (98-107); Globulin 2.9 g/dL (1.3-4.6); Glucose 103 mg/dL (65-115); Osmolality Calculated 289 mOsm/kg (285-295); Potassium 4.2 mmol/L (3.5-5.1); Sodium 139 mmol/L (136-145); Total Bilirubin 0.2 mg/dL (0.15-1.2); Total Protein 5.7 g/dL (6.6-8.7)
[2020-06-14] MEDS: aspirin 81 mg EC Tablet PO (08:35)
[2020-06-14] MEDS: gabapentin 400 mg Capsule PO ×2 (08:36→15:03)
[2020-06-14] MEDS: pantoprazole DR 40 mg Tablet PO (08:36)
[2020-06-14] MEDS: midodrine 5 mg TABLET 10 MG PO ×2 (08:36→15:03)
[2020-06-14] MEDS: oxybutynin 5 mg Tablet PO (08:36)
[2020-06-14] MEDS: mirtazapine 30 mg Tablet 45 MG PO (08:37)
[2020-06-14] MEDS: digoxin 250 mcg Tablet PO (08:37)
[2020-06-14] MEDS: nystatin 100,000 unit/mL UDC 5 mL 1000000 UNIT PO (08:45)
[2020-06-14] MEDS: polyethylene glycol 3350 Pkt 17 gm PO (08:46)
[2020-06-14] MEDS: tizanidine 4 mg Tablet PO ×2 (08:51→15:03)
[2020-06-14] MEDS: budesonide 0.5 mg/2 mL Neb INHALATION (10:19)
--- NOTE | 2020-06-14 10:26 | PC.RESP ---
Pt on baseline 4lpm, sleepy and so turned to 3lpm sats96%. Therapy delayed by emergency with another patient.
--- NOTE | 2020-06-14 11:23 | PC.RESP ---
SMOKING CESSATION AND PULMONARY REHAB INFORMATION SENT TO PATIENT.
--- NOTE | 2020-06-14 13:28 | P.DS_ITS ---
Discharge Providers Date of Admission: 06/12/20 20:28 Date of Discharge: June 14, 2020 Attending Provider at Admission: Radha Guardado MD Attending Provider at Discharge: Ricco Louis MD Consults: CT surgery: Dr. Buckner Pulmonology: Dr. Chamberlain Primary Care Provider: America Baez MD Diagnoses at Discharge Discharge Diagnosis (1) Abscess of lung: Status: Acute (2) Pulmonary cachexia due to chronic obstructive pulmonary disease: Status: Acute (3) Low body mass index (BMI): Status: Acute (4) Direct inguinal hernia of right side: Status: Acute (5) Sepsis: Status: Acute (6) Constipation: Status: Acute Reason for Visit Reason for Visit: BILAT RIB PAIN, NO TRAUMA Hospital Course Hospital Course Chris Brooks is a 69 year old male who has history of oxygen dependent COPD was using 4 L of oxygen [id number], active smoker, was on hospice that was discontinued a week ago, presenting today with chief complaint of generalized weakness, shortness of breath and abdominal pain. Patient stating that his symptoms started on Wednesday with abdominal pain, he attributed his symptoms to constipation his stools were extremely hard. Because of that he was worsening abdominal pain because he has previous history of inguinal hernia which gets worse on slightest bit of straining. He was also experiencing shortness of breath with cough, his cough is productive he is bringing up sputum which is greenish to black in color he did not notice any blood, he is endorsing chest pain with coughing as well, no nausea, vomiting or dysuria. Diagnostic in the ER revealed consolidation in the upper lobe and right lower lobe upper segment there is persistent evaluation of consolidation from a CT scan done 1 year ago, 5.8 cm cavitated lesion in the left lung apex with concerns for pulmonary abscess. Recent blood work in the ER showed a white count 12,000, hemoglobin 14.3, platelet 349, sodium 134, potassium one 4.5, creatinine of 0.5. Given the history of pulmonary abscess in setting of severe emphysema last year patient CT scan of discussed in detail with his outpatient electrotype caster Dr. Chamberlain. As per the discussion chances of lung abscess are very very low as per CT imaging along with the fact that patient did not has not had any fever, leukocytosis and his oxygen requirements have remained stable and he remains at baseline of 4 L oxygen supplementation saturating 96%. Patient CT abdomen pelvis showed severe constipation for which he received aggressive bowel regimen. Patient though denied any enema or suppository. Plan to keep him with aggressive bowel regimen and have asked him to maintain hydration. Given severe cachexia, chronic multivitamin medical problems including severe COPD, history of lung abscess discussions about goals of care were done with patient. He states he would like to be on hospice so that he can get help around the house but for now would want to continue to remain full code. We did have a detailed discussion and counseling regarding what hospice service entails. We discussed that hospice is provided to those patients who have lifespan is thought to be around 6 months and the main goal during hospice service is to make patient and patient's family comfortable through the process of end-of-life care. We also discussed that if he was hospice it would mean that he continues on the medication what he is on right now but if he finds di fficulty in breathing or develops an infection the goals of care at that time would be to make him remained comfortable and then let nature takes its own course. After further discussion and thinking patient states for now he would want to hold off on hospice but would want to continue his ongoing in-home services. Case management has been involved during his care. Patient has been discharged hemodynamically stable condition advised to follow- up with Dr. Chamberlain in next 1 week and with his primary care provider within the next 4 to 7 days. Patient is to take Augmentin and levofloxacin for 7 days. He is also been given a referral for Dr. Chavez for possible intervention for inguinal hernia as an outpatient. Physical Exam Narrative: EXAM NARRATIVE: General: Severely cachectic, AOx3, no acute distress HEENT: PERRLA, pupils bilaterally equal and reactive Chest: Bilateral bronchial breath sounds, decreased air entry bilaterally, crackles present in the left upper zone, right lower zone CVS: S1-S2 regular, no murmurs, no tachycardia, no gallops, no rubs Abdomen: Soft, nontender, no organomegaly, bowel sounds present Neuro: No focal deficits, no facial deformity, AO x3, power 5/5 in all limbs Discharge Data Data Completed and Pending: Completed Studies During Hospitalization Category Date Time Status CT angio chest w abd pel w con Stat Cat Scan 06/12/20 16:37 Completed XR chest 1V tushar ble [id number] Urgent Exams 06/12/20 16:10 Completed Pending at discharge Category Date Time Status Blood Culture Sta t Lab 06/12/20 00:42 Results Jqiqfwpavfv-BX-Wc ld Plus Stat Lab 06/13/20 16:10 Received Sputum Culture an d Gram Stain Stat Lab 06/13/20 09:10 Results Vancomycin Trough Timed Lab 06/14/20 16:00 Ordered Labs from last 24 hours 06/14/20 06/14/20 06/13/20 04:37 04:37 16:10 WBC 13.5 H RBC 3.60 L Hgb 11.7 Hct 36.1 L MCV 100.3 H MCH 32.5 MCHC 32.4 RDW 13.0 Plt Count 322 MPV 9.3 Neut % (Auto) 35.6 Lymph % (Auto) 54.2 [place] % (Auto) 8.6 Eos % (Auto) 1.0 Baso % (Auto) 0.3 Neut # (Auto) 4.82 Lymph # (Auto) 7.3 H [place] # (Auto) 1.2 H Eos # (Auto) 0.1 Baso # (Auto) 0.0 Nucleated RBC % (a uto) 0 Nucleated RBCs # 0.0 Sodium 139 Potassium 4.2 Chloride 104 Carbon Dioxide 29 Anion Gap 10.2 BUN 15 Creatinine 0.6 L GFR Calculation 134.0 H Glucose 103 Calculated Osmolal ity 289 Calcium 8.0 L Total Bilirubin 0.2 AST 56 H ALT 58 H Alkaline Phosphata se 152 H Total Protein 5.7 L Albumin 2.8 L Globulin 2.9 Vancomycin Trough TB (QFT) Gold In T ube Pending TB Test (QFT) Nil Pending TB Test (QFT) López gen Pending TB Test Mitogen - Nil Pending TB Test TB - Nil Pending 06/13/20 16:10 WBC RBC Hgb Hct MCV MCH MCHC RDW Plt Count MPV Neut % (Auto) Lymph % (Auto) [place] % (Auto) Eos % (Auto) Baso % (Auto) Neut # (Auto) Lymph # (Auto) [place] # (Auto) Eos # (Auto) Baso # (Auto) Nucleated RBC % (a uto) Nucleated RBCs # Sodium Potassium Chloride Carbon Dioxide Anion Gap BUN Creatinine GFR Calculation Glucose Calculated Osmolal ity Calcium Total Bilirubin AST ALT Alkaline Phosphata se Total Protein Albumin Globulin Vancomycin Trough 11.7 TB (QFT) Gold In T ube TB Test (QFT) Nil TB Test (QFT) López gen TB Test Mitogen - Nil TB Test TB - Nil Addt'l Data from Hospital Stay: Laboratory Results WBC 13.5 10^3/uL (4.0 -10.0) H 06/14/20 04:37 RBC 3.60 10^6/uL (4.1 -5.3) L 06/14/20 04:37 Hgb 11.7 g/dL (11.7-1 6.6) 06/14/20 04:37 Hct 36.1 % (42.0-52.0 ) L 06/14/20 04:37 MCV 100.3 fL (80-94) H 06/14/20 04:37 MCH 32.5 pg (28.0-34. 0) 06/14/20 04:37 MCHC 32.4 g/dL (30.0-3 6.0) 06/14/20 04:37 RDW 13.0 % (12.1-15.1 ) 06/14/20 04:37 Plt Count 322 10^3/cmm (130 -400) 06/14/20 04:37 MPV 9.3 fL (7.4-10.4) 06/14/20 04:37 Neut % (Auto) 35.6 % 06/14/20 04:37 Lymph % (Auto) 54.2 % 06/14/20 04:37 [place] % (Auto) 8.6 % 06/14/20 04:37 Eos % (Auto) 1.0 % 06/14/20 04:37 Baso % (Auto) 0.3 % 06/14/20 04:37 Neut # (Auto) 4.82 10^3/uL (1.8 -7.7) 06/14/20 04:37 Lymph # (Auto) 7.3 10^3/uL (0.8- 4.8) H 06/14/20 04:37 [place] # (Auto) 1.2 10^3/uL (0.2- 0.9) H 06/14/20 04:37 Eos # (Auto) 0.1 10^3/uL (0.0- 0.8) 06/14/20 04:37 Baso # (Auto) 0.0 10^3/uL (0.0- 0.1) 06/14/20 04:37 Nucleated RBC % (a uto) 0 % 06/14/20 04:37 Nucleated RBCs # 0.0 /100WBC 06/14/20 04:37 D-Dimer 1.75 ug/mIFEU (0- 0.59) H 06/12/20 16:40 Specimen Type Arterial 06/12/20 16:56 Sample Site Brachial, left 06/12/20 16:56 ABG pH 7.44 (7.35-7.45) 06/12/20 16:56 ABG pCO2 42.4 mmHg (35-45) 06/12/20 16:56 ABG pO2 89.8 mmHg (80.0-1 00.0) 06/12/20 16:56 ABG HCO3 28.7 mmol/L (22-2 6) H 06/12/20 16:56 ABG O2 Saturation 98.0 06/12/20 16:56 ABG Base Excess 4.0 mmol/L (-2.0- 2.0) H 06/12/20 16:56 Yan Test Pos 06/12/20 16:56 A-a O2 Gradient 14.9 mmHg (5-10) H 06/12/20 16:56 Hematocrit 44.6 % (42-52) 06/12/20 16:56 Hgb O2 Saturation 95.2 % (95-100) 06/12/20 16:56 Carboxyhemoglobin 2.2 %THgb (0.4-20 .1) 06/12/20 16:56 Methemoglobin 0.7 % (0.4-1.5) 06/12/20 16:56 Total Hemoglobin 14.6 g/dL (14-18) 06/12/20 16:56 Sodium 135.0 mmol/L (131 -143) 06/12/20 16:56 Potassium 4.4 mmol/L (3.5-5 .0) 06/12/20 16:56 Glucose 103.0 mg/dL (70-1 15) 06/12/20 16:56 Ionized Calcium 1.2 mmol/L (1.1-1 .4) 06/12/20 16:56 O2 Delivery Device Nc 06/12/20 16:56 O2 Liters/Min 4.0 % 06/12/20 16:56 FiO2 36.0 % 06/12/20 16:56 Speech/Language Therapist ID Cak 06/12/20 16:56 Sodium 139 mmol/L (136-1 45) 06/14/20 04:37 Potassium 4.2 mmol/L (3.5-5 .1) 06/14/20 04:37 Chloride 104 mmol/L (98-10 7) 06/14/20 04:37 Carbon Dioxide 29 mmol/L (22-29) 06/14/20 04:37 Anion Gap 10.2 (5-19) 06/14/20 04:37 BUN 15 mg/dL (8-23) 06/14/20 04:37 Creatinine 0.6 mg/dL (0.7-1. 2) L 06/14/20 04:37 GFR Calculation 134.0 mL/min (90- 130) H 06/14/20 04:37 Glucose 103 mg/dL (65-115 ) 06/14/20 04:37 Calculated Osmolal ity 289 mOsm/kg (285- 295) 06/14/20 04:37 Lactate 2.2 mmol/L (0.5-2 .2) 06/13/20 04:41 Calcium 8.0 mg/dL (8.5-10 .5) L 06/14/20 04:37 Iron 47 ug/dL (59-158) L 06/13/20 04:41 TIBC 255 mcg/dl 06/13/20 04:41 % Saturation 18.4 % (20-50) L 06/13/20 04:41 Unsat Iron Binding 208 ug/dL (112-34 7) 06/13/20 04:41 Total Bilirubin 0.2 mg/dL (0.15-1 .2) 06/14/20 04:37 AST 56 U/L (0-40) H 06/14/20 04:37 ALT 58 U/L (0-41) H 06/14/20 04:37 Alkaline Phosphata se 152 IU/L (40-130) H 06/14/20 04:37 Creatine Kinase 24 U/L (39-308) L 06/12/20 16:40 Troponin T Baselin e 19 ng/L (0-15) H 06/12/20 16:40 Troponin T 120 Min unga 15.56 ng/L (0-15) H 06/12/20 19:40 Delta Troponin T -3.44 ABS# (0-10) L 06/12/20 19:40 Troponin T Hi Sens 6Hr 11.43 ng/L (0-15) 06/12/20 22:40 Troponin T Hi Sens 6Hr Delta -7.57 ng/L (0-12) L 06/12/20 22:40 NT-Pro-B Natriuret Pep 282 pg/mL (0-125) H 06/12/20 16:40 Total Protein 5.7 g/dL (6.6-8.7 ) L 06/14/20 04:37 Albumin 2.8 g/dL (3.5-5.2 ) L 06/14/20 04:37 Globulin 2.9 g/dL (1.3-4.6 ) 06/14/20 04:37 Procalcitonin 0.05 ng/mL (0-0.5 ) 06/13/20 04:41 Urine Color Yellow (Yellow) 06/12/20 16:10 Urine Appearance Clear (CLEAR) 06/12/20 16:10 Urine pH 7 (5-7) 06/12/20 16:10 Ur Specific Gravit y 1.000 (1.005-1.0 30) L 06/12/20 16:10 Urine Protein Neg (Negative) 06/12/20 16:10 Urine Glucose (UA) Norm (Normal) 06/12/20 16:10 Urine Ketones Negative (Negati ve) 06/12/20 16:10 Urine Blood Neg (Negative) 06/12/20 16:10 Urine Nitrate Negative (Negati ve) 06/12/20 16:10 Urine Bilirubin Neg (Negative) 06/12/20 16:10 Urine Urobilinogen Norm mg/dL (Negat zeeshan) 06/12/20 16:10 Ur Leukocyte Katheryn ase Negative (Negati ve) 06/12/20 16:10 Vancomycin Trough 11.7 ug/mL (10-15 ) 06/13/20 16:10 Impressions Chest X-Ray 06/12/20 16:10 IMPRESSION: 1. Increased nodular densities in the left lung apex may represent progressive fibrosis. Superimposed pneumonia or a neoplastic process is not excluded. Follow-up with a CT scan chest is recommended. Chest/Abdomen/Pelvis CT 06/12/20 16:37 IMPRESSION: 1. No acute abnormality identified in the abdomen or pelvis. 2. Large amount of stool in the rectum most likely indicates impaction. 3. Moderate stool in the proximal and transverse colon could indicate constipation. Radiation Dose CTDIVOL = (mGy): DLP = 1276.9~1276.9 (mGy-cm) Vitals: Last Vital Signs Temp 98.0 F 06/14/20 12:00 Pulse 79 06/14/20 12:00 Resp 14 06/14/20 12:00 BP 85/44 06/14/20 12:00 Pulse Ox 98 06/14/20 12:00 Discharge Plan Discharge Patient Disposition: Home Condition: Stable Prescriptions: New amoxicillin-pot clavulanate [Augmentin] 875-125 mg tablet 1 tab PO BID 7 Days Qty: 14 RF: 0 levofloxacin 500 mg tablet 500 mg PO DAILY 7 Days Qty: 7 RF: 0 polyethylene glycol 3350 17 gram Powder In Packet 17 g PO BID Qty: 30 RF: 0 docusate sodium [Colace] 100 mg capsule 100 mg PO DAILY Qty: 14 RF: 0 Continued miscellaneous medical supply Misc See Rx Instructions miscellaneous .COMPLEX Qty: 200 RF: 11 miscellaneous medical supply Misc See Rx Instructions miscellaneous .COMPLEX Qty: 200 RF: 11 albuterol sulfate 2.5 mg /3 mL (0.083 %) solution for nebulization See Rx Instructions .ROUTE .COMPLEX Qty: 180 RF: 0 budesonide 0.5 mg/2 mL suspension for nebulization 0.5 mg INHALATION BID Qty: 120 RF: 3 Perforomist 20 mcg/2 mL solution for nebulization 2 ml INHALATION BID Qty: 120 RF: 3 ipratropium-albuterol 0.5 mg-3 mg(2.5 mg base)/3 mL solution for nebulization See Rx Instructions .ROUTE .COMPLEX Qty: 180 RF: 0 mirtazapine 45 mg tablet 45 mg PO DAILY 30 Days Qty: 30 RF: 2 Spiriva with HandiHaler 18 mcg capsule, w/inhalation device See Rx Instructions .ROUTE .COMPLEX Qty: 30 RF: 3 miscellaneous medical supply Misc See Rx Instructions miscellaneous .COMPLEX Qty: 1 RF: 11 (DME) Compact Compressor Nebulizer Misc See Rx Instructions .ROUTE .MEDSUPPLY Qty: 1 RF: 0 (DME) diaper,brief,adult,disposable Misc See Rx Instructions .ROUTE .MEDSUPPLY Qty: 360 RF: 12 nystatin 100,000 unit/mL suspension 10 ml PO DAILY@1000 RF: 0 tizanidine 4 mg tablet 4 mg PO TID@1000,1400,2200 RF: 0 meloxicam 15 mg tablet 15 mg PO DAILY@1000 RF: 0 acetaminophen 500 mg tablet 1,000 mg PO Q6H RF: 0 pantoprazole 40 mg tablet,delayed release (DR/EC) 40 mg PO DAILY@1000 RF: 0 Ambien 5 mg tablet 5 mg PO BEDTIME@2200 RF: 0 nystatin 100,000 unit/gram powder 1 applic TOPICAL BID@1000,1400 PRN (Reason: rash) RF: 0 albuterol sulfate 90 mcg/actuation HFA aerosol inhaler 4 puff inhalation Q4H PRN (Reason: Shortness Of Breath) RF: 0 oxybutynin chloride 5 mg tablet 5 mg PO BID@1000,2200 RF: 0 fluticasone propionate 50 mcg/actuation spray,suspension 1 spray intranasal Q12H RF: 0 midodrine 10 mg tablet 10 mg PO TID@1000,1400,2200 RF: 0 Combivent Respimat 20-100 mcg/actuation mist 1 puff inhalation QID@10,12,16,22 RF: 0 trazodone 50 mg tablet 50 mg PO BEDTIME@2200 RF: 0 digoxin 250 mcg (0.25 mg) tablet 250 mcg PO DAILY@1000 RF: 0 Aspir-81 81 mg Tablet,Delayed Release (Dr/Ec) 81 mg PO DAILY@1000 RF: 0 diflorasone 0.05 % ointment See Rx Instructions .ROUTE .COMPLEX RF: 0 Changed gabapentin 800 mg tablet 400 mg PO TID@1000,1400,2200 14 Days Qty: 0 RF: 0 Discharge Orders: Discharge Order (Routine); Ordered 06/14/20 Ordered By: Ricco Louis Referrals: Grey Godfrey MD [Physician] - 2 weeks (inguinal hernia) Levon Chamberlain MD [Physician] - 4-7 days America Baez MD [Primary Care Provider] - 4-7 days Discharge Diet: Usual diet Discharge Activity: Resume usual activity Patient Instructions: Opioid Safety Activity Restrictions/Additional Instructions: Glucerna with each meal. Please follow-up with Dr. hCamberlain over the next 4 to 7 days. He reports to be on Augmentin for 7 more days to finish a course of antibiotic. Please follow-up with Dr. Chavez in the next 2 weeks for concern of inguinal hernia. Please continue take bowel regimen as prescribed. Time you have at least 2 good bowel movements. After that you can take bowel regimen as needed. Discharge Attestations Time Spent in Discharge Care*: greater than 30 min Specific Discharge Activities: educating patient, discussing with pcp/other jeremy cueva, discussing with correctional casework specialist/social workers/dc planners, documenting/other paperwork and evaluating patient/reviewing data Status at Discharge: Cognitive status at discharge: cognitively intact , Behavioral status at discharge: cooperative , Functional status at discharge: uses cane/walker Overall status at discharge: patient is back to baseline Quality Metrics Clinical Quality Measures During this hospital stay, did patient experience: None Coding Level of Care Code Acute [facility] DC note Diagnoses Abscess of lung J85.2 Pulmonary cachexia due to chronic obstructive pulmonary disease J44.9; R64 Low body mass index (BMI) Direct inguinal hernia of right side K40.90 Sepsis A41.9 Constipation K59.00
--- NOTE | 2020-06-14 16:49 | PC.NURSE ---
discharge instructions given and explained.pt verb understanding of instructions.meds to beds utilized for new prescriptions.discharged via w/c to exit.uber to drive pt home.
[2020-06-15 12:58] LABS: Quantiferon Mitogen 8.38 IU/mL; Quantiferon Nil 0.01 IU/mL; Quantiferon TB Gold NEGATIVE (NEGATIVE)
== END 2020-06-14 16:51 | disposition home or self-care (01) | DRG 871 ==
LOC: ER 16:11 → CSU 20:43
PROVIDERS: Admitting Provider Internal Medicine; Emergency Provider Family Medicine; PCP Family Medicine; Visit Provider Student in an Organized Health Care Education/Training Program
DX: A41.9 Sepsis, unspecified organism (principal); J85.1 Abscess of lung with pneumonia; R64 Cachexia; Z68.1 Body mass index [BMI] 19.9 or less, adult; J43.9 Emphysema, unspecified; Z99.81 Dependence on supplemental oxygen; F17.210 Nicotine dependence, cigarettes, uncomplicated; K59.00 Constipation, unspecified; K40.90 Unilateral inguinal hernia, without obstruction or gangrene, not specified as recurrent; I48.91 Unspecified atrial fibrillation; G89.29 Other chronic pain; I25.10 Atherosclerotic heart disease of native coronary artery without angina pectoris; F41.9 Anxiety disorder, unspecified; F32.9 Major depressive disorder, single episode, unspecified; E78.5 Hyperlipidemia, unspecified; I10 Essential (primary) hypertension; G47.00 Insomnia, unspecified; Z90.79 Acquired absence of other genital organ(s); Z79.82 Long term (current) use of aspirin; Z79.51 Long term (current) use of inhaled steroids
CPT/HCPCS: 36415; 36600; 71045; 71275; 74177; 80048; 80051; 80053; 80202; 81003; 82330; 82550; 82805; 83540; 83550; 83605; 83880; 84145; 84484; 85025; 85378; 86480; 87040; 87070; 87077; 87186; 87205; 87641; 93005; 94640; 96365; 96375; 99285; J0743; J1170; J1956; J2930; J3370; J3490; J7030; J7050; J7626; Q9967

== ENCOUNTER 2020-11-13 14:15 | Observation (INO) | payer MEDICARE, MEDICAID, SELFPAY ==
[2020-11-13] VITALS (11 sets, daily range): BP systolic 87–103; BP diastolic 53–70; PULSE 87–101; RESP 18–26; TEMP 36.6–36.9; O2SAT 97–100; BMI 14.1; BMI 14.4
--- NOTE | 2020-11-13 14:17 | ED_ITS ---
HPI - SOB/Dyspnea General: Chief Complaint: Shortness of Breath/Dyspnea Stated Complaint: SOB Time Seen by Provider: 11/13/20 14:16 History of Present Illness: HPI Narrative: Mr. Yip is a 70-year-old gentleman with complex past medical history essentially end-stage COPD with history of lung abscess who presents emergency department due to shortness of breath. He was hospitalized in June and reports improvement after this hospitalization however over the past month or so his symptoms have gradually returned. He notes gradually increasing now moderate intensity shortness of breath which is worse from baseline. He reports marked worsening of symptoms with exertion and decreased exercise tolerance. He does have a productive cough with at times green and at times blackish sputum. He reports generalized malaise but no other specific signs of systemic illness. He has tried home medications without significant relief. He denies sick contacts. No other specific exacerbating relieving factors identified. Review of Systems General: Reports: 10 or more systems reviewed and unremarkable except in HPI and below PFSH ED PFSH: Medical History Abscess of lung Atrial fibrillation Chronic pain Community acquired pneumonia COPD (chronic obstructive pulmonary disease) Coronary artery disease (Unknown) TIMOTEO (generalized anxiety disorder) History of arthritis History of depression Hyperlipidemia Hypertension Insomnia Sepsis Surgical History History of cervical spinal surgery History of cervical spinal surgery History of cervical spinal surgery History of prostatectomy History of prostatectomy History of prostatectomy History of right knee surgery History of right knee surgery History of right knee surgery Hx of inguinal hernia surgery Hx of inguinal hernia surgery Hx of inguinal hernia surgery Family History Other No pertinent family history Social History Smoking and tobacco status: current every day smoker cigarettes Years cigarettes smoked: 50 [ Other cigarette details: Hx of 2PPD ] Alcohol intake: never Household members: none Marital status: Current occupational status: retired and disabled History of recent travel: No Physical Exam Narrative: EXAM NARRATIVE: GENERAL/CONSTITUTIONAL -chronically ill-appearing. Cachectic Eyes - PERRL, no conjunctival injection ENMT - Atraumatic external nose and ears. Moist mucous membranes NECK - supple. trachea midline CARDIOVASCULAR - regular rate and rhythm. Peripheral pulses 2+ and equal RESPIRATORY -diminished and coarse to auscultation bilaterally. Prolonged expiratory phase ABDOMEN/GI - Nontender/Nondistended. No tenderness to percussion or evidence of peritonitis MSK - Extremities without obvious deformity or tenderness to palpation SKIN - Warm, Dry NEURO - alert and appropriately oriented. Moves all extremities equally. PSYCH - Appropriate mood and affect Course ED course: - Patient was seen and evaluated by me at bedside - Patient placed on cardiac monitors, IV access obtained - Initial evaluation notable for ill appearance, patient is cachectic, likely baseline increased work of breathing and supplemental oxygen in place. - Labs notable for leukocytosis, mild thrombocytosis. Metabolic panel without significant abnormality from baseline. Delta troponin negative. Urinalysis not concerning for urinary tract infection. Rapid Covid negative. - Imaging notable for tree-in-bud findings concerning for infectious process. Given history of lung abscess CT was preferred imaging modality over chest x-ray - Upon serial reexamination after treatment the patient was similar - Based on patient history, evaluation, labs, and imaging as interpreted the most likely cause of the patient's condition is pneumonia in the context of severe COPD -Hospitalist service contacted and agreed admit the patient. - Patient was admitted without further deterioration or significant events. Vital Signs: Vital signs: Vital Signs Temperature 98.0 F 11/16/20 11:33 Pulse Rate 96 11/16/20 11:33 Respiratory Rate 18 11/16/20 11:33 Blood Pressure 96/69 11/16/20 11:33 Pulse Oximetry 93 11/16/20 11:33 MDM - SOB/Dyspnea Medical Records: Attestation: I reviewed the patient's medical records. Lab Data: Attestation: I reviewed the patient's lab results. Labs: Lab Results 11/13/20 11/13/20 11/13/20 15:15 15:15 15:15 WBC 13.3 10^3/uL H 10 ^3/uL (4.0-10.0) RBC 3.92 10^6/uL L 10 ^6/uL (4.1-5.3) Hgb 12.7 g/dL g/dL (11.7-16.6) Hct 38.8 % L % (42.0-52.0) MCV 99.0 fl H fl (80-94) MCH 32.4 pg pg (28.0-34.0) MCHC 32.7 g/dL g/dL (30.0-36.0) RDW 14.1 % % (12.1-15.1) Plt Count 423 10^3/cmm H 10 ^3/cmm (130-400) MPV 9.2 fL fL (7.4-10.4) Neut % (Auto) 57.8 % % Lymph % (Auto) 29.1 % % Darke % (Auto) 12.1 % % Eos % (Auto) 0.4 % % Baso % (Auto) 0.3 % % Neut # (Auto) 7.68 10^3/uL 10^3 /uL (1.8-7.7) Lymph # (Auto) 3.9 10^3/uL 10^3/ uL (0.8-4.8) Darke # (Auto) 1.6 10^3/uL H 10^ 3/uL (0.2-0.9) Eos # (Auto) 0.1 10^3/uL 10^3/ uL (0.0-0.8) Baso # (Auto) 0.0 10^3/uL 10^3/ uL (0.0-0.1) Nucleated RBC % (a uto) 0 % % Nucleated RBCs # 0.0 /100WBC /100W BC Specimen Type Sample Site ABG pH ABG pCO2 ABG pO2 ABG HCO3 ABG Base Excess Yan Test Hematocrit Hgb O2 Saturation Carboxyhemoglobin Methemoglobin Total Hemoglobin O2 Delivery Device O2 Liters/Min Critical Care Rn ID Sodium 135 mmol/L L mmol /L (136-145) Potassium 4.2 mmol/L mmol/L (3.5-5.1) Chloride 97 mmol/L L mmol/ L (98-107) Carbon Dioxide 28 mmol/L mmol/L (22-29) Anion Gap 14.2 (5-19) BUN 12 mg/dL mg/dL (8-23) Creatinine 0.4 mg/dL L mg/dL (0.7-1.2) GFR Calculation 213.3 mL/min H mL /min (90-130) Glucose 90 mg/dL mg/dL (65-115) Calculated Osmolal ity 279 mOsm/kg L mOs m/kg (285-295) Lactic Acid 1.0 mmol/L mmol/L (0.5-2.2) Calcium 8.7 mg/dL mg/dL (8.5-10.5) Total Bilirubin 0.2 mg/dL mg/dL (0.15-1.2) AST 39 U/L U/L (0-40) ALT 34 U/L U/L (0-41) Alkaline Phosphata se 208 IU/L H IU/L (40-130) Troponin T Baselin e Troponin T 120 Min [place] Delta Troponin T Troponin T Hi Sens 6Hr Troponin T Hi Sens 6Hr Delta NT-Pro-B Natriuret Pep 348 pg/mL H pg/mL (0-125) Total Protein 7.4 g/dL g/dL (6.6-8.7) Albumin 3.1 g/dL L g/dL (3.5-5.2) Globulin 4.3 g/dL g/dL (1.3-4.6) Procalcitonin Urine Color Urine Appearance Urine pH Ur Specific Gravit y Urine Protein Urine Glucose (UA) Urine Ketones Urine Blood Urine Nitrate Urine Bilirubin Urine Urobilinogen Ur Leukocyte Katheryn ase Nasal/Oral COVID-1 9 PCR Influenza Type A A g Influenza Type B A g SARS-CoV-2 Ag (Rap id) 11/13/20 11/13/20 11/13/20 15:15 15:15 15:30 WBC RBC Hgb Hct MCV MCH MCHC RDW Plt Count MPV Neut % (Auto) Lymph % (Auto) Darke % (Auto) Eos % (Auto) Baso % (Auto) Neut # (Auto) Lymph # (Auto) Darke # (Auto) Eos # (Auto) Baso # (Auto) Nucleated RBC % (a uto) Nucleated RBCs # Specimen Type Arterial Sample Site Brachial, right ABG pH 7.45 (7.35-7.45) ABG pCO2 47.5 mmHg H mmHg (35-45) ABG pO2 124.0 mmHg H mmHg (80.0-100.0) ABG HCO3 32.7 mmol/L H mmo l/L (22-26) ABG Base Excess 7.4 mmol/L H mmol /L (-2.0-2.0) Yan Test Pos Hematocrit 40.2 % L % (42-52) Hgb O2 Saturation 97.3 % % (95-100) Carboxyhemoglobin 1.7 %THgb %THgb (0.4-20.1) Methemoglobin 0.6 % % (0.4-1.5) Total Hemoglobin 13.1 g/dL L g/dL (14-18) O2 Delivery Device Nc O2 Liters/Min 4.0 % % Critical Care Rn ID jmn Sodium Potassium Chloride Carbon Dioxide Anion Gap BUN Creatinine GFR Calculation Glucose Calculated Osmolal ity Lactic Acid Calcium Total Bilirubin AST ALT Alkaline Phosphata se Troponin T Baselin e 16 ng/L H ng/L (0-15) Troponin T 120 Min [place] Delta Troponin T Troponin T Hi Sens 6Hr Troponin T Hi Sens 6Hr Delta NT-Pro-B Natriuret Pep Total Protein Albumin Globulin Procalcitonin 0.04 ng/mL ng/mL (0-0.5) Urine Color Urine Appearance Urine pH Ur Specific Gravit y Urine Protein Urine Glucose (UA) Urine Ketones Urine Blood Urine Nitrate Urine Bilirubin Urine Urobilinogen Ur Leukocyte Katheryn ase Nasal/Oral COVID-1 9 PCR Influenza Type A A g Influenza Type B A g SARS-CoV-2 Ag (Rap id) 11/13/20 11/13/20 11/13/20 16:45 16:45 17:37 WBC RBC Hgb Hct MCV MCH MCHC RDW Plt Count MPV Neut % (Auto) Lymph % (Auto) Darke % (Auto) Eos % (Auto) Baso % (Auto) Neut # (Auto) Lymph # (Auto) Darke # (Auto) Eos # (Auto) Baso # (Auto) Nucleated RBC % (a uto) Nucleated RBCs # Specimen Type Sample Site ABG pH ABG pCO2 ABG pO2 ABG HCO3 ABG Base Excess Yna Test Hematocrit Hgb O2 Saturation Carboxyhemoglobin Methemoglobin Total Hemoglobin O2 Delivery Device O2 Liters/Min Critical Care Rn ID Sodium Potassium Chloride Carbon Dioxide Anion Gap BUN Creatinine GFR Calculation Glucose Calculated Osmolal ity Lactic Acid Calcium Total Bilirubin AST ALT Alkaline Phosphata se Troponin T Baselin e Troponin T 120 Min [place] 15.79 ng/L H ng/L (0-15) Delta Troponin T -0.21 ABS# L ABS# (0-10) Troponin T Hi Sens 6Hr Troponin T Hi Sens 6Hr Delta NT-Pro-B Natriuret Pep Total Protein Albumin Globulin Procalcitonin Urine Color Yellow (Yellow) Urine Appearance Hazy A (CLEAR) Urine pH 7 (5-7) Ur Specific Gravit y 1.010 (1.005-1.030) Urine Protein Neg (Negative) Urine Glucose (UA) Norm (Normal) Urine Ketones Negative (Negative) Urine Blood Neg (Negative) Urine Nitrate Negative (Negative) Urine Bilirubin Neg (Negative) Urine Urobilinogen Norm mg/dL mg/dL (Negative) Ur Leukocyte Katheryn ase Negative (Negative) Nasal/Oral COVID-1 9 PCR Influenza Type A A g Influenza Type B A g SARS-CoV-2 Ag (Rap id) Negative (Negative) 11/13/20 11/13/20 11/13/20 21:09 21:10 22:00 WBC RBC Hgb Hct MCV MCH MCHC RDW Plt Count MPV Neut % (Auto) Lymph % (Auto) Darke % (Auto) Eos % (Auto) Baso % (Auto) Neut # (Auto) Lymph # (Auto) Darke # (Auto) Eos # (Auto) Baso # (Auto) Nucleated RBC % (a uto) Nucleated RBCs # Specimen Type Sample Site ABG pH ABG pCO2 ABG pO2 ABG HCO3 ABG Base Excess Yan Test Hematocrit Hgb O2 Saturation Carboxyhemoglobin Methemoglobin Total Hemoglobin O2 Delivery Device O2 Liters/Min Critical Care Rn ID Sodium Potassium Chloride Carbon Dioxide Anion Gap BUN Creatinine GFR Calculation Glucose Calculated Osmolal ity Lactic Acid Calcium Total Bilirubin AST ALT Alkaline Phosphata se Troponin T Baselin e Troponin T 120 Min [place] Delta Troponin T Troponin T Hi Sens 6Hr 16.28 ng/L H ng/L (0-15) Troponin T Hi Sens 6Hr Delta 0.28 ng/L ng/L (0-12) NT-Pro-B Natriuret Pep Total Protein Albumin Globulin Procalcitonin Urine Color Urine Appearance Urine pH Ur Specific Gravit y Urine Protein Urine Glucose (UA) Urine Ketones Urine Blood Urine Nitrate Urine Bilirubin Urine Urobilinogen Ur Leukocyte Katheryn ase Nasal/Oral COVID-1 9 PCR Not detected Influenza Type A A g Negative (Negative) Influenza Type B A g Negative (Negative) SARS-CoV-2 Ag (Rap id) EKG Data^: EKG 1: Attestation: I personally reviewed and interpreted this EKG as follows: EKG Interpretation Date: 11/13/20 EKG interpretation time: 14:44 Interpretation: Twelve-lead EKG shows a regular rhythm at a rate GA interval 146, QRS duration 104, QTc 387 Left axis deviation. Interpretation: Sinus rhythm EKG 2: Attestation: I personally reviewed and interpreted this EKG as follows: EKG Interpretation Date: 11/13/20 EKG interpretation time: 19:08 Interpretation: Twelve-lead EKG shows a regular sinus rhythm 101. GA interval 157, QRS duration 101, QTc 412 Left axis deviation Interpretation: Sinus rhythm. Similar to prior. Tachycardia. Discharge Plan Discharge Admit Provider: Corine Cagle Condition: Stable Discharge Orders: Discharge Order (Routine); Ordered 11/16/20 Ordered By: Radha Guardado Discharge Diet: Cardiac Discharge Activity: Increase activity as tolerated Coding Level of Care Code ED Gut Puller for Chg Drew
--- NOTE | 2020-11-13 14:58 | CTR_ITS ---
PROCEDURE INFORMATION: Exam: CT Chest With Contrast; Diagnostic Exam date and time: 11/13/2020 2:58 PM Age: 70 years old Clinical indication: Shortness of breath; Additional info: SOB, history of lung abscess TECHNIQUE: Imaging protocol: Diagnostic computed tomography of the chest with contrast. Radiation optimization: All CT scans at this facility use at least one of these dose optimization techniques: automated exposure control; mA and/or kV adjustment per patient size (includes targeted exams where dose is matched to clinical indication); or iterative reconstruction. Contrast material: OMNI 300; Contrast volume: 75 ml; Contrast route: INTRAVENOUS (IV); COMPARISON: CT angio chest w abd pel w con 06/12/2020 6:29 PM RADIATION DOSE METRICS: Total DLP (mGy-cm): 428.07 FINDINGS: Lungs: Diffuse emphysematous changes. Left lower lobe tree-in-bud type reticulonodular densities suggestive of an infectious process. Several new left lower lobe somewhat necrotic appearing pulmonary nodules, one of which measures up to 7.5 mm series 2, image 44 and another series 2, image 32 measures up to 9.9 mm, new compared to prior exam. Pleural spaces: Unremarkable. No pneumothorax. No pleural effusion. Heart: Coronary artery atherosclerotic calcifications. Aorta: Unremarkable. No aortic aneurysm. Lymph nodes: Unremarkable. No enlarged lymph nodes. Bones/joints: Unremarkable. No acute fracture. Soft tissues: Unremarkable. Other findings: Patchy bilateral airspace opacities again seen suggestive of parenchymal scarring along with some chronic biapical cavitary areas, similar to prior exam. CT/CT chest w con* [id number] IMPRESSION: 1. Coronary artery atherosclerotic calcifications. 2. Diffuse emphysematous changes. 3. Patchy bilateral airspace opacities again seen suggestive of parenchymal scarring along with some chronic biapical cavitary areas, similar to prior exam. 4. Left lower lobe tree-in-bud type reticulonodular densities suggestive of an infectious process. 5. Several new left lower lobe somewhat necrotic appearing pulmonary nodules, one of which measures up to 7.5 mm series 2, image 44 and another series 2, image 32 measures up to 9.9 mm, new compared to prior exam. Highly suspicious nodule(s). Consider non-emergent PET/CT, or tissue sampling.(Reference: Oma) References: Oma Aguilar et al. Guidelines for Management of Incidental Pulmonary Nodules Detected on CT Images: From the Fleischner Society 2017. Radiology. 2017;284(1):228-243. Radiation Dose CTDIVOL = (mGy): DLP = 428.07 (mGy-cm)
--- NOTE | 2020-11-13 14:59 | ECG_ITS ---
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 Measurements Intervals [place] Rate: 94 P: 91 MI: 146 QRS: -72 QRSD: 104 T: 82 QT: 335 QTc: 420 Interpretive Statements SINUS RHYTHM PATTERN CONSISTENT WITH PULMONARY DISEASE INCOMPLETE RIGHT BUNDLE BRANCH BLOCK [90+ ms QRS DURATION, TERMINAL R IN V1/V2, 40+ ms S IN I/aVL/V4/V5/V6] LEFT ANTERIOR FASCICULAR BLOCK [QRS AXIS <= -45, QR IN I, RS IN II] Compared to ECG 06/12/2020 18:43:24 Left anterior fascicular block now present Left-axis deviation no longer present Myocardial infarct finding no longer present Electronically Signed On 11-13-2020 23:02:15 CDT by Darrell Leal M.D. [email or web address]
[2020-11-13 15:30] LABS: Basophils % 0.3 %; Eosinophils # 0.1 10^3/uL (0.0-0.8); Eosinophils % 0.4 %; Hematocrit 38.8 % (42.0-52.0); Hemoglobin 12.7 g/dL (11.7-16.6); Lymphocytes # 3.9 10^3/uL (0.8-4.8); Lymphocytes % 29.1 %; Mean Corpuscular HGB Conc 32.7 g/dL (30.0-36.0); Mean Corpuscular Hemoglobin 32.4 pg (28.0-34.0); Mean Platelet Volume 9.2 fL (7.4-10.4); Monocytes # 1.6 10^3/uL (0.2-0.9); Monocytes % 12.1 %; Neutrophils # 7.68 10^3/uL (1.8-7.7); Neutrophils % 57.8 %; Nucleated Red Blood Cells % 0 %; Platelet Count 423 10^3/cmm (130-400); Red Blood Count 3.92 10^6/uL (4.1-5.3); Red Cell Distribution Width 14.1 % (12.1-15.1); White Blood Count 13.3 10^3/uL (4.0-10.0)
[2020-11-13 15:42] LABS: ABG PCO2 47.5 mmHg (35-45); ABG PH Result 7.45 (7.35-7.45); Arterial Blood Gas Hematocrit 40.2 % (42-52); Base Excess ABG 7.4 mmol/L (-2.0-2.0); Blood Gas Allen Test Pos; Blood Gas Sample Site Brachial, right; Blood Gas Sample Type Arterial; Carboxyhemoglobin 1.7 %THgb (0.4-20.1); HCO3 ABG 32.7 mmol/L (22-26); HGB O2 Sat 97.3 % (95-100); Methemoglobin 0.6 % (0.4-1.5); Oxygen Device NC; Total Hemoglobin 13.1 g/dL (14-18)
[2020-11-13 15:59] LABS: Troponin(5th) Baseline 16 ng/L (0-15)
[2020-11-13 16:07] LABS: Alanine Aminotransferase 34 U/L (0-41); Albumin Level 3.1 g/dL (3.5-5.2); Alkaline Phosphatase 208 IU/L (40-130); Anion Gap 14.2 (5-19); Aspartate Amino Transferase 39 U/L (0-40); Blood Urea Nitrogen 12 mg/dL (8-23); Calcium 8.7 mg/dL (8.5-10.5); Carbon Dioxide 28 mmol/L (22-29); Chloride 97 mmol/L (98-107); Globulin 4.3 g/dL (1.3-4.6); Glomerular Filtration Rate 213.3 mL/min (90-130); Glucose 90 mg/dL (65-115); NT Pro B Type Natriuretic Pept 348 pg/mL (0-125); Osmolality Calculated 279 mOsm/kg (285-295); Potassium 4.2 mmol/L (3.5-5.1); Sodium 135 mmol/L (136-145); Total Bilirubin 0.2 mg/dL (0.15-1.2); Total Protein 7.4 g/dL (6.6-8.7)
[2020-11-13] MEDS: iohexol 300 mg/mL 100 mL Btl IV (16:34)
[2020-11-13 16:56] LABS: Procalcitonin 0.04 ng/mL (0-0.5)
[2020-11-13 17:10] LABS: Add Urine Microscopic? NO; Charge for UA Resulting for Rev
[2020-11-13 17:13] LABS: Bilirubin Urine Neg (Negative); Blood Urine Neg (Negative); Glucose Urine UA Norm (Normal); Ketones Urine Negative (Negative); Leukocyte Esterase Urine Negative (Negative); Nitrate Urine Negative (Negative); Protein Urine Neg (Negative); Urine Appearance Hazy (CLEAR); Urine Color Yellow (Yellow); Urobilinogen Urine Norm (Negative); pH Urine 7 (5-7)
[2020-11-13 17:29] LABS: SARS Covid-2 Antigen Negative (Negative)
--- NOTE | 2020-11-13 17:31 | PC.PHAR ---
Addendum entered by Yessy Herndon 11/13/20 17:40: [facility] [phone] alan rx sent pts medication list Original Note: pt states he has home health pt states whats on the home health list is what he takes-medications entered are on the pts [facility] med list-some medications entered were not on the pts med list but shows has been filled recently on ext med history-notes are made in the pharmacy comments
[2020-11-13 18:19] LABS: Troponin 5 2HR 15.79 ng/L (0-15)
[2020-11-13 18:20] LABS: Troponin 5 2HR Delta -0.21 ABS# (0-10)
[2020-11-13] MEDS: cefepime 2,000 MG in sodium chloride 0.9% (plus) 50 ML 100 MG IV (18:31)
[2020-11-13] MEDS: sodium chloride 0.9% 500 ML 999 ML IV (19:43)
[2020-11-13] MEDS: vancomycin 1,000 MG in sodium chloride 0.9% 250 ML 250 MG IV (19:44)
--- NOTE | 2020-11-13 20:59 | ECG_ITS ---
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 Measurements Intervals [place] Rate: 101 P: 89 [place]: 157 QRS: -82 QRSD: 101 T: 89 QT: 354 QTc: 460 Interpretive Statements SINUS TACHYCARDIA RIGHT ATRIAL ENLARGEMENT [0.3mV P-WAVE] POSSIBLE LEFT ATRIAL ENLARGEMENT [-0.1mV P-WAVE IN V1/V2] PATTERN CONSISTENT WITH PULMONARY DISEASE INCOMPLETE RIGHT BUNDLE BRANCH BLOCK [90+ ms QRS DURATION, TERMINAL R IN V1/V2, 40+ ms S IN I/aVL/V4/V5/V6] LEFT ANTERIOR FASCICULAR BLOCK [QRS AXIS <= -45, QR IN I, RS IN II] Compared to ECG 11/13/2020 14:37:25 Atrial abnormality now present Sinus rhythm no longer present Electronically Signed On 11-13-2020 23:08:08 CDT by Darrell Leal M.D. [email or web address]
[2020-11-13] MEDS: ipratropium-albuterol 3 mL Neb INHALATION (21:35)
[2020-11-13 21:54] LABS: Troponin 5 6HR 16.28 ng/L (0-15); Troponin 5 6HR Delta 0.28 ng/L (0-12)
--- NOTE | 2020-11-13 21:54 | P.HP_ITS ---
Providers/Chief Complaint Admitting Physician: Corine Cagle MD Primary Care Provider: America Baez MD Chief Complaint: SOB History of Present Illness Chris Brooks is a 70 year old male with a past medical history of advanced COPD, cavitary Pseudomonas pneumonia, lung abscess in 2019 with extensive distortion of lung architecture, residual scarring and fibrosis, thereafter i ntermittent episodes of repeated pneumonia including staph pneumonia in June 2020. Patient was previously on hospice, then this was removed as patient wished to remain full code continue all possible management. He presented to the ER today with 3 to 4 days of worsening shortness of breath, wheezing, cough and expectoration. CT of the chest shows known diffuse emphysematous changes, scarring and fibrosis in bilateral upper lobes, some possibly new tree-in-bud appearing infiltrates in bilateral lower lobes. Patient denies any history of fever recently. His oxygen requirements are unchanged from a baseline of 4 L/min. No hemoptysis. He is noted to have chronically low blood pressures for which he is on midodrine 10 mg p.o. 3 times daily. Currently his systolic blood pressure is ranging between 85-99 systolic, not significantly changed over his baseline. Review of Systems General: Reports: 10 or more systems reviewed and unremarkable except in HPI and below Const: Denies: fever(s), chills or body aches Eyes: Denies: change in vision, blurry vision or photophobia ENMT: Reports: hoarseness; Denies: throat pain, enlarged tonsils, odynophagia or nasal congestion Card: Denies: chest pain, palpitations, irregular heart rhythm, edema, swelling of feet/ankles, lightheadedness, pre-syncope, dyspnea on exertion or orthopnea Resp: Denies: dyspnea, productive cough, non-productive cough, wheezing, stridor, pain on inspiration, change in phlegm color, hemoptysis or chest congestion GI: Denies: abdominal pain, nausea, vomiting, hematemesis, coffee ground emesis, dysphagia, heartburn, diarrhea, constipation, GI cramping, change in stool character, hematochezia or melena : Denies: flank pain, dysuria, urinary frequency, urinary urgency, urinary hesitancy or hematuria Musc: Denies: neck pain, back pain, extremity pain, joint swelling, joint warmth or deformity Neuro: Denies: headache(s), numbness in extremities, weakness in extremities, sensory changes, difficulty walking, frequent falls, dizziness, vertigo, behavioral changes, Slurred speech present or seizure-like activity Psych: Denies: anxiety, depression, suicidal ideation or homicidal ideation Endo: Denies: polyuria, polydipsia, tired all the time, cold intolerance or hot flashes Lenard/Lymph: Denies: easy bruising or easy bleeding Medications/Allergies Home Medications Medication Instructions Recorded Confirmed Last Taken Type diaper,brief,adult,disposable #360 each 10/02/19 11/13/20 Unknown Rx miscellaneous medical supply See Rx Instructions MISCELLANEOUS 10/17/19 11/13/20 Unknown Rx .COMPLEX #200 each miscellaneous medical supply See Rx Instructions MISCELLANEOUS 10/17/19 11/13/20 Unknown Rx .COMPLEX #200 each miscellaneous medical supply See Rx Instructions MISCELLANEOUS 06/03/20 11/13/20 Unknown Rx .COMPLEX #1 ea acetaminophen 1,000 mg PO Q6H 06/12/20 11/13/20 06/11/20 History aspirin 81 mg PO DAILY 06/12/20 11/13/20 06/12/20 History diflorasone See Rx Instructions .ROUTE .COMPLEX 06/12/20 11/13/20 06/12/20 Hi story fluticasone propionate 1 spray INTRANASAL Q12H 06/12/20 11/13/20 06/12/20 History midodrine 10 mg PO TID 06/12/20 11/13/20 06/12/20 History meloxicam 15 mg tablet 15 mg PO DAILY 90 Days #90 tab 08/13/20 11/13/20 Unknown Rx oxybutynin chloride 5 mg tablet 5 mg PO BID 30 Days #60 tab 08/13/20 11/13/20 Unknown Rx pantoprazole 40 mg tablet,delayed 40 mg PO DAILY 90 Days #90 tab 08/13/20 11/13/20 Unknown Rx release albuterol sulfate 90 mcg/actuation 4 puff INHALATION Q4H PRN 90 Days 10/07/20 11/13/20 Unknown Rx aerosol inhaler #25.5 g miscellaneous medical supply See Rx Instructions MISCELLANEOUS 10/21/20 11/13/20 Unknown Rx .COMPLEX #1 ea formoterol fumarate 20 mcg/2 mL See Rx Instructions .ROUTE 10/31/20 11/13/20 Unknown Rx solution for nebulization .COMPLEX #120 milliliter gabapentin 800 mg tablet 800 mg PO TID 30 Days #90 tab 11/12/20 11/13/20 Unknown Rx tizanidine 4 mg tablet 4 mg PO TID 30 Days #90 tab 11/12/20 11/13/20 Unknown Rx albuterol sulfate 2.5 mg INHALATION Q4H PRN 11/13/20 11/13/20 Unknown History amitriptyline 10 mg PO BEDTIME 11/13/20 11/13/20 Unknown History atorvastatin [Lipitor] 20 mg PO BEDTIME 11/13/20 11/13/20 Unknown History azithromycin 250 mg PO .MON,WED,FRI 11/13/20 11/13/20 Unknown History budesonide 0.5 mg INHALATION BID 11/13/20 11/13/20 Unknown History docusate sodium [Colace] 100 mg PO DAILY 11/13/20 11/13/20 Unknown History ipratropium-albuterol 3 ml INHALATION Q4H PRN 11/13/20 11/13/20 Unknown History ipratropium-albuterol [Combivent 1 puff INHALATION QID 11/13/20 11/13/20 Unknown History Respimat] melatonin 3 mg PO BEDTIME 11/13/20 11/13/20 Unknown History mirtazapine 30 mg PO BEDTIME 11/13/20 11/13/20 Unknown History phenazopyridine 100 mg PO TID PRN 11/13/20 11/13/20 Unknown History trazodone 100 mg PO BEDTIME 11/13/20 11/13/20 Unknown History Allergies Allergy/AdvReac Type Severity Reaction Status Date / Time No Known Allergies Allergy Verified 11/13/20 17:09 PFSH Acute PFSH: Medical History Abscess of lung Atrial fibrillation Chronic pain Community acquired pneumonia COPD (chronic obstructive pulmonary disease) Coronary artery disease (Unknown) TIMOTEO (generalized anxiety disorder) History of arthritis History of depression Hyperlipidemia Hypertension Insomnia Sepsis Surgical History History of cervical spinal surgery History of cervical spinal surgery History of cervical spinal surgery History of prostatectomy History of prostatectomy History of prostatectomy History of right knee surgery History of right knee surgery History of right knee surgery Hx of inguinal hernia surgery Hx of inguinal hernia surgery Hx of inguinal hernia surgery Family History Other No pertinent family history Social History Smoking and tobacco status: current every day smoker cigarettes Years cigarettes smoked: 50 [ Other cigarette details: Hx of 2PPD ] Alcohol intake: never Household members: none Marital status: Current occupational status: retired and disabled History of recent travel: No Vitals/I&O/Wt Last Vital Signs Temp 98.5 F 11/13/20 20:37 Pulse 89 11/13/20 21:42 Resp 18 11/13/20 21:35 BP 95/53 11/13/20 20:37 Pulse Ox 99 11/13/20 21:35 11/13/20 11/13/20 11/13/20 06:59 14:59 22:59 Intake Total 50 / 50 Balance 50 / 50 Weight last 48 hrs Weight 56.699 kg Physical Exam Narrative: EXAM NARRATIVE: General: No acute distress, cachetic chronically ill appearing male HEENT: PERRLA, pupils bilaterally equal and reactive, pallors not present Chest: Coarse breath sounds to auscultation B/L anteriorly, scattered wheezing CVS: S1-S2 regular, no murmurs, no tachycardia, no gallops, no rubs Abdomen: Soft, nontender, no organomegaly, bowel sounds present Neuro: No focal deficits, no facial deformity, AO x3, power 5/5 in all limbs Data : 11/13/20 15:15 11/13/20 15:15 Other Labs: 11/13/20 15:30 ABG pH 7.45 ABG pCO2 47.5 H ABG pO2 124.0 H ABG HCO3 32.7 H ABG Base Excess 7.4 H Micro: Microbiology 11/13/20 15:15 Blood Culture - Preliminary Blood SPECIMEN COLLECTED 11/13/20 15:15 Blood Culture - Preliminary Blood SPECIMEN COLLECTED A&P Assessment and plan (1) COPD (chronic obstructive pulmonary disease): COPD, advanced emphysematous bullous disease ABG 7.45 pCO2 47.5 pO2 124.0 ABG HCO3 32.7 Clinically picture consistent with mild COPD exacerbation Inhaled duonebs q6h, budesonide 0.5mg BID schduled, hold off on systemic steroids for now CT chest overall grossly stable per my read, scattered non specific tree in bud nodularities noted B/L lower lobes, new per radiology, may be related to aspiration. Check Covid PCR and influenza Ag Lower suspicion for pneumonia given baseline 02 requirements, afebrile, leukocytosis at baeline of 13, grossly stable CT chest. Check procalcitonin. 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
[2020-11-13 22:44] LABS: Influenza A by IFA Negative (Negative)
[2020-11-13 22:45] LABS: Influenza B by IFA Negative (Negative)
[2020-11-13] MEDS: enoxaparin 40 mg/0.4 mL Syringe SUBCUT (23:21)
[2020-11-13] MEDS: trazodone 100 mg Tablet PO (23:22)
[2020-11-14] VITALS (14 sets, daily range): BP systolic 78–88; BP diastolic 48–57; PULSE 71–92; RESP 16–20; TEMP 36.3–36.8; O2SAT 94–99
[2020-11-14] MEDS: ipratropium-albuterol 3 mL Neb INHALATION ×4 (03:21→20:26)
[2020-11-14] MEDS: cefepime 2,000 MG in sodium chloride 0.9% (plus) 50 ML 100 MG IV (06:13)
[2020-11-14 07:16] LABS: Alanine Aminotransferase 29 U/L (0-41); Albumin Level 2.7 g/dL (3.5-5.2); Alkaline Phosphatase 184 IU/L (40-130); Anion Gap 10.1 (5-19); Aspartate Amino Transferase 31 U/L (0-40); Blood Urea Nitrogen 12 mg/dL (8-23); Calcium 8.6 mg/dL (8.5-10.5); Carbon Dioxide 29 mmol/L (22-29); Chloride 101 mmol/L (98-107); Globulin 3.9 g/dL (1.3-4.6); Glomerular Filtration Rate 213.3 mL/min (90-130); Glucose 79 mg/dL (65-115); Osmolality Calculated 281 mOsm/kg (285-295); Potassium 4.1 mmol/L (3.5-5.1); Sodium 136 mmol/L (136-145); Total Bilirubin 0.3 mg/dL (0.15-1.2); Total Protein 6.6 g/dL (6.6-8.7)
[2020-11-14] MEDS: docusate sodium 100 mg Capsule PO (08:07)
[2020-11-14] MEDS: midodrine 5 mg TABLET 10 MG PO ×3 (08:07→20:58)
[2020-11-14] MEDS: pantoprazole DR 40 mg Tablet PO (08:07)
[2020-11-14] MEDS: gabapentin 400 mg Capsule 800 MG PO ×3 (08:07→20:57)
[2020-11-14] MEDS: oxybutynin 5 mg Tablet PO ×2 (08:07→19:00)
[2020-11-14] MEDS: aspirin 81 mg EC Tablet PO (08:08)
[2020-11-14] MEDS: budesonide 0.5 mg/2 mL Neb INHALATION ×2 (08:16→20:26)
--- NOTE | 2020-11-14 10:47 | PC.CHAP ---
Pastoral Care Encounter/Spiritual Assessment Type of Contact [] Declined stile ripsaw operator visit [] Patient/Family/Request visit [] Outpatient visit [] Follow-up visit [] Physician referral [] Code/Alert [] Routine visit [] Staff referral [] Actively dying [] Patient sleeping [] Family support [] [] Out of room [] Palliative care [] [] Receiving care in room [] Pre-surgical visit [] Trauma [] Long length of stay [] ICU visit [x] Other: Isolation Relational/Emotional Strength [] Patient feels connected with others/family/visitors/staff [] Distress [] Loneliness/isolation [] Abandonment Spirituality of Patient [] Person of Lakshmi [] Attends Scientologist of their Lakshmi [] Believes in Prayer [] Reads Bible or Religion materials [] There are Spiritual issues to be addressed Flanging Operator Interventions [] Prayer [] Active listening [] Non-anxious presence [] Spiritual/emotional support [] Crisis/trauma care [] Spiritual counseling [] Bereavement support [] Provided bereavement packet [] Provided Bible/devotional materials [] Provided toy/stuffed animal, coloring book to patient or family member [] Provided Communion [] Anointing/[place] [] Salvation [] Completed spiritual assessment [] Other: Impact on Illness or Injury [] Angry [] Fearful [] Anxious [] Often cries [] Exhaustion [] Unable to work [] Unable to attend oriental orthodox [] Unable to walk/stand [] Unable to read [] Unable to drive [] Unable to eat/drink [] Unable to sleep [] Unable to be with family [] Patient intubated [] Other: Summary Isolation Time spent with patient 5 mins
--- NOTE | 2020-11-14 13:51 | PM.PN ---
Subjective Subjective: Interval history: I did discuss this case with Dr. Chamberlain, his CT scan findings are chronic, for now will wait just to antibiotics and have him follow-up outpatient with Dr. Chamberlain, patient is saturating well on 4 L nasal cannula no active chest pain extremely cachectic and malnourished did not complain of new issues at the time of my evaluation, H&P, CT scan and CBC reviewed, Vitals/I&O/Wt Last Vital Signs Temp 98.2 F 11/14/20 11:42 Pulse 92 11/14/20 11:42 Resp 18 11/14/20 11:42 BP 83/49 11/14/20 11:42 Pulse Ox 97 11/14/20 11:42 11/13/20 11/14/20 11/14/20 22:59 06:59 14:59 Intake Total 800 / 800 440 / 1240 290 / 290 Output Total 300 / 300 600 / 600 Balance 800 / 800 140 / 940 -310 / -310 Weight last 48 hrs Weight 58.06 kg Weight 56.699 kg Physical Exam Narrative: EXAM NARRATIVE: Cachectic malnourished male In right lateral position Mild wheezing and crepitation noted on lung auscultation S1, S2 No signs of heart failure Muscle mass loss Unkept appearance Lower extremity no edema Soft abdomen Data : 11/13/20 15:15 11/14/20 06:27 Micro: Microbiology 11/13/20 15:15 Blood Culture - Preliminary Blood SPECIMEN COLLECTED 11/13/20 15:15 Blood Culture - Preliminary Blood SPECIMEN COLLECTED A&P Assessment and plan (1) Pulmonary cachexia due to chronic obstructive pulmonary disease: Status: Acute (2) Low body mass index (BMI): Status: Acute (3) Direct inguinal hernia of right side: Status: Acute (4) Bullous emphysema: Status: Acute (5) Pulmonary fibrosis: Status: Acute (6) Chronic respiratory failure with hypoxia: Status: Acute Additional A&P Information Acute COPD exacerbation, Patient has active wheezing and crackles The main plan is to continue antibiotics for management of antipseudomonal bronchiectasis, patient does have end-stage COPD, emphysematous, cachectic malnourished appearance, BMI less than 15, will add supplements to his diet, I did discuss his case with public works director Dr. Morocho who recommended continue antibiotics and outpatient follow-up. Considering distorted anatomy of his lungs and previous severe and history no plan for any aggressive intervention at this time. Patient is saturating well on 4 L nasal cannula which is his baseline requirement, he had hypoxemia evident on ABG. Patient does carry history of necrotizing pneumonia with gram-negative organism, Pseudomonas, [facility] but out of hospice program. 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
[2020-11-14 17:26] LABS: Coronavirus Test Green County Not Detected
[2020-11-14] MEDS: atorvastatin 40 mg Tablet 20 MG PO (20:56)
[2020-11-14] MEDS: trazodone 100 mg Tablet PO (20:58)
[2020-11-14] MEDS: enoxaparin 40 mg/0.4 mL Syringe SUBCUT (21:00)
--- NOTE | 2020-11-14 21:15 | PC.NURSE ---
This nurse called Dr. Cagle at 2109 regarding IV ABT for this pt, the pt did not have any IV access and his ABX was late, this nurse asked if we could get an order to give this dose IM until an IV could be established, Tsering Lu's order was to skip this dose.
[2020-11-15] VITALS (8 sets, daily range): BP systolic 100–115; BP diastolic 52–69; PULSE 73–98; RESP 16–28; TEMP 36.4–36.8; O2SAT 93–99
[2020-11-15] MEDS: cefepime 2,000 MG in sodium chloride 0.9% (plus) 50 ML 100 MG IV ×2 (05:09→17:50)
[2020-11-15 06:39] LABS: Basophils % 0.3 %; Eosinophils # 0.1 10^3/uL (0.0-0.8); Hematocrit 36.3 % (42.0-52.0); Hemoglobin 11.4 g/dL (11.7-16.6); Lymphocytes # 4.7 10^3/uL (0.8-4.8); Lymphocytes % 36.8 %; Mean Corpuscular HGB Conc 31.4 g/dL (30.0-36.0); Mean Corpuscular Hemoglobin 32.1 pg (28.0-34.0); Mean Corpuscular Volume 102.3 fl (80-94); Mean Platelet Volume 8.8 fL (7.4-10.4); Monocytes # 1.7 10^3/uL (0.2-0.9); Monocytes % 13.2 %; Neutrophils # 6.11 10^3/uL (1.8-7.7); Neutrophils % 48.2 %; Nucleated Red Blood Cells % 0 %; Platelet Count 360 10^3/cmm (130-400); Red Blood Count 3.55 10^6/uL (4.1-5.3); Red Cell Distribution Width 13.7 % (12.1-15.1); White Blood Count 12.7 10^3/uL (4.0-10.0)
[2020-11-15 06:59] LABS: Blood Urea Nitrogen 10 mg/dL (8-23); Calcium 8.7 mg/dL (8.5-10.5); Carbon Dioxide 31 mmol/L (22-29); Chloride 97 mmol/L (98-107); Glomerular Filtration Rate 164.9 mL/min (90-130); Glucose 74 mg/dL (65-115); Osmolality Calculated 278 mOsm/kg (285-295); Sodium 135 mmol/L (136-145)
[2020-11-15] MEDS: budesonide 0.5 mg/2 mL Neb INHALATION ×2 (08:15→21:54)
[2020-11-15] MEDS: ipratropium-albuterol 3 mL Neb INHALATION ×3 (08:15→21:54)
[2020-11-15] MEDS: docusate sodium 100 mg Capsule PO (08:28)
[2020-11-15] MEDS: azithromycin 250 mg Tablet PO (08:28)
[2020-11-15] MEDS: aspirin 81 mg EC Tablet PO (08:28)
[2020-11-15] MEDS: gabapentin 400 mg Capsule 800 MG PO ×3 (08:29→20:56)
[2020-11-15] MEDS: oxybutynin 5 mg Tablet PO ×2 (08:29→17:50)
[2020-11-15] MEDS: pantoprazole DR 40 mg Tablet PO (08:29)
[2020-11-15] MEDS: midodrine 5 mg TABLET 10 MG PO ×3 (09:20→20:55)
--- NOTE | 2020-11-15 14:29 | PC.RESP ---
SMOKING CESSATION AND PULMONARY REHAB INFORMATION SENT TO PATIENT.
--- NOTE | 2020-11-15 16:18 | P.PN_ITS ---
Subjective Subjective: Interval history: Patient diet has been advanced today with supplement Patient is still complaining of fatigue and lethargy With this 50 pound weight loss he did endorse night sweats and fever today we did discuss the possibility of malignancy which has not been ruled out Requested PT evaluation, Vitals/I&O/Wt Last Vital Signs Temp 98.0 F 11/15/20 15:39 Pulse 98 11/15/20 15:39 Resp 17 11/15/20 15:39 BP 104/52 11/15/20 15:39 Pulse Ox 94 11/15/20 15:39 11/15/20 11/15/20 11/15/20 06:59 14:59 22:59 Intake Total 50 / 1460 360 / 360 Output Total 1400 / 2650 1950 / 1950 500 / 2450 Balance -1350 / -1190 -1590 / -1590 -500 / -2090 Weight last 48 hrs Weight 58.06 kg Physical Exam Narrative: EXAM NARRATIVE: Patient was laying supine without any active discomfort Has active crepitation and crackles on lung auscultation saturating well on 5 L nasal cannula Cachectic malnourished unkept appearance S1, S2 Poor hygiene Muscle mass loss No edema Awake alert no focal exam Onychomycosis No joint swelling Data : 11/15/20 06:11 11/15/20 06:11 Micro: Microbiology 11/14/20 13:45 Gram Stain - Final Sputum - Expectorated Sputum Sputum Culture - Preliminary 11/13/20 15:15 Blood Culture - Preliminary Blood NEGATIVE TO DATE 11/13/20 15:15 Blood Culture - Preliminary Blood NEGATIVE TO DATE 11/13/20 22:00 MRSA Culture - Final Nose A&P Assessment and plan (1) Chronic respiratory failure with hypoxia: Status: Acute (2) Constipation: Status: Acute Qualifiers: Constipation type: chronic idiopathic constipation Qualified Code(s): K59.04 - Chronic idiopathic constipation (3) Pulmonary cachexia due to chronic obstructive pulmonary disease: Status: Acute (4) Low body mass index (BMI): Status: Acute (5) Impaired mobility and activities of daily living: Status: Acute (6) Bullous emphysema: Status: Acute (7) Pulmonary fibrosis: Status: Acute Additional A&P Information Chronic hypoxic respiratory failure currently saturating well on 45 L Protein calorie malnourishment, NT COPD, pulmonary fibrosis, regnancy has not been ruled out patient endorsing fever, weight loss and nocturnal sweats Plan to discharge him tomorrow with outpatient follow-up with Dr. Chamberlain Cultures have been negative, no acute worsening of leukocytosis, has been afebrile, Full code DVT prophylaxis Lovenox Supplemental diet for protein calorie malnourishment with cachexia related to end-stage COPD Procalcitonin unremarkable Low albumin 5 07/29 QuantiFERON test negative Covid PCR and influenza panel negative Previously had positive staph aureus in sputum however no growth seen on 11/14 sputum culture MRSA nares negative blood cultures sterile Patient is refusing to go to assisted living or longterm Attestations Medical Necessity Statement*: Anticipating discharge tomorrow Time Spent in Patient Care: less than 15 minutes Coding Level of Care Code Acute 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
[2020-11-15] MEDS: sennosides-docusate Tablet 2 TAB PO (17:50)
[2020-11-15] MEDS: trazodone 100 mg Tablet PO (20:56)
[2020-11-15] MEDS: atorvastatin 40 mg Tablet 20 MG PO (20:56)
[2020-11-15] MEDS: enoxaparin 40 mg/0.4 mL Syringe SUBCUT (21:45)
[2020-11-16] VITALS (9 sets, daily range): BP systolic 77–129; BP diastolic 48–73; PULSE 76–109; RESP 16–24; TEMP 36.3–36.9; O2SAT 93–99
[2020-11-16] MEDS: ipratropium-albuterol 3 mL Neb INHALATION ×2 (03:50→09:23)
[2020-11-16 05:47] LABS: Basophils % 0.3 %; Eosinophils # 0.1 10^3/uL (0.0-0.8); Eosinophils % 1.2 %; Hematocrit 35.5 % (42.0-52.0); Hemoglobin 11.3 g/dL (11.7-16.6); Lymphocytes # 4.5 10^3/uL (0.8-4.8); Lymphocytes % 42.4 %; Mean Corpuscular HGB Conc 31.8 g/dL (30.0-36.0); Mean Corpuscular Hemoglobin 32.8 pg (28.0-34.0); Mean Corpuscular Volume 102.9 fl (80-94); Mean Platelet Volume 8.9 fL (7.4-10.4); Monocytes # 1.2 10^3/uL (0.2-0.9); Monocytes % 11.5 %; Neutrophils % 44.2 %; Nucleated Red Blood Cells % 0 %; Platelet Count 361 10^3/cmm (130-400); Red Blood Count 3.45 10^6/uL (4.1-5.3); Red Cell Distribution Width 13.8 % (12.1-15.1); White Blood Count 10.6 10^3/uL (4.0-10.0)
[2020-11-16 06:16] LABS: Anion Gap 8.7 (5-19); Blood Urea Nitrogen 10 mg/dL (8-23); Calcium 8.7 mg/dL (8.5-10.5); Carbon Dioxide 34 mmol/L (22-29); Chloride 95 mmol/L (98-107); Glomerular Filtration Rate 164.9 mL/min (90-130); Glucose 87 mg/dL (65-115); Osmolality Calculated 276 mOsm/kg (285-295); Potassium 3.7 mmol/L (3.5-5.1); Sodium 134 mmol/L (136-145)
[2020-11-16] MEDS: cefepime 2,000 MG in sodium chloride 0.9% (plus) 50 ML 100 MG IV (06:34)
[2020-11-16] MEDS: sennosides-docusate Tablet 2 TAB PO (09:18)
[2020-11-16] MEDS: docusate sodium 100 mg Capsule PO (09:19)
[2020-11-16] MEDS: gabapentin 400 mg Capsule 800 MG PO ×2 (09:19→15:30)
[2020-11-16] MEDS: oxybutynin 5 mg Tablet PO (09:19)
[2020-11-16] MEDS: pantoprazole DR 40 mg Tablet PO (09:19)
[2020-11-16] MEDS: aspirin 81 mg EC Tablet PO (09:19)
[2020-11-16] MEDS: budesonide 0.5 mg/2 mL Neb INHALATION (09:23)
--- NOTE | 2020-11-16 09:23 | PC.SOCIAL ---
IMM Updated Page 2 of IMM updated and reviewed with patient. Initialed, timed and dated and copy placed in patients chart.
--- NOTE | 2020-11-16 11:24 | PM.DCS ---
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: Status: Acute (4) Low body mass index (BMI): Status: Acute (5) Impaired mobility and activities of daily living: Status: Acute (6) Bullous emphysema: Status: Acute (7) Pulmonary fibrosis: Status: Acute Reason for Visit Reason for Visit: SOB Hospital Course Hospital Course 70-year-old male who carry history of end-stage COPD, bullous emphysematous, oxygen dependent uses 4 L of oxygen [id number], has history of recurrent pneumonia, lung abscess secondary to Pseudomonas in the past, TB has been ruled out, cachectic, malnourished, was on hospice and there was back in May, presented to the hospital with chief complaint of worsening shortness of breath. Patient is stating that he lives alone, is struggling with his daily activities, he is losing weight significantly, endorsing worsening of his fatigue and lethargy along shortness of breath. However his oxygen requirement has not worsened from 4 L at baseline. He came to the ER for further evaluation. He was admitted for management of possible pneumonia. He was started on antipseudomonal coverage. He remained afebrile, no worsening of leukocytosis. He does have history of chronic leukocytosis. Underlying malignancy has not been ruled out there is no histopathological diagnosis. I did review his CT scan and discussed with Dr. Chamberlain who has seen him in the past. Dr. Chamberlain recommended continuation of antibiotics and outpatient follow-up. Patient will be discharged on his inhaler regimen and Levaquin along azithromycin. His cultures remained sterile, he never spiked any temperature, urine antigens negative MRSA PCR negative. Covid PCR negative. . Physical Exam Narrative: EXAM NARRATIVE: Malnourished cachectic unkept appearance Muscle mass loss Saturating well on 4 L nasal cannula EOMI, PERRLA Nonfocal exam Abdomen soft Bilateral diminished breath sounds with crepitation crackles at the bases No joint swelling Leg without edema Discharge Data Data Completed and Pending: Completed Studies During Hospitalization Category Date Time Status CT chest w con* [id number] Urgent Cat Scan 11/13/20 14:58 Completed Pending at discharge Category Date Time Status Blood Culture Sta t Lab 11/13/20 15:15 Results Mycobacteria, Cul ture w/Fluor Routi ne Lab 11/14/20 08:39 Received Sputum Culture an d Gram Stain Stat Lab 11/14/20 13:45 Results Labs from last 24 hours 11/16/20 11/16/20 05:10 05:10 WBC 10.6 H RBC 3.45 L Hgb 11.3 L Hct 35.5 L MCV 102.9 H MCH 32.8 MCHC 31.8 RDW 13.8 Plt Count 361 MPV 8.9 Neut % (Auto) 44.2 Lymph % (Auto) 42.4 [place] % (Auto) 11.5 Eos % (Auto) 1.2 Baso % (Auto) 0.3 Neut # (Auto) 4.70 Lymph # (Auto) 4.5 [place] # (Auto) 1.2 H Eos # (Auto) 0.1 Baso # (Auto) 0.0 Nucleated RBC % (a uto) 0 Nucleated RBCs # 0.0 Sodium 134 L Potassium 3.7 Chloride 95 L Carbon Dioxide 34 H Anion Gap 8.7 BUN 10 Creatinine 0.5 L GFR Calculation 164.9 H Glucose 87 Calculated Osmolal ity 276 L Calcium 8.7 Vitals: Last Vital Signs Temp 97.4 F L 11/16/20 07:45 Pulse 89 11/16/20 09:23 Resp 20 H 11/16/20 09:23 BP 129/73 11/16/20 07:45 Pulse Ox 99 11/16/20 09:23 Discharge Plan Discharge Patient Disposition: Home Condition: Stable Prescriptions: New Combivent Respimat 20-100 mcg/actuation mist 1 puff inhalation 6XD Qty: 4 RF: 1 levofloxacin 750 mg tablet 750 mg PO DAILY 7 Days Qty: 7 RF: 0 albuterol sulfate 90 mcg/actuation HFA aerosol inhaler 1 inh inhalation Q6H Qty: 8.5 RF: 0 Continued miscellaneous medical supply Misc See Rx Instructions miscellaneous .COMPLEX Qty: 200 RF: 11 miscellaneous medical supply Misc See Rx Instructions miscellaneous .COMPLEX Qty: 200 RF: 11 miscellaneous medical supply Misc See Rx Instructions miscellaneous .COMPLEX Qty: 1 RF: 11 meloxicam 15 mg tablet 15 mg PO DAILY 90 Days Qty: 90 RF: 1 pantoprazole 40 mg tablet,delayed release (DR/EC) 40 mg PO DAILY 90 Days Qty: 90 RF: 1 oxybutynin chloride 5 mg tablet 5 mg PO BID 30 Days Qty: 60 RF: 2 (DME) diaper,brief,adult,disposable Misc See Rx Instructions .ROUTE .MEDSUPPLY Qty: 360 RF: 12 albuterol sulfate 90 mcg/actuation HFA aerosol inhaler 4 puff inhalation Q4H PRN (Reason: Shortness Of Breath) 90 Days Qty: 25.5 RF: 1 miscellaneous medical supply Misc See Rx Instructions miscellaneous .COMPLEX Qty: 1 RF: 0 gabapentin 800 mg tablet 800 mg PO TID 30 Days Qty: 90 RF: 0 tizanidine 4 mg tablet 4 mg PO TID 30 Days Qty: 90 RF: 0 Lipitor 20 mg Tablet 20 mg PO BEDTIME RF: 0 melatonin 3 mg Tablet 3 mg PO BEDTIME RF: 0 trazodone 100 mg Tablet 100 mg PO BEDTIME RF: 0 phenazopyridine 100 mg Tablet 100 mg PO TID PRN (Reason: unknown) RF: 0 mirtazapine 30 mg Tablet 30 mg PO BEDTIME RF: 0 albuterol sulfate 2.5 mg /3 mL (0.083 %) solution for nebulization 2.5 mg inhalation Q4H PRN (Reason: Shortness Of Breath) RF: 0 amitriptyline 10 mg tablet 10 mg PO BEDTIME RF: 0 Colace 100 mg capsule 100 mg PO DAILY RF: 0 Combivent Respimat 20-100 mcg/actuation mist 1 puff inhalation QID RF: 0 azithromycin 250 mg Tablet 250 mg PO .MON,WED,FRI 30 Days Qty: 30 RF: 0 formoterol fumarate 20 mcg/2 mL solution for nebulization See Rx Instructions .ROUTE .COMPLEX 30 Days Qty: 120 RF: 2 acetaminophen 500 mg tablet 1,000 mg PO Q6H RF: 0 fluticasone propionate 50 mcg/actuation spray,suspension 1 spray intranasal Q12H RF: 0 midodrine 10 mg tablet 10 mg PO TID RF: 0 aspirin 81 mg Tablet,Delayed Release (Dr/Ec) 81 mg PO DAILY RF: 0 diflorasone 0.05 % ointment See Rx Instructions .ROUTE .COMPLEX RF: 0 Changed ipratropium-albuterol 0.5 mg-3 mg(2.5 mg base)/3 mL solution for nebulization 3 ml inhalation Q4H PRN (Reason: Shortness Of Breath) 30 Days Qty: 0 RF: 0 budesonide 0.5 mg/2 mL suspension for nebulization 0.5 mg inhalation BID 30 Days Qty: 0 RF: 0 Discharge Orders: Discharge Order (Routine); Ordered 11/16/20 Ordered By: Radha Guardado Referrals: Levon Chamberlain MD [Physician] - 1-3 days (Please call Wednesday to schedule a follow up appointment.) Discharge Diet: Cardiac Discharge Activity: Increase activity as tolerated Patient Instructions: COPD, Albuterol (By breathing), Ipratropium (By breathing) (Atrovent HFA), Levofloxacin (By mouth), Budesonide (By breathing), Ipratropium/Albuterol (By breathing), COPD Stoplight, Opioid Safety Discharge Attestations Time Spent in Discharge Care*: less than 30 min Status at Discharge: Cognitive status at discharge: cognitively intact, Behavioral status at discharge: cooperative, Quality Metrics Clinical Quality Measures During this hospital stay, did patient experience: None Coding Level of Care Code Acute [facility] FW DC note Diagnoses Chronic respiratory failure with hypoxia J96.11 Constipation K59.04 Constipation type: chronic idiopathic constipation Pulmonary cachexia due to chronic obstructive pulmonary disease J44.9; R64 Low body mass index (BMI) Impaired mobility and activities of daily living Z74.09; Z78.9 Bullous emphysema J43.9 Pulmonary fibrosis J84.10
--- NOTE | 2020-11-16 13:03 | PC.OT ---
Patient was not evaluated secondary to discharge occuring before evaluation could be completed and patient's history of non-compliance with therapies.
[2020-11-16] MEDS: midodrine 5 mg TABLET 10 MG PO (15:30)
--- NOTE | 2020-11-16 16:38 | PC.NURSE ---
Discharge Note Patient discharged to home via [facility] accompanied by himself. Discharge instructions reviewed with patient and/or sales representative cash registers. Mobile pharmacy medications and/or prescriptions provided. Belongings/home medications returned.
--- NOTE | 2020-11-21 10:01 | PC.SOCIAL ---
discharge follow up call, patient is currently admitted in the ICU.
== END 2020-11-16 16:30 | disposition home or self-care (01) ==
LOC: ER 20:54 → MEDSURG 22:05
PROVIDERS: Admitting Provider Student in an Organized Health Care Education/Training Program; Emergency Provider Emergency Medicine; PCP Family Medicine; Visit Provider Internal Medicine
DX: J41.1 Mucopurulent chronic bronchitis (principal); J96.11 Chronic respiratory failure with hypoxia; K59.04 Chronic idiopathic constipation; R64 Cachexia; Z74.09 Other reduced mobility; Z78.9 Other specified health status; J43.9 Emphysema, unspecified; J84.10 Pulmonary fibrosis, unspecified; Z99.81 Dependence on supplemental oxygen; I25.10 Atherosclerotic heart disease of native coronary artery without angina pectoris; I48.91 Unspecified atrial fibrillation; F41.9 Anxiety disorder, unspecified; E78.5 Hyperlipidemia, unspecified; I10 Essential (primary) hypertension; Z98.1 Arthrodesis status
CPT/HCPCS: 36415; 36600; 71260; 80048; 80053; 81003; 82805; 83605; 83880; 84145; 84484; 85025; 87015; 87040; 87070; 87116; 87205; 87206; 87426; 87635; 87641; 87801; 87804; 93005; 94640; 96365; 96367; 96372; 97161; 99285; G0378; J0692; J1650; J3370; J7040; J7050; J7611; J7626; Q0144; Q9967

== ENCOUNTER 2020-11-20 18:27 | Inpatient (IN) | payer MEDICARE, MEDICAID, SELFPAY ==
[2020-11-20] VITALS (9 sets, daily range): BP systolic 72–120; BP diastolic 41–86; PULSE 90–117; RESP 18–31; TEMP 36.6; O2SAT 91–100; BMI 14.1
--- NOTE | 2020-11-20 18:30 | W.ED.SOB ---
HPI - SOB/Dyspnea General: Chief Complaint: Shortness of Breath/Dyspnea Stated Complaint: RESP DISTRESS, COPD EXACERBATION Time Seen by Provider: 11/20/20 18:29 History of Present Illness: HPI Narrative: Mr. Brooks is a 70-year-old gentleman with end-stage COPD, chronic hypoxic respiratory failure on 4 L at baseline, hypertension, hyperlipidemia, CAD, continued tobaccoism presents emergency department due to shortness of breath. He was recently hospitalized for similar symptoms and at that time no specific infectious etiology was identified. He was continued on Levaquin and azithromycin which she has been compliant with. He reports 2 days of mild improvement however now symptoms are significantly worse. He continues to smoke. He endorses cough, shortness of breath, generalized malaise. He does have generalized weakness. Overall the intensity of his symptoms have been worsening. The intensity of shortness of breath is moderate to severe. Worse with exertion but does not go away with rest. He has tried home breathing treatments without significant improvement. Prehospital he received Solu-Medrol 125 mg and 0.75 terbutaline. No other specific exacerbating or alleviating factors identified. Review of Systems General: Reports: 10 or more systems reviewed and unremarkable except in HPI and below PFSH ED PFSH: Medical History Abscess of lung Atrial fibrillation Chronic pain Community acquired pneumonia COPD (chronic obstructive pulmonary disease) Coronary artery disease (Unknown) TIMOTEO (generalized anxiety disorder) History of arthritis History of depression Hyperlipidemia Hypertension Insomnia Sepsis Surgical History History of cervical spinal surgery History of cervical spinal surgery History of cervical spinal surgery History of prostatectomy History of prostatectomy History of prostatectomy History of right knee surgery History of right knee surgery History of right knee surgery Hx of inguinal hernia surgery Hx of inguinal hernia surgery Hx of inguinal hernia surgery Family History Other No pertinent family history Social History Smoking and tobacco status: current every day smoker cigarettes Years cigarettes smoked: 50 [ Other cigarette details: Hx of 2PPD ] Alcohol intake: never Household members: none Marital status: Current occupational status: retired and disabled History of recent travel: No Physical Exam Narrative: EXAM NARRATIVE: EXAM NARRATIVE: GENERAL/CONSTITUTIONAL -chronically ill-appearing. Cachectic. Eyes - PERRL, no conjunctival injection ENMT - Atraumatic external nose and ears. Moist mucous membranes NECK - supple. trachea midline CARDIOVASCULAR -tachycardic rate and regular rhythm. RESPIRATORY -diminished to auscultation bilaterally. Prolonged expiratory phase. Tachypnea. Nonrebreather mask present ABDOMEN/GI - Nontender/Nondistended. MSK - Extremities without obvious deformity or tenderness to palpation SKIN - Warm, Dry, pale. NEURO - alert and appropriately oriented. Moves all extremities equally. PSYCH - Appropriate mood and affect Procedures Chest Tube Chest Tube 1: Chest Tube Location: left, anterior axillary line and fourth interspace Chest Tube Prep: Yes betadine prep and sterile drapes applied Local Anesthetic: lidocaine 1% and with epi Amount of anesthesia used (mL): 10 Incision Made With: #11 blade Post Procedure: sutured to skin and sterile dressing applied Tube Drainage: none Post Procedure CXR?: Yes Patient Tolerated Procedure: Yes Progress: 32 fr Course ED course: - Patient was seen and evaluated by me at bedside - Patient placed on cardiac monitors, IV access obtained - Initial evaluation notable for chronically ill appearance, tachypnea and tachycardia. Diminished breath sounds. - Labs notable for mild leukocytosis which is chronic for this patient, improved hemoglobin from prior. Metabolic panel similar to prior. Delta troponin negative. - Imaging notable for concerning findings in left lower lobe. However, given that patient appears to actually be improving with RT treatment and history of large blebs CT scan will be ordered. CT notable for pneumothorax, blood pressure and heart rate maintained at this time. - Verbal consent obtained under emergent conditions given concern for tension physiology on CT scan and chest tube was inserted. Patient tolerated procedure well. - Upon serial reexamination after treatment the patient was improved - Based on patient history, evaluation, labs, and imaging as interpreted the most likely cause of the patient's condition is pneumothorax likely secondary to ruptured bleb - The results of ED evaluation were discussed with the patient including plan for admission due to requirement for level of care not available if discharged to prevent significant worsening/deterioration. -Hospitalist service contacted and agreed to admit the patient - Patient was admitted without further deterioration or significant events. Vital Signs: Vital signs: Vital Signs Temperature 98.3 F 11/21/20 00:23 Pulse Rate 79 11/21/20 04:30 Respiratory Rate 24 H 10/14/21 04:30 Blood Pressure 101/57 11/21/20 04:30 Pulse Oximetry 95 11/21/20 04:30 MDM - SOB/Dyspnea Medical Records: Attestation: I reviewed the patient's medical records. Lab Data: Attestation: I reviewed the patient's lab results. Labs: Lab Results 11/20/20 11/20/20 11/20/20 18:47 19:08 19:08 WBC 11.2 10^3/uL H 10 ^3/uL (4.0-10.0) RBC 3.74 10^6/uL L 10 ^6/uL (4.1-5.3) Hgb 12.7 g/dL g/dL (11.7-16.6) Hct 37.3 % L % (42.0-52.0) MCV 99.7 fl H fl (80-94) MCH 34.0 pg pg (28.0-34.0) MCHC 34.0 g/dL g/dL (30.0-36.0) RDW 14.6 % % (12.1-15.1) Plt Count 405 10^3/cmm H 10 ^3/cmm (130-400) MPV 9.0 fL fL (7.4-10.4) Neut % (Auto) 79.8 % % Lymph % (Auto) 16.5 % % [place] % (Auto) 3.1 % % Eos % (Auto) 0.0 % % Baso % (Auto) 0.2 % % Neut # (Auto) 8.94 10^3/uL H 10 ^3/uL (1.8-7.7) Lymph # (Auto) 1.9 10^3/uL 10^3/ uL (0.8-4.8) [place] # (Auto) 0.4 10^3/uL 10^3/ uL (0.2-0.9) Eos # (Auto) 0.0 10^3/uL 10^3/ uL (0.0-0.8) Baso # (Auto) 0.0 10^3/uL 10^3/ uL (0.0-0.1) Nucleated RBC % (a uto) 0 % % Nucleated RBCs # 0.0 /100WBC /100W BC Specimen Type Arterial Sample Site Radial, right ABG pH 7.49 H (7.35-7.45) ABG pCO2 42.1 mmHg mmHg (35-45) ABG pO2 92.1 mmHg mmHg (80.0-100.0) ABG HCO3 31.6 mmol/L H mmo l/L (22-26) ABG Base Excess 7.4 mmol/L H mmol /L (-2.0-2.0) Yan Test Pos Hematocrit 40.6 % L % (42-52) Hgb O2 Saturation 95.9 % % (95-100) Carboxyhemoglobin 1.9 %THgb %THgb (0.4-20.1) Methemoglobin 0.7 % % (0.4-1.5) Total Hemoglobin 13.3 g/dL L g/dL (14-18) O2 Delivery Device Nrb O2 Liters/Min 15.0 % % Paper Hanger ID Cak Sodium 134 mmol/L L mmol /L (136-145) Potassium 5.1 mmol/L mmol/L (3.5-5.1) Chloride 97 mmol/L L mmol/ L (98-107) Carbon Dioxide 29 mmol/L mmol/L (22-29) Anion Gap 13.1 (5-19) BUN 17 mg/dL mg/dL (8-23) Creatinine 0.3 mg/dL L mg/dL (0.7-1.2) GFR Calculation 297.3 mL/min H mL /min (90-130) Glucose 109 mg/dL mg/dL (65-115) Calculated Osmolal ity 280 mOsm/kg L mOs m/kg (285-295) Calcium 8.6 mg/dL mg/dL (8.5-10.5) Total Bilirubin 0.3 mg/dL mg/dL (0.15-1.2) AST 40 U/L U/L (0-40) ALT 33 U/L U/L (0-41) Alkaline Phosphata se 199 IU/L H IU/L (40-130) Troponin T Baselin e Troponin T 120 Min [place] Troponin T NT-Pro-B Natriuret Pep 611 pg/mL H pg/mL (0-125) Total Protein 6.8 g/dL g/dL (6.6-8.7) Albumin 3.2 g/dL L g/dL (3.5-5.2) Globulin 3.6 g/dL g/dL (1.3-4.6) 11/20/20 11/20/20 19:08 21:40 WBC RBC Hgb Hct MCV MCH MCHC RDW Plt Count MPV Neut % (Auto) Lymph % (Auto) [place] % (Auto) Eos % (Auto) Baso % (Auto) Neut # (Auto) Lymph # (Auto) [place] # (Auto) Eos # (Auto) Baso # (Auto) Nucleated RBC % (a uto) Nucleated RBCs # Specimen Type Sample Site ABG pH ABG pCO2 ABG pO2 ABG HCO3 ABG Base Excess Yan Test Hematocrit Hgb O2 Saturation Carboxyhemoglobin Methemoglobin Total Hemoglobin O2 Delivery Device O2 Liters/Min Paper Hanger ID Sodium Potassium Chloride Carbon Dioxide Anion Gap BUN Creatinine GFR Calculation Glucose Calculated Osmolal ity Calcium Total Bilirubin AST ALT Alkaline Phosphata se Troponin T Baselin e 19 ng/L H ng/L (0-15) Troponin T 120 Min [place] 16.63 ng/L H ng/L (0-15) Delta Troponin T -2.37 ABS# L ABS# (0-10) NT-Pro-B Natriuret Pep Total Protein Albumin Globulin EKG Data^: EKG 1: Attestation: I personally reviewed and interpreted this EKG as follows: EKG Interpretation Date: 11/20/20 EKG interpretation time: 19:03 Interpretation: Twelve-lead EKG shows a regular rhythm at a rate of 85 TN interval 134, QRS duration 94, QTc 372 Left axis deviation Interpretation: Sinus rhythm. Abnormal EKG. EKG 2: Attestation: I personally reviewed and interpreted this EKG as follows: EKG Interpretation Date: 11/20/20 EKG interpretation time: 20:39 Interpretation: Twelve-lead EKG shows a regular sinus rhythm at a rate of 103. TN interval 137, QRS duration 100, QTc 460. Left axis deviation. Interpretation: Sinus rhythm, similar to prior Discharge Plan Discharge Admit Provider: Sumeet Barros Coding Level of Care Code ED Battalion Chief for [facility] Drew
--- NOTE | 2020-11-20 18:38 | XRR_ITS ---
PROCEDURE INFORMATION: Exam: XR Chest Exam date and time: 11/20/2020 6:38 PM Age: 70 years old Clinical indication: Shortness of breath; Additional info: SOB TECHNIQUE: Imaging protocol: XR of the chest. Views: 1 view. Total images: 2 COMPARISON: CT chest w con* [id number] 11/13/2020 4:31 PM FINDINGS: Lungs: Advanced bullous emphysema. Extensive consolidated alveolar airspace disease bilateral upper lobes, most most likely reflecting parenchymal scar atelectasis. Bronchiectasis. Scattered calcified granulomas of antecedent disease. Pleural spaces: Large left tension pneumothorax. Heart/Mediastinum: Microcardia with arteriosclerosis. Bones/joints: Scoliosis. Previous cervical fusion. XR/XR chest 1V portable [id number] IMPRESSION: Large left tension pneumothorax. Radiation Dose CTDIVOL = (mGy): DLP = (mGy-cm)
--- NOTE | 2020-11-20 18:38 | CTR_ITS ---
PROCEDURE INFORMATION: Exam: CTA Chest With Contrast Exam date and time: 11/20/2020 6:38 PM Age: 70 years old Clinical indication: Cough and shortness of breath; Patient HX: Smoker. Copd; Additional info: SOB, tachy, recent hospitalization TECHNIQUE: Imaging protocol: Computed tomographic angiography of the chest with contrast. 3D rendering (Not supervised by radiologist): MIP and/or 3D reconstructed images were created by the technologist. Total images: 1001 Radiation optimization: All CT scans at this facility use at least one of these dose optimization techniques: automated exposure control; mA and/or kV adjustment per patient size (includes targeted exams where dose is matched to clinical indication); or iterative reconstruction. Contrast material: OMNI 350; Contrast volume: 71 ml; Contrast route: INTRAVENOUS (IV); COMPARISON: CT angio chest w abd pel w con 06/12/2020 6:29 PM RADIATION DOSE METRICS: Total DLP (mGy-cm): 595.12 FINDINGS: Pulmonary arteries: No visible evidence of pulmonary embolism/pulmonary arterial thrombus. Aorta: The thoracic aorta is nonaneurysmal. No visible intimal flap or dissection. Moderate arteriosclerosis. Lungs: Severe bullous emphysema again evident scattered calcified granulomas of antecedent disease. The consolidated alveolar airspace disease with associated bronchiectasis involving primarily the upper lobes appears to remain relatively static right lung; but, with increased consolidation anterior segment left upper lobe and superior segment left lower lobe. The affect of the tension pneumothorax on the left lung consolidated alveolar airspace disease is indeterminate. It would be difficult to exclude scar carcinoma and close follow-up with repeat computed tomography of the chest in 3-6 months recommended. Pleural spaces: Examination reveals a large left tension pneumothorax estimated 60-70% volume. Heart: Microcardia. Left ventricular prominence. Coronary artery disease. No visible pericardial effusion. Lymph nodes: Prominent anterior, middle, posterior mediastinal and hilar lymph nodes that have demonstrated increase in volume since last evaluation of 06/12/2020. Calcified complexes of antecedent granulomatous disease again evident. Bones/joints: In no visible acute osseous abnormality. Scoliosis. Degenerative disease and degenerative disc disease of the visualized lumbosacral spine. Soft tissues: Cachexia. CT/CT angio chest PE protcl [id number] IMPRESSION: 1. No visible evidence of pulmonary embolism/pulmonary arterial thrombus. 2. Examination reveals a large left tension pneumothorax estimated 60-70% volume. 3. Severe bullous emphysema. 4. The consolidated alveolar airspace disease with associated bronchiectasis involving primarily the upper lobes appears to remain relatively static right lung; but, with increased consolidation anterior segment left upper lobe and superior segment left lower lobe. 5. It would be difficult to exclude scar carcinoma and close follow-up with repeat computed tomography of the chest in 3-6 months recommended. 6. Prominent mediastinal and hilar lymph nodes that increased in volume since last evaluation. 7. Calcified granulomas of antecedent disease. Radiation Dose CTDIVOL = (mGy): DLP = 595.12 (mGy-cm)
--- NOTE | 2020-11-20 18:40 | ECG_ITS ---
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 Measurements Intervals [place] Rate: 85 P: 93 PA: 134 QRS: -77 QRSD: 94 T: 86 QT: 311 QTc: 372 Interpretive Statements SINUS RHYTHM WITH MARKED SINUS ARRHYTHMIA INCOMPLETE RIGHT BUNDLE BRANCH BLOCK [90+ ms QRS DURATION, TERMINAL R IN V1/V2, 40+ ms S IN I/aVL/V4/V5/V6] LEFT ANTERIOR FASCICULAR BLOCK [QRS AXIS <= -45, QR IN I, RS IN II] Compared to ECG 11/13/2020 18:57:57 Sinus tachycardia no longer present Atrial abnormality no longer present Electronically Signed On 11-22-2020 5:47:28 CDT by Lianna Crawley M.D. [id number] f
[2020-11-20] MEDS: ipratropium-albuterol 3 mL Neb INHALATION ×3 (18:50)
[2020-11-20 18:58] LABS: ABG PCO2 42.1 mmHg (35-45); ABG PH Result 7.49 (7.35-7.45); Arterial Blood Gas Hematocrit 40.6 % (42-52); Base Excess ABG 7.4 mmol/L (-2.0-2.0); Blood Gas Allen Test Pos; Blood Gas Operator Identificat CAK; Blood Gas Sample Site Radial, right; Blood Gas Sample Type Arterial; Carboxyhemoglobin 1.9 %THgb (0.4-20.1); HCO3 ABG 31.6 mmol/L (22-26); HGB O2 Sat 95.9 % (95-100); Methemoglobin 0.7 % (0.4-1.5); Oxygen Device NRB; PO2 ABG 92.1 mmHg (80.0-100.0); Total Hemoglobin 13.3 g/dL (14-18)
[2020-11-20 19:22] LABS: Basophils % 0.2 %; Hematocrit 37.3 % (42.0-52.0); Hemoglobin 12.7 g/dL (11.7-16.6); Lymphocytes # 1.9 10^3/uL (0.8-4.8); Lymphocytes % 16.5 %; Mean Corpuscular Volume 99.7 fl (80-94); Monocytes # 0.4 10^3/uL (0.2-0.9); Monocytes % 3.1 %; Neutrophils # 8.94 10^3/uL (1.8-7.7); Neutrophils % 79.8 %; Nucleated Red Blood Cells % 0 %; Platelet Count 405 10^3/cmm (130-400); Red Blood Count 3.74 10^6/uL (4.1-5.3); Red Cell Distribution Width 14.6 % (12.1-15.1); White Blood Count 11.2 10^3/uL (4.0-10.0)
[2020-11-20] MEDS: sodium chloride 0.9% 500 ML 999 ML IV (19:50)
[2020-11-20 19:54] LABS: Troponin(5th) Baseline 19 ng/L (0-15)
[2020-11-20 20:03] LABS: Alanine Aminotransferase 33 U/L (0-41); Albumin Level 3.2 g/dL (3.5-5.2); Alkaline Phosphatase 199 IU/L (40-130); Anion Gap 13.1 (5-19); Blood Urea Nitrogen 17 mg/dL (8-23); Calcium 8.6 mg/dL (8.5-10.5); Carbon Dioxide 29 mmol/L (22-29); Chloride 97 mmol/L (98-107); Globulin 3.6 g/dL (1.3-4.6); Glomerular Filtration Rate 297.3 mL/min (90-130); Glucose 109 mg/dL (65-115); NT Pro B Type Natriuretic Pept 611 pg/mL (0-125); Osmolality Calculated 280 mOsm/kg (285-295); Potassium 5.1 mmol/L (3.5-5.1); Sodium 134 mmol/L (136-145); Total Bilirubin 0.3 mg/dL (0.15-1.2); Total Protein 6.8 g/dL (6.6-8.7)
[2020-11-20 20:11] LABS: Aspartate Amino Transferase 40 U/L (0-40)
[2020-11-20] MEDS: iohexol 350 mg/mL 100 mL Btl IV (20:17)
--- NOTE | 2020-11-20 20:40 | ECG_ITS ---
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 Measurements Intervals [place] Rate: 103 P: 97 ND: 137 QRS: -81 QRSD: 100 T: 90 QT: 351 QTc: 460 Interpretive Statements SINUS TACHYCARDIA INCOMPLETE RIGHT BUNDLE BRANCH BLOCK [90+ ms QRS DURATION, TERMINAL R IN V1/V2, 40+ ms S IN I/aVL/V4/V5/V6] LEFT ANTERIOR FASCICULAR BLOCK [QRS AXIS <= -45, QR IN I, RS IN II] Compared to ECG 11/20/2020 19:01:51 Sinus rhythm no longer present Sinus arrhythmia no longer present Electronically Signed On 11-22-2020 5:56:32 CDT by Lianna Crawley M.D. [id number]
[2020-11-20] MEDS: ondansetron 2 mg/ML SDV 2 mL 4 MG IVP (21:05)
[2020-11-20] MEDS: fentaNYL 50 mcg/mL INJ 2mL IVP (21:10)
[2020-11-20] MEDS: midazolam 1 mg/mL INJ 2 mL 2 MG IVP (21:10)
--- NOTE | 2020-11-20 21:26 | XRR_ITS ---
PROCEDURE INFORMATION: Exam: XR Chest Exam date and time: 11/20/2020 9:26 PM Age: 70 years old Clinical indication: Device placement; Chest tube; Additional info: Post chest tube TECHNIQUE: Imaging protocol: XR of the chest. Views: 1 view. Total images: 2 COMPARISON: CR (CHEST, ) 11/20/2020 7:23 PM FINDINGS: Tubes, catheters and devices: Interval placement of a left thoracotomy tube with the tip left upper lobe position. Lungs: Advanced bullous emphysema. Extensive consolidated alveolar airspace disease bilateral upper lobes, most likely reflecting parenchymal scar atelectasis. Bronchiectasis. Calcified granulomas of antecedent disease. Pleural spaces: Some interval improvement in the left tension pneumothorax of estimated now 40%. Heart/Mediastinum: Microcardia with arteriosclerosis. Bones/joints: Scoliosis. Previous cervical fusion. XR/XR chest 1V portable [id number] IMPRESSION: 1. Interval placement of a left thoracotomy tube with the tip left upper lobe position. 2. Some interval improvement in the left tension pneumothorax of estimated now 40%. 3. Ordering physician was previously notified of the tension pneumothorax. Radiation Dose CTDIVOL = (mGy): DLP = (mGy-cm)
--- NOTE | 2020-11-20 21:39 | PC.NURSE ---
Assisted Dr. Bagley with insertion of chest tube to L chest. Pt tolerated well. Placed on [place] which was placed on continuous low suction; appropriate bubbling noted. Chest tube secured with foam tape. SATS 98% on 5L O2 via NC.
[2020-11-20 22:10] LABS: Troponin 5 2HR 16.63 ng/L (0-15); Troponin 5 2HR Delta -2.37 ABS# (0-10)
--- NOTE | 2020-11-20 22:24 | PC.NURSE ---
Pt given sandwich and sprite. AOx4; Denies further needs at this time.
[2020-11-20] MEDS: sodium chloride 0.9% 1,000 ML 999 ML IV (23:43)
--- NOTE | 2020-11-20 23:44 | PM.HP ---
Providers/Chief Complaint Admitting Physician: Sumeet Barros Primary Care Provider: America Baez MD Chief Complaint: RESP DISTRESS, COPD EXACERBATION History of Present Illness 70-year-old male with past medical history significant for anxiety, depression, coronary artery disease, hypertension, hyperlipidemia, tobacco abuse, severe protein calorie malnutrition, abscess in 2019 with extensive distortion of lung architecture residual scarring and fibrosis, recurrent pneumonia, and advanced bullous emphysema on chronic 4l o2 via NC who presented to the hospital with respiratory distress. This was associated with left-sided chest pain. Patient was recently discharged from the hospital on 11/16/2020 after which he was discharged on azithromycin and Levaquin. Upon arrival to emergency room patient was noted to have a WBC of 11.2, hemoglobin of 12.7, hematocrit 37.3 and a platelet count of 405. Sodium 134, potassium 5.1, chloride 97, bicarb 29, BUN 17 and creatinine of 0.3. AST of 40 , ALT of 33 and alkaline phosphatase 199 troponin T baseline 19, 16.6 at 2hr , proBNP of 611. CT of chest was performed which did not show any evidence of acute pulmonary embolism however he was noted to have a large left tension pneumothorax estimated 60-70% volume. This was also noted on chest xray. In ER chest tube was placed. Repeat chest xay showed some interval improvement in the left tension pneumothorax of estimated now 40% patient was given fentanyl 50 mcg IV x 1, Versed 2 mg IVP and multiple IVF bolus. Patient was noted to be hypotensive as well requiring ICU admission and initiation of IV pressor support. Review of Systems General: Reports: 10 or more systems reviewed and unremarkable except in HPI and below Medications/Allergies Home Medications Medication Instructions Recorded Confirmed Last Taken Type diaper,brief,adult,disposable #360 each 10/02/19 11/13/20 Unknown Rx miscellaneous medical supply See Rx Instructions MISCELLANEOUS 10/17/19 11/13/20 Unknown Rx .COMPLEX #200 each miscellaneous medical supply See Rx Instructions MISCELLANEOUS 10/17/19 11/13/20 Unknown Rx .COMPLEX #200 each miscellaneous medical supply See Rx Instructions MISCELLANEOUS 06/03/20 11/13/20 Unknown Rx .COMPLEX #1 ea acetaminophen 1,000 mg PO Q6H 06/12/20 11/13/20 06/11/20 History aspirin 81 mg PO DAILY 06/12/20 11/13/20 06/12/20 History diflorasone See Rx Instructions .ROUTE .COMPLEX 06/12/20 11/13/20 06/12/20 History fluticasone propionate 1 spray INTRANASAL Q12H 06/12/20 11/13/20 06/12/20 History midodrine 10 mg PO TID 06/12/20 11/13/20 06/12/20 History meloxicam 15 mg tablet 15 mg PO DAILY 90 Days #90 tab 08/13/20 11/13/20 Unknown Rx oxybutynin chloride 5 mg tablet 5 mg PO BID 30 Days #60 tab 08/13/20 11/13/20 Unknown Rx pantoprazole 40 mg tablet,delayed 40 mg PO DAILY 90 Days #90 tab 08/13/20 11/13/20 Unknown Rx release albuterol sulfate 90 mcg/actuation 4 puff INHALATION Q4H PRN 90 Days 10/07/20 11/13/20 Unknown Rx aerosol inhaler #25.5 g miscellaneous medical supply See Rx Instructions MISCELLANEOUS 10/21/20 11/13/20 Unknown Rx .COMPLEX #1 ea gabapentin 800 mg tablet 800 mg PO TID 30 Days #90 tab 11/12/20 11/13/20 Unknown Rx tizanidine 4 mg tablet 4 mg PO TID 30 Days #90 tab 11/12/20 11/13/20 Unknown Rx Colace 100 mg PO DAILY 11/13/20 11/13/20 Unknown History Combivent Respimat 1 puff INHALATION QID 11/13/20 11/13/20 Unknown History Lipitor 20 mg PO BEDTIME 11/13/20 11/13/20 Unknown History albuterol sulfate 2.5 mg INHALATION Q4H PRN 11/13/20 11/13/20 Unknown History amitriptyline 10 mg PO BEDTIME 11/13/20 11/13/20 Unknown History melatonin 3 mg PO BEDTIME 11/13/20 11/13/20 Unknown History mirtazapine 30 mg PO BEDTIME 11/13/20 11/13/20 Unknown History phenazopyridine 100 mg PO TID PRN 11/13/20 11/13/20 Unknown History trazodone 100 mg PO BEDTIME 11/13/20 11/13/20 Unknown History albuterol sulfate 1 inh INHALATION Q6H #8.5 g 11/16/20 Unknown Rx azithromycin 250 mg PO .MON,WED,FRI 30 Days #30 11/16/20 11/13/20 Unknown Rx tab budesonide 0.5 mg INHALATION BID 30 Days #0 ml 11/16/20 11/13/20 Unknown Rx formoterol fumarate See Rx Instructions .ROUTE 11/16/20 11/13/20 Unknown Rx .COMPLEX 30 Days #120 milliliter ipratropium-albuterol 3 ml INHALATION Q4H PRN 30 Days #0 11/16/20 11/13/20 Unknown Rx ml ipratropium-albuterol [Combivent 1 puff INHALATION 6XD #4 g 11/16/20 Unknown Rx Respimat] levofloxacin 750 mg PO DAILY 7 Days #7 tab 11/16/20 Unknown Rx Allergies Allergy/AdvReac Type Severity Reaction Status Date / Time No Known Allergies Allergy Verified 11/13/20 17:09 PFSH Acute PFSH: Medical History Abscess of lung Atrial fibrillation Chronic pain Community acquired pneumonia COPD (chronic obstructive pulmonary disease) Coronary artery disease (Unknown) TIMOTEO (generalized anxiety disorder) History of arthritis History of depression Hyperlipidemia Hypertension Insomnia Sepsis Surgical History History of cervical spinal surgery History of cervical spinal surgery History of cervical spinal surgery History of prostatectomy History of prostatectomy History of prostatectomy History of right knee surgery History of right knee surgery History of right knee surgery Hx of inguinal hernia surgery Hx of inguinal hernia surgery Hx of inguinal hernia surgery Family History Other No pertinent family history Social History Smoking and tobacco status: current every day smoker cigarettes Years cigarettes smoked: 50 [ Other cigarette details: Hx of 2PPD ] Alcohol intake: never Household members: none Marital status: Current occupational status: retired and disabled History of recent travel: No Vitals/I&O/Wt Last Vital Signs Temp 97.9 F 11/20/20 18:42 Pulse 90 11/20/20 22:33 Resp 22 H 11/20/20 22:33 BP 72/41 11/20/20 23:57 Pulse Ox 98 11/20/20 22:33 11/20/20 11/20/20 11/21/20 14:59 22:59 06:59 Intake Total 500 / 500 Balance 500 / 500 Weight last 48 hrs Weight 56.699 kg Weight 56.699 kg Physical Exam Narrative: EXAM NARRATIVE: General; Chronically ill appearing , mild distress HEENT; Grossly unremarkable CVS; RRR Chest; - chest tube in place Abd soft, ND, ND Ext ; No edema Data : 11/20/20 19:08 11/20/20 19:08 A&P Assessment and plan (1) Spontaneous tension pneumothorax: Status: Acute (2) Hypotension: Status: Acute (3) Acute and chronic respiratory failure: Status: Acute Qualifiers: Respiratory failure complication: hypoxia and hypercapnia Qualified Code(s): J96.21 - Acute and chronic respiratory failure with hypoxia; J96.22 - Acute and chronic respiratory failure with hypercapnia (4) Hypertension: Status: Acute Qualifiers: Hypertension type: other secondary hypertension Qualified Code(s): I15.8 - Other secondary hypertension (5) Hyperlipidemia: Status: Acute Additional A&P Information Acute on chronic hypoxemic respiratory failure due to large left sided tension pneumothorax Underlying advanced bullous emphysema S/p Chest tube placement in ER To suction Repeat Chest x-ray in am Consult pulmonary Supplemental o2 as needed Baseline o2 at 4L via NC Solu-Medrol 80mg IV q8hr Can not entirely ruled out underlying Zosyn 3.375 IV q8hr Duoneb q6hr Hypotension Likely due to above Levophed to keep MAPs > 65 NS bolus x 2 Continue NS at 75cc/hr DVT ppx SCDs Attestations Medical Necessity Statement*: Will likely require over 2 midnight stay in hospital for eval and treatment. Time Spent in Patient Care: Greater than 35 minutes (>than 50% of time spent in counselling and/or direct pt care on unit). Critical Care Time: Critical Care Time (min): 55 Coding Level of Care Code Acute Gis Geographer for Reggie Fwluis miguel Diagnoses Spontaneous tension pneumothorax J93.0 Hypotension I95.9 Acute and chronic respiratory failure J96.21; J96.22 Respiratory failure complication: hypoxia and hypercapnia Hypertension I15.8 Hypertension type: other secondary hypertension Hyperlipidemia E78.5
[2020-11-21] VITALS (45 sets, daily range): BP systolic 75–125; BP diastolic 41–71; PULSE 55–113; RESP 16–28; TEMP 36.2–36.8; O2SAT 89–100; BMI 15.3
--- NOTE | 2020-11-21 | CT_ITS ---
WS: [id number] CT chest wo con [id number] REASON FOR EXAM: CREPITUS / CHEST TUBE IV CONTRAST ADMINISTERED: None. TOTAL EXAM DLP: 460.[address] scans at [facility] use at least one of these dose optimization techniques: automat ed exposure control; mA and/or kV adjustment per patient size (includes targeted exams where dose is matched to clinical indication); or iterative reconstruction. FINDINGS: Extensive upper lobe bullous disease with dense lung consolidation with air bronchograms. Upper retra ction of the hilar regions. The left chest tube has been placed into the parenchyma of the left upper lobe. Extensive air in the soft tissues of the anterior left chest and back. Extensive air in the soft tissues of the neck. Pneu momediastinum. Moderate left pneumothorax persists. CT/CT chest wo con [id number] IMPRESSION: Left chest tube is been placed within the parenchyma of the left upper lobe. Residual pneumothorax. Extensive barotrauma with soft tissue subcutaneous emphysema involving the ches t and neck. Pneumomediastinum.
--- NOTE | 2020-11-21 00:29 | PC.NURSE ---
Patient came to the floor from ICU. After getting the patient situated and getting his vitals FERNANDA Burkett notified me that the patients blood pressure was 72/41. I called to notify Dr. Barros. He said to give the patient a 1 Liter bolus of normal saline and that the patient was actually supposed to be transferred to ICU from ER not MED SURG. I notified Madison (charge nurse) The patient has been transferred to ICU.
--- NOTE | 2020-11-21 00:36 | PC.NURSE ---
5 L at home oxygen
--- NOTE | 2020-11-21 00:40 | ECG_ITS ---
[facility] Test Date: 2020-11-21 Pat Name: Chris Brooks Department: Room: ICU03 Gender: Male Manager [employer]: : [id number] Requested By: Deniz Bagley Order Number: [id number] King MD: Lianna Crawley M.D. Measurements Intervals [place] Rate: 88 P: 100 MN: 143 QRS: -77 QRSD: 102 T: 76 QT: 386 QTc: 467 Interpretive Statements SINUS RHYTHM INCOMPLETE RIGHT BUNDLE BRANCH BLOCK LEFT ANTERIOR FASCICULAR BLOCK Compared to ECG 11/20/2020 20:35:29 Sinus tachycardia no longer present Electronically Signed On 11-22-2020 5:54:20 CDT by Lianna Crawley M.D. [email or web address] [email or web address] hospitalVocalocitymercy health [facility].[employer]/store/[id number]
[2020-11-21] MEDS: sodium chloride 0.9% 1,000 ML 75 ML IV ×2 (01:13→14:42)
--- NOTE | 2020-11-21 01:34 | PC.NURSE ---
Pt had 2 Liters given. 3rd was ordered along with NS @ 75mls per hour. Verified with Dr. Barros if he wanted 3rd L. Was instructed to not give 3rd L.
[2020-11-21] MEDS: pneumococcal (23 valent) SDV 0.5 mL IM (01:41)
[2020-11-21] MEDS: piperacillin-tazobactam 3.375 GM in sodium chloride 0.9% (plus) 50 ML IV ×3 (01:46→17:40)
[2020-11-21 01:50] LABS: Troponin 5 6HR 13.89 ng/L (0-15)
[2020-11-21 01:53] LABS: Troponin 5 6HR Delta -5.11 ng/L (0-12)
[2020-11-21] MEDS: ipratropium-albuterol 3 mL Neb INHALATION ×4 (02:22→20:49)
--- NOTE | 2020-11-21 03:33 | PC.NURSE ---
Transfer Note Patient transferred to ICU from [place] via bed at 0020. Handoff received from [place] nurse. Patient oriented to environment and equipment. Covering service notified. Orders reviewed and will continue to monitor.
--- NOTE | 2020-11-21 05:09 | XRR_ITS ---
PROCEDURE INFORMATION: Exam: XR Chest Exam date and time: 11/21/2020 5:09 AM Age: 70 years old Clinical indication: Device placement; Patient HX: Reevaluation of chest tube placement for pneumothorax. ; Additional info: Chest tube placement/pneumo TECHNIQUE: Imaging protocol: XR of the chest. Views: 1 view. COMPARISON: CR (CHEST, ) 11/20/2020 9:28 PM FINDINGS: Tubes, catheters and devices: Left-sided chest tube remains in satisfactory position. Lungs: Interval worsening of dense airspace opacities in the upper lungs and hazy opacification of the partially collapsed left lung. Tiny calcified granulomas are seen throughout both lungs. Persistent moderate left-sided pneumothorax, most prominently in the left lower chest. No large pleural effusion. Pleural spaces: See Lungs finding. Heart/Mediastinum: Stable cardiomediastinal silhouette. Bones/joints: Unremarkable. Soft tissues: There is increased subcutaneous emphysema over the left chest wall and lower neck bilaterally. XR/XR chest 1V portable [id number] IMPRESSION: 1. Unchanged position of left-sided chest tube with persistent moderate size pneumothorax. 2. Interval worsening of bilateral airspace opacities, involving mainly the lung apices. 3. Interval worsening subcutaneous emphysema. Radiation Dose CTDIVOL = (mGy): DLP = (mGy-cm)
--- NOTE | 2020-11-21 05:22 | PC.NURSE ---
Shift Note Frequent safety and comfort rounds continue. Pt chest tube redressed. Orders and nursing care completed as indicated. Pt had to have Levophed started temporarily due to low pressures despite 2 L bolus. Patient monitored for response to intervention and treatment. Education provided includes the indication, dose and possible side effects of Levophed. Patient verbalized understanding. Will continue care.
--- NOTE | 2020-11-21 07:53 | PC.NURSE ---
Dr Hutchison, at bedside, called time of
--- NOTE | 2020-11-21 09:09 | PC.CHAP ---
Pastoral Care Encounter/Spiritual Assessment Type of Contact [] Declined apparatus repair mechanic visit [] Patient/Family/Request visit [] Outpatient visit [] Follow-up visit [] Physician referral [] Code/Alert [x] Routine visit [] Staff referral [] Actively dying [] Patient sleeping [] Family support [] [] Out of room [] Palliative care [] [x] Receiving care in room [] Pre-surgical visit [] Trauma [] Long length of stay [x] ICU visit [] Other: Relational/Emotional Strength [] Patient feels connected with others/family/visitors/staff [] Distress [] Loneliness/isolation [] Abandonment Spirituality of Patient [] Person of Lakshmi [] Attends Holiness of their Lakshmi [] Believes in Prayer [] Reads Bible or Voodoo materials [] There are Spiritual issues to be addressed Nurse Practitioner Adult Interventions [x] Prayer [] Active listening [] Non-anxious presence [] Spiritual/emotional support [] Crisis/trauma care [] Spiritual counseling [] Bereavement support [] Provided bereavement packet [] Provided Bible/devotional materials [] Provided toy/stuffed animal, coloring book to patient or family member [] Provided Communion [] Anointing/[place] [] Salvation [x] Completed spiritual assessment [] Other: Impact on Illness or Injury [] Angry [] Fearful [] Anxious [] Often cries [] Exhaustion [] Unable to work [] Unable to attend restoration [] Unable to walk/stand [] Unable to read [] Unable to drive [] Unable to eat/drink [] Unable to sleep [] Unable to be with family [] Patient intubated [] Other: Summary Time spent with patient
--- NOTE | 2020-11-21 09:25 | PC.NURSE ---
SubQ emphysema noted to have increased since shift report. Left side of chest out about an inch further. Crepitus felt in neck, along lower ribs on left and down left arm. Dr Hutchison, at bedside, stat CT ordered.
--- NOTE | 2020-11-21 09:55 | PC.NURSE ---
Stat CT completed. Pt tolerated well.
[2020-11-21] MEDS: morphine 4 mg/mL SDV 1 mL 2 MG IVP (10:42)
[2020-11-21] MEDS: pantoprazole DR 40 mg Tablet PO (10:42)
--- NOTE | 2020-11-21 14:00 | PC.NURSE ---
Dr Montelongo and Dr Buckner, at bedside, assessing chest tube. Plan is to re-evaluate need for additional chest tube and/or removal of present chest tube.
--- NOTE | 2020-11-21 14:44 | PM.PN ---
Vitals/I&O/Wt Last Vital Signs Temp 98.2 F 11/21/20 06:00 Pulse 88 11/21/20 10:24 Resp 20 H 11/21/20 10:42 BP 114/65 11/21/20 06:00 Pulse Ox 99 11/21/20 10:42 11/20/20 11/21/20 11/21/20 22:59 06:59 14:59 Intake Total 1564.224 / 1564.224 Output Total 963 / 963 Balance 601.224 / 601.224 Weight last 48 hrs Weight 61.462 kg Weight 56.699 kg Weight 56.699 kg Physical Exam Const: COMMON NORMALS: patient oriented x3 HENMT: COMMON NORMALS: normocephalic and atraumatic HEAD & SCALP: normocephalic and atraumatic Chest: OTHER: Extensive left-sided subcutaneous emphysema, extending into the neck as well as back Resp: OTHER: Diminished air entry into the left lung field, right-sided clear with good air entry Cardio: COMMON NORMALS: regular rate, regular rhythm, S1 normal heart sound present, S2 normal heart sound present, No gallops present (Cardio), No murmurs present (Cardio), No rub (Cardio) and Peripheral pulses 2+ throughout RATE: regular rate RHYTHM: regular rhythm HEART SOUNDS: S1 normal heart sound present and S2 normal heart sound present PERIPHERAL PULSES: Peripheral pulses 2+ throughout GI: COMMON NORMALS: Normal to inspection, nondistended, normoactive bowel sounds present, Soft to palpation, non-tender, No hepatosplenomegaly present and no masses AUSCULTATION: Yes normoactive bowel sounds PALPATION: Yes Soft to palpation and Yes No hepatosplenomegaly present RECTAL EXAM: Yes deferred Extremity: COMMON NORMALS: no clubbing, cyanosis or edema and no pedal edema Neuro: COMMON NORMALS: patient oriented x3 Data : 11/20/20 19:08 11/20/20 19:08 Micro: Microbiology 11/21/20 01:40 Blood Culture - Preliminary Blood SPECIMEN COLLECTED 11/21/20 01:35 Blood Culture - Preliminary Blood SPECIMEN COLLECTED A&P Assessment and plan (1) Acute and chronic respiratory failure: Acute on chronic hypoxic respiratory failure secondary to large left-sided tension pneumothorax. He has pre-existing extensive emphysematous bullous disease. Status post left chest tube placement in the ER: Left chest tube is been placed within the parenchyma of the left upper lobe. Left chest tube with continuous bubbling seen and no tidling is seen, adequate suction pressure is being maintained. Patient is currently requiring 5 L oxygen through nasal cannula and is saturating well. He has been empirically kept on Zosyn for any possible underlying pneumonia as a CT chest had shown consolidated alveolar airspace disease. Appreciate pulmonary as well as cardiothoracic surgery consult. Status: Acute Qualifiers: Respiratory failure complication: hypoxia and hypercapnia Qualified Code(s): J96.21 - Acute and chronic respiratory failure with hypoxia; J96.22 - Acute and chronic respiratory failure with hypercapnia (2) Spontaneous tension pneumothorax: Status: Acute (3) Subcutaneous emphysema: Status: Acute (4) Pneumomediastinum: Status: Acute (5) Hypotension: Patient was initially hypotensive likely secondary to tension pneumothorax. He was briefly on Levophed. Currently he is off Levophed. And maintaining a good map. Status: Acute (6) Hypertension: Status: Acute Qualifiers: Hypertension type: other secondary hypertension Qualified Code(s): I15.8 - Other secondary hypertension (7) Hyperlipidemia: Status: Acute Additional A&P Information Acute on chronic hypoxemic respiratory failure due to large left sided tension pneumothorax Underlying advanced bullous emphysema S/p Chest tube placement in ER To suction Repeat Chest x-ray in am Consult pulmonary Supplemental o2 as needed Baseline o2 at 4L via [place] Solu-Medrol 80mg IV q8hr Can not entirely ruled out underlying Zosyn 3.375 IV q8hr Duoneb q6hr Hypotension Likely due to above Levophed to keep MAPs > 65 NS bolus x 2 Continue NS at 75cc/hr DVT ppx SCDs Attestations Medical Necessity Statement*: Patient is to the hospital for management of tension pneumothorax. Coding Level of Care Code Acute Talent Acquisition Coordinator for [facility] Diagnoses Acute and chronic respiratory failure J96.21; J96.22 Respiratory failure complication: hypoxia and hypercapnia Spontaneous tension pneumothorax J93.0 Subcutaneous emphysema T79.7XXA Pneumomediastinum J98.2 Hypotension I95.9 Hypertension I15.8 Hypertension type: other secondary hypertension Hyperlipidemia E78.5
--- NOTE | 2020-11-21 14:46 | PC.NURSE ---
Height: double checked with pt. He reported his height is 6 ft. 7 in
--- NOTE | 2020-11-21 16:35 | PC.NURSE ---
Pt resting in bed with eyes closed. His arm with the B/P cuff over his head. ( B/P 87/41) No s/s of distress noted. Will continue to monitor.
[2020-11-21] MEDS: oxyCODONE-APAP 5-325 mg Tablet PO (17:39)
--- NOTE | 2020-11-21 19:07 | PC.NURSE ---
Shift Note: Pt remained on 5lpm/NC , his home O2 level. Auscultated lung sound are very coarse and crackles. Pt able to move about without shortness of breath. O2 sats stayed greater than 94%. Chest tube remains on suction, air leak continues. Chest tube dressing changed this afternoon.Only 74 ml chest tube output of serosangiouness fluid this shift. Pt used urinal all but one time this shift. ore than adequate urine output, see flowsheet. He was incontinent of bowel. He eats and drinks everyting he can off his meal trays. Frequent safety and comfort rounds continue. Orders and/or nursing care completed as indicated. Patient monitored for response to intervention and treatment(s). Education provided includes chest tube care, solu-medrol and morphine. Patient verbalizes undertanding of plan of care, medications and procedures. Will continue to monitor.
[2020-11-22] VITALS (26 sets, daily range): BP systolic 100–161; BP diastolic 63–100; PULSE 50–94; RESP 14–26; TEMP 36.6–37.2; O2SAT 90–100
[2020-11-22] MEDS: piperacillin-tazobactam 3.375 GM in sodium chloride 0.9% (plus) 50 ML IV ×3 (01:16→17:24)
[2020-11-22] MEDS: morphine 4 mg/mL SDV 1 mL 2 MG IVP ×2 (01:17→07:19)
--- NOTE | 2020-11-22 03:35 | XR_ITS ---
WS: [id number] XR chest 1V portable [id number] REASON FOR EXAM: chest tube placement/pneumo FINDINGS: Compared to the previous examination of 11/21/2020, left chest tube remains in place. Pleural air around the base of the left lung appears reduced in volume. Subcutaneous emphysema in the chest wall and neck unchanged. Pneumomediastinum unchanged. Complex infiltrates and lucencies in the lung apices unchanged. Extensive calcified granulomatous change with upward retraction of the hilar regions. XR/XR chest 1V portable [id number] IMPRESSION: Stable abnormal chest with some reduction of the left pneumothorax. Have reviewed CT scan of 11/21/2020 are again. Left chest tube does not appear to be within the major fissure but rather within the parenchyma of the left upp er lobe. The tip of the tube abuts the major fissure from anteriorly.
[2020-11-22 04:56] LABS: Basophils % 0.1 %; Hematocrit 36.1 % (42.0-52.0); Hemoglobin 11.7 g/dL (11.7-16.6); Lymphocytes # 5.1 10^3/uL (0.8-4.8); Lymphocytes % 28.1 %; Mean Corpuscular HGB Conc 32.4 g/dL (30.0-36.0); Mean Corpuscular Hemoglobin 32.3 pg (28.0-34.0); Mean Corpuscular Volume 99.7 fl (80-94); Mean Platelet Volume 8.8 fL (7.4-10.4); Monocytes # 1.3 10^3/uL (0.2-0.9); Neutrophils # 11.77 10^3/uL (1.8-7.7); Neutrophils % 64.3 %; Nucleated Red Blood Cells % 0 %; Platelet Count 390 10^3/cmm (130-400); Red Blood Count 3.62 10^6/uL (4.1-5.3); Red Cell Distribution Width 14.3 % (12.1-15.1); White Blood Count 18.3 10^3/uL (4.0-10.0)
[2020-11-22 05:16] LABS: Alanine Aminotransferase 27 U/L (0-41); Albumin Level 2.8 g/dL (3.5-5.2); Alkaline Phosphatase 137 IU/L (40-130); Anion Gap 9.8 (5-19); Aspartate Amino Transferase 32 U/L (0-40); Blood Urea Nitrogen 10 mg/dL (8-23); Calcium 8.5 mg/dL (8.5-10.5); Carbon Dioxide 30 mmol/L (22-29); Chloride 99 mmol/L (98-107); Globulin 3.6 g/dL (1.3-4.6); Glomerular Filtration Rate 297.3 mL/min (90-130); Glucose 101 mg/dL (65-115); Magnesium 1.8 mg/dL (1.7-2.3); Osmolality Calculated 279 mOsm/kg (285-295); Partial Thromboplastin Time 25.6 SECONDS (23.9-36.7); Phosphorus 2.1 mg/dL (2.5-4.5); Potassium 3.8 mmol/L (3.5-5.1); Sodium 135 mmol/L (136-145); Total Bilirubin 0.2 mg/dL (0.15-1.2); Total Protein 6.4 g/dL (6.6-8.7)
[2020-11-22 05:17] LABS: Creatinine Clr Calc Pharmacy 75.7605
--- NOTE | 2020-11-22 06:31 | PC.NURSE ---
Shift Note Frequent safety and comfort rounds continue. Frequent checks of chest tube. Orders and nursing care completed as indicated. Patient monitored for response to intervention and treatment. Education provided includes chest tube safety. Patient and verbalized understanding. Will continue care.
[2020-11-22 06:33] LABS: Procalcitonin 0.05 ng/mL (0-0.5)
[2020-11-22] MEDS: oxyCODONE-APAP 5-325 mg Tablet PO (09:08)
[2020-11-22] MEDS: predniSONE 20 mg Tablet PO (09:09)
[2020-11-22] MEDS: pantoprazole DR 40 mg Tablet PO (09:10)
[2020-11-22] MEDS: ipratropium-albuterol 3 mL Neb INHALATION ×3 (09:18→20:00)
--- NOTE | 2020-11-22 10:46 | PC.NURSE ---
0730 recd a/o. chest tube to left chest. dr. alfred in. to water seal.
--- NOTE | 2020-11-22 10:49 | PC.NURSE ---
0900. dr. hayden in-will return to make changes in chest tube.
--- NOTE | 2020-11-22 10:49 | PC.NURSE ---
0700 crepitus to left anterior chest.
--- NOTE | 2020-11-22 11:26 | PC.CHAP ---
Pastoral Care Encounter/Spiritual Assessment Type of Contact [] Declined instructor knitting visit [] Patient/Family/Request visit [] Outpatient visit [] Follow-up visit [] Physician referral [] Code/Alert [x] Routine visit [] Staff referral [] Actively dying [] Patient sleeping [] Family support [] [] Out of room [] Palliative care [] [x] Receiving care in room [] Pre-surgical visit [] Trauma [] Long length of stay [x] ICU visit [] Other: Relational/Emotional Strength [] Patient feels connected with others/family/visitors/staff [] Distress [] Loneliness/isolation [] Abandonment Spirituality of Patient [] Person of Lakshmi [] Attends Judaism of their Lakshmi [] Believes in Prayer [] Reads Bible or Jainism materials [] There are Spiritual issues to be addressed Outreach Educator Interventions [x] Prayer [] Active listening [] Non-anxious presence [] Spiritual/emotional support [] Crisis/trauma care [] Spiritual counseling [] Bereavement support [] Provided bereavement packet [] Provided Bible/devotional materials [] Provided toy/stuffed animal, coloring book to patient or family member [] Provided Communion [] Anointing/[place] [] Salvation [x] Completed spiritual assessment [] Other: Impact on Illness or Injury [] Angry [] Fearful [] Anxious [] Often cries [] Exhaustion [] Unable to work [] Unable to attend mosque [] Unable to walk/stand [] Unable to read [] Unable to drive [] Unable to eat/drink [] Unable to sleep [] Unable to be with family [] Patient intubated [] Other: Summary Time spent with patient
--- NOTE | 2020-11-22 11:59 | PC.NURSE ---
care transferred to [facility].
--- NOTE | 2020-11-22 12:50 | P.MISC_ITS ---
Miscellaneous Note Purpose of Documentation: infection control note, contacted by health dept Note: Informed by infection control nurse Noemy Kumar that we were contacted by health dept to report patient had 4+ AFB smear positive reported on sputum cx from 11/14. Culture may take up to 6 weeks. Patient at high risk for pulmonary TB. To further evaluate for pulmonary TB, recommended AFB culture and MTB PCR. Send 3 specimen of expectorated sputum taken 8 hours apart for AFB smear/culture and MTB PCR (send out to [facility]). Airborne isolation precautions to be maintained until MTB PCR negative x 2 from expectorated sputum or MTB PCR negative x 1 from trach aspirate or bronchoscopy (if performed in this patient) OR culture reveals acid fast bacilli other than mycobacterium tuberculosis.
--- NOTE | 2020-11-22 14:09 | XR_ITS ---
WS: [id number] XR chest 1V portable [id number] REASON FOR EXAM: chest tube FINDINGS: Compared to the examination of 5:46 AM 11/22/2020, left chest tube remains in same position. Extensive subcutaneous emphysema in the chest wall and base of the neck. This appears to be increasin g in the left lateral chest wall and extending across the chest into the right pectoralis. Pneumomediastinum persists without significant interval change. Air in the pleural space around the base of the left lung is again noted. This appears to be decrease d in volume compared to the earlier examination. Complex abnormalities in the right lung apices unchanged. XR/XR chest 1V portable [id number] IMPRESSION: Left pneumothorax and barotrauma as above.
--- NOTE | 2020-11-22 15:24 | PM.PN ---
Subjective Subjective: Interval history: Patient was seen and examined this morning, was complaining of left-sided chest pain, Subcutaneous emphysema has not improved.Currently saturating well on 5 Ls oxygen. Blood pressure is stable. Chest tube is waterseal. Continue bubbling and tidling noted. Medications: Reviewed: Yes Vitals/I&O/Wt Last Vital Signs Temp 98.9 F 11/22/20 08:00 Pulse 86 11/22/20 14:54 Resp 18 11/22/20 14:54 BP 100/69 11/22/20 10:30 Pulse Ox 96 11/22/20 14:54 11/22/20 11/22/20 11/22/20 06:59 14:59 22:59 Intake Total 900 / 4472.5 400 / 400 Output Total 1985 / 4759 500 / 500 Balance -1085 / -286.5 -100 / -100 Weight last 48 hrs Weight 61.462 kg Weight 56.699 kg Weight 56.699 kg Physical Exam Const: COMMON NORMALS: patient oriented x3 HENMT: COMMON NORMALS: normocephalic and atraumatic HEAD & SCALP: normocephalic and atraumatic Chest: OTHER: Extensive left-sided subcutaneous emphysema, extending into the neck as well as back Resp: OTHER: Diminished air entry into the left lung field, right-sided clear with good air entry Cardio: COMMON NORMALS: regular rate, regular rhythm, S1 normal heart sound present, S2 normal heart sound present, No gallops present (Cardio), No murmurs present (Cardio), No rub (Cardio) and Peripheral pulses 2+ throughout RATE: regular rate RHYTHM: regular rhythm HEART SOUNDS: S1 normal heart sound present and S2 normal heart sound present PERIPHERAL PULSES: Peripheral pulses 2+ throughout GI: COMMON NORMALS: Normal to inspection, nondistended, normoactive bowel sounds present, Soft to palpation, non-tender, No hepatosplenomegaly present and no masses AUSCULTATION: Yes normoactive bowel sounds PALPATION: Yes Soft to palpation and Yes No hepatosplenomegaly present RECTAL EXAM: Yes deferred Extremity: COMMON NORMALS: no clubbing, cyanosis or edema and no pedal edema Neuro: COMMON NORMALS: patient oriented x3 Data : 11/22/20 04:15 11/22/20 04:15 Micro: Microbiology 11/21/20 01:40 Blood Culture - Preliminary Blood NEGATIVE TO DATE 11/21/20 01:35 Blood Culture - Preliminary Blood NEGATIVE TO DATE A&P Assessment and plan (1) Acute and chronic respiratory failure: Acute on chronic hypoxic respiratory failure secondary to large left-sided tension pneumothorax. He has pre-existing extensive emphysematous bullous disease. Status post left chest tube placement in the ER: Left chest tube is been placed within the parenchyma of the left upper lobe. Left chest tube with continuous bubbling seen and no tidling is seen, adequate suction pressure is being maintained. Patient is currently requiring 5 L oxygen through nasal cannula and is saturating well. He has been empirically kept on Zosyn for any possible underlying pneumonia as a CT chest had shown consolidated alveolar airspace disease. Appreciate pulmonary as well as cardiothoracic surgery consult. Status: Acute Qualifiers: Respiratory failure complication: hypoxia and hypercapnia Qualified Code(s): J96.21 - Acute and chronic respiratory failure with hypoxia; J96.22 - Acute and chronic respiratory failure with hypercapnia (2) Spontaneous tension pneumothorax: Status: Acute (3) Subcutaneous emphysema: Status: Acute (4) Pneumomediastinum: Status: Acute (5) Hypotension: Patient was initially hypotensive likely secondary to tension pneumothorax. He was briefly on Levophed. Currently he is off Levophed. And maintaining a good map. Status: Acute (6) Hypertension: Status: Acute Qualifiers: Hypertension type: other secondary hypertension Qualified Code(s): I15.8 - Other secondary hypertension (7) Hyperlipidemia: Status: Acute Additional A&P Information # 4+ AFB smear positive reported on sputum cx from 11/14. Based on the prior chart review and clinical history, he has been placed on airborne isolation, repeat AFB smear/culture and MTB PCR has been ordered. 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
--- NOTE | 2020-11-22 16:09 | PM.CONSULT ---
Providers/Reason For Consult Consulting Physician/Specialty*: Faheem Montelongo MD/ Pulmonary Critical Care Reason for Consult*: Loculated left pneumothorax s/p chest tube placement Requesting Physician: Jeffrey Hutchison MD Attending Physician: Jeffrey Hutchison MD Primary Care Provider: America Baez MD History of Present Illness History of Present Illness Upon review of the chart Chris Brooks is a 70 year old male with past medical history significant for anxiety, depression, coronary artery disease, hypertension, hyperlipidemia, tobacco abuse, severe protein calorie malnutrition, abscess in 2019 with extensive distortion of lung architecture residual scarring and fibrosis, lung abscess secondary to Pseudomonas in the past, TB has been ruled out, and advanced bullous emphysema on chronic 4l o2 via NC who presented to the hospital with respiratory distress. This was associated with left-sided chest pain. Admission imaging x-ray and CT chest showed large left pneumothorax estimated to be 60 to 70% and in ER chest tube was placed. Repeat chest x-ray showed some interval improvement estimated in pneumothorax reported to be 40%. Pulmonary critical care consult requested for management of chest tube in patient with left pneumothorax with underlying severe bullous emphysema. Patient seen at bedside-he is on 5 L nasal cannula saturating 98 - 100% -Does not appear in any respiratory distress -Complaining of left side chest pain near chest tube insertion site -Also noted significant subcutaneous emphysema seen on left chest wall and neck -Patient has grade 3 leak on expiration under waterseal -Recently discharged from the hospital on 11/16/2020 on azithromycin and Levaquin. -Due to persistent air leak-repeat CT chest obtained-which showed left chest tube within the parenchyma of left upper lobe -contacted by health dept to report patient had 4+ AFB smear positive reported on sputum cx from 11/14. Culture may take up to 6 weeks. Patient at high risk for pulmonary TB. To further evaluate for pulmonary TB, recommended AFB culture and MTB PCR. Send 3 specimen of expectorated sputum taken 8 hours apart for AFB smear/culture and MTB PCR (send out to [facility]). -Patient placed on airborne isolation precautions accordingly until MTB PCR negative x2 -Other labs and imaging reviewed Review of Systems General: Reports: 10 or more systems reviewed and unremarkable except in HPI and below Meds/Allergies Home Medications and Allergies Home Medications Medication Instructions Recorded Confirmed Last Taken Type diaper,brief,adult,disposable #360 each 10/02/19 11/21/20 Unknown Rx acetaminophen 1,000 mg PO Q6H 06/12/20 11/21/20 06/11/20 History aspirin 81 mg PO DAILY 06/12/20 11/21/20 06/12/20 History diflorasone See Rx Instructions .ROUTE .COMPLEX 06/12/20 11/21/20 06/12/20 History fluticasone propionate 1 spray INTRANASAL Q12H 06/12/20 11/21/20 06/12/20 History meloxicam 15 mg tablet 15 mg PO DAILY 90 Days #90 tab 08/13/20 11/21/20 Unknown Rx oxybutynin chloride 5 mg tablet 5 mg PO BID 30 Days #60 tab 08/13/20 11/21/20 Unknown Rx pantoprazole 40 mg tablet,delayed 40 mg PO DAILY 90 Days #90 tab 08/13/20 11/21/20 Unknown Rx release gabapentin 800 mg tablet 800 mg PO TID 30 Days #90 tab 11/12/20 11/21/20 Unknown Rx tizanidine 4 mg tablet 4 mg PO TID 30 Days #90 tab 11/12/20 11/21/20 Unknown Rx Combivent Respimat 1 puff INHALATION QID 11/13/20 11/21/20 Unknown History albuterol sulfate 2.5 mg INHALATION Q4H PRN 11/13/20 11/21/20 Unknown History amitriptyline 10 mg PO BEDTIME 11/13/20 11/21/20 Unknown History atorvastatin [Lipitor] 20 mg PO BEDTIME 11/13/20 11/21/20 Unknown History docusate sodium [Colace] 100 mg PO DAILY 11/13/20 11/21/20 Unknown History melatonin 3 mg PO BEDTIME 11/13/20 11/21/20 Unknown History phenazopyridine 100 mg PO TID PRN 11/13/20 11/21/20 Unknown History trazodone 100 mg PO BEDTIME 11/13/20 11/21/20 Unknown History azithromycin 250 mg PO .MON,WED,FRI 30 Days #30 11/16/20 11/21/20 Unknown Rx tab formoterol fumarate See Rx Instructions .ROUTE 11/16/20 11/21/20 Unknown Rx .COMPLEX 30 Days #120 milliliter ipratropium-albuterol 3 ml INHALATION Q4H PRN 30 Days #0 11/16/20 11/21/20 Unknown Rx ml ipratropium-albuterol [Combivent 1 puff INHALATION 6XD #4 g 11/16/20 11/21/20 Unknown Rx Respimat] levofloxacin 750 mg PO DAILY 7 Days #7 tab 11/16/20 11/21/20 Unknown Rx albuterol sulfate 1 inh INHALATION Q6H PRN 11/21/20 11/21/20 Unknown History budesonide 0.5 mg INHALATION BID 11/21/20 11/21/20 Unknown History Allergies Allergy/AdvReac Type Severity Reaction Status Date / Time No Known Allergies Allergy Verified 11/13/20 17:09 Current Medications Current Medications Generic Name Dose Route Start Last Admin Trade Name Freq PRN Reason Stop Dose Admin Albuterol/Ipratropium 3 ml 11/21/20 03:00 11/22/20 14:52 Ipratropium-Albuterol 3 Ml Neb INHALATION 3 ml Q6H.RESPIRATORY NEYMAR Administration Norepinephrine Bitartrate 4 mg 254 mls @ 0 mls/hr 11/21/20 00:45 11/21/20 03:05 / Dextrose IV 0 mcg/min .Q0M NEYMAR 0 mls/hr Titration Protocol Per Protocol Piperacillin Sod/Tazobactam 50 mls @ 12.5 mls/hr 11/21/20 01:15 11/22/20 09:10 Sod 3.375 gm/ Sodium Chloride IV 12.5 mls/hr Q8H NEYMAR Administration Protocol As Directed Oxycodone/Acetaminophen 1 - 2 tab 11/21/20 02:10 11/22/20 09:08 Oxycodone-Apap 5-325 Mg Tablet PO 2 tab Q6H PRN Administration MODERATE TO SEVERE PAIN Pantoprazole Sodium 40 mg 11/21/20 09:00 11/22/20 09:[address] 40 Mg Tablet PO 40 mg DAILY NEYMAR Administration Prednisone 20 mg 11/22/20 09:00 11/22/20 09:09 Prednisone 20 Mg Tablet PO 20 mg DAILY NEYMAR Administration PFSH Acute PFSH: Medical History (Updated 11/22/20 @ 22:23 by Faheem Montelongo MD) Abscess of lung Atrial fibrillation Bullous emphysema (Unknown) Chronic pain Chronic respiratory failure with hypoxia Community acquired pneumonia Constipation COPD (chronic obstructive pulmonary disease) COPD (chronic obstructive pulmonary disease) Coronary artery disease (Unknown) Direct inguinal hernia of right side TIMOTEO (generalized anxiety disorder) History of arthritis History of depression Hyperlipidemia Hypertension Impaired mobility and activities of daily living Insomnia Low body mass index (BMI) Pulmonary cachexia due to chronic obstructive pulmonary disease Pulmonary fibrosis Sepsis Surgical History History of cervical spinal surgery History of cervical spinal surgery History of cervical spinal surgery History of prostatectomy History of prostatectomy History of prostatectomy History of right knee surgery History of right knee surgery History of right knee surgery Hx of inguinal hernia surgery Hx of inguinal hernia surgery Hx of inguinal hernia surgery Family History Other No pertinent family history Social History Smoking and tobacco status: current every day smoker cigarettes Years cigarettes smoked: 50 [ Other cigarette details: Hx of 2PPD ] Alcohol intake: never Household members: none Marital status: Current occupational status: retired and disabled History of recent travel: No Vitals/I&O/Wt Last Vital Signs Temp 98.9 F 11/22/20 08:00 Pulse 86 11/22/20 14:54 Resp 18 11/22/20 14:54 BP 100/69 11/22/20 10:30 Pulse Ox 96 11/22/20 14:54 11/22/20 11/22/20 11/22/20 06:59 14:59 22:59 Intake Total 900 / 4472.5 400 / 400 Output Total 1985 / 4759 500 / 500 Balance -1085 / -286.5 -100 / -100 Weight last 48 hrs Weight 135 lb 8 oz Weight 125 lb Weight 125 lb Physical Exam Narrative: EXAM NARRATIVE: General: Thin cachectic male, alert, NAD HEENT: conj clear, EOMI, PERRL, mmm, Neck: supple, no meningismus Heme: no cervical LAP Pulmonary: Subcutaneous emphysema seen on left anterior chest wall extending up to the neck, crepitus ++, bilateral breath sounds present; left chest tube dressing-no soaking noted Cardiovascular: rrr, nl s1s2, no mrg Abdomen: soft, nt, nd, no r/g, bs+ Extremities: pulses +, no edema, no c/c : no CVA tenderness Skin: intact, no rash MSK: no back or neck pain Neurologic: grossly intact Data Labs: Other Labs: Laboratory Results WBC 18.3 10^3/uL (4.0 -10.0) H 11/22/20 04:15 RBC 3.62 10^6/uL (4.1 -5.3) L 11/22/20 04:15 Hgb 11.7 g/dL (11.7-1 6.6) 11/22/20 04:15 Hct 36.1 % (42.0-52.0 ) L 11/22/20 04:15 MCV 99.7 fl (80-94) H 11/22/20 04:15 MCH 32.3 pg (28.0-34. 0) 11/22/20 04:15 MCHC 32.4 g/dL (30.0-3 6.0) 11/22/20 04:15 RDW 14.3 % (12.1-15.1 ) 11/22/20 04:15 Plt Count 390 10^3/cmm (130 -400) 11/22/20 04:15 MPV 8.8 fL (7.4-10.4) 11/22/20 04:15 Neut % (Auto) 64.3 % 11/22/20 04:15 Lymph % (Auto) 28.1 % 11/22/20 04:15 [place] % (Auto) 7.0 % 11/22/20 04:15 Eos % (Auto) 0.0 % 11/22/20 04:15 Baso % (Auto) 0.1 % 11/22/20 04:15 Neut # (Auto) 11.77 10^3/uL (1. 8-7.7) H 11/22/20 04:15 Lymph # (Auto) 5.1 10^3/uL (0.8- 4.8) H 11/22/20 04:15 [place] # (Auto) 1.3 10^3/uL (0.2- 0.9) H 11/22/20 04:15 Eos # (Auto) 0.0 10^3/uL (0.0- 0.8) 11/22/20 04:15 Baso # (Auto) 0.0 10^3/uL (0.0- 0.1) 11/22/20 04:15 Nucleated RBC % (a uto) 0 % 11/22/20 04:15 Nucleated RBCs # 0.0 /100WBC 11/22/20 04:15 APTT 25.6 SECONDS (23. 9-36.7) 11/22/20 04:15 Specimen Type Arterial 11/20/20 18:47 Sample Site Radial, right 11/20/20 18:47 ABG pH 7.49 (7.35-7.45) H 11/20/20 18:47 ABG pCO2 42.1 mmHg (35-45) 11/20/20 18:47 ABG pO2 92.1 mmHg (80.0-1 00.0) 11/20/20 18:47 ABG HCO3 31.6 mmol/L (22-2 6) H 11/20/20 18:47 ABG Base Excess 7.4 mmol/L (-2.0- 2.0) H 11/20/20 18:47 Yan Test Pos 11/20/20 18:47 Hematocrit 40.6 % (42-52) L 11/20/20 18:47 Hgb O2 Saturation 95.9 % (95-100) 11/20/20 18:47 Carboxyhemoglobin 1.9 %THgb (0.4-20 .1) 11/20/20 18:47 Methemoglobin 0.7 % (0.4-1.5) 11/20/20 18:47 Total Hemoglobin 13.3 g/dL (14-18) L 11/20/20 18:47 O2 Delivery Device Nrb 11/20/20 18:47 O2 Liters/Min 15.0 % 11/20/20 18:47 Generator Man ID Cak 11/20/20 18:47 Sodium 135 mmol/L (136-1 45) L 11/22/20 04:15 Potassium 3.8 mmol/L (3.5-5 .1) 11/22/20 04:15 Chloride 99 mmol/L (98-107 ) 11/22/20 04:15 Carbon Dioxide 30 mmol/L (22-29) H 11/22/20 04:15 Anion Gap 9.8 (5-19) 11/22/20 04:15 BUN 10 mg/dL (8-23) 11/22/20 04:15 Creatinine 0.3 mg/dL (0.7-1. 2) L 11/22/20 04:15 GFR Calculation 297.3 mL/min (90- 130) H 11/22/20 04:15 Glucose 101 mg/dL (65-115 ) 11/22/20 04:15 Calculated Osmolal ity 279 mOsm/kg (285- 295) L 11/22/20 04:15 Calcium 8.5 mg/dL (8.5-10 .5) 11/22/20 04:15 Phosphorus 2.1 mg/dL (2.5-4. 5) L 11/22/20 04:15 Magnesium 1.8 mg/dL (1.7-2. 3) 11/22/20 04:15 Total Bilirubin 0.2 mg/dL (0.15-1 .2) 11/22/20 04:15 AST 32 U/L (0-40) 11/22/20 04:15 ALT 27 U/L (0-41) 11/22/20 04:15 Alkaline Phosphata se 137 IU/L (40-130) H 11/22/20 04:15 Troponin T Baselin e 19 ng/L (0-15) H 11/20/20 19:08 Troponin T 120 Min abdi 16.63 ng/L (0-15) H 11/20/20 21:40 Delta Troponin T -2.37 ABS# (0-10) L 11/20/20 21:40 Troponin T Hi Sens 6Hr 13.89 ng/L (0-15) 11/21/20 01:12 Troponin T Hi Sens 6Hr Delta -5.11 ng/L (0-12) L 11/21/20 01:12 NT-Pro-B Natriuret Pep 611 pg/mL (0-125) H 11/20/20 19:08 Total Protein 6.4 g/dL (6.6-8.7 ) L 11/22/20 04:15 Albumin 2.8 g/dL (3.5-5.2 ) L 11/22/20 04:15 Globulin 3.6 g/dL (1.3-4.6 ) 11/22/20 04:15 Procalcitonin 0.05 ng/mL (0-0.5 ) 11/22/20 04:15 Impressions Chest CTA 11/20/20 18:38 IMPRESSION: 1. No visible evidence of pulmonary embolism/pulmonary arterial thrombus. 2. Examination reveals a large left tension pneumothorax estimated 60-70% volume. 3. Severe bullous emphysema. 4. The consolidated alveolar airspace disease with associated bronchiectasis involving primarily the upper lobes appears to remain relatively static right lung; but, with increased consolidation anterior segment left upper lobe and superior segment left lower lobe. 5. It would be difficult to exclude scar carcinoma and close follow-up with repeat computed tomography of the chest in 3-6 months recommended. 6. Prominent mediastinal and hilar lymph nodes that increased in volume since last evaluation. 7. Calcified granulomas of antecedent disease. Radiation Dose CTDIVOL = (mGy): DLP = 595.12 (mGy-cm) ADDENDUM: 11/20/202131 THIS REPORT CONTAINS FINDINGS THAT MAY BE CRITICAL TO PATIENT CARE. The findings were verbally communicated via telephone conference with Dr. Berg at 9:18 PM CDT on 11/20/2020. The findings were acknowledged and understood. Radiation Dose CTDIVOL = (mGy): DLP = 595.12 (mGy-cm) Chest CT 11/21/20 00:00 IMPRESSION: Left chest tube is been placed within the parenchyma of the left upper lobe. Residual pneumothorax. Extensive barotrauma with soft tissue subcutaneous emphysema involving the chest and neck. Pneumomediastinum. Chest X-Ray 11/22/20 14:09 IMPRESSION: Left pneumothorax and barotrauma as above. Micro: Micro: Microbiology 11/21/20 01:40 Blood Culture - Pr eliminary Blood NEGATIVE TO DIAMOND E 11/21/20 01:35 Blood Culture - Pr eliminary Blood NEGATIVE TO DIAMOND E A&P Assessment and plan (1) Spontaneous tension pneumothorax: Status: Acute (2) Subcutaneous emphysema: Status: Acute Qualifiers: Encounter type: initial encounter Qualified Code(s): T79.7XXA - Traumatic subcutaneous emphysema, initial encounter (3) Pneumomediastinum: Status: Acute (4) COPD (chronic obstructive pulmonary disease): Status: Acute Qualifiers: COPD type: COPD with acute exacerbation Qualified Code(s): J44.1 - Chronic obstructive pulmonary disease with (acute) exacerbation (5) Pulmonary cachexia due to chronic obstructive pulmonary disease: Status: Acute (6) Pulmonary fibrosis: Status: Acute (7) Bullous emphysema: Status: Acute (8) Tuberculosis high risk: Status: Acute (9) Complication of chest tube: Status: Acute Qualifiers: Encounter type: initial encounter Qualified Code(s): T85.9XXA - Unspecified complication of internal prosthetic device, implant and graft, initial encounter #Large left pleural effusion in patient with underlying severe bullous emphysema and apical fibrosis #S/p insertion of 32 Fr chest tube during admission-noted to be in the right upper lung parenchyma #Pneumomediastinum and extensive subcutaneous emphysema #Also patient history of has recurrent pneumonia -CT chest post left chest tube insertion-showed within the parenchyma of KIMBERLY with residual pneumothorax -Currently grade 3 air leak on expiration and appears to be persistent -Most recent chest x-ray left chest tube remains in same position, extensive subcutaneous emphysema in chest wall and base of neck, pneumomediastinum persists without significant interval change, air in the pleural space around the base of left lung is again noted-appears to be decreased in volume compared to earlier exam -In case if patient developed bronchopleural fistula-given his advanced COPD he is most likely a poor surgical candidate-the decision I would rather defer to the discretion of CT surgeon. -In that situation the best possible chance would be insertion of Thora vent or pigtail under ultrasound guidance, but ultrasound did not show safe pocket to insert pigtail -He may need another smaller chest tube/pigtail/Thora vent before removing intraparenchymal chest tube to avoid emergency or life-threatening pneumothorax or bleeding from lung laceration -I personally feel that any such intervention to pull off intraparenchymal chest tube should be done at least with the assistance of cardiothoracic surgeon as backup and as we do not have any CT surgeon on-call for this weekend-I would rather wait until Wednesday , given patient's current clinical stability-and not in respiratory distress and saturating 98-100% on 5 L nasal cannula (his baseline) and there is no ideal pocket to insert a new chest tube when checked with ultrasound, to reassess and decide on further course of managing this chest tube -Percocet 1-2 tabs p.o. every 6 as needed -DuoNeb every 6 hour scheduled -In case if chest tube comes off-patient needs emergency chest tube insertion All these recommendations were discussed in detail with hospitalist and the blood bank business manager taking care of the patient as I will not be available this weekend as well. # 4+ AFB smear positive reported on sputum cx from 11/14 - Culture may take up to 6 weeks. Patient at high risk for pulmonary TB. - recommended AFB culture and MTB PCR. Send 3 specimen of expectorated sputum Q 8 hr for AFB smear/culture and MTB PCR - Airborne isolation precautions to be maintained until MTB PCR negative x 2 from expectorated sputum or MTB PCR negative x 1 from trach aspirate or bronchoscopy (if performed in this patient) OR culture reveals acid fast bacilli other than mycobacterium tuberculosis. #Sputum positive for staph aureus- -Currently on Zosyn Recommendations conveyed to hospitalist, RN, RT taking care of the patient Rest of the comorbidities managed as per hospitalist taking care of the patient Consult Attestations Medical Necessity Statement: Deferred to hospitalist Time Spent in Patient Care: Greater than 35 minutes (>than 50% of time spent in counselling and/or direct pt care on unit). Critical Care Time: The high probability of a clinically significant, sudden or life threatening deterioration of the patient's [pulmonary, infectious] system(s) required my full and direct attention, intervention and personal management. The critical care time is as shown. This time is in addition to time spent performing any reported procedures but includes the following: [x] Data and vital sign review and interpretation [x] Patient assessment, examination and intervention [x] Documentation [x] Medication orders and management Critical Care Time (min): 75 Coding Level of Care Code New Pt Acute Skiff Operator for Chg Fwd Patient Type New History Comprehensive Exam Comprehensive Medical Decision Making High Complexity Diagnoses Spontaneous tension pneumothorax J93.0 Subcutaneous emphysema T79.7XXA Encounter type: initial encounter Pneumomediastinum J98.2 COPD (chronic obstructive pulmonary disease) J44.1 COPD type: COPD with acute exacerbation Pulmonary cachexia due to chronic obstructive pulmonary disease J44.9; R64 Pulmonary fibrosis J84.10 Bullous emphysema J43.9 Tuberculosis high risk Z91.89 Complication of chest tube T85.9XXA Encounter type: initial encounter Time Spent (min) 75 Comment Including bedside ultrasound examination
[2020-11-23] VITALS (30 sets, daily range): BP systolic 78–139; BP diastolic 58–93; PULSE 70–109; RESP 13–26; TEMP 36.7–36.8; O2SAT 73–98
[2020-11-23] MEDS: piperacillin-tazobactam 3.375 GM in sodium chloride 0.9% (plus) 50 ML IV ×3 (02:03→17:26)
[2020-11-23] MEDS: ipratropium-albuterol 3 mL Neb INHALATION ×2 (02:53→21:15)
--- NOTE | 2020-11-23 05:00 | XRR_ITS ---
PROCEDURE INFORMATION: Exam: XR Chest Exam date and time: 11/23/2020 5:00 AM Age: 70 years old Clinical indication: Other: Pneumothorax; Patient HX: F/u left pneumothroax; Additional info: Lt ptx TECHNIQUE: Imaging protocol: XR of the chest. Views: 1 view. Total images: 1 COMPARISON: CR XR chest 1V portable [id number] 11/22/2020 2:12 PM FINDINGS: Tubes, catheters and devices: Left chest tube is again noted and is unchanged in position. Lungs: Multiple calcified lung nodules are present consistent with multiple lung granulomas. Irregular areas of lung consolidation seen in the upper lobes felt to represent predominantly scarring and are unchanged from the prior exam. Pleural spaces: Left pneumothorax appears similar to the prior exam. Heart/Mediastinum: Small pneumomediastinum noted similar to prior exam. Bones/joints: Unremarkable. Soft tissues: Subcutaneous emphysema in the chest wall and lower neck is again noted and appears unchanged. XR/XR chest 1V portable [id number] IMPRESSION: 1. Left pneumothorax appears similar to the prior exam. 2. Small pneumomediastinum noted similar to prior exam. 3. Multiple calcified lung nodules are present consistent with multiple lung granulomas. 4. Irregular areas of lung consolidation seen in the upper lobes felt to represent predominantly scarring and are unchanged from the prior exam. Radiation Dose CTDIVOL = (mGy): DLP = (mGy-cm)
[2020-11-23 05:25] LABS: Anion Gap 11.6 (5-19); Blood Urea Nitrogen 11 mg/dL (8-23); Calcium 8.8 mg/dL (8.5-10.5); Carbon Dioxide 31 mmol/L (22-29); Chloride 98 mmol/L (98-107); Glomerular Filtration Rate 213.3 mL/min (90-130); Glucose 83 mg/dL (65-115); Osmolality Calculated 283 mOsm/kg (285-295); Potassium 3.6 mmol/L (3.5-5.1); Sodium 137 mmol/L (136-145)
--- NOTE | 2020-11-23 05:30 | PC.NURSE ---
Shift Note Frequent safety and comfort rounds continue. Pt slept well throughout the night. Orders and nursing care completed as indicated. Sputum collected for TB test. Skin test was not performed due to not having the solution. Patient monitored for response to intervention and treatment. Education provided includes pain management. Patient verbalized understanding. Will continue care.
[2020-11-23 05:33] LABS: Creatinine Clr Calc Pharmacy 75.7605
[2020-11-23 05:47] LABS: Basophils % 0.1 %; Eosinophils % 0.1 %; Hematocrit 40.7 % (42.0-52.0); Hemoglobin 13.2 g/dL (11.7-16.6); Lymphocytes # 8.8 10^3/uL (0.8-4.8); Lymphocytes % 42.9 %; Mean Corpuscular HGB Conc 32.4 g/dL (30.0-36.0); Mean Corpuscular Hemoglobin 32.5 pg (28.0-34.0); Mean Corpuscular Volume 100.2 fl (80-94); Mean Platelet Volume 9.1 fL (7.4-10.4); Monocytes # 1.2 10^3/uL (0.2-0.9); Monocytes % 5.6 %; Neutrophils # 10.44 10^3/uL (1.8-7.7); Neutrophils % 50.8 %; Nucleated Red Blood Cells % 0 %; Platelet Count 407 10^3/cmm (130-400); Red Blood Count 4.06 10^6/uL (4.1-5.3); Red Cell Distribution Width 14.3 % (12.1-15.1); White Blood Count 20.6 10^3/uL (4.0-10.0)
[2020-11-23] MEDS: pantoprazole DR 40 mg Tablet PO (08:07)
[2020-11-23] MEDS: predniSONE 20 mg Tablet PO (08:07)
--- NOTE | 2020-11-23 15:06 | PM.PN ---
Subjective Subjective: Interval history: Patient was seen and examined this morning, continues to have significant bilateral subcutaneous emphysema. Blood pressure is stable. Chest tube is waterseal. Continued bubbling and tidling noted. Medications: Reviewed: Yes Vitals/I&O/Wt Last Vital Signs Temp 98.0 F 11/23/20 04:00 Pulse 98 11/23/20 13:00 Resp 19 H 11/23/20 13:00 BP 93/65 11/23/20 13:00 Pulse Ox 96 11/23/20 13:00 11/23/20 11/23/20 11/23/20 06:59 14:59 22:59 Intake Total 50 / 2230 2330 / 2330 Output Total 600 / 4525 300 / 300 Balance -550 / -2295 2029 Physical Exam Const: COMMON NORMALS: patient oriented x3 HENMT: COMMON NORMALS: normocephalic and atraumatic HEAD & SCALP: normocephalic and atraumatic Chest: OTHER: Extensive left-sided subcutaneous emphysema, extending into the neck as well as back Resp: OTHER: Diminished air entry into the left lung field, right-sided clear with good air entry Cardio: COMMON NORMALS: regular rate, regular rhythm, S1 normal heart sound present, S2 normal heart sound present, No gallops present (Cardio), No murmurs present (Cardio), No rub (Cardio) and Peripheral pulses 2+ throughout RATE: regular rate RHYTHM: regular rhythm HEART SOUNDS: S1 normal heart sound present and S2 normal heart sound present PERIPHERAL PULSES: Peripheral pulses 2+ throughout GI: COMMON NORMALS: Normal to inspection, nondistended, normoactive bowel sounds present, Soft to palpation, non-tender, No hepatosplenomegaly present and no masses AUSCULTATION: Yes normoactive bowel sounds PALPATION: Yes Soft to palpation and Yes No hepatosplenomegaly present RECTAL EXAM: Yes deferred Extremity: COMMON NORMALS: no clubbing, cyanosis or edema and no pedal edema Neuro: COMMON NORMALS: patient oriented x3 Data : 11/23/20 03:40 11/23/20 03:40 Micro: Microbiology 11/23/20 04:50 Gram Stain - Final Sputum - Expectorated Sputum A&P Assessment and plan (1) Acute and chronic respiratory failure: Acute on chronic hypoxic respiratory failure secondary to large left-sided tension pneumothorax. He has pre-existing extensive emphysematous bullous disease. Status post left chest tube placement in the ER: Left chest tube is been placed within the parenchyma of the left upper lobe. Left chest tube with continuous bubbling seen and no tidling is seen, adequate suction pressure is being maintained. Patient is currently requiring 5 L oxygen through nasal cannula and is saturating well. He has been empirically kept on Zosyn for any possible underlying pneumonia as a CT chest had shown consolidated alveolar airspace disease. Appreciate pulmonary as well as cardiothoracic surgery consult. Status: Acute Qualifiers: Respiratory failure complication: hypoxia and hypercapnia Qualified Code(s): J96.21 - Acute and chronic respiratory failure with hypoxia; J96.22 - Acute and chronic respiratory failure with hypercapnia (2) Spontaneous tension pneumothorax: Status: Acute (3) Subcutaneous emphysema: Status: Acute Qualifiers: Encounter type: initial encounter Qualified Code(s): T79.7XXA - Traumatic subcutaneous emphysema, initial encounter (4) Pneumomediastinum: Status: Acute (5) Hypotension: Patient was initially hypotensive likely secondary to tension pneumothorax. He was briefly on Levophed. Currently he is off Levophed. And maintaining a good map. Status: Acute (6) Hypertension: Status: Acute Qualifiers: Hypertension type: other secondary hypertension Qualified Code(s): I15.8 - Other secondary hypertension (7) Hyperlipidemia: Status: Acute Additional A&P Information # 4+ AFB smear positive reported on sputum cx from 11/14. Based on the prior chart review and clinical history, he has been placed on airborne isolation, repeat AFB smear/culture and MTB PCR has been ordered. Attestations Medical Necessity Statement*: Patient needs to be in hospital for management of pneumothorax and subcutaneous emphysema. Coding Level of Care Code Acute Business Applications Analyst for [facility] Fwd Exam Detailed Diagnoses Acute and chronic respiratory failure J96.21; J96.22 Respiratory failure complication: hypoxia and hypercapnia Spontaneous tension pneumothorax J93.0 Subcutaneous emphysema T79.7XXA Encounter type: initial encounter Pneumomediastinum J98.2 Hypotension I95.9 Hypertension I15.8 Hypertension type: other secondary hypertension Hyperlipidemia E78.5
[2020-11-23] MEDS: oxyCODONE-APAP 5-325 mg Tablet PO (18:24)
--- NOTE | 2020-11-23 18:45 | PC.NURSE ---
Shift Note Frequent safety and comfort rounds continue. Orders and nursing care completed as indicated. Pt up to chair for 3 hours today. Linen change and self bathed, pt tolerated well. Pt on baseline 5L NC, see V/S. No drainage from chest tubes noted this shift. Pt ate 100% of all meals and had a total of 950ml out in urine. Patient monitored for response to intervention and treatments. Will continue to monitor.
[2020-11-23] MEDS: morphine 4 mg/mL SDV 1 mL 2 MG IVP ×2 (19:26→23:05)
[2020-11-24] VITALS (26 sets, daily range): BP systolic 78–112; BP diastolic 39–76; PULSE 57–106; RESP 9–26; TEMP 36.2–36.9; O2SAT 84–100
[2020-11-24] MEDS: oxyCODONE-APAP 5-325 mg Tablet PO ×2 (01:02→17:54)
[2020-11-24] MEDS: piperacillin-tazobactam 3.375 GM in sodium chloride 0.9% (plus) 50 ML IV ×3 (01:03→16:54)
[2020-11-24] MEDS: ipratropium-albuterol 3 mL Neb INHALATION ×3 (04:09→20:00)
[2020-11-24] MEDS: morphine 4 mg/mL SDV 1 mL 2 MG IVP ×6 (04:33→23:01)
--- NOTE | 2020-11-24 06:00 | XRR_ITS ---
PROCEDURE INFORMATION: Exam: XR Chest Exam date and time: 11/24/2020 6:00 AM Age: 70 years old Clinical indication: Dyspnea; Additional info: Ptx TECHNIQUE: Imaging protocol: XR of the chest. Views: 1 view. COMPARISON: CR (CHEST, ) 11/23/2020 5:15 AM FINDINGS: Tubes, catheters and devices: Left chest tube unchanged. Lungs: Multiple calcified lung nodules are noted. Persistent biapical lung opacities/fibrosis noted in the upper lobes, no change. Retraction of the hilar regions is noted, no change. Pleural spaces: Left pneumothorax, no change. Heart/Mediastinum: Stable pneumomediastinum. No cardiomegaly. Bones/joints: No acute fracture. Soft tissues: Redemonstration of diffuse subcutaneous emphysema, no change. XR/XR chest 1V portable [id number] IMPRESSION: 1. Stable pneumomediastinum. 2. Left pneumothorax, no change. Left chest tube unchanged. 3. Stable pulmonary findings. Radiation Dose CTDIVOL = (mGy): DLP = (mGy-cm)
--- NOTE | 2020-11-24 06:04 | PC.NURSE ---
Shift Note Frequent safety and comfort rounds continue. Orders and/or nursing care completed as indicated. Patient monitored for response to intervention and treatment(s). Education provided includes chest tube management, pain management. Patient and/or patient registration representative understood. Will continue to monitor.
[2020-11-24] MEDS: pantoprazole DR 40 mg Tablet PO (08:15)
[2020-11-24] MEDS: predniSONE 20 mg Tablet PO (08:15)
--- NOTE | 2020-11-24 10:23 | PC.NURSE ---
Significant Subcutaneous emphysema noted to the left and right upper chest, starting at the nipple line. Datar aware
--- NOTE | 2020-11-24 11:16 | P.PN_ITS ---
Subjective Subjective: Interval history: Patient was seen and examined this morning, continues to have significant bilateral subcutaneous emphysema. Chest tube is waterseal. Continued bubbling and tidling. Am Chest x-ray has not shown any significant improvement. He denies any worsening chest pain, or worsening shortness of breath. Medications: Reviewed: Yes Vitals/I&O/Wt Last Vital Signs Temp 98.4 F 11/24/20 00:00 Pulse 67 11/24/20 09:00 Resp 16 11/24/20 09:00 BP 92/60 11/24/20 09:00 Pulse Ox 95 11/24/20 09:00 11/23/20 11/24/20 11/24/20 22:59 06:59 14:59 Intake Total 1010 / 3340 50 / 3390 1200 / 1200 Output Total 1310 / 1610 560 / 2170 450 / 450 Balance -300 / 1730 -510 / 1220 750 / 750 Physical Exam Const: COMMON NORMALS: patient oriented x3 HENMT: COMMON NORMALS: normocephalic and atraumatic HEAD & SCALP: normocephalic and atraumatic Chest: OTHER: Extensive left-sided subcutaneous emphysema, extending into the neck as well as back Resp: OTHER: Diminished air entry into the left lung field, right-sided clear with good air entry Cardio: COMMON NORMALS: regular rate, regular rhythm, S1 normal heart sound present, S2 normal heart sound present, No gallops present (Cardio), No murmurs present (Cardio), No rub (Cardio) and Peripheral pulses 2+ throughout RATE: regular rate RHYTHM: regular rhythm HEART SOUNDS: S1 normal heart sound present and S2 normal heart sound present PERIPHERAL PULSES: Peripheral pulses 2+ throughout GI: COMMON NORMALS: Normal to inspection, nondistended, normoactive bowel sounds present, Soft to palpation, non-tender, No hepatosplenomegaly present and no masses AUSCULTATION: Yes normoactive bowel sounds PALPATION: Yes Soft to palpation and Yes No hepatosplenomegaly present RECTAL EXAM: Yes deferred Extremity: COMMON NORMALS: no clubbing, cyanosis or edema and no pedal edema Neuro: COMMON NORMALS: patient oriented x3 Data : 11/23/20 03:40 11/23/20 03:40 Micro: Microbiology 11/23/20 04:50 Gram Stain - Final Sputum - Expectorated Sputum Sputum Culture - Preliminary Gram Negative Rods A&P Assessment and plan (1) Acute and chronic respiratory failure: Acute on chronic hypoxic respiratory failure secondary to large left-sided tension pneumothorax. He has pre-existing extensive emphysematous bullous disease. Status post left chest tube placement in the ER: Left chest tube is been placed within the parenchyma of the left upper lobe. Left chest tube with continuous bubbling seen and no tidling is seen, adequate suction pressure is being maintained. Patient is currently requiring 5 L oxygen through nasal cannula and is saturating well. He has been empirically kept on Zosyn for any possible underlying pneumonia as a CT chest had shown consolidated alveolar airspace disease. Appreciate pulmonary as well as cardiothoracic surgery consult. Status: Acute Qualifiers: Respiratory failure complication: hypoxia and hypercapnia Qualified Code(s): J96.21 - Acute and chronic respiratory failure with hypoxia; J96.22 - Acute and chronic respiratory failure with hypercapnia (2) Spontaneous tension pneumothorax: Status: Acute (3) Subcutaneous emphysema: Status: Acute Qualifiers: Encounter type: initial encounter Qualified Code(s): T79.7XXA - Traumatic subcutaneous emphysema, initial encounter (4) Pneumomediastinum: Status: Acute (5) Hypotension: Patient was initially hypotensive likely secondary to tension pneumothorax. He was briefly on Levophed. Currently he is off Levophed. And maintaining a good map. Status: Acute (6) Hypertension: Status: Acute Qualifiers: Hypertension type: other secondary hypertension Qualified Code(s): I15.8 - Other secondary hypertension (7) Hyperlipidemia: Status: Acute Additional A&P Information # 4+ AFB smear positive reported on sputum cx from 11/14. Based on the prior chart review and clinical history, he has been placed on airborne isolation, repeat AFB smear/culture and MTB PCR has been ordered. Attestations Medical Necessity Statement*: Patient is to be in hospital for management of pneumothorax and subcutaneous emphysema. Coding Level of Care Code Acute School Library Media Program Director for [facility] Fwd Exam Detailed Diagnoses Acute and chronic respiratory failure J96.21; J96.22 Respiratory failure complication: hypoxia and hypercapnia Spontaneous tension pneumothorax J93.0 Subcutaneous emphysema T79.7XXA Encounter type: initial encounter Pneumomediastinum J98.2 Hypotension I95.9 Hypertension I15.8 Hypertension type: other secondary hypertension Hyperlipidemia E78.5
--- NOTE | 2020-11-24 17:17 | PC.NURSE ---
Nurse has observed that the subcutaneous emphysema has spread. The affected chest area hasn't expanded, but is now more swollen than before. Subcutaneous emphysema is now observed in the forearms, which was not observed this morning.
[2020-11-24 17:44] LABS: Basophils % 0.1 %; Eosinophils # 0.1 10^3/uL (0.0-0.8); Eosinophils % 0.3 %; Hematocrit 39.9 % (42.0-52.0); Lymphocytes # 6.1 10^3/uL (0.8-4.8); Lymphocytes % 30.9 %; Mean Corpuscular HGB Conc 32.6 g/dL (30.0-36.0); Mean Corpuscular Hemoglobin 32.7 pg (28.0-34.0); Mean Corpuscular Volume 100.5 fl (80-94); Mean Platelet Volume 8.8 fL (7.4-10.4); Monocytes # 0.3 10^3/uL (0.2-0.9); Monocytes % 1.5 %; Neutrophils # 13.06 10^3/uL (1.8-7.7); Neutrophils % 66.4 %; Nucleated Red Blood Cells % 0 %; Platelet Count 407 10^3/cmm (130-400); Red Blood Count 3.97 10^6/uL (4.1-5.3); Red Cell Distribution Width 14.4 % (12.1-15.1); White Blood Count 19.7 10^3/uL (4.0-10.0)
[2020-11-24 18:09] LABS: Blood Urea Nitrogen 17 mg/dL (8-23); Calcium 8.3 mg/dL (8.5-10.5); Carbon Dioxide 28 mmol/L (22-29); Chloride 97 mmol/L (98-107); Creatinine Clr Calc Pharmacy 75.7605; Glomerular Filtration Rate 213.3 mL/min (90-130); Glucose 147 mg/dL (65-115); Osmolality Calculated 282 mOsm/kg (285-295); Sodium 134 mmol/L (136-145)
[2020-11-24 18:29] LABS: Anion Gap 13.6 (5-19); Potassium 4.6 mmol/L (3.5-5.1)
--- NOTE | 2020-11-24 18:39 | XRR_ITS ---
PROCEDURE INFORMATION: Exam: XR Chest Exam date and time: 11/24/2020 6:39 PM Age: 70 years old Clinical indication: Condition or disease; Other: Sub q emphysema; Additional info: Sub q emphysema, chest and neck TECHNIQUE: Imaging protocol: XR of the chest. Views: 1 view. COMPARISON: CR (CHEST, ) 11/24/2020 5:50 AM FINDINGS: Lungs: No focal consolidation. No pulmonary edema. Interval development of mild left lingular atelectasis. Numerous calcified granulomas scattered throughout both lungs, findings are stable. Pleural spaces: Extensive pleural-parenchymal scarring with retraction of the right and left jeff is stable. Bulla formation at the right and left lung apices is stable. The left pneumothorax in the mid/lower left hemithorax is increased in size now measuring up to 2.4 cm in maximum thickness, previously 1.6 cm. Heart/Mediastinum: Small amount of pneumomediastinum in the upper mediastinum is stable. Bones/joints: Stable postsurgical changes in the visualized lower cervical spine. Soft tissues: Extensive subcutaneous and soft tissue emphysema in the visualized lower neck and in the chest wall. Findings are stable. XR/XR chest 1V portable [id number] IMPRESSION: 1. The left pneumothorax in the mid/lower left hemithorax is increased in size now measuring up to 2.4 cm in maximum thickness, previously 1.6 cm. 2. Extensive subcutaneous and soft tissue emphysema in the visualized lower neck and in the chest wall. Findings are stable. 3. Extensive pleural-parenchymal scarring with retraction of the right and left jeff is stable. Bulla formation at the right and left lung apices is stable. 4. Small amount of pneumomediastinum in the upper mediastinum is stable. 5. Interval development of mild left lingular atelectasis. 6. Incidental/nonacute findings are listed in the report. Radiation Dose CTDIVOL = (mGy): DLP = (mGy-cm)
--- NOTE | 2020-11-24 18:53 | PC.NURSE ---
Patient is requesting to receive a breathing treatment. He says he receives them much more frequently at home and he feels like his throat is swollen. Nurse called [facility] and they cannot give another breathing treatment until 1900 at the earliest. Nurse alerted Dr rowland to patient reporting his airway feels like it is swollen and that the subcutaneous emphysema is now affecting the neck. No voice changes at this time. Patient recently ate dinner and had no difficulties swallowing. Patient does not appear to be in respiratory distress. Dr Rowland ordered an xray.
--- NOTE | 2020-11-24 18:58 | PC.NURSE ---
Shift Summary: uneventful shift. Patient reste din bed throughout most of day. Subcutaneous emphysema has spread to the arms and into the neck. Near the end of the shift, patient started reporting a feeling that his throat is swollen. Nurse alerted Dr rowland to feeling and emphysema spread and an Xray was ordered. Nurse alerted night guard nurse to feeling of throat swollen and nurse verified Xray did receive the stat order.
--- NOTE | 2020-11-24 19:35 | CTR_ITS ---
PROCEDURE INFORMATION: Exam: CT Neck Without Contrast Exam date and time: 11/24/2020 7:35 PM Age: 70 years old Clinical indication: Other: Sub q air; Prior surgery; Surgery date: 3-7 days post-operative; Surgery type: Chest tube; Patient HX: Worsening subcutaneous air; Additional info: Subcutaneous emphysema TECHNIQUE: Imaging protocol: Computed tomography images of the neck without contrast. Sagittal and coronal reformatted images were created and reviewed. Radiation optimization: All CT scans at this facility use at least one of these dose optimization techniques: automated exposure control; mA and/or kV adjustment per patient size (includes targeted exams where dose is matched to clinical indication); or iterative reconstruction. COMPARISON: CT chest wo con [id number] 11/21/2020 9:46 AM RADIATION DOSE METRICS: Total DLP (mGy-cm): 526.02 FINDINGS: Brain: Pleural-parenchymal scarring at the right and left upper lobes with associated cylindrical bronchiectatic changes and superior retraction of the right and left jeff is stable. Incidental note of basilar invagination. The posterior arch of C1 projects into the foramen magnum (series 602, image 51). Orbital cavity: Small amount of left intraorbital emphysema in the superior left orbit. Globes and lenses, extraocular muscles, and optic nerves are intact bilaterally. No proptosis. Nasopharynx: The nasopharynx is unremarkable. Oropharynx: The oropharynx is unrermarkable. No significant tonsillar enlargement. No tonsillar or peritonsillar abscess. Hypopharynx: The hypopharynx is unrermarkable. Larynx: The larynx is unremarkable. The epiglottis is unremarkable. Retropharyngeal space: See under soft tissues . Submandibular/Parotid glands: The right and left parotid glands are unremarkable. The right and left submandibular glands are unremarkable. Thyroid: The thyroid gland is unremarkable. Lymph nodes: No lymphadenopathy. Trachea: Trachea is midline and patent. Lungs: Bulla formation in the right and left lung apices is stable. Thickened wall at the left lung apical bulla is stable, possible superimposed infection cannot be ruled out. The tip of a left-sided chest tube is seen abutting the left major fissure in the left upper lobe, stable in position. Small left medial pneumothorax measuring 8.2 mm (series 3, image 112). Findings are stable. Bones/joints: Multilevel degenerative changes of varying severity in the visualized spine. Post-surgical changes consistent with previous spine fusion from C4 through C6. Vasculature: Atherosclerotic changes in the visualized arteries. Soft tissues: Extensive, bilateral subcutaneous emphysema beginning in the visualized right and left frontotemporal scalp extending inferiorly to involve the facial and cervical subcutaneous tissues and soft tissues and the visualized subcutaneous and soft tissues of the upper chest. There is also extensive soft tissue emphysema in the retropharyngeal space extending from the skull base to the upper mediastinum with large amount of pneumomediastinum in the visualized mediastinum. CT/CT neck wo con [id number] IMPRESSION: 1. Small left medial pneumothorax measuring 8.2 mm. Findings are stable. 2. Extensive, bilateral subcutaneous emphysema beginning in the visualized right and left frontotemporal scalp extending inferiorly to involve the facial and cervical subcutaneous tissues and soft tissues and the visualized subcutaneous and soft tissues of the upper chest. There is also extensive soft tissue emphysema in the retropharyngeal space extending from the skull base to the upper mediastinum with large amount of pneumomediastinum in the visualized mediastinum. 3. Bulla formation in the right and left lung apices is stable. Thickened wall at the left lung apical bulla is stable, possible superimposed infection cannot be ruled out. Recommend clinical correlation. 4. Small amount of left intraorbital emphysema in the superior left orbit. 5. The tip of a left-sided chest tube is seen abutting the left major fissure in the left upper lobe, stable in position. 6. Incidental note of basilar invagination. The posterior arch of C1 projects into the foramen magnum. 7. Incidental/nonacute findings are listed in the report. Radiation Dose CTDIVOL = (mGy): DLP = 526.02 (mGy-cm)
[2020-11-24] MEDS: guaiFENesin-dextromethorphan UDC 10 mL 5 ML PO (21:42)
--- NOTE | 2020-11-24 21:51 | PC.NURSE ---
Notified Dr. Barros re: CT, chest x ray results. No new orders.
--- NOTE | 2020-11-24 23:11 | XRR_ITS ---
PROCEDURE INFORMATION: Exam: XR Chest Exam date and time: 11/24/2020 11:11 PM Age: 70 years old Clinical indication: Condition or disease; Other: Subcutaneous emphysema TECHNIQUE: Imaging protocol: XR of the chest. Views: 1 view. COMPARISON: CR (CHEST, ) 11/24/2020 7:08 PM FINDINGS: Tubes, catheters and devices: There is a left thoracostomy tube stable in position compared with earlier today. There are patchy opacities present in the lung apices bilaterally appearing stable compared with earlier today. Lungs: There increasing densities seen within the left hemithorax possibly representing atelectasis although developing left-sided pneumonia cannot be excluded. There are stable bilateral calcified granulomas. Pleural spaces: The left pneumothorax is obscured by the overlying subcutaneous emphysema. Heart/Mediastinum: See Vasculature finding. Vasculature: There is a small pneumomediastinum seen outlining the descending thoracic aorta. Bones/joints: Unremarkable. Soft tissues: There is extensive subcutaneous emphysema overlying the neck base, shoulders and chest. XR/XR chest 1V portable [id number] IMPRESSION: 1. Extensive subcutaneous emphysema again seen. 2. Stable left thoracostomy tube. The left pneumothorax is obscured likely secondary to the overlying subcutaneous emphysema. 3. Small pneumomediastinum seen. 4. Patchy and strandy opacities in the upper hemithorax appears stable compared with earlier today. 5. Increasing densities seen within the left hemithorax may represent atelectasis although left sided pneumonia cannot be excluded. Radiation Dose CTDIVOL = (mGy): DLP = (mGy-cm)
[2020-11-25] VITALS (22 sets, daily range): BP systolic 77–162; BP diastolic 47–81; PULSE 68–107; RESP 12–23; TEMP 36.3–36.8; O2SAT 85–99
[2020-11-25] MEDS: piperacillin-tazobactam 3.375 GM in sodium chloride 0.9% (plus) 50 ML IV ×3 (02:37→17:21)
[2020-11-25] MEDS: ipratropium-albuterol 3 mL Neb INHALATION ×4 (03:05→19:59)
[2020-11-25] MEDS: morphine 4 mg/mL SDV 1 mL 2 MG IVP (04:10)
--- NOTE | 2020-11-25 05:00 | XRR_ITS ---
PROCEDURE INFORMATION: Exam: XR Chest Exam date and time: 11/25/2020 5:00 AM Age: 70 years old Clinical indication: Shortness of breath; Additional info: Ptx TECHNIQUE: Imaging protocol: XR of the chest. Views: 1 view. COMPARISON: CR (CHEST, ) 11/24/2020 11:17 PM FINDINGS: Tubes, catheters and devices: There is stable placement a left thoracostomy tube. Lungs: Unremarkable. No consolidation. Pleural spaces: A left pneumothorax is again seen medially and superiorly. Heart/Mediastinum: A small pneumomediastinum is again seen. Bones/joints: Unremarkable. Soft tissues: There is extensive subcutaneous emphysema again seen. Other findings: There are stable patchy and strandy opacity seen in the upper hemithoraces. XR/XR chest 1V portable [id number] IMPRESSION: 1. Left medial an apical pneumothorax is again seen. 2. Small pneumomediastinum 3. Otherwise stable appearance of the chest compared with yesterday's examination. Radiation Dose CTDIVOL = (mGy): DLP = (mGy-cm)
[2020-11-25 06:42] LABS: Hematocrit 37.9 % (42.0-52.0); Hemoglobin 12.2 g/dL (11.7-16.6); Mean Corpuscular HGB Conc 32.2 g/dL (30.0-36.0); Mean Corpuscular Hemoglobin 32.5 pg (28.0-34.0); Mean Corpuscular Volume 101.1 fl (80-94); Mean Platelet Volume 8.7 fL (7.4-10.4); Platelet Count 415 10^3/cmm (130-400); Red Blood Count 3.75 10^6/uL (4.1-5.3); Red Cell Distribution Width 14.4 % (12.1-15.1)
--- NOTE | 2020-11-25 06:52 | PC.NURSE ---
Shift Note Frequent safety and comfort rounds continue. Orders and/or nursing care completed as indicated. Patient monitored for response to intervention and treatment(s). Education provided includes treatment regarding subcutaneous emphysema. Patient and/or textile designs sales representative understood. Will continue to monitor.
[2020-11-25 06:59] LABS: Blood Urea Nitrogen 15 mg/dL (8-23); Calcium 8.5 mg/dL (8.5-10.5); Carbon Dioxide 31 mmol/L (22-29); Chloride 95 mmol/L (98-107); Glomerular Filtration Rate 213.3 mL/min (90-130); Glucose 85 mg/dL (65-115); Osmolality Calculated 276 mOsm/kg (285-295); Sodium 133 mmol/L (136-145)
[2020-11-25 07:01] LABS: Creatinine Clr Calc Pharmacy 75.7605
[2020-11-25 07:02] LABS: Anion Gap 11.5 (5-19); Potassium 4.5 mmol/L (3.5-5.1)
--- NOTE | 2020-11-25 07:09 | PC.NURSE ---
Addendum entered by Colton Ortiz RN 11/25/20 08:34: SQ emphysema noted to scalp and arms as well. Original Note: Report received, assessment completed. SubQ emphysema noted to mid chest and extending upwards through neck. CT to LWS. Continuous bubbling noted to CT chamber. MD aware. Pt AAOx4, makes all needs known. Pt states that he is very nervous. Educated pt that doctors are going to have a meeting together to discuss treatment plan with him. Verbalizes understanding. No other issues noted. Will monitor.
[2020-11-25 07:11] LABS: Slide Review Slide Review Perform
[2020-11-25 07:16] LABS: Absolute Segmented Neutrophil 10.8 10/cmm (1.6-7.1); Lymphocytes 33 %; Lymphocytes Absolute 7.6 10^3/cmm (1.2-3.4); Monocytes Absolute 1.4 10^3/cmm (0.1-0.6); Segmented Neutrophils 54 %; Total Cells Counted 100 (0-100)
[2020-11-25 07:19] LABS: Absolute Neutrophil 10.8 10^3/cmm (1.4-6.5); Eosinophils 0 %; Macrocytosis 1+; Platelet Estimate Normal (Normal)
[2020-11-25] MEDS: pantoprazole DR 40 mg Tablet PO (08:15)
--- NOTE | 2020-11-25 09:52 | PC.CHAP ---
Pastoral Care Encounter/Spiritual Assessment Type of Contact [] Declined contract clerk automobile visit [] Patient/Family/Request visit [] Outpatient visit [] Follow-up visit [] Physician referral [] Code/Alert [x] Routine visit [] Staff referral [] Actively dying [] Patient sleeping [] Family support [] [] Out of room [] Palliative care [] [] Receiving care in room [] Pre-surgical visit [] Trauma [] Long length of stay [x] ICU visit [] Other: Relational/Emotional Strength [] Patient feels connected with others/family/visitors/staff [] Distress [] Loneliness/isolation [] Abandonment Spirituality of Patient [] Person of Lakshmi [] Attends Muslim of their Lakshmi [] Believes in Prayer [] Reads Bible or Synagogue materials [] There are Spiritual issues to be addressed Homemaker Companion Interventions [] Prayer [] Active listening [] Non-anxious presence [] Spiritual/emotional support [] Crisis/trauma care [] Spiritual counseling [] Bereavement support [] Provided bereavement packet [] Provided Bible/devotional materials [] Provided toy/stuffed animal, coloring book to patient or family member [] Provided Communion [] Anointing/[place] [] Salvation [x] Completed spiritual assessment [] Other: Impact on Illness or Injury [] Angry [] Fearful [] Anxious [] Often cries [] Exhaustion [] Unable to work [] Unable to attend catholic [] Unable to walk/stand [] Unable to read [] Unable to drive [] Unable to eat/drink [] Unable to sleep [] Unable to be with family [] Patient intubated [] Other: Summary Time spent with patient
[2020-11-25] MEDS: fluticasone nasal spray 16gm Btl 1 SPRAY INTRANASAL (11:44)
--- NOTE | 2020-11-25 12:50 | XRR_ITS ---
PROCEDURE INFORMATION: Exam: XR Chest Exam date and time: 11/25/2020 12:50 PM Age: 70 years old Clinical indication: Device placement; Other: Removal of chest tube; Additional info: Recurrence pneumothorax after removal of chest tube, as upright as possible TECHNIQUE: Imaging protocol: XR of the chest. Views: 1 view. COMPARISON: CR (CHEST, ) 11/25/2020 5:21 AM FINDINGS: Tubes, catheters and devices: Interval removal of the left large bore thoracostomy tube. Lungs: Bilateral upper lobe fibrosis with elevation of both jeff redemonstrated. Prior pulmonary granulomatous disease. Pleural spaces: Interval increase in size of the left pneumothorax with the predominant component being in the inferior left hemithorax. There is approximately 6 cm between the visceral and parietal pleura. The pneumothorax does not appear to be under tension. Heart/Mediastinum: The cardiac silhouette is not enlarged. Vasculature: The thoracic aorta is atherosclerotic. Bones/joints: No acute osseous abnormality Soft tissues: Bilateral extensive subcutaneous emphysema. XR/XR chest 1V portable [id number] IMPRESSION: Increase in size of left pneumothorax after removal of the left thoracostomy tube. Radiation Dose CTDIVOL = (mGy): DLP = (mGy-cm)
--- NOTE | 2020-11-25 13:20 | PC.NURSE ---
1245 Chest tube pulled per MD. Dressing applied. minimal air leak noted, MD at bedside. 1300 CXR completed as ordered. Dressing reinforced. Supplies at bedside for thoravent or another chest tube. Repeat CXR scheduled for 1515. Pt has call light in hand and educated to call for assistance if becomes SOB or has pain. Will monitor.
[2020-11-25] MEDS: gabapentin 300 mg Capsule PO ×2 (14:47→20:05)
--- NOTE | 2020-11-25 14:57 | PC.NURSE ---
Pt resting in bed. No c/o SOB. Appears at ease. Dressing reinforced. Will monitor.
--- NOTE | 2020-11-25 15:33 | XRR_ITS ---
PROCEDURE INFORMATION: Exam: XR Chest Exam date and time: 11/25/2020 3:33 PM Age: 70 years old Clinical indication: Device placement; Chest tube; Additional info: Chest tube removal TECHNIQUE: Imaging protocol: XR of the chest. Views: 1 view. COMPARISON: CR XR chest 1V portable [id number] 11/25/2020 12:50 PM FINDINGS: Lungs: Bilateral upper lobe fibrosis with elevation of both jeff redemonstrated. Prior pulmonary granulomatous disease. Pleural spaces: Stable moderate size left pneumothorax with predominant component being in the inferior left hemithorax. Extensive subcutaneous emphysema. Heart/Mediastinum: See Lungs finding. Bones/joints: Unremarkable. XR/XR chest 1V portable [id number] IMPRESSION: Moderate size left pneumothorax with no significant change from prior study of 11/25/2020 at 12:50 p.m.. Radiation Dose CTDIVOL = (mGy): DLP = (mGy-cm)
--- NOTE | 2020-11-25 16:05 | P.PN_ITS ---
Subjective Subjective: Interval history: Hospital course, labs appreciated. Overnight patient had increase in subcutaneous emphysema and chest tube was placed on intermittent suction. On examination today patient lying comfortably in bed. Asking for food. States he is hungry. We discussed in detail regarding possible treatment modalities of pneumothorax treated with chest tube insertion which was later noted to be in the right upper lung parenchyma along with pneumomediastinum and extensive subcutaneous emphysema. We discussed possible need on going to the OR if he develops another tension pneumothorax after chest tube removal or if he develops hemothorax. All the questions were answered. Medications: Reviewed: Yes Vitals/I&O/Wt Last Vital Signs Temp 97.4 F L 11/25/20 12:00 Pulse 70 11/25/20 14:30 Resp 16 11/25/20 14:25 BP 107/72 11/25/20 12:00 Pulse Ox 93 11/25/20 14:25 11/25/20 11/25/20 11/25/20 06:59 14:59 22:59 Intake Total 100 / 100 Output Total 800 / 3075 600 / 600 Balance -800 / -815 -500 / -500 Physical Exam Narrative: EXAM NARRATIVE: General: No acute distress, AO x3, subcutaneous emphysema present from upper abdomen to face, saturating 99% on 5 L. HEENT: PERRLA, pupils bilaterally equal and reactive Chest: Subcutaneous emphysema present, bronchial breath sounds all over the lung boogie, decreased air entry all over the lung boogie, coarse crackles present left middle zone CVS: S1-S2 regular, no murmurs, no tachycardia, no gallops, no rubs Abdomen: Soft, nontender, no organomegaly, bowel sounds present Neuro: No focal deficits, no facial deformity, AO x3, power 5/5 in all limbs Data : 11/25/20 06:20 11/25/20 06:20 A&P Assessment and plan (1) Acute and chronic respiratory failure: Acute on chronic hypoxic respiratory failure secondary to large left-sided tension pneumothorax. He has pre-existing extensive emphysematous bullous disease. Status post left chest tube placement in the ER: Later noted and lung parenchyma With development of pneumomediastinum and subcutaneous extensive emphysema. Oxygen supplementation keeping saturation in high 90s. Currently requiring 5 L. Sputum culture growing gram-negative rods. Continue with Zosyn. History of Pseudomonas in sputum before sensitive to Zosyn. We will plan to do 7-day cour se. Appreciate pulmonary as well as cardiothoracic surgery consult. Status: Acute Qualifiers: Respiratory failure complication: hypoxia and hypercapnia Qualified Code(s): J96.21 - Acute and chronic respiratory failure with hypoxia; J96.22 - Acute and chronic respiratory failure with hypercapnia (2) Spontaneous tension pneumothorax: Post chest tube placement in the ER. Status: Acute (3) Subcutaneous emphysema: Status: Acute Qualifiers: Encounter type: initial encounter Qualified Code(s): T79.7XXA - Traumatic subcutaneous emphysema, initial encounter (4) Pneumomediastinum: Status: Acute (5) Hypotension: Patient was initially hypotensive likely secondary to tension pneumothorax. He was briefly on Levophed. Currently he is off Levophed. And maintaining a good map. Status: Acute (6) Hypertension: Status: Acute Qualifiers: Hypertension type: other secondary hypertension Qualified Code(s): I15.8 - Other secondary hypertension (7) Hyperlipidemia: Status: Acute Additional A&P Information Case discussed with pulmonology and Dr. Buckner. Plan to remove chest tube today with serial chest x-rays to monitor for reaccumulation of pneumothorax and placement of chest tube/pigtail as per the re-accumulation. N.p.o. for now. Chest x-ray q. hourly for next 2 hours. If stable can start on feeds. + AFB smear positive reported on sputum cx from 11/14. As per state guidelines continue with airborne precautions. Sputum sample for AFB culture and MTB PCR. Once sent out on November 23. To samples still awaited. Soft mechanical diet. Protonix for daily prophylaxis. SCDs for DVT prophylaxis Attestations Medical Necessity Statement*: Requires further hospitalization for management of tension pneumothorax, pneumomediastinum history of severe emphysematous COPD Critical Care Time: The high probability of a clinically significant, sudden or life threatening deterioration of the patient's [pulmonary, ID] system(s) required my full and direct attention, intervention and personal management. The critical care time is as shown. This time is in addition to time spent performing any reported procedures but includes the following: [x] Data and vital sign review and interpretation [x] Patient assessment, examination and intervention [x] Documentation [x] Medication orders and management Critical Care Time (min): 90 Coding Level of Care Code Acute Wool Scourer for [facility] Fwd Diagnoses Acute and chronic respiratory failure J96.21; J96.22 Respiratory failure complication: hypoxia and hypercapnia Spontaneous tension pneumothorax J93.0 Subcutaneous emphysema T79.7XXA Encounter type: initial encounter Pneumomediastinum J98.2 Hypotension I95.9 Hypertension I15.8 Hypertension type: other secondary hypertension Hyperlipidemia E78.5
--- NOTE | 2020-11-25 16:59 | PM.PN ---
Subjective Subjective: Interval history: -Seen patient at bedside today multiple times -Over the weekend patient subcutaneous emphysema worsened up to the level of neck-improved after connecting chest tube to suction in the morning -Today morning chest x-ray showed a left medial apical pneumothorax and small pneumomediastinum -After extensive discussion with CT surgeon Dr. Buckner, and the patient-given his extensive bullous emphysema with adhesions- as patient presented with loculated pneumothorax-and as patient is clinically stable with 4 L oxygen for last 4 days, saturating 100% and not in respiratory distress and hemodynamically stable-decision was made to pull intraparenchymal chest tube and observe for recurrence of pneumothorax /hemothorax and place a new chest tube if needed. -Patient is high risk surgical candidate for VATS/thoracotomy for surgical repair of the lung -Currently chest tube was pulled at 12:30 PM-and subsequent chest x-rays showed stable moderate size left pneumothorax predominantly inferior left hemithorax; patient vitals are stable. -Other labs and imaging reviewed Medications: Reviewed: Yes Vitals/I&O/Wt Last Vital Signs Temp 97.4 F L 11/25/20 12:00 Pulse 75 11/25/20 16:00 Resp 14 11/25/20 16:00 BP 104/62 11/25/20 16:00 Pulse Ox 99 11/25/20 16:00 11/25/20 11/25/20 11/25/20 06:59 14:59 22:59 Intake Total 100 / 100 Output Total 800 / 3075 600 / 600 450 / 1050 Balance -800 / -815 -500 / -500 -450 / -950 Physical Exam Narrative: EXAM NARRATIVE: General: Thin cachectic male, alert, NAD HEENT: conj clear, EOMI, PERRL, mmm, Neck: supple, no meningismus Heme: no cervical LAP Pulmonary: Subcutaneous emphysema seen on bilateral anterior chest wall extending up to the neck, crepitus ++, more visible on left side ; no bilateral breath sounds present; left chest tube removed and dressed with Xeroform Cardiovascular: rrr, nl s1s2, no mrg Abdomen: soft, nt, nd, no r/g, bs+ Extremities: pulses +, no edema, no c/c : no CVA tenderness Skin: intact, no rash MSK: no back or neck pain Neurologic: grossly intact Data : 11/25/20 06:20 11/25/20 06:20 Other Labs: Laboratory Results WBC 20.0 10^3/uL (4.0-10.0) H 11/25/20 06:20 RBC 3.75 10^6/uL (4.1-5.3) L 11/25/20 06:20 Hgb 12.2 g/dL (11.7-16.6) 11/25/20 06:20 Hct 37.9 % (42.0-52.0) L 11/25/20 06:20 MCV 101.1 fl (80-94) H 11/25/20 06:20 MCH 32.5 pg (28.0-34.0) 11/25/20 06:20 MCHC 32.2 g/dL (30.0-36.0) 11/25/20 06:20 RDW 14.4 % (12.1-15.1) 11/25/20 06:20 Plt Count 415 10^3/cmm (130-400) H 11/25/20 06:20 MPV 8.7 fL (7.4-10.4) 11/25/20 06:20 Neut % (Auto) 66.4 % 11/24/20 17:00 Lymph % (Auto) Not Reportable 11/25/20 06:20 [place] % (Auto) Not Reportable 11/25/20 06:20 Eos % (Auto) 0.3 % 11/24/20 17:00 Baso % (Auto) 0.1 % 11/24/20 17:00 Neut # (Auto) 13.06 10^3/uL (1.8-7.7) H 11/24/20 17:00 Lymph # (Auto) Not Reportable 11/25/20 06:20 [place] # (Auto) Not Reportable 11/25/20 06:20 Eos # (Auto) 0.1 10^3/uL (0.0-0.8) 11/24/20 17:00 Baso # (Auto) 0.0 10^3/uL (0.0-0.1) 11/24/20 17:00 Nucleated RBC % (auto) 0 % 11/24/20 17:00 Total Counted 100 (0-100) 11/25/20 06:20 Atypical Lymphs % 5.0 % (0-5) 11/25/20 06:20 Absolute Neutrophils 10.8 10^3/cmm (1.4-6.5) H 11/25/20 06:20 Segmented Neutrophils 54 % 11/25/20 06:20 Abs Segm Neuts (Man) 10.8 10/cmm (1.6-7.1) H 11/25/20 06:20 Band Neutrophils 0.0 % 11/25/20 06:20 Abs Band Neuts (Man) 0.0 10^3/cmm (0.0-1.2) 11/25/20 06:20 Absolute Lymphocytes 7.6 10^3/cmm (1.2-3.4) H 11/25/20 06:20 Lymphocytes (Manual) 33 % 11/25/20 06:20 Monocytes (Manual) 7.0 % 11/25/20 06:20 Absolute Monocytes 1.4 10^3/cmm (0.1-0.6) H 11/25/20 06:20 Eosinophils (Manual) 0 % 11/25/20 06:20 Absolute Eosinophils 0.0 10^3/cmm (0.0-0.7) 11/25/20 06:20 Basophils (Manual) 0.0 % 11/25/20 06:20 Absolute Basophils 0.0 10^3/cmm (0.0-0.2) 11/25/20 06:20 Metamyelocytes 1.0 % 11/25/20 06:20 Nucleated RBCs # 0.0 /100WBC 11/24/20 17:00 Platelet Estimate Normal (Normal) 11/25/20 06:20 Macrocytosis 1+ H 11/25/20 06:20 APTT 25.6 SECONDS (23.9-36.7) 11/22/20 04:15 Specimen Type Arterial 11/20/20 18:47 Sample Site Radial, right 11/20/20 18:47 ABG pH 7.49 (7.35-7.45) H 11/20/20 18:47 ABG pCO2 42.1 mmHg (35-45) 11/20/20 18:47 ABG pO2 92.1 mmHg (80.0-100.0) 11/20/20 18:47 ABG HCO3 31.6 mmol/L (22-26) H 11/20/20 18:47 ABG Base Excess 7.4 mmol/L (-2.0-2.0) H 11/20/20 18:47 Yan Test Pos 11/20/20 18:47 Hematocrit 40.6 % (42-52) L 11/20/20 18:47 Hgb O2 Saturation 95.9 % (95-100) 11/20/20 18:47 Carboxyhemoglobin 1.9 %THgb (0.4-20.1) 11/20/20 18:47 Methemoglobin 0.7 % (0.4-1.5) 11/20/20 18:47 Total Hemoglobin 13.3 g/dL (14-18) L 11/20/20 18:47 O2 Delivery Device Nrb 11/20/20 18:47 O2 Liters/Min 15.0 % 11/20/20 18:47 Electrogalvanizing Machine Operator ID Cak 11/20/20 18:47 Sodium 133 mmol/L (136-145) L 11/25/20 06:20 Potassium 4.5 mmol/L (3.5-5.1) 11/25/20 06:20 Chloride 95 mmol/L (98-107) L 11/25/20 06:20 Carbon Dioxide 31 mmol/L (22-29) H 11/25/20 06:20 Anion Gap 11.5 (5-19) 11/25/20 06:20 BUN 15 mg/dL (8-23) 11/25/20 06:20 Creatinine 0.4 mg/dL (0.7-1.2) L 11/25/20 06:20 GFR Calculation 213.3 mL/min (90-130) H 11/25/20 06:20 Glucose 85 mg/dL (65-115) 11/25/20 06:20 Calculated Osmolality 276 mOsm/kg (285-295) L 11/25/20 06:20 Calcium 8.5 mg/dL (8.5-10.5) 11/25/20 06:20 Phosphorus 2.1 mg/dL (2.5-4.5) L 11/22/20 04:15 Magnesium 1.8 mg/dL (1.7-2.3) 11/22/20 04:15 Total Bilirubin 0.2 mg/dL (0.15-1.2) 11/22/20 04:15 AST 32 U/L (0-40) 11/22/20 04:15 ALT 27 U/L (0-41) 11/22/20 04:15 Alkaline Phosphatase 137 IU/L (40-130) H 11/22/20 04:15 Troponin T Baseline 19 ng/L (0-15) H 11/20/20 19:08 Troponin T 120 Minute 16.63 ng/L (0-15) H 11/20/20 21:40 Delta Troponin T -2.37 ABS# (0-10) L 11/20/20 21:40 Troponin T Hi Sens 6Hr 13.89 ng/L (0-15) 11/21/20 01:12 Troponin T Hi Sens 6Hr Delta -5.11 ng/L (0-12) L 11/21/20 01:12 NT-Pro-B Natriuret Pep 611 pg/mL (0-125) H 11/20/20 19:08 Total Protein 6.4 g/dL (6.6-8.7) L 11/22/20 04:15 Albumin 2.8 g/dL (3.5-5.2) L 11/22/20 04:15 Globulin 3.6 g/dL (1.3-4.6) 11/22/20 04:15 Procalcitonin 0.05 ng/mL (0-0.5) 11/22/20 04:15 Impressions Chest CTA 11/20/20 18:38 IMPRESSION: 1. No visible evidence of pulmonary embolism/pulmonary arterial thrombus. 2. Examination reveals a large left tension pneumothorax estimated 60-70% volume. 3. Severe bullous emphysema. 4. The consolidated alveolar airspace disease with associated bronchiectasis involving primarily the upper lobes appears to remain relatively static right lung; but, with increased consolidation anterior segment left upper lobe and superior segment left lower lobe. 5. It would be difficult to exclude scar carcinoma and close follow-up with repeat computed tomography of the chest in 3-6 months recommended. 6. Prominent mediastinal and hilar lymph nodes that increased in volume since last evaluation. 7. Calcified granulomas of antecedent disease. Radiation Dose CTDIVOL = (mGy): DLP = 595.12 (mGy-cm) ADDENDUM: 11/20/20 [id number] THIS REPORT CONTAINS FINDINGS THAT MAY BE CRITICAL TO PATIENT CARE. The findings were verbally communicated via telephone conference with Dr. Berg at 9:18 PM CDT on 11/20/2020. The findings were acknowledged and understood. Radiation Dose CTDIVOL = (mGy): DLP = 595.12 (mGy-cm) Chest CT 11/21/20 00:00 IMPRESSION: Left chest tube is been placed within the parenchyma of the left upper lobe. Residual pneumothorax. Extensive barotrauma with soft tissue subcutaneous emphysema involving the chest and neck. Pneumomediastinum. Neck CT 11/24/20 19:35 IMPRESSION: 1. Small left medial pneumothorax measuring 8.2 mm. Findings are stable. 2. Extensive, bilateral subcutaneous emphysema beginning in the visualized right and left frontotemporal scalp extending inferiorly to involve the facial and cervical subcutaneous tissues and soft tissues and the visualized subcutaneous and soft tissues of the upper chest. There is also extensive soft tissue emphysema in the retropharyngeal space extending from the skull base to the upper mediastinum with large amount of pneumomediastinum in the visualized mediastinum. 3. Bulla formation in the right and left lung apices is stable. Thickened wall at the left lung apical bulla is stable, possible superimposed infection cannot be ruled out. Recommend clinical correlation. 4. Small amount of left intraorbital emphysema in the superior left orbit. 5. The tip of a left-sided chest tube is seen abutting the left major fissure in the left upper lobe, stable in position. 6. Incidental note of basilar invagination. The posterior arch of C1 projects into the foramen magnum. 7. Incidental/nonacute findings are listed in the report. Radiation Dose CTDIVOL = (mGy): DLP = 526.02 (mGy-cm) ADDENDUM: 11/24/20 3561 Please note the addendum to the original report: Numerous calcified granulomas in the visualized upper lungs. Urgent results were discussed with Elver Mary, the nurse caring for this patient on 11/24/2020 at 9:40 PM CDT. Radiation Dose CTDIVOL = (mGy): DLP = 526.02 (mGy-cm) Chest X-Ray 11/25/20 15:33 IMPRESSION: Moderate size left pneumothorax with no significant change from prior study of 11/25/2020 at 12:50 p.m.. Radiation Dose CTDIVOL = (mGy): DLP = (mGy-cm) A&P Assessment and plan (1) Spontaneous tension pneumothorax: Status: Acute (2) Subcutaneous emphysema: Status: Acute Qualifiers: Encounter type: initial encounter Qualified Code(s): T79.7XXA - Traumatic subcutaneous emphysema, initial encounter (3) Pneumomediastinum: Status: Acute (4) COPD (chronic obstructive pulmonary disease): Status: Acute Qualifiers: COPD type: COPD with acute exacerbation Qualified Code(s): J44.1 - Chronic obstructive pulmonary disease with (acute) exacerbation (5) Pulmonary cachexia due to chronic obstructive pulmonary disease: Status: Acute (6) Pulmonary fibrosis: Status: Acute (7) Bullous emphysema: Status: Acute (8) Tuberculosis high risk: Status: Acute (9) Complication of chest tube: Status: Acute Qualifiers: Encounter type: initial encounter Qualified Code(s): T85.9XXA - Unspecified complication of internal prosthetic device, implant and graft, initial encounter (10) Gram-negative infection: Status: Acute #Large left pleural effusion in patient with underlying severe bullous emphysema and apical fibrosis #S/p insertion of 32 Fr chest tube during admission-noted to be in the right upper lung parenchyma #Pneumomediastinum and extensive subcutaneous emphysema #Also patient history of has recurrent pneumonia -CT chest post left chest tube insertion-showed within the parenchyma of KIMBERLY with residual pneumothorax -Currently grade 3 air leak on expiration and appears to be persistent -Most recent chest x-ray left chest tube remains in same position, extensive subcutaneous emphysema in chest wall and base of neck, pneumomediastinum persists without significant interval change, -In case Even if patient developed bronchopleural fistula-given his advanced COPD he is most likely a poor surgical candidate-the decision I would rather defer to the discretion of CT surgeon. -In that situation the best possible chance would be insertion of Thora vent or pigtail under ultrasound guidance, but ultrasound did not show safe pocket to insert pigtail -After her low discussion with CT surgeon Dr. Buckner, and the patient-given his extensive bullous emphysema with adhesions- as patient presented with loculated pneumothorax-and as patient is clinically stable with 4 L oxygen for last 4 days, saturating 100% and not in respiratory distress and hemodynamically stable-decision was made to pull intraparenchymal chest tube and observe for recurrence of pneumothorax /hemothorax and place a new chest tube if needed. As per CT surgery, patient is high risk surgical candidate for VATS/thoracotomy for surgical repair of the lung -Currently chest tube was pulled at 12:30 PM-and subsequent chest x-rays even after 4 hours showed stable moderate size left pneumothorax predominantly inferior left hemithorax; patient vitals are stable not in distress. -Percocet 1-2 tabs p.o. every 6 as needed -DuoNeb every 6 hour scheduled -As long as the pneumothorax is loculated and not causing tension-no need for any further intervention but in case if developed significant pneumothorax causing tension and hemodynamic instability, high FiO2 requirement--patient needs emergency chest tube insertion preferably pigtail All these recommendations were discussed in detail with patient and hospitalist taking care of the patient # 4+ AFB smear positive reported on sputum cx from 11/14 - Culture may take up to 6 weeks. Patient at high risk for pulmonary TB. - recommended AFB culture and MTB PCR. Send 3 specimen of expectorated sputum Q 8 hr for AFB smear/culture and MTB PCR - Airborne isolation precautions to be maintained until MTB PCR negative x 2 from expectorated sputum or MTB PCR negative x 1 from trach aspirate or bronchoscopy (if performed in this patient) OR culture reveals acid fast bacilli other than mycobacterium tuberculosis. #Sputum positive for gram-negative rods -Previous history of Pseudomonas infection sensitive to Zosyn -Currently on Zosyn Recommendations conveyed to hospitalist, RN, RT taking care of the patient Rest of the comorbidities managed as per hospitalist taking care of the patient Attestations Medical Necessity Statement*: Requires further hospitalization for management of pneumothorax s/p intraparenchymal chest tube insertion, pneumomediastinum history of severe emphysematous COPD Critical Care Time: The high probability of a clinically significant, sudden or life threatening deterioration of the patient's [pulmonary, ID] system(s) required my full and direct attention, intervention and personal management. The critical care time is as shown. This time is in addition to time spent performing any reported procedures but includes the following: [x] Data and vital sign review and interpretation [x] Patient assessment, examination and intervention [x] Documentation [x] Medication orders and management Critical Care Time (min): 120 Coding Level of Care Code Established Pt Acute Panel Raiser Operator for Chg Fwd Patient Type Established History Comprehensive Exam Comprehensive Medical Decision Making High Complexity Diagnoses Spontaneous tension pneumothorax J93.0 Subcutaneous emphysema T79.7XXA Encounter type: initial encounter Pneumomediastinum J98.2 COPD (chronic obstructive pulmonary disease) J44.1 COPD type: COPD with acute exacerbation Pulmonary cachexia due to chronic obstructive pulmonary disease J44.9; R64 Pulmonary fibrosis J84.10 Bullous emphysema J43.9 Tuberculosis high risk Z91.89 Complication of chest tube T85.9XXA Encounter type: initial encounter Gram-negative infection A49.9 Time Spent (min) 120
--- NOTE | 2020-11-25 18:21 | PC.NURSE ---
Shift Note Frequent safety and comfort rounds continue. Orders and/or nursing care completed as indicated. Patient monitored for response to intervention and treatment(s). Education provided includes treatment plan and medication regimen and CT removal. Pt verbalizes understanding. Education also includes to alert staff of any air leak or increased SOB immediately. Pressure dressing reapplied. No need for Ct placement at this time. All supplies in room if need arises. Will continue to monitor.
[2020-11-25] MEDS: budesonide 0.5 mg/2 mL Neb INHALATION (19:58)
[2020-11-25] MEDS: trazodone 100 mg Tablet PO (20:05)
[2020-11-26] VITALS (16 sets, daily range): BP systolic 76–99; BP diastolic 50–73; PULSE 77–105; RESP 16–24; TEMP 36.4–37.6; O2SAT 78–96
[2020-11-26] MEDS: piperacillin-tazobactam 3.375 GM in sodium chloride 0.9% (plus) 50 ML IV ×2 (00:57→08:16)
[2020-11-26] MEDS: ipratropium-albuterol 3 mL Neb INHALATION ×4 (03:05→19:59)
[2020-11-26 04:44] LABS: Basophils % 0.1 %; Eosinophils # 0.1 10^3/uL (0.0-0.8); Eosinophils % 0.6 %; Hematocrit 36.7 % (42.0-52.0); Hemoglobin 11.8 g/dL (11.7-16.6); Lymphocytes # 6.7 10^3/uL (0.8-4.8); Lymphocytes % 38.9 %; Mean Corpuscular HGB Conc 32.2 g/dL (30.0-36.0); Mean Corpuscular Hemoglobin 32.7 pg (28.0-34.0); Mean Corpuscular Volume 101.7 fl (80-94); Mean Platelet Volume 8.8 fL (7.4-10.4); Monocytes # 0.6 10^3/uL (0.2-0.9); Monocytes % 3.7 %; Neutrophils # 9.62 10^3/uL (1.8-7.7); Neutrophils % 55.8 %; Nucleated Red Blood Cells % 0 %; Platelet Count 395 10^3/cmm (130-400); Red Blood Count 3.61 10^6/uL (4.1-5.3); Red Cell Distribution Width 14.7 % (12.1-15.1); White Blood Count 17.2 10^3/uL (4.0-10.0)
[2020-11-26 05:52] LABS: Alanine Aminotransferase 46 U/L (0-41); Albumin Level 2.7 g/dL (3.5-5.2); Alkaline Phosphatase 141 IU/L (40-130); Anion Gap 11.2 (5-19); Aspartate Amino Transferase 35 U/L (0-40); Blood Urea Nitrogen 12 mg/dL (8-23); Calcium 8.2 mg/dL (8.5-10.5); Carbon Dioxide 33 mmol/L (22-29); Chloride 94 mmol/L (98-107); Globulin 3.1 g/dL (1.3-4.6); Glomerular Filtration Rate 164.9 mL/min (90-130); Glucose 81 mg/dL (65-115); Osmolality Calculated 277 mOsm/kg (285-295); Potassium 4.2 mmol/L (3.5-5.1); Sodium 134 mmol/L (136-145); Total Bilirubin 0.4 mg/dL (0.15-1.2); Total Protein 5.8 g/dL (6.6-8.7)
[2020-11-26 05:56] LABS: Creatinine Clr Calc Pharmacy 75.7605
[2020-11-26] MEDS: budesonide 0.5 mg/2 mL Neb INHALATION ×2 (08:16→19:54)
[2020-11-26] MEDS: pantoprazole DR 40 mg Tablet PO (08:16)
[2020-11-26] MEDS: gabapentin 300 mg Capsule PO ×3 (08:16→20:14)
[2020-11-26] MEDS: morphine 4 mg/mL SDV 1 mL 1 MG IVP ×2 (08:31→20:13)
--- NOTE | 2020-11-26 09:27 | XRR_ITS ---
PROCEDURE INFORMATION: Exam: XR Chest Exam date and time: 11/26/2020 9:27 AM Age: 70 years old Clinical indication: Condition or disease; Lung condition and disease; Pneumothorax TECHNIQUE: Imaging protocol: XR of the chest. Views: 1 view. COMPARISON: CR XR chest 1V portable [id number] 11/25/2020 3:39 PM FINDINGS: Lungs: There is a stable left pneumothorax with left lung atelectasis. Chronic fibrosis is present in the lung apices. Numerous benign calcified granulomas are present. There is no pneumothorax on the right side. No significant effusions are seen. Pleural spaces: See Lungs finding. Heart/Mediastinum: Unremarkable. No cardiomegaly. Bones/joints: Unremarkable. Soft tissues: There is prominent subcutaneous emphysema around the neck and chest. XR/XR chest 1V portable [id number] IMPRESSION: There has been no significant change in the left pneumothorax. Radiation Dose CTDIVOL = (mGy): DLP = (mGy-cm)
--- NOTE | 2020-11-26 10:26 | P.PN_ITS ---
Subjective Subjective: Interval history: The patient was seen and examined this morning. His chest tube was removed yesterday. Since then serial chest x-rays have revealed no worsening of his left-sided pneumothorax. Interestingly, when I saw the patient today. The dressing over the chest tube insertion site was not appropriately placed. The patient was suctioning atmospheric air with inspiration into his chest cavity and there was expulsion of the air through the wound during exhalation. Chest x-ray this morning revealed stable pneumothorax. His oxygen requirement has remained same as before. His oxygen saturation is in the mid 90s. The subcu emphysema is improving. The patient is currently empirically covered with Zosyn. His sputum culture had grown gram-negative rods. We are awaiting for sensitivity and species. Medications: Reviewed: Yes Vitals/I&O/Wt Last Vital Signs Temp 98.0 F 11/26/20 08:00 Pulse 85 11/26/20 08:23 Resp 18 11/26/20 08:17 BP 97/66 11/26/20 08:00 Pulse Ox 95 11/26/20 08:17 11/25/20 11/26/20 11/26/20 22:59 06:59 14:59 Intake Total 480 / 580 100 / 680 720 / 720 Output Total 1300 / 1900 650 / 650 Balance -820 / -1320 100 / -1220 70 / 70 Physical Exam Narrative: EXAM NARRATIVE: General: Patient is awake alert and oriented, in no distress. He is cachectic Neck: No JVD Respiratory: Auscultation: Reduced breath sound on the right hemithorax. There is audible vibration with expulsion of the air from the thoracic cavity through the chest tube insertion site during expiration, no wheezing or rhonchi Cardiovascular: Regular rate and rhythm, S1-S2 present, distant heart sound, no murmur, no peripheral edema. Abdomen: Soft, nontender, nondistended, positive bowel sound Musculoskeletal: No obvious joint deformity Skin: No rash Neuro: Mental status is normal, no gross cranial nerve deficit, normal gross motor movement Data : 11/26/20 04:09 11/26/20 04:09 Micro: Microbiology 11/21/20 01:40 Blood Culture - Final Blood NO GROWTH AFTER 5 DAYS 11/21/20 01:35 Blood Culture - Final Blood NO GROWTH AFTER 5 DAYS Attestation for Other Data: I personally reviewed and interpreted the following: Other data: I have reviewed his laboratory, microbiologic and radiologic data. The leukocytosis has persisted. Mildly lower count than yesterday. Electrolytes are normal. There is elevated bicarb level. A&P Assessment and plan (1) Secondary spontaneous pneumothorax: This is a 70-year-old gentleman with bullous emphysema who initially presented with a loculated left-sided pneumothorax. There was no radiographic evidence of tension. The chest tube that was inserted in the emergency department was in the lung parenchyma that was removed yesterday. Since then there had been no worsening of the left-sided loculated pneumothorax. This morning when I evaluated the patient there was direct complication of the left thoracic cavity with atmospheric air however there had been no further compromise of the left lung with collapse. This is suggestive that the adhesion that was seen on the chest imaging is essentially protective in the lung is engaged. The patient is currently on his home oxygen setting. I have advised the nursing staff to put in a better occlusive dressing. The patient will not need any further intervention for this pneumothorax. Status: Acute (2) Pneumomediastinum: The pneumomediastinum will improve in time. There is no evidence of mediastinitis. Status: Acute (3) Subcutaneous emphysema: The subcutaneous emphysema is slowly improving. This will continue to get better. Status: Acute Qualifiers: Encounter type: initial encounter Qualified Code(s): T79.7XXA - Traumatic subcutaneous emphysema, initial encounter (4) COPD (chronic obstructive pulmonary disease): The patient has gold class D COPD. He has severe airflow obstruction on a pulmonary function test from before. There is no evidence of COPD exacerbation at this point. The patient can continue with DuoNeb and Pulmicort nebulization. Status: Acute Qualifiers: COPD type: COPD with acute exacerbation Qualified Code(s): J44.1 - Chronic obstructive pulmonary disease with (acute) exacerbation (5) Chronic respiratory failure with hypoxia: The patient is currently requiring his baseline oxygen requirement. Status: Acute (6) Pneumonia: His sputum culture grew gram-negative rods. The patient has history of multifocal cavitary pneumonia with resistant organism in the past. We are waiting for the species and culture sensitivity for this pathogen. For now, the Zosyn seems to be effective. The patient should be ready for discharge in the near future. I will follow up with him as outpatient. Status: Acute Attestations Medical Necessity Statement*: Will defer to the primary team Coding Level of Care Code Acute Telephone Solicitor Supervisor for Chg Fwd Diagnoses Secondary spontaneous pneumothorax J93.12 Pneumomediastinum J98.2 Subcutaneous emphysema T79.7XXA Encounter type: initial encounter COPD (chronic obstructive pulmonary disease) J44.1 COPD type: COPD with acute exacerbation Chronic respiratory failure with hypoxia J96.11 Pneumonia J18.9 Time Spent (min) 33
[2020-11-26] MEDS: fluticasone nasal spray 16gm Btl 1 SPRAY INTRANASAL (11:10)
--- NOTE | 2020-11-26 15:02 | PM.PN ---
Subjective Subjective: Interval history: No acute events overnight. In last 24 hours chest tube was pulled yesterday afternoon and since then subsequent chest x-rays have been done which shows stable pneumothorax. Overnight patient has remained hemodynamically stable. Today morning on examination dressing seen off with possible air moving in and out through puncture site of chest tube placement with each inspiration and expiration rising concerns for bronchocutaneous fistula with atmospheric care. Medications: Reviewed: Yes Vitals/I&O/Wt Last Vital Signs Temp 98.0 F 11/26/20 08:00 Pulse 100 11/26/20 14:40 Resp 16 11/26/20 14:32 BP 97/66 11/26/20 08:00 Pulse Ox 94 11/26/20 14:32 11/26/20 11/26/20 11/26/20 06:59 14:59 22:59 Intake Total 100 / 680 720 / 720 Output Total 650 / 650 Balance 100 / -1220 70 / 70 Physical Exam Narrative: EXAM NARRATIVE: General: No acute distress, AO x3, subcutaneous emphysema present from upper abdomen to face, saturating 99% on 5 L. HEENT: PERRLA, pupils bilaterally equal and reactive Chest: Subcutaneous emphysema present, bronchial breath sounds all over the lung boogie, decreased air entry all over the lung boogie, coarse crackles present left middle zone CVS: S1-S2 regular, no murmurs, no tachycardia, no gallops, no rubs Abdomen: Soft, nontender, no organomegaly, bowel sounds present Neuro: No focal deficits, no facial deformity, AO x3, power 5/5 in all limbs Data : 11/26/20 04:09 11/26/20 04:09 Micro: Microbiology 11/23/20 04:50 Gram Stain - Final Sputum - Expectorated Sputum Sputum Culture - Final Stenotrophomonas maltophilia 11/21/20 01:40 Blood Culture - Final Blood NO GROWTH AFTER 5 DAYS 11/21/20 01:35 Blood Culture - Final Blood NO GROWTH AFTER 5 DAYS A&P Assessment and plan (1) Acute and chronic respiratory failure: Acute on chronic hypoxic respiratory failure secondary to large left-sided tension pneumothorax. He has pre-existing extensive emphysematous bullous disease. Status post left chest tube placement in the ER: Later noted and lung parenchyma With development of pneumomediastinum and subcutaneous extensive emphysema. Oxygen supplementation keeping saturation in high 90s. Currently requiring 5 L. Sputum culture positive for stenotrophomonas. Patient has been on levofloxacin as an outpatient will start on Bactrim for most likely next 10 days. Stop Zosyn. Appreciate pulmonary as well as cardiothoracic surgery consult. Status: Acute Qualifiers: Respiratory failure complication: hypoxia and hypercapnia Qualified Code(s): J96.21 - Acute and chronic respiratory failure with hypoxia; J96.22 - Acute and chronic respiratory failure with hypercapnia (2) Spontaneous tension pneumothorax: Chest tube initially placed in the ER on admission. Later on CT chest was found to be in left upper lung parenchyma. Patient developed extensive subcutaneous emphysema. Chest tube was removed on November 25 by pulmonology after discussion with CT surgery. Subsequent chest x-rays since then have stable pneumothorax with the patient being hemodynamically stable. Patient found to have air leak with each inspiration and expiration to atmospheric air which is blowing the occlusive dressing away with concerns of bronchial cutaneous fistula. Status: Acute (3) Bronchocutaneous fistula: As above. Patient's care discussed in detail with pulmonology and Dr. Buckner from CT surgery. Patient is a poor surgical candidate because of severe baseline COPD, baseline health and severe protein energy malnutrition. With patient being hemodynamically stable for now recommendations as per CT surgery is to follow-up as an outpatient for pain the fistula will heal with time versus possible transfer as an outpatient to a higher center for same. Status: Acute (4) Subcutaneous emphysema: Status: Acute Qualifiers: Encounter type: initial encounter Qualified Code(s): T79.7XXA - Traumatic subcutaneous emphysema, initial encounter (5) Pneumomediastinum: Status: Acute (6) Hyperlipidemia: Status: Acute (7) Hypertension: Status: Acute Qualifiers: Hypertension type: other secondary hypertension Qualified Code(s): I15.8 - Other secondary hypertension (8) Hypotension: Patient was initially hypotensive likely secondary to tension pneumothorax. He was briefly on Levophed. Currently he is off Levophed. And maintaining a good map. Status: Acute Additional A&P Information + AFB smear positive reported on sputum cx from 11/14. As per state guidelines continue with airborne precautions. 3 sputum sample for AFB culture and MTB PCR have been sent. Soft mechanical diet. Protonix for daily prophylaxis. SCDs for DVT prophylaxis Attestations Medical Necessity Statement*: Requires further hospitalization for monitoring and management of spontaneous tension pneumothorax, post chest tube placement, subcutaneous emphysema and bronchial cutaneous fistula Critical Care Time: The high probability of a clinically significant, sudden or life threatening deterioration of the patient's [pulmonary] system(s) required my full and direct attention, intervention and personal management. The critical care time is as shown. 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
--- NOTE | 2020-11-26 15:58 | P.PN_ITS ---
Subjective Subjective: Interval history: Mr. Brooks's pulmonary status appears to be stable. He has been followed carefully by Dr. Jane from our hospitalist service as well as his colleagues as well as Dr. Chamberlain and Dr. Montelongo. Previously correctly placed chest tube has been removed and now there appears to be free exchange of air both with inspiratory and expiration consistent with communica tion with the lung parenchyma and the chest wall. This appears either represent nonhealed lung parenchyma or development of a functional broncho cutaneous fistula. Overall, Mr. Brooks has substantially advanced pulmonary disease and generalized malnutrition with an albumin noted today of 2.7. White count has drifted down but is currently over 17,000. Most recent chest x-ray reveals improving subcutaneous emphysema and, as expected, a tethered apices with isolated lateral and inferior pneumothorax, further confirming the extensive adhesions of much of his upper lobe. This is remained stable with serial chest x-rays and I concur with Dr. Ball's opinion this will most probably will not worsen. Vitals/I&O/Wt Last Vital Signs Temp 98.0 F 11/26/20 08:00 Pulse 100 11/26/20 14:40 Resp 16 11/26/20 14:32 BP 97/66 11/26/20 08:00 Pulse Ox 94 11/26/20 14:32 11/26/20 11/26/20 11/26/20 06:59 14:59 22:59 Intake Total 100 / 680 720 / 720 Output Total 650 / 650 Balance 100 / -1220 70 / 70 Data : 11/26/20 04:09 11/26/20 04:09 Micro: Microbiology 11/23/20 04:50 Gram Stain - Final Sputum - Expectorated Sputum Sputum Culture - Final Stenotrophomonas maltophilia 11/21/20 01:40 Blood Culture - Final Blood NO GROWTH AFTER 5 DAYS 11/21/20 01:35 Blood Culture - Final Blood NO GROWTH AFTER 5 DAYS A&P Assessment and plan (1) Complication of chest tube: I would recommend expectant management of her current situation. Of current paramount would be appropriate nutritional support and continued antibiotic treatment until his white count returns to normal. Continue pulmonary toilet and avoid positive ventilation. It is reasonable to allow a recurrent apparent fistula to mature and make further considerations of potential interventional therapies at a later date when his overall physiologic status is substantially improved. While apparently off label, I do believe consideration of potential endobronchial valve should be considered if CT/computer imaging can help confirm an isolated area which is the source for this air leak. I believe this would be the least morbid an invasive option to potentially ablate this air leak if it does not begin to lessen spontaneously with improved overall physiologic and nutritional status. Overall, I believe that the pulmonary service and hospital service have unremarkable job of stabilizing Mr. Brooks is chest tube event and have been abnormal and able to avoid the need for positive ventilation during Mr. Brooks's recovery. Status: Acute Qualifiers: Encounter type: initial encounter Qualified Code(s): T85.9XXA - Unspecified complication of internal prosthetic device, implant and graft, initial encounter Attestations Medical Necessity Statement*: Complication of chest tube with pneumothorax and subsequent parenchymal injury and bronchial cutaneous fistula Time Spent in Patient Care: less than 15 minutes Coding Level of Care Code Acute Associate Director Financial Aid for Chg Fwd Diagnoses Complication of chest tube T85.9XXA Encounter type: initial encounter
--- NOTE | 2020-11-26 17:16 | PC.PT ---
Patient nurse, RN, Javi, recommends hold PT evaluation today due to not wanting to disturb possible air leak. Will reattempt tomorrow
[2020-11-26] MEDS: sulfamethoxazole-trimeth DS 160-800 mg Tablet 1 TAB PO (17:34)
[2020-11-26] MEDS: guaiFENesin-dextromethorphan UDC 10 mL 5 ML PO (17:36)
--- NOTE | 2020-11-26 18:02 | PC.NURSE ---
Shift summary: Patient rested in bed for most of the day, but he did get up to a chair for about 2 hours for lunch. Subcutaneous emphysema still present, involves the upper chest, upper back, Neck, and bilateral arms. Sub Q emphysema has not increased or decreased throughout day shift. Breath sounds are coarse, present bilaterally, and unchanged throughout shift. Patient has no complaints of increased difficulty breathing and has maintained a 90%+ O2 saturation at his home baseline of 4L NC. Large amount of air continues to be expelled from the incision from the chest tube. It has been difficult to keep a well sealed pressure dressing on the wound as the seal slowly loosens due to the large amount of air expelled and when the patient forcefully coughs it also becomes loose. Patient has been instructed to splint the area with hand when coughing, but he rarely does. Cough medicine ordered to help with this. Dressing has had to be reinforced or changed [address] Chamberlain and Dr Louis notified.
[2020-11-26] MEDS: benzonatate 100 mg Capsule PO (20:14)
[2020-11-26] MEDS: trazodone 100 mg Tablet PO (20:14)
[2020-11-26] MEDS: midodrine 5 mg TABLET PO (22:15)
--- NOTE | 2020-11-26 23:38 | PC.NURSE ---
Report given to MS. Patient transferred to [facility]. Belongings taken with patient.
[2020-11-27] VITALS (8 sets, daily range): BP systolic 91–96; BP diastolic 55–64; PULSE 83–102; RESP 17–22; TEMP 36.3–37.2; O2SAT 88–91
[2020-11-27] MEDS: fluticasone nasal spray 16gm Btl 1 SPRAY INTRANASAL ×2 (00:14→10:11)
[2020-11-27] MEDS: guaiFENesin-dextromethorphan UDC 10 mL 5 ML PO (04:38)
--- NOTE | 2020-11-27 06:00 | XR_ITS ---
WS: [id number] Portable AP upright chest, 11/27/2020 Clinical Data: Pneumothorax, severe COPD Comparison: Portable chest, 11/26/2020. Findings: The left pneumothorax shows minimal improvement. Right lung is fully expanded. The heart is normal. There are calcified granulomas throughout both lungs. Extensive subcutaneous emphysema overl ladonna the chest wall bilaterally and in the upper lobes remains the same. There is extensive scarring in both upper lobes. Monitor leads are on the chest wall. XR/XR chest 1V portable [id number] Impression: 1. Slight improvement in left pneumothorax. 2. No change in bilateral upper lobe scarring. 3. No change in bilateral subcutaneous emphysema.
[2020-11-27 06:11] LABS: Basophils % 0.1 %; Eosinophils # 0.1 10^3/uL (0.0-0.8); Eosinophils % 0.7 %; Hematocrit 33.5 % (42.0-52.0); Hemoglobin 10.9 g/dL (11.7-16.6); Lymphocytes # 5.8 10^3/uL (0.8-4.8); Lymphocytes % 36.9 %; Mean Corpuscular HGB Conc 32.5 g/dL (30.0-36.0); Mean Corpuscular Hemoglobin 32.7 pg (28.0-34.0); Mean Corpuscular Volume 100.6 fl (80-94); Mean Platelet Volume 8.8 fL (7.4-10.4); Monocytes # 0.7 10^3/uL (0.2-0.9); Monocytes % 4.4 %; Neutrophils # 8.96 10^3/uL (1.8-7.7); Neutrophils % 56.8 %; Nucleated Red Blood Cells % 0 %; Platelet Count 378 10^3/cmm (130-400); Red Blood Count 3.33 10^6/uL (4.1-5.3); Red Cell Distribution Width 14.8 % (12.1-15.1); White Blood Count 15.8 10^3/uL (4.0-10.0)
[2020-11-27 06:34] LABS: Alanine Aminotransferase 36 U/L (0-41); Albumin Level 2.5 g/dL (3.5-5.2); Alkaline Phosphatase 143 IU/L (40-130); Anion Gap 12.1 (5-19); Aspartate Amino Transferase 27 U/L (0-40); Blood Urea Nitrogen 11 mg/dL (8-23); Calcium 8.2 mg/dL (8.5-10.5); Carbon Dioxide 30 mmol/L (22-29); Chloride 97 mmol/L (98-107); Globulin 3.2 g/dL (1.3-4.6); Glomerular Filtration Rate 164.9 mL/min (90-130); Glucose 106 mg/dL (65-115); Osmolality Calculated 280 mOsm/kg (285-295); Potassium 4.1 mmol/L (3.5-5.1); Sodium 135 mmol/L (136-145); Total Bilirubin 0.3 mg/dL (0.15-1.2); Total Protein 5.7 g/dL (6.6-8.7)
[2020-11-27 06:36] LABS: Creatinine Clr Calc Pharmacy 75.7605
[2020-11-27] MEDS: benzonatate 100 mg Capsule PO ×2 (08:41→14:01)
[2020-11-27] MEDS: gabapentin 300 mg Capsule PO ×2 (08:41→14:01)
[2020-11-27] MEDS: midodrine 5 mg TABLET PO ×2 (08:41→14:01)
[2020-11-27] MEDS: pantoprazole DR 40 mg Tablet PO (08:41)
[2020-11-27] MEDS: sulfamethoxazole-trimeth DS 160-800 mg Tablet 1 TAB PO (08:52)
[2020-11-27] MEDS: budesonide 0.5 mg/2 mL Neb INHALATION (09:09)
[2020-11-27] MEDS: ipratropium-albuterol 3 mL Neb INHALATION ×2 (09:09→14:51)
--- NOTE | 2020-11-27 12:01 | PC.NURSE ---
WOUND CARE INSTRUCTED PER DR MCKEON TO SEND HOME DRESSING SUPPLIES - DONE PER THIS NURSE
--- NOTE | 2020-11-27 13:42 | PM.DCS ---
Discharge Providers Date of Admission: 11/21/20 00:28 Date of Discharge: November 27, 2020 Attending Provider at Admission: Sumeet Barros Attending Provider at Discharge: Ricco Louis MD Consults: Pulmonology: Dr. Montelongo/Dr. Chamberlain CT surgery: Dr. Buckner Primary Care Provider: America Baez MD Diagnoses at Discharge Discharge Diagnosis (1) Complication of chest tube: Status: Acute Qualifiers: Encounter type: initial encounter Qualified Code(s): T85.9XXA - Unspecified complication of internal prosthetic device, implant and graft, initial encounter Reason for Visit Reason for Visit: RESP DISTRESS, COPD EXACERBATION Hospital Course Hospital Course History as per HPI. 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 This was associated with left-sided chest pain. Patient was recently discharged from the hospital on 11/16/2020 after which he was discharged on azithromycin and Levaquin. Upon arrival to emergency room patient was noted to have a WBC of 11.2, hemoglobin of 12.7, hematocrit 37.3 and a platelet count of 405. Sodium 134, potassium 5.1, chloride 97, bicarb 29, BUN 17 and creatinine of 0.3. AST of 40 , ALT of 33 and alkaline phosphatase 199 troponin T baseline 19, 16.6 at 2hr , proBNP of 611. CT of chest was performed which did not show any evidence of acute pulmonary embolism however he was noted to have a large left tension pneumothorax estimated 60-70% volume. This was also noted on chest xray. In ER chest tube was placed. Repeat chest xay showed some interval improvement in the left tension pneumothorax of estimated now 40%. Patient was admitted to [facility] for further management. Patient was found to be hypotensive and started on vasopressors. He was started on broad-spectrum antibiotics at first. Sputum culture was collected. Because of persistent air leak, development of subcutaneous emphysema and hypotension repeat CT scan was done which which was noted for chest tube to be in lung parenchyma with development of pneumomediastinum and extensive subcutaneous emphysema. insulation applicator and CT surgery were consulted. Patient remained hemodynamically stable afterwards and his vasopressor requirement significantly improved after first 24 hours. After extensive discussion between the consulting team it was deemed that patient is a poor surgical candidate because of extensive chronic lung distortion, architectural residual scarring and fibrosis along with severe protein energy malnutrition and as patient remained hemodynamically stable for more than 48 hours with supplemental oxygen requirement at baseline it was decided to remove the chest tube with close monitoring of hemodynamics and frequent chest x-rays. 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 Of note, patient sputum culture during hospitalization grew stenotrophomonas for which antibiotics were transitioned over to Bactrim. He is advised to take Bactrim for next 10 days to finish the course of antibiotics. Levofloxacin was not chosen as patient was on levofloxacin prior to admission. 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 Given the complexity of disease, chronic illness and chronically severe protein energy malnutrition with history of hospice in the past hospice was rediscussed with the patient but for now he refused and states he would like to give [facility] a chance and if needed he would consider Hospice as an outpatient. After further discussion with the consulting team patient was deemed stable to be discharged with close follow-up with Dr. Buckner from CT surgery, Dr. Chamberlain from pulmonology and wound care center for further management. Close follow-ups have been set up along with right being set up through case management. The above plan was discussed in detail with patient and he verbalized understanding. Physical Exam Narrative: EXAM NARRATIVE: General: No acute distress, AO x3, subcutaneous emphysema present from upper abdomen to face, saturating 99% on 5 L. HEENT: PERRLA, pupils bilaterally equal and reactive Chest: Subcutaneous emphysema present, bronchial breath sounds all over the lung boogie, decreased air entry all over the lung boogie, coarse crackles present left middle zone CVS: S1-S2 regular, no murmurs, no tachycardia, no gallops, no rubs Abdomen: Soft, nontender, no organomegaly, bowel sounds present Neuro: No focal deficits, no facial deformity, AO x3, power 5/5 in all limbs Discharge Data Data Completed and Pending: Completed Studies During Hospitalization Category Date Time Status CT angio chest PE protcl 94004 Urge nt Cat Scan 11/20/20 18:[address] chest wo con 7 1250 Stat Cat Scan 11/21/[address] neck wo con 70 490 Stat Cat Scan 11/24/20 19:35 Completed XR chest 1V tushar ble 93973 QAM Exams 11/27/20 06:00 Completed XR chest 1V tushar ble 17522 Routine Exams 11/21/20 05:09 Completed XR chest 1V tushar ble 18194 Routine Exams 11/22/20 03:35 Completed XR chest 1V tushar ble 72047 Routine Exams 11/22/20 14:09 Completed XR chest 1V tushar ble 94310 Routine Exams 11/23/20 05:00 Completed XR chest 1V tushar ble 41679 Routine Exams 11/24/20 06:00 Completed XR chest 1V tushar ble 60146 Routine Exams 11/25/20 05:00 Completed XR chest 1V tushar ble 38977 Routine Exams 11/26/20 09:27 Completed XR chest 1V tushar ble 63545 Stat Exams 11/20/20 21:26 Completed XR chest 1V tushar ble [id number] Stat Exams 11/24/20 18:39 Completed XR chest 1V tushar ble 97460 Stat Exams 11/24/20 23:11 Completed XR chest 1V tushar ble 30471 Stat Exams 11/25/20 12:50 Completed XR chest 1V tushar ble 71490 Stat Exams 11/25/20 15:33 Completed XR chest 1V tushar ble 62080 Urgent Exams 11/20/20 18:38 Completed Pending at discharge Category Date Time Status XR chest 1V tushar ble 24575 QAM Exams 11/28/20 06:00 Ordered XR chest 1V tushar ble 08485 QAM Exams 11/29/20 06:00 Ordered Miscellaneous Magalis t Q8H Lab 11/22/20 15:40 Received Miscellaneous Magalis t Q8H Lab 11/22/20 15:40 Received Miscellaneous Magalis t Q8H Lab 11/23/20 04:45 Received Mycobacteria, Cul ture w/Fluor Q8H Lab 11/22/20 20:33 Uncollected Mycobacteria, Cul ture w/Fluor Q8H Lab 11/23/20 08:00 Received Mycobacteria, Cul ture w/Fluor Routi ne Lab 11/22/20 14:27 Received Mycobacteria, Sonya fink w/Fluor Routi ne Lab 11/26/20 12:20 Received Mycobacterium TB Respiratory Routin e Lab 11/26/20 09:00 Received Labs from last 24 hours 11/27/20 11/27/20 04:50 04:50 WBC 15.8 H RBC 3.33 L Hgb 10.9 L Hct 33.5 L MCV 100.6 H MCH 32.7 MCHC 32.5 RDW 14.8 Plt Count 378 MPV 8.8 Neut % (Auto) 56.8 Lymph % (Auto) 36.9 [place] % (Auto) 4.4 Eos % (Auto) 0.7 Baso % (Auto) 0.1 Neut # (Auto) 8.96 H Lymph # (Auto) 5.8 H [place] # (Auto) 0.7 Eos # (Auto) 0.1 Baso # (Auto) 0.0 Nucleated RBC % (a uto) 0 Nucleated RBCs # 0.0 Sodium 135 L Potassium 4.1 Chloride 97 L Carbon Dioxide 30 H Anion Gap 12.1 BUN 11 Creatinine 0.5 L GFR Calculation 164.9 H Glucose 106 Calculated Osmolal ity 280 L Calcium 8.2 L Total Bilirubin 0.3 AST 27 ALT 36 Alkaline Phosphata se 143 H Total Protein 5.7 L Albumin 2.5 L Globulin 3.2 Addt'l Data from Hospital Stay: Laboratory Results WBC 15.8 10^3/uL (4.0 -10.0) H 11/27/20 04:50 RBC 3.33 10^6/uL (4.1 -5.3) L 11/27/20 04:50 Hgb 10.9 g/dL (11.7-1 6.6) L 11/27/20 04:50 Hct 33.5 % (42.0-52.0 ) L 11/27/20 04:50 MCV 100.6 fl (80-94) H 11/27/20 04:50 MCH 32.7 pg (28.0-34. 0) 11/27/20 04:50 MCHC 32.5 g/dL (30.0-3 6.0) 11/27/20 04:50 RDW 14.8 % (12.1-15.1 ) 11/27/20 04:50 Plt Count 378 10^3/cmm (130 -400) 11/27/20 04:50 MPV 8.8 fL (7.4-10.4) 11/27/20 04:50 Neut % (Auto) 56.8 % 11/27/20 04:50 Lymph % (Auto) 36.9 % 11/27/20 04:50 [place] % (Auto) 4.4 % 11/27/20 04:50 Eos % (Auto) 0.7 % 11/27/20 04:50 Baso % (Auto) 0.1 % 11/27/20 04:50 Neut # (Auto) 8.96 10^3/uL (1.8 -7.7) H 11/27/20 04:50 Lymph # (Auto) 5.8 10^3/uL (0.8- 4.8) H 11/27/20 04:50 [place] # (Auto) 0.7 10^3/uL (0.2- 0.9) 11/27/20 04:50 Eos # (Auto) 0.1 10^3/uL (0.0- 0.8) 11/27/20 04:50 Baso # (Auto) 0.0 10^3/uL (0.0- 0.1) 11/27/20 04:50 Nucleated RBC % (a uto) 0 % 11/27/20 04:50 Total Counted 100 (0-100) 11/25/20 06:20 Atypical Lymphs % 5.0 % (0-5) 11/25/20 06:20 Absolute Neutrophi ls 10.8 10^3/cmm (1. 4-6.5) H 11/25/20 06:20 Segmented Neutroph ils 54 % 11/25/20 06:20 Abs Segm Neuts (Ma n) 10.8 10/cmm (1.6- 7.1) H 11/25/20 06:20 Band Neutrophils 0.0 % 11/25/20 06:20 Abs Band Neuts (Ma n) 0.0 10^3/cmm (0.0 -1.2) 11/25/20 06:20 Absolute Lymphocyt es 7.6 10^3/cmm (1.2 -3.4) H 11/25/20 06:20 Lymphocytes (Manua l) 33 % 11/25/20 06:20 Monocytes (Manual) 7.0 % 11/25/20 06:20 Absolute Monocytes 1.4 10^3/cmm (0.1 -0.6) H 11/25/20 06:20 Eosinophils (Manua l) 0 % 11/25/20 06:20 Absolute Eosinophi ls 0.0 10^3/cmm (0.0 -0.7) 11/25/20 06:20 Basophils (Manual) 0.0 % 11/25/20 06:20 Absolute Basophils 0.0 10^3/cmm (0.0 -0.2) 11/25/20 06:20 Metamyelocytes 1.0 % 11/25/20 06:20 Nucleated RBCs # 0.0 /100WBC 11/27/20 04:50 Platelet Estimate Normal (Normal) 11/25/20 06:20 Macrocytosis 1+ H 11/25/20 06:20 APTT 25.6 SECONDS (23. 9-36.7) 11/22/20 04:15 Specimen Type Arterial 11/20/20 18:47 Sample Site Radial, right 11/20/20 18:47 ABG pH 7.49 (7.35-7.45) H 11/20/20 18:47 ABG pCO2 42.1 mmHg (35-45) 11/20/20 18:47 ABG pO2 92.1 mmHg (80.0-1 00.0) 11/20/20 18:47 ABG HCO3 31.6 mmol/L (22-2 6) H 11/20/20 18:47 ABG Base Excess 7.4 mmol/L (-2.0- 2.0) H 11/20/20 18:47 Yan Test Pos 11/20/20 18:47 Hematocrit 40.6 % (42-52) L 11/20/20 18:47 Hgb O2 Saturation 95.9 % (95-100) 11/20/20 18:47 Carboxyhemoglobin 1.9 %THgb (0.4-20 .1) 11/20/20 18:47 Methemoglobin 0.7 % (0.4-1.5) 11/20/20 18:47 Total Hemoglobin 13.3 g/dL (14-18) L 11/20/20 18:47 O2 Delivery Device Nrb 11/20/20 18:47 O2 Liters/Min 15.0 % 11/20/20 18:47 Nursing Home Assistant Administrator ID Cak 11/20/20 18:47 Sodium 135 mmol/L (136-1 45) L 11/27/20 04:50 Potassium 4.1 mmol/L (3.5-5 .1) 11/27/20 04:50 Chloride 97 mmol/L (98-107 ) L 11/27/20 04:50 Carbon Dioxide 30 mmol/L (22-29) H 11/27/20 04:50 Anion Gap 12.1 (5-19) 11/27/20 04:50 BUN 11 mg/dL (8-23) 11/27/20 04:50 Creatinine 0.5 mg/dL (0.7-1. 2) L 11/27/20 04:50 GFR Calculation 164.9 mL/min (90- 130) H 11/27/20 04:50 Glucose 106 mg/dL (65-115 ) 11/27/20 04:50 Calculated Osmolal ity 280 mOsm/kg (285- 295) L 11/27/20 04:50 Calcium 8.2 mg/dL (8.5-10 .5) L 11/27/20 04:50 Phosphorus 2.1 mg/dL (2.5-4. 5) L 11/22/20 04:15 Magnesium 1.8 mg/dL (1.7-2. 3) 11/22/20 04:15 Total Bilirubin 0.3 mg/dL (0.15-1 .2) 11/27/20 04:50 AST 27 U/L (0-40) 11/27/20 04:50 ALT 36 U/L (0-41) 11/27/20 04:50 Alkaline Phosphata se 143 IU/L (40-130) H 11/27/20 04:50 Troponin T Baselin e 19 ng/L (0-15) H 11/20/20 19:08 Troponin T 120 Min abdi 16.63 ng/L (0-15) H 11/20/20 21:40 Delta Troponin T -2.37 ABS# (0-10) L 11/20/20 21:40 Troponin T Hi Sens 6Hr 13.89 ng/L (0-15) 11/21/20 01:12 Troponin T Hi Sens 6Hr Delta -5.11 ng/L (0-12) L 11/21/20 01:12 NT-Pro-B Natriuret Pep 611 pg/mL (0-125) H 11/20/20 19:08 Total Protein 5.7 g/dL (6.6-8.7 ) L 11/27/20 04:50 Albumin 2.5 g/dL (3.5-5.2 ) L 11/27/20 04:50 Globulin 3.2 g/dL (1.3-4.6 ) 11/27/20 04:50 Procalcitonin 0.05 ng/mL (0-0.5 ) 11/22/20 04:15 Misc Test Referenc e Cancelled 11/22/20 08:00 Impressions Chest CTA 11/20/20 18:38 IMPRESSION: 1. No visible evidence of pulmonary embolism/pulmonary arterial thrombus. 2. Examination reveals a large left tension pneumothorax estimated 60-70% volume. 3. Severe bullous emphysema. 4. The consolidated alveolar airspace disease with associated bronchiectasis involving primarily the upper lobes appears to remain relatively static right lung; but, with increased consolidation anterior segment left upper lobe and superior segment left lower lobe. 5. It would be difficult to exclude scar carcinoma and close follow-up with repeat computed tomography of the chest in 3-6 months recommended. 6. Prominent mediastinal and hilar lymph nodes that increased in volume since last evaluation. 7. Calcified granulomas of antecedent disease. Radiation Dose CTDIVOL = (mGy): DLP = 595.12 (mGy-cm) ADDENDUM: 11/20/202131 THIS REPORT CONTAINS FINDINGS THAT MAY BE CRITICAL TO PATIENT CARE. The findings were verbally communicated via telephone conference with Dr. Berg at 9:18 PM CDT on 11/20/2020. The findings were acknowledged and understood. Radiation Dose CTDIVOL = (mGy): DLP = 595.12 (mGy-cm) Chest CT 11/21/20 00:00 IMPRESSION: Left chest tube is been placed within the parenchyma of the left upper lobe. Residual pneumothorax. Extensive barotrauma with soft tissue subcutaneous emphysema involving the chest and neck. Pneumomediastinum. Neck CT 11/24/20 19:35 IMPRESSION: 1. Small left medial pneumothorax measuring 8.2 mm. Findings are stable. 2. Extensive, bilateral subcutaneous emphysema beginning in the visualized right and left frontotemporal scalp extending inferiorly to involve the facial and cervical subcutaneous tissues and soft tissues and the visualized subcutaneous and soft tissues of the upper chest. There is also extensive soft tissue emphysema in the retropharyngeal space extending from the skull base to the upper mediastinum with large amount of pneumomediastinum in the visualized mediastinum. 3. Bulla formation in the right and left lung apices is stable. Thickened wall at the left lung apical bulla is stable, possible superimposed infection cannot be ruled out. Recommend clinical correlation. 4. Small amount of left intraorbital emphysema in the superior left orbit. 5. The tip of a left-sided chest tube is seen abutting the left major fissure in the left upper lobe, stable in position. 6. Incidental note of basilar invagination. The posterior arch of C1 projects into the foramen magnum. 7. Incidental/nonacute findings are listed in the report. Radiation Dose CTDIVOL = (mGy): DLP = 526.02 (mGy-cm) ADDENDUM: 11/24/202141 Please note the addendum to the original report: Numerous calcified granulomas in the visualized upper lungs. Urgent results were discussed with Elver Mary, the nurse caring for this patient on 11/24/2020 at 9:40 PM CDT. Radiation Dose CTDIVOL = (mGy): DLP = 526.02 (mGy-cm) Chest X-Ray 11/27/20 06:00 Impression: 1. Slight improvement in left pneumothorax. 2. No change in bilateral upper lobe scarring. 3. No change in bilateral subcutaneous emphysema. Microbiology 11/23/20 04:50 Sputum - Expectorated Sputum Gram Stain - Final 11/23/20 04:50 Sputum - Expectorated Sputum Sputum Culture - Final Stenotrophomonas maltophilia 11/21/20 01:40 Blood Blood Culture - Final NO GROWTH AFTER 5 DAYS 11/21/20 01:35 Blood Blood Culture - Final NO GROWTH AFTER 5 DAYS Vitals: Last Vital Signs Temp 98.2 F 11/27/20 11:07 Pulse 94 11/27/20 11:07 Resp 18 11/27/20 11:07 BP 96/64 11/27/20 11:07 Pulse Ox 90 11/27/20 11:07 Discharge Plan Discharge Patient Disposition: Home Condition: Stable Prescriptions: New benzonatate 100 mg Capsule 100 mg PO TID Qty: 60 RF: 0 midodrine 5 mg Tablet 5 mg PO TID 30 Days Qty: 90 RF: 0 sulfamethoxazole-trimethoprim 800-160 mg Tablet 1 tab PO BID 10 Days Qty: 20 RF: 0 Continued meloxicam 15 mg tablet 15 mg PO DAILY 90 Days Qty: 90 RF: 1 pantoprazole 40 mg tablet,delayed release (DR/EC) 40 mg PO DAILY 90 Days Qty: 90 RF: 1 oxybutynin chloride 5 mg tablet 5 mg PO BID 30 Days Qty: 60 RF: 2 (DME) diaper,brief,adult,disposable Misc See Rx Instructions .ROUTE .MEDSUPPLY Qty: 360 RF: 12 gabapentin 800 mg tablet 800 mg PO TID 30 Days Qty: 90 RF: 0 tizanidine 4 mg tablet 4 mg PO TID 30 Days Qty: 90 RF: 0 amitriptyline 10 mg tablet 10 mg PO BEDTIME Qty: 30 RF: 0 albuterol sulfate 90 mcg/actuation HFA aerosol inhaler 2 inh inhalation Q6H PRN (Reason: Shortness Of Breath) Qty: 8.5 RF: 0 atorvastatin [Lipitor] 20 mg Tablet 20 mg PO BEDTIME RF: 0 melatonin 3 mg Tablet 3 mg PO BEDTIME RF: 0 trazodone 100 mg Tablet 100 mg PO BEDTIME RF: 0 phenazopyridine 100 mg Tablet 100 mg PO TID PRN (Reason: unknown) RF: 0 albuterol sulfate 2.5 mg /3 mL (0.083 %) solution for nebulization 2.5 mg inhalation Q4H PRN (Reason: Shortness Of Breath) RF: 0 docusate sodium [Colace] 100 mg capsule 100 mg PO DAILY RF: 0 Combivent Respimat 20-100 mcg/actuation mist 1 puff inhalation QID RF: 0 Combivent Respimat 20-100 mcg/actuation mist 1 puff inhalation 6XD Qty: 4 RF: 1 ipratropium-albuterol 0.5 mg-3 mg(2.5 mg base)/3 mL solution for nebulization 3 ml inhalation Q4H PRN (Reason: Shortness Of Breath) 30 Days Qty: 0 RF: 0 azithromycin 250 mg Tablet 250 mg PO .MON,WED,FRI 30 Days Qty: 30 RF: 0 formoterol fumarate 20 mcg/2 mL solution for nebulization See Rx Instructions .ROUTE .COMPLEX 30 Days Qty: 120 RF: 2 budesonide 0.5 mg/2 mL suspension for nebulization 0.5 mg inhalation BID RF: 0 acetaminophen 500 mg tablet 1,000 mg PO Q6H RF: 0 fluticasone propionate 50 mcg/actuation spray,suspension 1 spray intranasal Q12H RF: 0 aspirin 81 mg Tablet,Delayed Release (Dr/Ec) 81 mg PO DAILY RF: 0 diflorasone 0.05 % ointment See Rx Instructions .ROUTE .COMPLEX RF: 0 Discontinued levofloxacin 750 mg tablet 750 mg PO DAILY 7 Days Qty: 7 RF: 0 Discharge Orders: Discharge Order (Routine); Ordered 11/27/20 Ordered By: Ricco Louis Referrals: Levon Chamberlain MD [Physician] - 12/09/20 8:45 am America Baez MD [Primary Care Provider] - 12/11/20 9:00 am [facility], [Staff Physician] - 12/02/20 10:00 am ([phone] [facility] transport will brick picker @ 0800 and take to 1000am appt @ wound care) Discharge Diet: Soft Mechanical Discharge Activity: Resume usual activity Patient Instructions: Sulfamethoxazole/Trimethoprim (By mouth), Benzonatate (By mouth), Midodrine (By mouth), Spontaneous Pneumothorax (DC), Pneumonia (GEN), Opioid Safety, Pneumonia Stoplight Activity Restrictions/Additional Instructions: Please continue take Bactrim which is the antibiotic for next 10 days twice daily. Midodrine is the blood pressure medicine which is supposed to take 3 times a day. Please make sure to follow-up with wound care, Dr. Buckner and Dr. Chamberlain on set appointments. Continue to do chest wound dressing as explained to in detail by Dr. Chamberlain and Dr. Buckner. If you have any increased difficulty breathing than baseline, chest pain please come back to the ER. Discharge Attestations Time Spent in Discharge Care*: greater than 30 min Specific Discharge Activities: educating patient, discussing with pcp/other providers, discussing with manager case/social workers/dc planners, documenting/other paperwork and evaluating patient/reviewing data Status at Discharge: Cognitive status at discharge: cognitively intact, Behavioral status at discharge: cooperative, Functional status at discharge: uses cane/walker Overall status at discharge: patient is progressing back to baseline Quality Metrics Clinical Quality Measures During this hospital stay, did patient experience: None Coding Level of Care Code Acute Chg FW DC note Diagnoses Complication of chest tube T85.9XXA Encounter type: initial encounter
--- NOTE | 2020-11-27 13:59 | PC.NURSE ---
INFECTION PREVENTION PER DR MCKEON - NOTIFJustin TREJO, RN INFECTION PREVENTION OF DISCHARGE - COMPLETED PER THIS NURSE
--- NOTE | 2020-11-27 15:16 | PC.NURSE ---
DISCHARGE INSTRUCTIONS DISCHARGE INSTRUCTIONS GIVEN PER THIS NURSE - PT VERBALIZES UNDERSTANDING - AWAITING MEDS TO BEDS
[2020-11-30 17:23] LABS: MTB Complex Respiratory PCR NOT DETECTED; MTB Source SPUTUM
--- NOTE | 2020-12-13 05:44 | PC.SOCIAL ---
Addendum entered by Cassandra Sanchez, RN 12/13/20 05:49: Please note notified provider Dr Louis also who was the discharging physician here. Original Note: Notified by lab on 12/11/2020 of positive sputum smear results and called patient on 12/12/2020 and updated patient of results and he is currently hospitalized at [facility]. Called on 12/12/2020 multiple times but phones were busy. Called this am and was able to talk to Katharina Charge Nurse for the floor Mr. Brooks is on and discussed results and that patient there would like provider there to review with him and provider at facility should also be aware of results. Fax given was [phone] sent to attnavin Posadas and she will hand to provider for review and update patient. Confirmation received that fax was sent successfully.
== END 2020-11-27 20:05 | disposition home or self-care (01) | DRG 199 ==
LOC: ER 19:47 → MEDSURG 21:59 → ICU 11-21 05:17 → MEDSURG 11-26 23:37
PROVIDERS: Internal Medicine; Student in an Organized Health Care Education/Training Program; Admitting Provider Hospitalist; Emergency Provider Emergency Medicine; PCP Family Medicine; Visit Provider Student in an Organized Health Care Education/Training Program
DX: J93.0 Spontaneous tension pneumothorax (principal); J96.22 Acute and chronic respiratory failure with hypercapnia; J96.21 Acute and chronic respiratory failure with hypoxia; E43 Unspecified severe protein-calorie malnutrition; Z68.1 Body mass index [BMI] 19.9 or less, adult; J95.71 Accidental puncture and laceration of a respiratory system organ or structure during a respiratory system procedure; Z99.81 Dependence on supplemental oxygen; I15.9 Secondary hypertension, unspecified; E78.5 Hyperlipidemia, unspecified; I25.10 Atherosclerotic heart disease of native coronary artery without angina pectoris; I48.91 Unspecified atrial fibrillation; G89.29 Other chronic pain; Z87.01 Personal history of pneumonia (recurrent); G47.00 Insomnia, unspecified; F17.210 Nicotine dependence, cigarettes, uncomplicated; F41.8 Other specified anxiety disorders; I95.9 Hypotension, unspecified; Z79.82 Long term (current) use of aspirin; Z79.51 Long term (current) use of inhaled steroids; B95.8 Unspecified staphylococcus as the cause of diseases classified elsewhere; B96.89 Other specified bacterial agents as the cause of diseases classified elsewhere; R76.12 Nonspecific reaction to cell mediated immunity measurement of gamma interferon antigen response without active tuberculosis; Y83.8 Other surgical procedures as the cause of abnormal reaction of the patient, or of later complication, without mention of misadventure at the time of the procedure; T81.82XA Emphysema (subcutaneous) resulting from a procedure, initial encounter
CPT/HCPCS: 32551; 36415; 36600; 70490; 71045; 71250; 71275; 80048; 80053; 82805; 83735; 83880; 84100; 84145; 84484; 85007; 85025; 85730; 87015; 87040; 87070; 87077; 87116; 87186; 87205; 87206; 87556; 87801; 90471; 90732; 93005; 94640; 94664; 96361; 96374; 96375; 99291; C1713; J2250; J2270; J2405; J2543; J2930; J3010; J7030; J7040; J7512; J7626; Q9967